=== PATIENT | male | born 1945 | race Caucasian/White ===

== ENCOUNTER 2019-10-25 18:18 | Inpatient (IN) | payer MEDICARE, OTHER, SELFPAY ==
[2019-10-25] VITALS (7 sets, daily range): BP systolic 90–123; BP diastolic 50–57; PULSE 74–87; RESP 16–21; TEMP 36.1–36.3; O2SAT 89–100; BMI 25.2
--- NOTE | ~2019-10-25 | XR_ITS ---
EXAMINATION: XR chest 1V portable DATE: 10/25/2019 19:02 INDICATION: Cough and shortness of breath. TECHNIQUE: frontal view of the chest was obtained. COMPARISON: None FINDINGS: Opacities at the bilateral lung bases with blunting at the costophrenic and cardiophrenic angles cons istent with small bilateral pleural effusions and associated basilar atelectasis versus less likely p neumonia. No pulmonary edema or pneumothorax. The cardiomediastinal silhouette is within normal limit s for AP technique. There are bridging osteophytes at multiple levels in the spine, consistent with d iffuse idiopathic skeletal hyperostosis (DISH). IMPRESSION: 1. Small bilateral pleural effusions with bibasilar atelectasis and/or pneumonia. Reviewed, dictated and finalized at location A. DER MACHINE SETTER IMPRESSION: 1. Small bilateral pleural effusions with bibasilar atelectasis and/or pneumoni a.
--- NOTE | ~2019-10-25 | NM_ITS ---
EXAMINATION: NM renal flow and function DATE: 10/28/2019 09:53 INDICATION: Acute kidney injury. TECHNIQUE: 7.6 mCi Tc-99m MAG3 was administered IV. The patient was scanned in the supine position. A posterior abdominal radionuclide angiogram was obtained. A subsequent time course of static images of the kidneys, ureters, and bladder was obtained. COMPARISON: CT abdomen and pelvis 10/25/2019 FINDINGS: The posterior abdominal radionuclide angiogram and sequential static images show mild atrop hy of the left kidney. Peak renal parenchymal uptake was 29 min in right kidney and 28 min in left ki dney (normal peak 3-5 minutes). The relative early renal uptake was 70% on the right and 30% on the left (<40% is abnormal). No abnormalities of the ureters or bladder are seen. T1/2 for clearance of activity from the kidneys and proximal collecting systems could not be measured . IMPRESSION: 1. Mild atrophy of left kidney with 30% of total renal function. 2. Delayed bilateral renal uptake and clearance of activity, consistent with nonspecific nephropathy . Reviewed, dictated and finalized at location A. RAM CLERK IMPRESSION: 1. Mild atrophy of left kidney with 30% of total renal function. 2. Delayed bilateral renal uptake and clearance of activity, consistent with n onspecific nephropathy.
--- NOTE | ~2019-10-25 | CT_ITS ---
EXAMINATION: CT abdomen pelvis wo con DATE: 10/25/2019 20:57 INDICATION: Shortness of breath and generalized abdominal pain. TECHNIQUE: Computed tomography (CT) of the abdomen and pelvis was performed without intravenous contr ast. Automated exposure control and iterative reconstruction technique were employed. The dose-length product was 416.32 mGy-cm. COMPARISON: Lumbar spine CT dated 09/18/2017 FINDINGS: Small to moderate sized bilateral posteriorly layering pleural effusions with compressive atelectasis in the bilateral lower lobes, right middle lobe and lingula. Heart size is normal. Atherosclerotic c oronary artery calcification. Mitral annulus calcification. Small pericardial effusion. Fine liver surface nodularity suggested consistent with cirrhosis. Cholecystectomy clips the gallblad daja fossa. Calcified periportal lymph nodes consistent with old granulomatous disease. Pancreas, smal l spleen, bilateral adrenal glands are normal. Ro catheter in the bladder which demonstrates prominent diffuse smooth wall thickening. There is m ild trabeculation of the bladder wall with suggestion of developing bladder wall diverticula which ca n be seen in the setting of chronic outlet obstruction. There is however urothelial thickening along the bilateral ureters extending to the renal pelvises sees which also suggests the possibility of cys titis with ascending urinary tract infections. Mild hydronephrosis at the right kidney. Mild left cameron al atrophy. No bowel obstruction. Normal appendix. No free intraperitoneal gas or fluid. No pathologically enlarg ed abdominal or pelvic lymphadenopathy. There is fusion across the L4-L5 disc space and narrowing of the L3-L4 disc space with irregular endplate erosions consistent with sequela of prior discitis and o steomyelitis which was noted on the prior lumbar spine CT. 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 Otherwise mild scattered degenerative skeletal changes IMPRESSION: 1. Diffuse wall thickening in the bladder with trabeculation suggesting this is due at least in part to chronic outlet obstruction however there is also urothelial thickening along the bilateral ureters and could not exclude cystitis with associated ascending urinary tract infection. Correlate with uri nalysis. 2. Mild right right hydroureteronephrosis without evident obstructing urolithiasis which could be rel ated to either reflux, obstruction at the level of the ureterovesicular junction or patulous collecti ng system related to chronic obstruction. 3. Small to moderate-sized bilateral pleural effusions. 4. Small pericardial effusion. 5. Suggestion of cirrhosis with subtle liver surface nodularity. Reviewed, dictated and finalized at location A. FABRICATING MACHINE TENDER IMPRESSION: 1. Diffuse wall thickening in the bladder with trabeculation suggesting this is due at least in part to chronic outlet obstruction however there is also uroth elial thickening along the bilateral ureters and could not exclude cystitis wit h associated ascending urinary tract infection. Correlate with urinalysis. 2. Mild right right hydroureteronephrosis without evident obstructing urolithia sis which could be related to either reflux, obstruction at the level of the ur eterovesicular junction or patulous collecting system related to chronic obstru ction. 3. Small to moderate-sized bilateral pleural effusions. 4. Small pericardial effusion. 5. Suggestion of cirrhosis with subtle liver surface nodularity.
--- NOTE | ~2019-10-25 | US_ITS ---
EXAMINATION: US renal BI EXAM DATE: 10/26/2019 16:40 INDICATION: Thickened bladder wall, trabeculation, mild right hydroureteronephrosis on CT. TECHNIQUE: Multiple grayscale and Doppler images of the kidneys were obtained (by a technologist who performed the scan) and subsequently reviewed. Correlation is made to CT abdomen and pelvis from 2019. FINDINGS: Right kidney: There is normal contour and echogenicity. It measures 10.3 x 5.2 x 6.2 centimeters. T here are no focal renal lesions identified. There is mild right-sided hydronephrosis. No obstructing stone was present on yesterday's CT. Left kidney: There is normal contour and echogenicity. It measures 9.0 x 5.2 x 5.0 centimeters. The re are no focal renal lesions identified. There is no hydronephrosis. Ro catheter within collapsed bladder. There is evidence of significant diffuse bladder wall thicke alejandro. IMPRESSION: 1. Severe diffuse bladder wall thickening consistent with cystitis. 2. Mild right hydronephrosis. Reviewed, dictated and finalized at location A. H SHRINKING SUPERVISOR
--- NOTE | 2019-10-25 18:20 | ECG_ITS ---
Measurements Intervals [place] Rate: 78 P: 28 TX: 173 QRS: 10 QRSD: 101 T: 29 QT: 348 QTc: 397 Interpretive Statements SINUS RHYTHM NORMAL ECG Electronically Signed On 10-26-2019 10:01:41 PATIENT REGISTRATION REPRESENTATIVE by Julian Olsen D.O.
--- NOTE | 2019-10-25 18:20 | ED.SOB ---
HPI - SOB/Dyspnea General Chief Complaint: Shortness of Breath/Dyspnea Stated Complaint: SOB Time Seen by Provider: 10/25/19 18:21 Source: patient Mode of arrival: ambulatory Limitations: other (poor historian) History of Present Illness HPI Narrative: A 74 y/o male pt presents to the ED, with c/o chronic SOB that is worse today. Pt denies cough, fever, or CP. Pt states he has a Hx of smoking but quit 16 years ago. A complete HPI is limited d/t pt being a poor historian. MD elicited complaint: shortness of breath Onset (ago): day(s) (1) Related Data Home Medications Medication Instructions Recorded Confirmed amlodipine 5 mg PO DAILY 10/25/19 furosemide 40 mg PO DAILY 10/25/19 indomethacin 50 mg PO BID PRN 10/25/19 meloxicam 15 mg PO DAILY 10/25/19 methocarbamol 500 mg PO QID PRN 10/25/19 prednisone 10 mg PO BID 10/25/19 Allergies Allergy/AdvReac Type Severity Reaction Status Date / Time Penicillins Allergy Unknown Nervousness Verified 10/25/19 19:15 pcn Allergy Mild Nervousness Uncoded 10/25/19 18:44 Review of Systems Review of Systems: Narrative: A complete ROS is limited d/t pt being a poor historian Constitutional: Constitutional: Denies fever(s) Cardiovascular: Cardiovascular: Denies chest pain Respiratory: Respiratory: Denies cough and Reports dyspnea PMFSH Past Medical History Medical History (Updated 10/25/19 @ 21:38 by Diego Garcia DO) Back pain Medical history unknown Surgical History Surgical History (Updated 10/25/19 @ 19:15 by [employer]) Surgical history unknown Social History Social History (Updated 10/25/19 @ 19:16 by [employer]) Smoking status: Former smoker Additional smoking assessment comments: quit about 16 years ago. Exam Narrative: Exam Narrative: APPEARANCE: Pale in appearance, no acute distress, nontoxic no acute distress, nontoxic, resting in bed EYES: PERRL HEENT: Normocephalic, atraumatic, OMM RESPIRATORY: No respiratory distress Clear to auscultation bilaterally with no rhonchi wheezing or rales. CARDIOVASCULAR: Regular rate and rhythm without murmurs rubs or gallops. ABDOMINAL: Soft, nontender, nondistended, no rebound or guarding MUSCULOSKELETAl: Moves all extremities. No clubbing, cyanosis or edema. NEURO: Awake and alert. Following commands, speech normal, no focal deficits SKIN:: Warm, dry. No rashes lesions or abrasions PSYCHIATRIC: Normal affect/mood, Course Consultations Consultation #1: Discussed case with Dr. Arroyo, the pesticide applicator. Recommends administering D5W with 150 mEq sodium bicarbonate at 50 mL an hour. Recommends treatment for hyperkalemia with insulin and dextrose, calcium, push sodium bicarb and Kayexalate.. Request the patient received Lasix 20 mg IV push after first unit of blood transfused and then additional 20 mg IV push after the second unit infused Date: 10/25/19 Time: 20:44 Consultation #2: Discussed case with Dr. Lorenz, the Hospitalist. Accepts admission. Date: 10/25/19 Time: 20:52 Consultation #3: Discussed case with Dr. Kim, the bad work gatherer. Agrees to consult. Date: 10/25/19 Time: 21:30 Vital Signs Vital signs: Vital Signs Pulse Rate 83 10/25/19 18:39 Respiratory Rate 20 10/25/19 18:39 Temperature 97.0 F L 10/25/19 18:42 Pulse Rate 87 10/25/19 18:47 Respiratory Rate 20 10/25/19 18:47 Blood Pressure 121/57 L 10/25/19 18:42 Pulse Oximetry 89 L 10/25/19 18:42 Procedures Catheter Insertion (Urinary) Urinary Catheter 1: Reason for placing: Yes Reason for placing indwelling catheter: Acute urinary retention Bladder scan/ultrasound used before catheterization: Yes Estimated amount of urine (mLs): 900 Catheter type/location: Coude Size (Italian): 16 Results: successfully catheterized-immediate flow Procedure performed: without complications MDM - SOB/Dyspnea Lab Data Result diagrams
[2019-10-25] MEDS: ALBUTEROL SULFATE NEB 2.5 MG/0.5 ML INH 5 MG INHALATION (18:36)
[2019-10-25] MEDS: IPRATROPIUM BR 0.02% INH SOLN 0.5 MG/2.5 ML VIAL INHALATION (18:36)
[2019-10-25 18:45] LABS: Alveolar/Arterial O2 Gradient 48.7 mmHg; Base Excess ABG -10.2 mEq/l (+/-2.0); Fractional Inspired Oxygen 28 %; Oxygen Content ABG 7.5 %vol (16.0-22.0); Oxyhemoglobin 95.3 % THb (90.0-100.0); PO2 ABG 115.5 mmHg (80.0-100.0); PO2 FiO2 Ratio Arterial Blood 4.13 %; pH ABG 7.317 (7.350-7.450)
[2019-10-25 18:53] LABS: Basophils Percent Auto 0.1 % (0.2-1.2); Eosinophils Percent Auto 0.1 % (0-4.4); Immature Granulocyte Absolute 0.11 K/mm3 (0.00-0.031); Immature Granulocyte Percent A 1.2 % (0-0.5); Lymphocytes Absolute Auto 0.42 K/mm3 (0.9-3.2); Lymphocytes Percent Auto 4.5 % (18.3-44.2); Mean Corpuscular HGB Conc 33.3 g/dl (32-36); Mean Corpuscular Hemoglobin 31.8 pg (26-34); Mean Corpuscular Volume 95.3 fl (80-100); Mean Platelet Volume 9.8 fl (7.4-10.4); Monocytes Absolute Auto 0.8 K/mm3 (0.1-0.6); Monocytes Percent Auto 8.6 % (2.6-8.5); Neutrophils Percent Auto 85.5 % (45.5-73.1); Platelet Count Result 313 k/mm3 (150-375); Red Blood Count 1.48 M/mm3 (4.6-6.20); Red Cell Distribution Width 13.6 % (11.5-14.5); White Blood Count 9.3 K/mm3 (4.5-10.0)
[2019-10-25 18:55] LABS: Device NASAL CANNULA; Modified Allen's Test Pass; Site Drawn RIGHT RADIAL; Total Hemoglobin 5.4 g/dL (12.0-18.0)
[2019-10-25 19:02] LABS: Hemoglobin 4.7 g/dL (14.0-18.0)
[2019-10-25 19:03] LABS: Hematocrit 14.1 % (42.0-52.0)
[2019-10-25 19:05] LABS: Platelet Estimate Adequate (Adequate)
[2019-10-25 19:06] LABS: INR 1.3; Prothrombin Time 15.4 Seconds (11.1-14.7)
[2019-10-25 19:07] LABS: Partial Thromboplastin Time 27.3 SECONDS (22.3-36.8)
[2019-10-25 19:10] LABS: Alanine Aminotransferase 30 U/L (4-50); Albumin Level 2.9 g/dL (3.5-5.1); Alkaline Phosphatase 56 U/L (38-126); Aspartate Amino Transferase 56 U/L (17-59); Bilirubin,Total 0.4 mg/dL (0.2-1.3); Blood Urea Nitrogen 90 mg/dL (9-20); Calcium 7.8 mg/dL (8.4-10.2); Carbon Dioxide 14 mmol/L (22-30); Chloride 97 mmol/L (98-107); Estimated CRCL calculation 10 ml/min; Estimated Glomerular Filt Rate 10; Glucose 107 mg/dL (75-110); Potassium 6.4 mmol/L (3.4-5.0); Sodium 125 mmol/L (137-145)
[2019-10-25 19:17] LABS: NT Pro B Type Natriuretic Pept 20200 PG/ML (5-100); Troponin I 0.024 ng/mL (0.000-0.034)
[2019-10-25 20:20] LABS: Blood Urea Nitrogen 87 mg/dL (9-20); Calcium 7.7 mg/dL (8.4-10.2); Carbon Dioxide 13 mmol/L (22-30); Chloride 97 mmol/L (98-107); Estimated CRCL calculation 10 ml/min; Estimated Glomerular Filt Rate 10; Glucose 103 mg/dL (75-110); Potassium 6.4 mmol/L (3.4-5.0); Sodium 124 mmol/L (137-145)
--- NOTE | 2019-10-25 20:27 | PC.NURSE ---
Attempted to straight cath x2 unsuccessfully
[2019-10-25] MEDS: SODIUM POLYSTYRENE SULFONONATE 15 GM/60 ML BTL 30 GM PO (21:22)
[2019-10-25 21:23] LABS: Add Urine Microscopic? YES; Appearance Urine Cloudy (Clear); Bacteria Urine 3+ /hpf; Bilirubin Urine Negative (Negative); Blood Urine 2+ (Negative); Color Urine Yellow (Yellow); Glucose Urine UA Negative (Negative); Ketones Urine Negative (Negative); Leukocyte Esterase Ur 3+ LEU/UL (Negative); Nitrate Urine Negative (Negative); Protein Urine 1+ mg/dL (Negative); Specific Grav Ur 1.011 (1.001-1.035); Urobilinogen Urine Negative mg/dL (<2.0); WBC Urine >75 /hpf
[2019-10-25] MEDS: SODIUM BICARBONATE 8.4% 50 MEQ/50 ML VIAL IV PUSH (21:23)
[2019-10-25] MEDS: DEXTROSE 50% 25 GM/50 ML SYRINGE IV PUSH (21:23)
[2019-10-25] MEDS: CALCIUM GLUCONATE 1,000 MG/10 ML VIAL 1000 MG IV PUSH (21:23)
[2019-10-25] MEDS: INSULIN HUMAN REGULAR (*BKC) 100 UNITS/ML 10 UNITS IV PUSH (21:23)
[2019-10-25 21:25] LABS: Lactic Acid Reflex 3.7 mmol/L (0.7-2.1)
[2019-10-25] MEDS: SODIUM BICARBONATE 8.4% 150 MEQ in DEXTROSE 5% 1,000 ML 950 ML 50 ML IV CONT (22:28)
[2019-10-25] MEDS: SODIUM CHLORIDE 0.9% IV 250 ML 25 ML (22:41)
--- NOTE | 2019-10-25 22:54 | PM.IMHP ---
H&P: HPI History of Present Illness Chief complaint: SYMPTMATIC ANEMUA,ACUTE RENAL FAILURE,HYPERKALEMIA Narrative: This is an unfortunate 74-year-old male with known history of chronic hypertension who presented to the hospital with worsening shortness of breath over the past 4 days. The patient does report having dark stools and has been lightheaded. He also tells me that he has had increased generalized weakness and been feeling very tired. Patient is known to live with his and he does admit to chronic alcoholism. When I asked him how much alcohol he drinks every day he tells me he drinks as much as he can. The patient is a former smoker although he has not smoked for the past 15 years. He denies any anticoagulant use and also denies any aspirin use. He tells me that he has had a previous GI bleed in the past but he does not know the reason why. Overall the patient is a very poor historian and on many of my questions his answer is simply, I do not know. The patient tonight denies any fever or chills, chest pain, nausea, vomiting, abdominal pain, diarrhea, dysuria, hematuria, or dark emesis. The patient was evaluated emergency room and found to have a severe anemia with a hemoglobin of 4.7 and hematocrit of 14.1. To have complicated UTI with acute renal failure and hyperkalemia with a potassium of 6.4. CT abdomen pelvis demonstrated diffuse wall thickening in the bladder with trabeculation suggesting this is due at least in part to chronic outlet obstruction however there is also urothelial thickening along the bilateral ureters and could not exclude cystitis with associated ascending urinary tract infection. Nephrology has been consulted and the patient has been started on a sodium bicarbonate IV drip. Blood transfusions have been ordered as well. Beading Sawyer, Dr. Parks has been consulted. He has no other significant complaints at this time. Review of Systems Review of Systems: All systems reviewed & are unremarkable except as noted in HPI and below PMFSH Past Medical History Medical History Back pain Chronic hypertension Medical history unknown Surgical History Surgical History Surgical history unknown Social History Social History Smoking status: Former smoker Tobacco type: cigarettes Second hand tobacco smoke exposure: No Additional smoking assessment comments: quit about 16 years ago. Alcohol intake: current Drinks per week: 24 Substance use: never Substance use type: does not use Gender identity (if verbalized by the patient): Male Spiritual care concerns: No Agree to blood products: Yes Comments Patient does not know his family history. Meds Home Medications and Allergies Home Medications Medication Instructions Recorded Confirmed Type amlodipine 5 mg PO DAILY 10/25/19 10/26/19 History furosemide 40 mg PO DAILY 10/25/19 10/26/19 History indomethacin 50 mg PO BID PRN 10/25/19 10/26/19 History meloxicam 15 mg PO DAILY 10/25/19 10/26/19 History methocarbamol 500 mg PO QID PRN 10/25/19 10/26/19 History prednisone 10 mg PO BID 10/25/19 10/26/19 History Allergies Allergy/AdvReac Type Severity Reaction Status Date / Time Penicillins Allergy Unknown Nervousness Verified 10/25/19 19:15 pcn Allergy Mild Nervousness Uncoded 10/25/19 18:44 Vital Signs Vital Signs - 24 hr 10/25/19 18:39 10/25/19 18:42 10/25/19 18:47 Temperature 36.1 C L Pulse Rate 83 81 87 Respiratory Rate 20 16 20 Blood Pressure 121/57 L Pulse Oximetry 89 L 10/25/19 20:01 10/25/19 20:46 10/25/19 21:31 Temperature Pulse Rate 74 81 Respiratory Rate 17 21 H Blood Pressure 90/53 L 105/50 L 123/51 L Pulse Oximetry 100 98 Exam Const: General: alert, awake, anxious, ill appearing and other (Pale appearing) Nutrit
[2019-10-26] VITALS (32 sets, daily range): BP systolic 102–149; BP diastolic 50–70; PULSE 80–99; RESP 14–26; TEMP 36–37; O2SAT 92–100
[2019-10-26 00:09] LABS: Reflex Lactic Acid Yes or No Add Lactic
[2019-10-26] MEDS: SODIUM CHLORIDE 0.9% IV 250 ML 30 ML IV CONT ×2 (00:10→14:45)
[2019-10-26] MEDS: TUBING, BLOOD PLUM PUMP TUBING 1 EACH XX (00:10)
[2019-10-26 01:14] LABS: Troponin I 0.025 ng/mL (0.000-0.034)
--- NOTE | 2019-10-26 01:27 | ADMGEN ---
This patient, Diego Guzman, was admitted to IMU Room 213-01. Patient/family oriented to hospital policies and general routines including ID bracelet, bed and alarms, visiting hours, pain management, procedures, bathroom and other care routines, personal items, smoking policy, room service/diet, and visiting hours. Valuables list has been completed. Information on how to activate the Rapid Response Team has been discussed. Patient/Family are encouraged to report perceived risks to care and to ask questions if they do not understand what they are told or what they should do.
[2019-10-26] MEDS: FUROSEMIDE INJ 40 MG/4 ML VIAL 20 MG IV PUSH ×2 (02:30→04:37)
[2019-10-26 02:33] LABS: Blood Urea Nitrogen 94 mg/dL (9-20); Calcium 7.9 mg/dL (8.4-10.2); Carbon Dioxide 14 mmol/L (22-30); Chloride 99 mmol/L (98-107); Estimated CRCL calculation 10 ml/min; Estimated Glomerular Filt Rate 10; Glucose 53 mg/dL (75-110); Potassium 5.7 mmol/L (3.4-5.0); Sodium 127 mmol/L (137-145)
[2019-10-26 03:22] LABS: Glucose Point of Care 118 (65-105)
[2019-10-26 06:48] LABS: Basophils Percent Auto 0.1 % (0.2-1.2); Eosinophils Percent Auto 0.1 % (0-4.4); Hematocrit 22.5 % (42.0-52.0); Hemoglobin 7.1 g/dL (14.0-18.0); Immature Granulocyte Absolute 0.12 K/mm3 (0.00-0.031); Immature Granulocyte Percent A 0.7 % (0-0.5); Lymphocytes Absolute Auto 0.71 K/mm3 (0.9-3.2); Lymphocytes Percent Auto 4.3 % (18.3-44.2); Mean Corpuscular HGB Conc 31.6 g/dl (32-36); Mean Corpuscular Hemoglobin 30.6 pg (26-34); Mean Platelet Volume 9.9 fl (7.4-10.4); Monocytes Absolute Auto 1.4 K/mm3 (0.1-0.6); Monocytes Percent Auto 8.3 % (2.6-8.5); Neutrophils Absolute Auto 14.3 K/mm3 (1.3-6.7); Neutrophils Percent Auto 86.5 % (45.5-73.1); Platelet Count Result 186 k/mm3 (150-375); Red Blood Count 2.32 M/mm3 (4.6-6.20); Red Cell Distribution Width 14.1 % (11.5-14.5); White Blood Count 16.5 K/mm3 (4.5-10.0)
[2019-10-26 06:56] LABS: Lactic Acid 1.5 mmol/L (0.7-2.1)
[2019-10-26 07:02] LABS: Blood Urea Nitrogen 96 mg/dL (9-20); Calcium 7.9 mg/dL (8.4-10.2); Carbon Dioxide 14 mmol/L (22-30); Chloride 95 mmol/L (98-107); Estimated CRCL calculation 11 ml/min; Estimated Glomerular Filt Rate 10; Glucose 99 mg/dL (75-110); Potassium 4.9 mmol/L (3.4-5.0); Sodium 125 mmol/L (137-145)
[2019-10-26] MEDS: THIAMINE HCL 200 MG/2 ML VIAL 100 MG IV PUSH (09:49)
--- NOTE | 2019-10-26 10:54 | WPDANESEPPF ---
Anes - Initial Pre Proc Eval Procedure: Operation Date: 10/26/19 12:30 Proposed Procedures p Esophagogastroduodenoscopy - Laith Kim MD Date/Time: 10/26/19 10:54 Pre Op Diagnosis: SYMPTMATIC ANEMUA,ACUTE RENAL FAILURE,HYPERKALEMIA Patient Data Age: 74 Gender: M Height: 1.7 m Weight: 74 kg Last Vital Signs Temp 36.7 C 10/26/19 07:12 Pulse 97 10/26/19 07:12 Resp 18 10/26/19 07:12 BP 145/65 H 10/26/19 07:12 Pulse Ox 97 10/26/19 07:12 Allergies Allergy/AdvReac Type Severity Reaction Status Date / Time Penicillins Allergy Unknown Nervousness Verified 10/25/19 19:15 pcn Allergy Mild Nervousness Uncoded 10/25/19 18:44 Home Medications Medication Instructions Recorded Confirmed Type amlodipine 5 mg PO DAILY 10/25/19 10/26/19 History furosemide 40 mg PO DAILY 10/25/19 10/26/19 History indomethacin 50 mg PO BID PRN 10/25/19 10/26/19 History meloxicam 15 mg PO DAILY 10/25/19 10/26/19 History methocarbamol 500 mg PO QID PRN 10/25/19 10/26/19 History prednisone 10 mg PO BID 10/25/19 10/26/19 History Laboratory Tests 10/25/19 10/25/19 10/25/19 18:34 18:45 18:45 WBC 9.3 K/mm3 K/mm3 (4.5-10.0) RBC 1.48 M/mm3 L M/mm3 (4.6-6.20) Hgb 4.7 g/dL L* g/dL (14.0-18.0) Hct 14.1 % L* % (42.0-52.0) MCV 95.3 fl fl (80-100) MCH 31.8 pg pg (26-34) MCHC 33.3 g/dl g/dl (32-36) RDW 13.6 % % (11.5-14.5) Plt Count 313 k/mm3 k/mm3 (150-375) MPV 9.8 fl fl (7.4-10.4) Immature Gran % (Auto) 1.2 % H % (0-0.5) Neut % (Auto) 85.5 % H % (45.5-73.1) Lymph % (Auto) 4.5 % L % (18.3-44.2) Foard % (Auto) 8.6 % H % (2.6-8.5) Eos % (Auto) 0.1 % % (0-4.4) Baso % (Auto) 0.1 % L % (0.2-1.2) Lymph # (Auto) 0.42 K/mm3 L K/mm3 (0.9-3.2) Foard # (Auto) 0.8 K/mm3 H K/mm3 (0.1-0.6) Eos # (Auto) 0.0 K/mm3 K/mm3 (0-0.3) Baso # (Auto) 0.0 K/mm3 K/mm3 (0.0-0.1) Abs Immat Gran (auto) 0.11 K/mm3 H K/mm3 (0.00-0.031) Absolute Neuts (auto) 8.0 K/mm3 H K/mm3 (1.3-6.7) Absolute Nucleated RBC 0.0 K/mm3 K/mm3 (0.0-0.012) Nucleated RBC % 0.0 % % (0.0-0.2) Platelet Estimate Adequate (Adequate) PT 15.4 Seconds H Seconds (11.1-14.7) INR 1.3 APTT 27.3 SECONDS SECONDS (22.3-36.8) Puncture Site Right radial ABG pH 7.317 L (7.350-7.450) ABG pCO2 30.0 mmHg L mmHg (35.0-45.0) ABG pO2 115.5 mmHg H mmHg (80.0-100.0) ABG PO2/FiO2 Ratio 4.13 % % ABG HCO3 15.0 mEq/l L mEq/l (22.0-26.0) ABG O2 Saturation 98.0 % % (95.0-100.0) ABG O2 Content 7.5 %vol L %vol (16.0-22.0) ABG Base Excess -10.2 mEq/l mEq/l (+/-2.0) A-a Gradient 48.7 mmHg mmHg Oxyhemoglobin 95.3 % THb % THb (90.0-100.0) Total Hemoglobin 5.4 g/dL L* g/dL (12.0-18.0) O2 Delivery Device Nasal cannula O2 Liters/Min 2.0 LPM LPM FiO2 28 % % Sodium Potassium Chloride Carbon Dioxide BUN Creatinine Estim Creat Clear Calc Estimated GFR Glucose POC Capillary Glucose Lactic Acid Calcium Total Bilirubin AST ALT Alkaline Phosphatase Troponin I NT-Pro-B Natriuret Pep Total Protein Albumin Urine Color Urine Appearance Urine pH Ur Specific [place] Urine Protein Urine Glucose (UA) Urine Ketones Ur Blood (Man) Urine Nitrate Urine Bilirubin
[2019-10-26 11:46] LABS: Hematocrit 18.8 % (42.0-52.0); Hemoglobin 6.5 g/dL (14.0-18.0)
[2019-10-26 11:52] LABS: Glucose Point of Care 99 (65-105)
[2019-10-26] MEDS: LACTATED RINGERS 1,000 ML 150 ML IV CONT (12:02)
[2019-10-26] MEDS: EPINEPHrine INJ 1 MG/10 ML SYRINGE XX (12:56)
--- NOTE | 2019-10-26 13:23 | WPDGICN ---
Assessment and Plan Assessment and plan (1) Melena: Code(s): K92.1 - Melena Status: Acute Assessment and Plan: he is npo, started on iv protonix drip. Will proceed with urgent EGD, differential include variceal bleeding, ulcers, esophagitis, etc. (2) Alcoholic liver disease: Code(s): K70.9 - Alcoholic liver disease, unspecified Status: Acute Assessment and Plan: supportive care, no ascites. On CIWA protocol, thiamine and mvi. (3) Lactic acidosis: Code(s): E87.2 - Acidosis Status: Acute Assessment and Plan: dehydration, bleeding, renal failure. Supportive care (4) Acute urinary retention: Code(s): R33.8 - Other retention of urine Status: Acute (5) Acute hyponatremia: Code(s): E87.1 - Hypo-osmolality and hyponatremia Status: Acute (6) Acute renal failure: Qualifiers: Acute renal failure type: unspecified Qualified Code(s): N17.9 - Acute kidney failure, unspecified Code(s): N17.9 - Acute kidney failure, unspecified Status: Acute Assessment and Plan: multifactorial, nephrology on board (7) Symptomatic anemia: Code(s): D64.9 - Anemia, unspecified Status: Acute Assessment and Plan: he already received blood transfusion, monitor with serial h/h (8) Acute hyperkalemia: Code(s): E87.5 - Hyperkalemia Status: Acute (9) UTI (urinary tract infection): Qualifiers: Urinary tract infection type: site unspecified Hematuria presence: without hematuria Qualified Code(s): N39.0 - Urinary tract infection, site not specified Code(s): N39.0 - Urinary tract infection, site not specified Status: Acute Assessment and Plan: on iv antibiotic GI Consult Note Consult date/time: 10/26/19 13:23 reason for consult: GIB HPI: Diego Guzman is a 74 year old male here with symptomatic anemia, he is a poor historian and is confused. History is obtained from records and also from that is at bedside. She says that he is an alcoholic, he will drink up to 20 beers daily for years. Here with progressive shortness of breath, fatigue and also dark tarry stools with blood. No report of recent endoscopic evaluation, also use of nsaid's. ER work up showed hb 4.7 (received 2 units of prbc), also LITZY with creatinine 5.7, inr 1.3, elevated lactic acid and hyperkalemia, had CT abdomen pelvis demonstrated diffuse wall thickening in the bladder with trabeculation suggesting this is due at least in part to chronic outlet obstruction, possible liver cirrhosis. Normal liver enzymes and platelets, albumin 2.9. He is NPO, started on iv abx, also iv protonix drip. Review of Systems Constitutional: Constitutional: Reports fatigue, Reports lethargy and Reports poor appetite Eyes: Eyes: Denies blurry vision ENT: Reports Normal hearing present, Denies headache(s) and Denies neck pain Cardiovascular: Cardiovascular: Denies chest pain and Denies dyspnea Respiratory: Respiratory: Reports dyspnea on exertion Gastrointestinal: Gastrointestinal: Reports melena and Reports nausea Genitourinary: Genitourinary: Reports oliguria Musculoskeletal: Musculoskeletal: Denies neck pain Integumentary/Breasts: Skin/Breast: Denies dry skin Neurologic: Reports confusion Psychiatric: Psychiatric: Reports confusion Endocrine: Endocrine: Denies change in body appearance Hematologic/Lymphatic: Hematologic/Lymphatic: Denies lymphadenopathy Allergic/Immunologic: Allergic/Immunologic: Denies urticaria PMFSH Social History Social History Smoking status: Former smoker Tobacco type: cigarettes Second hand tobacco smoke exposure: No Additional smoking assessment comments: quit about 16 years ago. Alcohol intake: current Drinks per week: 24 Substance use: never Substance use type: does not use Gender identity (if verbalized by the hrial
[2019-10-26 13:49] LABS: Glucose Point of Care 114 (65-105)
--- NOTE | 2019-10-26 14:02 | P.PNIM_ITS ---
Progress Note: A&P Assessment and Plan (1) Duodenal ulcer: Code(s): K26.9 - Duodenal ulcer, unspecified as acute or chronic, without hemorrhage or perforation Status: Acute Assessment and Plan: * EGD 10/26 with DU that was cauterized, gastritis, duodenitis * continue ppi * advance diet * f/u h/h (2) Anemia due to acute blood loss: Code(s): D62 - Acute posthemorrhagic anemia Status: Acute Assessment and Plan: * 10/26 hgb 6.5, 1 U PRBC ordered * f/u h/h (3) UTI (urinary tract infection): Qualifiers: Hematuria presence: without hematuria Urinary tract infection type: site unspecified Qualified Code(s): N39.0 - Urinary tract infection, site not specified Code(s): N39.0 - Urinary tract infection, site not specified Status: Acute Assessment and Plan: * continue ceftriaxone day 2, pending c/s (4) Acute renal failure: Qualifiers: Acute renal failure type: unspecified Qualified Code(s): N17.9 - Acute kidney failure, unspecified Code(s): N17.9 - Acute kidney failure, unspecified Status: Acute Assessment and Plan: * anemia and chronic NSAID therapy (with two drugs) might be playing a role * intravascular volume depletion may be playing a role * given CT findings, outflow obstruction may be playing a role * glomerular and interstitial nephropathies seem less likely * hepatorenal syndrome seems less likely * 09/18/2017 creatinine was 0.5 * creatinine 10/25 5.7 * 10/26 5.4 * continue iv hydration, avoid nephrotoxic drugs, f/u lab (5) CHF (congestive heart failure): Qualifiers: Heart failure chronicity: chronic Heart failure type: unspecified Qualified Code(s): I50.9 - Heart failure, unspecified Code(s): I50.9 - Heart failure, unspecified Status: Acute Assessment and Plan: * monitor volume status (6) Acute hyperkalemia: Code(s): E87.5 - Hyperkalemia Status: Acute Assessment and Plan: * resolved, 10/26 4.9 (7) Acute hyponatremia: Code(s): E87.1 - Hypo-osmolality and hyponatremia Status: Acute Assessment and Plan: * 2/5 125, continue ivf * Check FENA, FEU * f/u lab (8) Alcohol abuse: Code(s): F10.10 - Alcohol abuse, uncomplicated Status: Acute Assessment and Plan: * prn lorazepam per [facility] protocol (9) Cirrhosis of liver: Qualifiers: Hepatic cirrhosis type: alcoholic cirrhosis Ascites presence: without ascites Qualified Code(s): K70.30 - Alcoholic cirrhosis of liver without ascites Code(s): K74.60 - Unspecified cirrhosis of liver Status: Acute Assessment and Plan: * CT c/w cirrhosis * Likely due to alcohol * Check HBV, HCV, HAV * If negative titers, should get immunized Subjective Date/time seen: 10/26/19 14:02 Interval history: Still sob with minimal exertion. Denied pain. Denied n/v. Denied overt bleeding. Review of Systems Review of Systems: All systems reviewed & are unremarkable except as noted in HPI and below Exam Narrative: Exam Narrative: HEENT: EOMI, PERRL, pharyngeal mucosa pink and intact NECK: No JVD CHEST: Clear to auscultation. Normal effort. HEART: NL S1/S2, regular, no murmur ABDOMEN: BS+, soft, nontender, no mass, no bruits EXTREMITIES: No cyanosis, edema, or clubbing NEUROLOGIC: CN intact and symmetric to inspection. MUSCULOSKELETAL: Tone and strength symmetric. PSYCH: Alert. Oriented to person, place, and time.
--- NOTE | 2019-10-26 14:02 | PM.IMPN ---
Progress Note: A&P Assessment and Plan (1) Duodenal ulcer: Code(s): K26.9 - Duodenal ulcer, unspecified as acute or chronic, without hemorrhage or perforation Status: Acute Assessment and Plan: EGD 10/26 with DU that was cauterized, gastritis, duodenitis continue ppi advance diet f/u h/h (2) Anemia due to acute blood loss: Code(s): D62 - Acute posthemorrhagic anemia Status: Acute Assessment and Plan: 10/26 hgb 6.5, 1 U PRBC ordered f/u h/h (3) UTI (urinary tract infection): Qualifiers: Hematuria presence: without hematuria Urinary tract infection type: site unspecified Qualified Code(s): N39.0 - Urinary tract infection, site not specified Code(s): N39.0 - Urinary tract infection, site not specified Status: Acute Assessment and Plan: continue ceftriaxone day 2, pending c/s (4) Acute renal failure: Qualifiers: Acute renal failure type: unspecified Qualified Code(s): N17.9 - Acute kidney failure, unspecified Code(s): N17.9 - Acute kidney failure, unspecified Status: Acute Assessment and Plan: anemia and chronic NSAID therapy (with two drugs) might be playing a role intravascular volume depletion may be playing a role given CT findings, outflow obstruction may be playing a role glomerular and interstitial nephropathies seem less likely hepatorenal syndrome seems less likely 09/18/2017 creatinine was 0.5 creatinine 10/25 5.7 10/26 5.4 continue iv hydration, avoid nephrotoxic drugs, f/u lab (5) CHF (congestive heart failure): Qualifiers: Heart failure chronicity: chronic Heart failure type: unspecified Qualified Code(s): I50.9 - Heart failure, unspecified Code(s): I50.9 - Heart failure, unspecified Status: Acute Assessment and Plan: monitor volume status (6) Acute hyperkalemia: Code(s): E87.5 - Hyperkalemia Status: Acute Assessment and Plan: resolved, 10/26 4.9 (7) Acute hyponatremia: Code(s): E87.1 - Hypo-osmolality and hyponatremia Status: Acute Assessment and Plan: 10/26 125, continue ivf Check FENA, FEU f/u lab (8) Alcohol abuse: Code(s): F10.10 - Alcohol abuse, uncomplicated Status: Acute Assessment and Plan: prn lorazepam per [facility] protocol (9) Cirrhosis of liver: Qualifiers: Hepatic cirrhosis type: alcoholic cirrhosis Ascites presence: without ascites Qualified Code(s): K70.30 - Alcoholic cirrhosis of liver without ascites Code(s): K74.60 - Unspecified cirrhosis of liver Status: Acute Assessment and Plan: CT c/w cirrhosis Likely due to alcohol Check HBV, HCV, HAV If negative titers, should get immunized Subjective Date/time seen: 10/26/19 14:02 Interval history: Still sob with minimal exertion. Denied pain. Denied n/v. Denied overt bleeding. Review of Systems Review of Systems: All systems reviewed & are unremarkable except as noted in HPI and below Exam Narrative: Exam Narrative: HEENT: EOMI, PERRL, pharyngeal mucosa pink and intact NECK: No JVD CHEST: Clear to auscultation. Normal effort. HEART: NL S1/S2, regular, no murmur ABDOMEN: BS+, soft, nontender, no mass, no bruits EXTREMITIES: No cyanosis, edema, or clubbing NEUROLOGIC: CN intact and symmetric to inspection. MUSCULOSKELETAL: Tone and strength symmetric. PSYCH: Alert. Oriented to person, place, and time. Objective Data Vital Signs Vital Signs: Vital Signs - 24 hr 10/25/19 18:39 10/25/19 18:42 10/25/19 18:47 Temperature 97.0 F L Pulse Rate 83 81 87 Respiratory Rate 20 16 20 Blood Pressure 121/57 L Pulse Oximetry 89 L 10/25/19 20:01 10/25/19 20:46 10/25/19 21:31 Temperature Pulse Rate 74 81 Respiratory Rate 17 21 H Blood Pressure 90/53 L 105/50 L 123/51 L Pulse Oximetry 100 98 10/25/19 23:40 10/26/19 00:00 10/26/19 00:10 Temperature 97.3 F L 97.3 F L Pul
[2019-10-26 15:49] LABS: Creatinine Urine 35.6 mg/dL
[2019-10-26 15:50] LABS: Urea Random Urine 329 MG/DL
[2019-10-26 15:52] LABS: Sodium Urine Random 60 meq/L
--- NOTE | 2019-10-26 18:36 | PM.CNNEP ---
Assessment and Plan Assessment and plan (1) Acute renal failure: Qualifiers: Acute renal failure type: unspecified Qualified Code(s): N17.9 - Acute kidney failure, unspecified Code(s): N17.9 - Acute kidney failure, unspecified Status: Acute Assessment and Plan: Patient has acute kidney injury. His creatinine is quite high. His baseline creatinine seems pretty good. There are several possibilities as to the cause of the LITZY. He is probably dehydrated with his bleeding. He was taking meloxicam routinely and p.r.n. indomethacin which would probably contribute as well. He was anemic which could contribute to the pre renal picture. Obstruction is always a possibility as well based on the CT findings. At this point will get urine electrolytes, eosinophils, and a renal ultrasound. We can check a postvoid residual. (2) Symptomatic anemia: Code(s): D64.9 - Anemia, unspecified Status: Acute Assessment and Plan: He received transfusions. (3) Acute hyponatremia: Code(s): E87.1 - Hypo-osmolality and hyponatremia Status: Acute Assessment and Plan: Sodium level is low. Most likely due to dehydration. Will check thyroid and cortisol for now and continue IV fluids. (4) Acute hyperkalemia: Code(s): E87.5 - Hyperkalemia Status: Acute Assessment and Plan: Potassium was high on admission, possibly due to blood in the gut and resorption of the potassium from blood. This is better now. (5) CHF (congestive heart failure): Qualifiers: Heart failure chronicity: chronic Heart failure type: unspecified Qualified Code(s): I50.9 - Heart failure, unspecified Code(s): I50.9 - Heart failure, unspecified Status: Acute Assessment and Plan: He has a history of congestive heart failure. (6) Alcoholic liver disease: Code(s): K70.9 - Alcoholic liver disease, unspecified Status: Acute Assessment and Plan: He continues to drink. (7) Duodenal ulcer: Code(s): K26.9 - Duodenal ulcer, unspecified as acute or chronic, without hemorrhage or perforation Status: Acute Assessment and Plan: He is on medication for this. (8) Lactic acidosis: Code(s): E87.2 - Acidosis Status: Acute Assessment and Plan: He had a high lactate when he was admitted. This is better now. (9) Acute urinary retention: Code(s): R33.8 - Other retention of urine Status: Acute Assessment and Plan: Will check a postvoid residual. Will add tamsulosin. History of Present Illness Reason for Consult Consult date: 10/26/19 Chief Complaint Chief complaint: SYMPTMATIC ANEMUA,ACUTE RENAL FAILURE,HYPERKALEMIA History of Present Illness Narrative: Diego is a very pleasant 74-year-old gentleman who has multiple medical problems including hypertension, congestive heart failure, arthritis, duodenal ulcer disease, cirrhosis of the liver, history of UTI, history of GI bleeding, history of anemia. The patient came in for shortness of breath and weakness. He got to the emergency room and was found to be very anemic. He was admitted given IV fluids and transfused. The patient's creatinine was also very high. In 2017 it was normal. He does not think he has had any kidney disease in the past. He denies any bloody urine, foamy urine, kidney stones, or bladder infections. He does have occasional swelling. He had a CT scan which showed an enlarged trabeculated bladder. He does take meloxicam routinely and takes indomethacin as needed. He had a straight cath for urine testing. He drinks heavily. He does not smoke. He has no family history of kidney disease Review of Systems Constitutional: Constitutional: Reports no additional constitutional complaints Eyes: Eyes: Reports no additional eye complaints ENT: Reports system reviewed and no additional complaints, except as documented C
[2019-10-26 19:45] LABS: Hematocrit 21.7 % (42.0-52.0); Hemoglobin 7.6 g/dL (14.0-18.0)
[2019-10-26 20:28] LABS: Hepatitis B Surface Antigen Negative (Negative)
[2019-10-26 20:34] LABS: HAV RESULT Negative (Negative)
[2019-10-26] MEDS: TAMSULOSIN HCL 0.4 MG CAPSULE PO (20:40)
[2019-10-26 20:41] LABS: Glucose Point of Care 149 (65-105)
[2019-10-26 20:46] LABS: Hepatitis C Virus Antibody Negative (Negative)
[2019-10-26] MEDS: PANTOPRAZOLE SODIUM IV 40 MG VIAL IV PUSH (21:19)
[2019-10-26 23:39] LABS: Glucose Point of Care 103 (65-105)
[2019-10-26 23:45] LABS: Creatinine Urine 48.7 mg/dL; Total Protein Urine Random 63 mg/dL
[2019-10-27] VITALS (33 sets, daily range): BP systolic 88–166; BP diastolic 52–82; PULSE 81–95; RESP 16–24; TEMP 36.1–36.8; O2SAT 96–100
[2019-10-27 00:09] LABS: Sodium Urine Random 43 meq/L
[2019-10-27 05:25] LABS: Mean Corpuscular HGB Conc 34.7 g/dl (32-36); Mean Corpuscular Hemoglobin 29.9 pg (26-34); Mean Corpuscular Volume 86.3 fl (80-100); Mean Platelet Volume 8.9 fl (7.4-10.4); Platelet Count Result 149 k/mm3 (150-375); Red Blood Count 2.34 M/mm3 (4.6-6.20); Red Cell Distribution Width 14.9 % (11.5-14.5); White Blood Count 6.7 K/mm3 (4.5-10.0)
[2019-10-27 05:28] LABS: Hematocrit 20.2 % (42.0-52.0)
[2019-10-27 05:31] LABS: Blood Urea Nitrogen 87 mg/dL (9-20); Calcium 7.5 mg/dL (8.4-10.2); Carbon Dioxide 21 mmol/L (22-30); Chloride 91 mmol/L (98-107); Estimated CRCL calculation 11 ml/min; Estimated Glomerular Filt Rate 11; Glucose 99 mg/dL (75-110); Sodium 124 mmol/L (137-145)
[2019-10-27] MEDS: SODIUM BICARBONATE 8.4% 150 MEQ in DEXTROSE 5% 1,000 ML 950 ML 50 ML IV CONT (05:35)
[2019-10-27 06:06] LABS: Glucose Point of Care 109 (65-105)
[2019-10-27 06:24] LABS: Free T4 Free Thyroxine Reflex 1.27 ng/dL (0.78-2.19)
[2019-10-27] MEDS: PANTOPRAZOLE SODIUM IV 40 MG VIAL IV PUSH ×2 (08:48→20:51)
[2019-10-27] MEDS: THIAMINE HCL 50 MG TABLET PO (08:49)
--- NOTE | 2019-10-27 13:13 | WPDANESPN ---
Anes - Prog Note Post-Op Date/Time: 10/27/19 13:13 Cardiovascular status: normal Respiratory status: normal Airway patency: baseline Mental status: baseline Post-Op hydration status: normal Vital Signs: Last Vital Signs Temp 36.6 C 10/27/19 12:15 Pulse 87 10/27/19 12:15 Resp 20 10/27/19 12:15 BP 152/71 H 10/27/19 12:15 Pulse Ox 100 10/27/19 12:15 I/O: Intake & Output 10/26/19 10/27/19 10/27/19 23:59 07:59 15:59 Intake Total 1234 533 360 Output Total 450 525 Balance 784 8 360 Laboratory Tests 10/27/19 05:03 10/27/19 05:03 10/25/19 10/26/19 10/26/19 19:57 13:45 15:05 WBC RBC Hgb Hct MCV MCH MCHC RDW Plt Count MPV Sodium Potassium Chloride Carbon Dioxide BUN Creatinine Estim Creat Clear Calc Estimated GFR Glucose POC Capillary Glucose 114 H Calcium TSH (Reflex) Free T4 Total T3 Random Cortisol U Random Total Protein Ur Random Sodium 60 Ur Random Urea Urine Creatinine 35.6 Hepatitis A IgM Ab Hep Bs Antigen Hepatitis C Ab Screen Blood Type A Negative Antibody Screen Negative Crossmatch See Detail 10/26/19 10/26/19 10/26/19 15:05 19:38 19:38 WBC RBC Hgb 7.6 L Hct 21.7 L MCV MCH MCHC RDW Plt Count MPV Sodium Potassium Chloride Carbon Dioxide BUN Creatinine Estim Creat Clear Calc Estimated GFR Glucose POC Capillary Glucose Calcium TSH (Reflex) Free T4 Total T3 Random Cortisol U Random Total Protein Ur Random Sodium Ur Random Urea 329 Urine Creatinine Hepatitis A IgM Ab Negative Hep Bs Antigen Negative Hepatitis C Ab Screen Negative Blood Type Antibody Screen Crossmatch 10/26/19 10/26/19 10/26/19 19:38 19:38 19:38 WBC RBC Hgb Hct MCV MCH MCHC RDW Plt Count MPV Sodium Potassium Chloride Carbon Dioxide BUN Creatinine Estim Creat Clear Calc Estimated GFR Glucose POC Capillary Glucose Calcium TSH (Reflex) 4.160 Free T4 1.27 Total T3 Random Cortisol 17.00 U Random Total Protein Ur Random Sodium Ur Random Urea Urine Creatinine Hepatitis A IgM Ab Hep Bs Antigen Hepatitis C Ab Screen Blood Type Antibody Screen Crossmatch 0210/26/19 10/26/19 19:38 19:42 22:53 WBC RBC Hgb Hct MCV MCH MCHC RDW Plt Count MPV Sodium Potassium Chloride Carbon Dioxide BUN Creatinine Estim Creat Clear Calc Estimated GFR Glucose POC Capillary Glucose 149 H Calcium TSH (Reflex) Free T4 Total T3 0.50 L Random Cortisol U Random Total Protein 63 Ur Random Sodium 43 Ur Random Urea Urine Creatinine 48.7 Hepatitis A IgM Ab Hep Bs Antigen Hepatitis C Ab Screen Blood Type Antibody Screen Crossmatch 10/26/19 10/27/19 10/27/19 23:24 05:03 05:03 WBC 6.7 RBC 2.34 L Hgb 7.0 L Hct 20.2 L* MCV 86.3 D MCH 29.9 MCHC 34.7 RDW 14.9 H Plt Count 149 L MPV 8.9 Sodium 124 L Potassium 4.0 Chloride 91 L Carbon Dioxide 21 L BUN 87 H Creatinine 5.20 H Estim Creat Clear Calc 11 Estimated GFR 11 L Glucose 99 POC Capillary Glucose 103 Calcium 7.5 L TSH (Reflex) Free T4 Total T3 Random Cortisol U Random Total Protein Ur Random Sodium Ur Random Urea Urine Creatinine Hepatitis A IgM Ab Hep Bs Antigen Hepatitis C Ab Screen Blood Type Antibody Screen Crossmatch 10/27/19 05:58 WBC RBC Hgb Hct MCV MCH MCHC RDW Plt Count MPV Sodium Potassium Chloride Carbon Dioxide BUN Creatinine Estim Creat Clear Calc Estimated GFR Glucose POC Capillary Glucose 109 Calcium T
--- NOTE | 2019-10-27 13:37 | P.PNIM_ITS ---
Progress Note: A&P Assessment and Plan (1) Duodenal ulcer: Code(s): K26.9 - Duodenal ulcer, unspecified as acute or chronic, without hemorrhage or perforation Status: Acute Assessment and Plan: * EGD 10/26 with DU that was cauterized, gastritis, duodenitis * continue ppi * advance diet * f/u h/h (2) Anemia due to acute blood loss: Code(s): D62 - Acute posthemorrhagic anemia Status: Acute Assessment and Plan: * / hgb 6.5, 1 U PRBC ordered * 10/27 hgb 7.0, 1 U PRBC * f/u h/h (3) UTI (urinary tract infection): Qualifiers: Hematuria presence: without hematuria Urinary tract infection type: site unspecified Qualified Code(s): N39.0 - Urinary tract infection, site not specified Code(s): N39.0 - Urinary tract infection, site not specified Status: Acute Assessment and Plan: * continue ceftriaxone day 3, pending c/s (4) Acute renal failure: Qualifiers: Acute renal failure type: unspecified Qualified Code(s): N17.9 - Acute kidney failure, unspecified Code(s): N17.9 - Acute kidney failure, unspecified Status: Acute Assessment and Plan: * anemia and chronic NSAID therapy (with two drugs) might be playing a role * intravascular volume depletion may be playing a role * given CT findings, outflow obstruction may be playing a role * glomerular and interstitial nephropathies seem less likely * hepatorenal syndrome seems less likely * 09/18/2017 creatinine was 0.5 * creatinine 10/25 5.7 * 10/26 5.4 * 10/27 5.2 * continue iv hydration, avoid nephrotoxic drugs, f/u lab (5) CHF (congestive heart failure): Qualifiers: Heart failure chronicity: chronic Heart failure type: unspecified Qualified Code(s): I50.9 - Heart failure, unspecified Code(s): I50.9 - Heart failure, unspecified Status: Acute Assessment and Plan: * monitor volume status * restrict fluids (6) Acute hyperkalemia: Code(s): E87.5 - Hyperkalemia Status: Acute Assessment and Plan: * resolved, 10/26 4.9 (7) Acute hyponatremia: Code(s): E87.1 - Hypo-osmolality and hyponatremia Status: Acute Assessment and Plan: * 2/ 125 * Check FENA, FEU -> both c/w postrenal cause * 2/6 restrict fluids to 1000 ml/day * f/u lab (8) Alcohol abuse: Code(s): F10.10 - Alcohol abuse, uncomplicated Status: Acute Assessment and Plan: * prn lorazepam per [facility] protocol (9) Cirrhosis of liver: Qualifiers: Hepatic cirrhosis type: alcoholic cirrhosis Ascites presence: without ascites Qualified Code(s): K70.30 - Alcoholic cirrhosis of liver without ascites Code(s): K74.60 - Unspecified cirrhosis of liver Status: Acute Assessment and Plan: * CT c/w cirrhosis * Likely due to alcohol * HBV, HCV, HAV negative * He should get immunized Subjective Date/time seen: 10/27/19 13:37 Interval history: Still sob with minimal exertion. Denied pain. Mild generalized pruritus. Denied n/v. Denied overt bleeding. Review of Systems Review of Systems: All systems reviewed & are unremarkable except as noted in HPI and below Exam Narrative: Exam Narrative: HEENT: EOMI, PERRL, pharyngeal mucosa pink and intact NECK: No JVD CHEST: Coarse rhonchi HEART: NL S1/S2, regular, no murmur ABDOMEN: BS+, soft, nontender, no mass, no bruits EXTREMITIES: No cyanosis, 1+ pretibial edema NEUROLOGIC: CN intact and symmetric to inspection. MUS
--- NOTE | 2019-10-27 13:37 | PM.IMPN ---
Progress Note: A&P Assessment and Plan (1) Duodenal ulcer: Code(s): K26.9 - Duodenal ulcer, unspecified as acute or chronic, without hemorrhage or perforation Status: Acute Assessment and Plan: EGD 10/26 with DU that was cauterized, gastritis, duodenitis continue ppi advance diet f/u h/h (2) Anemia due to acute blood loss: Code(s): D62 - Acute posthemorrhagic anemia Status: Acute Assessment and Plan: 10/26 hgb 6.5, 1 U PRBC ordered 10/27 hgb 7.0, 1 U PRBC f/u h/h (3) UTI (urinary tract infection): Qualifiers: Hematuria presence: without hematuria Urinary tract infection type: site unspecified Qualified Code(s): N39.0 - Urinary tract infection, site not specified Code(s): N39.0 - Urinary tract infection, site not specified Status: Acute Assessment and Plan: continue ceftriaxone day 3, pending c/s (4) Acute renal failure: Qualifiers: Acute renal failure type: unspecified Qualified Code(s): N17.9 - Acute kidney failure, unspecified Code(s): N17.9 - Acute kidney failure, unspecified Status: Acute Assessment and Plan: anemia and chronic NSAID therapy (with two drugs) might be playing a role intravascular volume depletion may be playing a role given CT findings, outflow obstruction may be playing a role glomerular and interstitial nephropathies seem less likely hepatorenal syndrome seems less likely 09/18/2017 creatinine was 0.5 creatinine 10/25 5.7 10/26 5.4 10/27 5.2 continue iv hydration, avoid nephrotoxic drugs, f/u lab (5) CHF (congestive heart failure): Qualifiers: Heart failure chronicity: chronic Heart failure type: unspecified Qualified Code(s): I50.9 - Heart failure, unspecified Code(s): I50.9 - Heart failure, unspecified Status: Acute Assessment and Plan: monitor volume status restrict fluids (6) Acute hyperkalemia: Code(s): E87.5 - Hyperkalemia Status: Acute Assessment and Plan: resolved, 10/26 4.9 (7) Acute hyponatremia: Code(s): E87.1 - Hypo-osmolality and hyponatremia Status: Acute Assessment and Plan: 2/5 125 Check FENA, FEU -> both c/w postrenal cause 2/6 restrict fluids to 1000 ml/day f/u lab (8) Alcohol abuse: Code(s): F10.10 - Alcohol abuse, uncomplicated Status: Acute Assessment and Plan: prn lorazepam per [facility] protocol (9) Cirrhosis of liver: Qualifiers: Hepatic cirrhosis type: alcoholic cirrhosis Ascites presence: without ascites Qualified Code(s): K70.30 - Alcoholic cirrhosis of liver without ascites Code(s): K74.60 - Unspecified cirrhosis of liver Status: Acute Assessment and Plan: CT c/w cirrhosis Likely due to alcohol HBV, HCV, HAV negative He should get immunized Subjective Date/time seen: 10/27/19 13:37 Interval history: Still sob with minimal exertion. Denied pain. Mild generalized pruritus. Denied n/v. Denied overt bleeding. Review of Systems Review of Systems: All systems reviewed & are unremarkable except as noted in HPI and below Exam Narrative: Exam Narrative: HEENT: EOMI, PERRL, pharyngeal mucosa pink and intact NECK: No JVD CHEST: Coarse rhonchi HEART: NL S1/S2, regular, no murmur ABDOMEN: BS+, soft, nontender, no mass, no bruits EXTREMITIES: No cyanosis, 1+ pretibial edema NEUROLOGIC: CN intact and symmetric to inspection. MUSCULOSKELETAL: Tone and strength symmetric. PSYCH: Alert. Oriented to person, place, and time. Objective Data Vital Signs Vital Signs: Vital Signs - 24 hr 10/26/19 14:00 10/26/19 14:47 10/26/19 14:59 Temperature 97.2 F L 97.3 F L Pulse Rate 90 86 87 Respiratory Rate 16 16 Blood Pressure 141/63 H 127/63 Pulse Oximetry 96 95 10/26/19 15:04 10/26/19 15:08 10/26/19 15:12 Temperature 97.1 F L 97.1 F L 96.8 F L Pulse Rate 87 84 86 Respiratory Rate 18 14 16 Blood Pressure 139/59
[2019-10-27 14:27] LABS: Glucose Point of Care 120 (65-105)
--- NOTE | 2019-10-27 14:39 | WPDGIPROGNO ---
Progress Note: A&P Assessment and Plan (1) Duodenal ulcer: Code(s): K26.9 - Duodenal ulcer, unspecified as acute or chronic, without hemorrhage or perforation Status: Acute Assessment and Plan: treated yesterday endoscopically with gold probe and epi, high risk- stigmata of bleeding. Continue high dose PPI bid, monitor hb avoid using nsaid's advance diet as tolerated (2) Cirrhosis of liver: Qualifiers: Hepatic cirrhosis type: alcoholic cirrhosis Ascites presence: without ascites Qualified Code(s): K70.30 - Alcoholic cirrhosis of liver without ascites Code(s): K74.60 - Unspecified cirrhosis of liver Status: Acute Assessment and Plan: hepatitis panel negative, he is alcoholic (3) Anemia due to acute blood loss: Code(s): D62 - Acute posthemorrhagic anemia Status: Acute Assessment and Plan: monitor hb (4) Melena: Code(s): K92.1 - Melena Status: Acute (5) Acute renal failure: Qualifiers: Acute renal failure type: unspecified Qualified Code(s): N17.9 - Acute kidney failure, unspecified Code(s): N17.9 - Acute kidney failure, unspecified Status: Acute Assessment and Plan: medical management, nephrology on board (6) Alcohol abuse: Code(s): F10.10 - Alcohol abuse, uncomplicated Status: Acute Assessment and Plan: [facility] nutritional support thiamine, mvi, etc (7) Complicated UTI (urinary tract infection): Code(s): N39.0 - Urinary tract infection, site not specified Status: Acute Assessment and Plan: on iv abx Subjective Date/time seen: 10/27/19 14:39 Interval history: no more bleeding, tolerating diet. Patient denies abdominal pain. Received one more unit of PRBC Review of Systems Constitutional: Constitutional: Denies headache(s) Eyes: Eyes: Denies blurry vision ENT: Reports Normal hearing present, Denies headache(s) and Denies neck pain Cardiovascular: Cardiovascular: Denies chest pain Respiratory: Respiratory: Reports dyspnea on exertion Gastrointestinal: Gastrointestinal: Reports no additional gastrointestinal complaints Genitourinary: Genitourinary: Reports urinary frequency Musculoskeletal: Musculoskeletal: Denies neck pain Integumentary/Breasts: Skin/Breast: Denies dry skin Neurologic: Reports Normal hearing present and Denies headache(s) Psychiatric: Psychiatric: Denies anxiety Endocrine: Endocrine: Denies change in body appearance Hematologic/Lymphatic: Hematologic/Lymphatic: Denies easy bleeding Allergic/Immunologic: Allergic/Immunologic: Denies urticaria Exam Const: General: alert, awake, anxious and ill appearing Nutritional Appearance: obese Orientation/consciousness: oriented to person and oriented to place HENMT: Head: normal to inspection General nose exam: Normal external nose present Face and sinus: normal facial exam Mouth: Yes Normal oral and palatal mucosa present and Yes oropharynx normal Eyes: Pupils: Equal, round and reactive pupils present EOM: EOMs intact bilaterally Neck: Neck: supple and no JVD Lymphatic: lymphadenopathy not noted Resp: Effort & Inspection: normal respiratory effort Auscultation: clear to auscultation bilaterally Cardio: Rate: tachycardic Rhythm: regular rhythm Heart sounds: no murmurs GI: Inspection: normal to inspection GI Palp: Yes Soft to palpation and No Tenderness to palpation present (GI) Auscultation: normal bowel sounds Urinary Catheter: Urinary Catheter: patent and draining Skin: General skin exam: pallor Other: pale Neuro: General: patient oriented x3 Cranial nerves: Yes CN's II-XII intact bilaterally and Yes Equal, round and reactive pupils present Speech: normal speech Motor exam (neuro): 5/5 motor strength present throughout Extrem: General: normal to inspection and no edema Objective Data Vital Signs Vital Signs: Vital Signs - 24 hr 10/26/19 14:47
--- NOTE | 2019-10-27 14:48 | P.PNNP_ITS ---
Progress Note: A&P Assessment and Plan (1) Acute renal failure: Qualifiers: Acute renal failure type: unspecified Qualified Code(s): N17.9 - Acute kidney failure, unspecified Code(s): N17.9 - Acute kidney failure, unspecified Status: Acute Assessment and Plan: Patient has acute kidney injury. His creatinine is quite high. His baseline creatinine was okay a few years ago. However he has not been in hospital or had labs done in a few years he says. He denies hypertension but interestingly he is on medication at home for this. So it is unclear if this is acute or acute on chronic or just chronic kidney disease. Ultrasound shows a small left kidney and normal right kidney. There is mild hydronephrosis on the right. It also shows severe bladder trabeculation. He does have a Ro catheter and so bladder outlet obstruction is treated if that is an issue. Urine electrolytes are non pre renal. He was on Lasix at the time so this does not necessarily rule out pre renal azotemia. However this does rule out hepatorenal syndrome as diuretics would not increase the urine sodium in this case. He could have ATN because of his severely low hemoglobin, use of meloxicam in that setting, and dehydration on admission. He has hydronephrosis which is only mild on the right but for the creatinine to be this high he would have to have significant bilateral hydro. At this point will continueIV fluids and watch his creatinine. (2) Symptomatic anemia: Code(s): D64.9 - Anemia, unspecified Status: Acute Assessment and Plan: He received transfusions. (3) Acute hyponatremia: Code(s): E87.1 - Hypo-osmolality and hyponatremia Status: Acute Assessment and Plan: Sodium level is low. Most likely due to dehydration. TSH and cortisol are okay. Will keep an eye on this. (4) Acute hyperkalemia: Code(s): E87.5 - Hyperkalemia Status: Acute Assessment and Plan: Resolved (5) CHF (congestive heart failure): Qualifiers: Heart failure chronicity: chronic Heart failure type: unspecified Qualified Code(s): I50.9 - Heart failure, unspecified Code(s): I50.9 - Heart failure, unspecified Status: Acute Assessment and Plan: He has a history of congestive heart failure. Will order an echocardiogram. (6) Alcoholic liver disease: Code(s): K70.9 - Alcoholic liver disease, unspecified Status: Acute Assessment and Plan: He continues to drink. He has no interest in alcoholics anonymous. (7) Duodenal ulcer: Code(s): K26.9 - Duodenal ulcer, unspecified as acute or chronic, without hemorrhage or perforation Status: Acute Assessment and Plan: He is on medication for this. (8) Lactic acidosis: Code(s): E87.2 - Acidosis Status: Acute Assessment and Plan: Resolved CO2 is still not normal yet. (9) Acute urinary retention: Code(s): R33.8 - Other retention of urine Status: Acute Assessment and Plan: He has a catheter in. Tamsulosin is on board for when ever the catheter comes out. Subjective Date/time seen: 10/27/19 14:48 Interval history: Patient is awake and in good spirits. He has no chest pain or shortness of breath. Review of Systems Cardiovascular: Cardiovascular: Reports no additional cardiovascular complaints Respiratory: Respiratory: Reports no additional respiratory complain
--- NOTE | 2019-10-27 15:24 | PM.PNNEP ---
Progress Note: A&P Assessment and Plan (1) Acute renal failure: Qualifiers: Acute renal failure type: unspecified Qualified Code(s): N17.9 - Acute kidney failure, unspecified Code(s): N17.9 - Acute kidney failure, unspecified Status: Acute Assessment and Plan: Patient has acute kidney injury. His creatinine is quite high. His baseline creatinine was okay a few years ago. However he has not been in hospital or had labs done in a few years he says. He denies hypertension but interestingly he is on medication at home for this. So it is unclear if this is acute or acute on chronic or just chronic kidney disease. Ultrasound shows a small left kidney and normal right kidney. There is mild hydronephrosis on the right. It also shows severe bladder trabeculation. He does have a Ro catheter and so bladder outlet obstruction is treated if that is an issue. Urine electrolytes are non pre renal. He was on Lasix at the time so this does not necessarily rule out pre renal azotemia. However this does rule out hepatorenal syndrome as diuretics would not increase the urine sodium in this case. He could have ATN because of his severely low hemoglobin, use of meloxicam in that setting, and dehydration on admission. He has hydronephrosis which is only mild on the right but for the creatinine to be this high he would have to have significant bilateral hydro. At this point will continueIV fluids and watch his creatinine. (2) Symptomatic anemia: Code(s): D64.9 - Anemia, unspecified Status: Acute Assessment and Plan: He received transfusions. (3) Acute hyponatremia: Code(s): E87.1 - Hypo-osmolality and hyponatremia Status: Acute Assessment and Plan: Sodium level is low. Most likely due to dehydration. TSH and cortisol are okay. Will keep an eye on this. (4) Acute hyperkalemia: Code(s): E87.5 - Hyperkalemia Status: Acute Assessment and Plan: Resolved (5) CHF (congestive heart failure): Qualifiers: Heart failure chronicity: chronic Heart failure type: unspecified Qualified Code(s): I50.9 - Heart failure, unspecified Code(s): I50.9 - Heart failure, unspecified Status: Acute Assessment and Plan: He has a history of congestive heart failure. Will order an echocardiogram. (6) Alcoholic liver disease: Code(s): K70.9 - Alcoholic liver disease, unspecified Status: Acute Assessment and Plan: He continues to drink. He has no interest in alcoholics anonymous. (7) Duodenal ulcer: Code(s): K26.9 - Duodenal ulcer, unspecified as acute or chronic, without hemorrhage or perforation Status: Acute Assessment and Plan: He is on medication for this. (8) Lactic acidosis: Code(s): E87.2 - Acidosis Status: Acute Assessment and Plan: Resolved CO2 is still not normal yet. (9) Acute urinary retention: Code(s): R33.8 - Other retention of urine Status: Acute Assessment and Plan: He has a catheter in. Tamsulosin is on board for when ever the catheter comes out. Subjective Date/time seen: 10/27/19 15:24 Interval history: The note I wrote some how disappeared. This is a re-dictation. patient is awake and in good spirits. He has no chest pain or shortness of breath. Review of Systems Cardiovascular: Cardiovascular: Reports no additional cardiovascular complaints Respiratory: Respiratory: Reports no additional respiratory complaints Gastrointestinal: Gastrointestinal: Reports no additional gastrointestinal complaints Genitourinary: Genitourinary: Reports no additional male genitourinary complaints Exam Narrative: Exam Narrative: Well developed well-nourished in no acute distress Lungs clear Heart regular without rub Abdomen bowel sounds positive soft nontender Extremities no edema Skin no rash Objective Data Marie
[2019-10-27] MEDS: FUROSEMIDE INJ 40 MG/4 ML VIAL IV PUSH (16:51)
[2019-10-27 17:49] LABS: Glucose Point of Care 100 (65-105)
[2019-10-27 18:03] LABS: Glucose Point of Care 134 (65-105)
[2019-10-27] MEDS: TAMSULOSIN HCL 0.4 MG CAPSULE PO (20:49)
[2019-10-27 21:36] LABS: Hematocrit 16.7 % (42.0-52.0); Hemoglobin 5.8 g/dL (14.0-18.0)
--- NOTE | 2019-10-27 21:48 | PM.EVENT ---
Event Note Event Note Event Note: Nursing staff notified me that the patient has had a large bowel movement with maroon-colored stool. This morning the patient's hemoglobin was 7.0 in he received 1 unit of packed red blood cells. Despite this transfusion the patient's hemoglobin is down to 5.8 and hematocrit is 16.7. Given the patient as evidence of blood in his stool and is significant drop in hemoglobin 2 units of packed red blood cells have been ordered. I have asked the nursing staff to update the outside installation machinist that the patient may be having recurrent bleeding with patient having had EGD with duodenal ulcer 10/26/2019. I have changed the patient's diet back to NPO except for meds with sips until the patient's hemoglobin has stabilized in no further evidence of bleeding. Patient reportedly has a history of CHF but is currently being treated for dehydration with a creatinine of 5.2. Nursing reports that the patient is wheezing a little bit. We may need to give the patient Lasix if shortness of breath worsens during blood transfusions. Patient has a CBC ordered for a.m. which will likely be near the time the patient's blood transfusion is complete.
[2019-10-28] VITALS (25 sets, daily range): BP systolic 79–144; BP diastolic 38–108; PULSE 78–93; RESP 16–22; TEMP 36–36.9; O2SAT 92–100
[2019-10-28 00:22] LABS: Glucose Point of Care 122 (65-105)
[2019-10-28 05:55] LABS: Glucose Point of Care 132 (65-105)
[2019-10-28 06:53] LABS: Hemoglobin 7.7 g/dL (14.0-18.0); Mean Corpuscular Hemoglobin 32.4 pg (26-34); Mean Corpuscular Volume 92.4 fl (80-100); Mean Platelet Volume 9.6 fl (7.4-10.4); Platelet Count Result 130 k/mm3 (150-375); Red Blood Count 2.38 M/mm3 (4.6-6.20); Red Cell Distribution Width 14.6 % (11.5-14.5); White Blood Count 9.4 K/mm3 (4.5-10.0)
[2019-10-28 07:03] LABS: Blood Urea Nitrogen 90 mg/dL (9-20); Calcium 6.6 mg/dL (8.4-10.2); Carbon Dioxide 25 mmol/L (22-30); Chloride 94 mmol/L (98-107); Estimated CRCL calculation 13 ml/min; Estimated Glomerular Filt Rate 13; Glucose 117 mg/dL (75-110); Phosphorus 4.3 mg/dL (2.5-4.5); Potassium 3.9 mmol/L (3.4-5.0); Sodium 127 mmol/L (137-145)
--- NOTE | 2019-10-28 09:14 | PCPTNOTE ---
Attempted PT eval. Pt off floor for test. Will try again later today.
[2019-10-28] MEDS: SODIUM BICARBONATE 8.4% 150 MEQ in DEXTROSE 5% 1,000 ML 950 ML 50 ML IV CONT (09:37)
[2019-10-28] MEDS: THIAMINE HCL 50 MG TABLET PO (09:38)
[2019-10-28] MEDS: FUROSEMIDE INJ 40 MG/4 ML VIAL IV PUSH (09:46)
--- NOTE | 2019-10-28 09:58 | P.PNIM_ITS ---
Progress Note: A&P Assessment and Plan (1) Duodenal ulcer: Code(s): K26.9 - Duodenal ulcer, unspecified as acute or chronic, without hemorrhage or perforation Status: Acute Assessment and Plan: * EGD 10/26 with DU that was cauterized, gastritis, duodenitis * continue ppi * 10/28 NPO for repeat EGD * f/u h/h (2) Anemia due to acute blood loss: Code(s): D62 - Acute posthemorrhagic anemia Status: Acute Assessment and Plan: * 10/26 hgb 6.5, 1 U PRBC ordered * 10/27 hgb 7.0, 1 U PRBC * 10/27 PM hgb 5.8, 2 U PRBC * 10/28 hgb 7.7, repeat EGD * f/u h/h (3) UTI (urinary tract infection): Qualifiers: Hematuria presence: without hematuria Urinary tract infection type: site unspecified Qualified Code(s): N39.0 - Urinary tract infection, site not specified Code(s): N39.0 - Urinary tract infection, site not specified Status: Acute Assessment and Plan: * 10/28 Enteroccous in urine, vancomycin day 1 (4) Acute renal failure: Qualifiers: Acute renal failure type: unspecified Qualified Code(s): N17.9 - Acute kidney failure, unspecified Code(s): N17.9 - Acute kidney failure, unspecified Status: Acute Assessment and Plan: * anemia and chronic NSAID therapy (with two drugs) might be playing a role * intravascular volume depletion may be playing a role * given CT findings, outflow obstruction may be playing a role * glomerular and interstitial nephropathies seem less likely * hepatorenal syndrome seems less likely * 09/18/2017 creatinine was 0.5 * creatinine 10/25 5.7 * 10/26 5.4 * 10/27 5.2 * continue iv hydration, avoid nephrotoxic drugs, f/u lab (5) CHF (congestive heart failure): Qualifiers: Heart failure chronicity: chronic Heart failure type: unspecified Qualified Code(s): I50.9 - Heart failure, unspecified Code(s): I50.9 - Heart failure, unspecified Status: Acute Assessment and Plan: * monitor volume status * restrict fluids (6) Acute hyperkalemia: Code(s): E87.5 - Hyperkalemia Status: Acute Assessment and Plan: * resolved, 10/26 4.9 (7) Acute hyponatremia: Code(s): E87.1 - Hypo-osmolality and hyponatremia Status: Acute Assessment and Plan: * 10/26 125 * Check FENA, FEU -> both c/w postrenal cause * / restrict fluids to 1000 ml/day * f/u lab (8) Alcohol abuse: Code(s): F10.10 - Alcohol abuse, uncomplicated Status: Acute Assessment and Plan: * prn lorazepam per [facility] protocol (9) Cirrhosis of liver: Qualifiers: Ascites presence: without ascites Hepatic cirrhosis type: alcoholic cirrhosis Qualified Code(s): K70.30 - Alcoholic cirrhosis of liver without ascites Code(s): K74.60 - Unspecified cirrhosis of liver Status: Acute Assessment and Plan: * CT c/w cirrhosis * Likely due to alcohol * HBV, HCV, HAV negative * He should get immunized Subjective Date/time seen: 10/28/19 09:58 Interval history: Maroon stool last PM with drop in h/h. Received 2 U PRBC. Denied cp. No sob at rest. Swelling w/o change. No abd pain. Review of Systems Review of Systems: All systems reviewed & are unremarkable except as noted in HPI and below Exam Narrative: Exam Narrative: HEENT: EOMI, PERRL, pharyngeal mucosa pink and intact NECK: No JVD CHEST: Clear anteriorly, decreased at bases HEART: NL S1/S2, regular, no murmur ABDOMEN: BS+, soft, nontender, no mass, no bruits
--- NOTE | 2019-10-28 09:58 | PM.IMPN ---
Progress Note: A&P Assessment and Plan (1) Duodenal ulcer: Code(s): K26.9 - Duodenal ulcer, unspecified as acute or chronic, without hemorrhage or perforation Status: Acute Assessment and Plan: EGD 10/26 with DU that was cauterized, gastritis, duodenitis continue ppi 10/28 NPO for repeat EGD f/u h/h (2) Anemia due to acute blood loss: Code(s): D62 - Acute posthemorrhagic anemia Status: Acute Assessment and Plan: 10/26 hgb 6.5, 1 U PRBC ordered 10/27 hgb 7.0, 1 U PRBC / PM hgb 5.8, 2 U PRBC 10/28 hgb 7.7, repeat EGD f/u h/h (3) UTI (urinary tract infection): Qualifiers: Hematuria presence: without hematuria Urinary tract infection type: site unspecified Qualified Code(s): N39.0 - Urinary tract infection, site not specified Code(s): N39.0 - Urinary tract infection, site not specified Status: Acute Assessment and Plan: 10/28 Enteroccous in urine, vancomycin day 1 (4) Acute renal failure: Qualifiers: Acute renal failure type: unspecified Qualified Code(s): N17.9 - Acute kidney failure, unspecified Code(s): N17.9 - Acute kidney failure, unspecified Status: Acute Assessment and Plan: anemia and chronic NSAID therapy (with two drugs) might be playing a role intravascular volume depletion may be playing a role given CT findings, outflow obstruction may be playing a role glomerular and interstitial nephropathies seem less likely hepatorenal syndrome seems less likely 09/18/2017 creatinine was 0.5 creatinine 10/25 5.7 10/26 5.4 10/27 5.2 continue iv hydration, avoid nephrotoxic drugs, f/u lab (5) CHF (congestive heart failure): Qualifiers: Heart failure chronicity: chronic Heart failure type: unspecified Qualified Code(s): I50.9 - Heart failure, unspecified Code(s): I50.9 - Heart failure, unspecified Status: Acute Assessment and Plan: monitor volume status restrict fluids (6) Acute hyperkalemia: Code(s): E87.5 - Hyperkalemia Status: Acute Assessment and Plan: resolved, 10/26 4.9 (7) Acute hyponatremia: Code(s): E87.1 - Hypo-osmolality and hyponatremia Status: Acute Assessment and Plan: 10/26 125 Check FENA, FEU -> both c/w postrenal cause 10/27 restrict fluids to 1000 ml/day f/u lab (8) Alcohol abuse: Code(s): F10.10 - Alcohol abuse, uncomplicated Status: Acute Assessment and Plan: prn lorazepam per [facility] protocol (9) Cirrhosis of liver: Qualifiers: Ascites presence: without ascites Hepatic cirrhosis type: alcoholic cirrhosis Qualified Code(s): K70.30 - Alcoholic cirrhosis of liver without ascites Code(s): K74.60 - Unspecified cirrhosis of liver Status: Acute Assessment and Plan: CT c/w cirrhosis Likely due to alcohol HBV, HCV, HAV negative He should get immunized Subjective Date/time seen: 10/28/19 09:58 Interval history: Maroon stool last PM with drop in h/h. Received 2 U PRBC. Denied cp. No sob at rest. Swelling w/o change. No abd pain. Review of Systems Review of Systems: All systems reviewed & are unremarkable except as noted in HPI and below Exam Narrative: Exam Narrative: HEENT: EOMI, PERRL, pharyngeal mucosa pink and intact NECK: No JVD CHEST: Clear anteriorly, decreased at bases HEART: NL S1/S2, regular, no murmur ABDOMEN: BS+, soft, nontender, no mass, no bruits EXTREMITIES: No cyanosis, 1+ pretibial edema NEUROLOGIC: CN intact and symmetric to inspection. MUSCULOSKELETAL: Tone and strength symmetric. PSYCH: Alert. Oriented to person, place, and time. Objective Data Vital Signs Vital Signs: Vital Signs - 24 hr 10/27/19 10:00 10/27/19 10:07 10/27/19 10:14 Temperature 98.3 F 98.3 F Pulse Rate 88 89 89 Respiratory Rate 20 20 Blood Pressure 166/72 H 166/72 H Pulse Oximetry 100 100 10/27/19 11:07 10/27/19 11:21 10/27/19 12:00 Temperatu
--- NOTE | 2019-10-28 10:36 | PCOTNOTE ---
Attempted OT eval this AM. Pt off floor for testing. Will attempt OT evaluation at later time.
--- NOTE | 2019-10-28 10:50 | WPDANESEPPF ---
Anes - Initial Pre Proc Eval Procedure: Operation Date: 10/26/19 12:30 Proposed Procedures p Esophagogastroduodenoscopy - Laith Kim MD Operation Date: 10/28/19 13:00 Proposed Procedures p Esophagogastroduodenoscopy - Rolan Pulido MD Date/Time: 10/28/19 10:50 Surgeon: Amilcar Lorenz MD Pre Op Diagnosis: SYMPTMATIC ANEMUA,ACUTE RENAL FAILURE,HYPERKALEMIA Patient Data Age: 74 Gender: M Height: 1.7 m Weight: 76.6 kg Last Vital Signs Temp 36.6 C 10/28/19 08:11 Pulse 86 10/28/19 10:00 Resp 22 H 10/28/19 08:11 BP 114/77 10/28/19 08:11 Pulse Ox 92 10/28/19 08:11 Allergies Allergy/AdvReac Type Severity Reaction Status Date / Time Penicillins AdvReac Unknown Nervousness Verified 10/26/19 13:50 Home Medications Medication Instructions Recorded Confirmed Type amlodipine 5 mg PO DAILY 10/25/19 10/26/19 History furosemide 40 mg PO DAILY 10/25/19 10/26/19 History indomethacin 50 mg PO BID PRN 10/25/19 10/26/19 History meloxicam 15 mg PO DAILY 10/25/19 10/26/19 History methocarbamol 500 mg PO QID PRN 10/25/19 10/26/19 History prednisone 10 mg PO BID 10/25/19 10/26/19 History Laboratory Tests 10/25/19 10/27/19 10/27/19 19:57 11:41 14:23 WBC RBC Hgb Hct MCV MCH MCHC RDW Plt Count MPV Sodium Potassium Chloride Carbon Dioxide BUN Creatinine Estim Creat Clear Calc Estimated GFR Glucose POC Capillary Glucose 134 mg/dl H mg/dl 120 mg/dl H mg/dl (65-105) (65-105) Calcium Phosphorus Albumin Blood Type A Negative Antibody Screen Negative Crossmatch See Detail 10/27/19 10/27/19 10/28/19 16:59 21:27 00:21 WBC RBC Hgb 5.8 g/dL L* g/dL (14.0-18.0) Hct 16.7 % L* % (42.0-52.0) MCV MCH MCHC RDW Plt Count MPV Sodium Potassium Chloride Carbon Dioxide BUN Creatinine Estim Creat Clear Calc Estimated GFR Glucose POC Capillary Glucose 100 mg/dl mg/dl 122 mg/dl H mg/dl (65-105) (65-105) Calcium Phosphorus Albumin Blood Type Antibody Screen Crossmatch 10/28/19 10/28/19 10/28/19 05:48 06:32 06:33 WBC 9.4 K/mm3 K/mm3 (4.5-10.0) RBC 2.38 M/mm3 L M/mm3 (4.6-6.20) Hgb 7.7 g/dL L g/dL (14.0-18.0) Hct 22.0 % L % (42.0-52.0) MCV 92.4 fl D fl (80-100) MCH 32.4 pg D pg (26-34) MCHC 35.0 g/dl g/dl (32-36) RDW 14.6 % H % (11.5-14.5) Plt Count 130 k/mm3 L k/mm3 (150-375) MPV 9.6 fl fl (7.4-10.4) Sodium 127 mmol/L L mmol/L (137-145) Potassium 3.9 mmol/L mmol/L (3.4-5.0) Chloride 94 mmol/L L mmol/L (98-107) Carbon Dioxide 25 mmol/L mmol/L (22-30) BUN 90 mg/dL H mg/dL (9-20) Creatinine 4.40 mg/dL H mg/dL (0.7-1.3) Estim Creat Clear Calc 13 ml/min ml/min Estimated GFR 13 L (59 - ) Glucose 117 mg/dL H mg/dL (75-110) POC Capillary Glucose 132 mg/dl H mg/dl (65-105) Calcium 6.6 mg/dL L mg/dL (8.4-10.2) Phosphorus 4.3 mg/dL mg/dL (2.5-4.5) Albumin 2.0 g/dL L g/dL (3.5-5.1) Blood Type Antibody Screen Crossmatch Patient hx anesthesia problems: none Family hx anesthesia problems: none PMFSH Past Medical History Medical History (Reviewed 10/26/19 @ 18:42
[2019-10-28] MEDS: LACTATED RINGERS 1,000 ML 150 ML IV CONT (11:51)
--- NOTE | 2019-10-28 12:13 | PM.PNNEP ---
Progress Note: A&P Assessment and Plan (1) Acute renal failure: Qualifiers: Acute renal failure type: unspecified Qualified Code(s): N17.9 - Acute kidney failure, unspecified Code(s): N17.9 - Acute kidney failure, unspecified Status: Acute Assessment and Plan: Patient has acute kidney injury and it is unknown whether he has CKD.. His creatinine is quite high. Ultrasound shows a small left kidney and normal right kidney. There is mild hydronephrosis on the right. It also shows severe bladder trabeculation. He does have a Ro catheter and so bladder outlet obstruction is treated if that is an issue. He is on tamsulosin. He could have ATN because of his severely low hemoglobin, use of meloxicam in that setting, and dehydration on admission. He has hydronephrosis which is only mild on the right but for the creatinine to be this high he would have to have significant bilateral hydro. At this point will continueIV fluids and watch his creatinine. His creatinine has improved. (2) Symptomatic anemia: Code(s): D64.9 - Anemia, unspecified Status: Acute Assessment and Plan: He received transfusions. (3) Acute hyponatremia: Code(s): E87.1 - Hypo-osmolality and hyponatremia Status: Acute Assessment and Plan: Sodium level is low. Most likely due to dehydration. Sodium level is improved to 127. TSH and cortisol are okay. Will keep an eye on this. (4) Acute hyperkalemia: Code(s): E87.5 - Hyperkalemia Status: Acute Assessment and Plan: Resolved (5) CHF (congestive heart failure): Qualifiers: Heart failure chronicity: chronic Heart failure type: unspecified Qualified Code(s): I50.9 - Heart failure, unspecified Code(s): I50.9 - Heart failure, unspecified Status: Acute Assessment and Plan: He has a history of congestive heart failure. Will order an echocardiogram. (6) Alcoholic liver disease: Code(s): K70.9 - Alcoholic liver disease, unspecified Status: Acute Assessment and Plan: He continues to drink. He has no interest in alcoholics anonymous. (7) Duodenal ulcer: Code(s): K26.9 - Duodenal ulcer, unspecified as acute or chronic, without hemorrhage or perforation Status: Acute Assessment and Plan: He is on medication for this. (8) Lactic acidosis: Code(s): E87.2 - Acidosis Status: Acute Assessment and Plan: Resolved CO2 is still not normal yet. (9) Acute urinary retention: Code(s): R33.8 - Other retention of urine Status: Acute Assessment and Plan: He has a catheter in. Tamsulosin is on board for when ever the catheter comes out. Subjective Date/time seen: 10/28/19 12:13 Interval history: is in the room patient is awake and in good spirits. Breathing comfortably lying flat in bed. Review of Systems Cardiovascular: Cardiovascular: Reports no additional cardiovascular complaints Respiratory: Respiratory: Reports no additional respiratory complaints Gastrointestinal: Gastrointestinal: Reports no additional gastrointestinal complaints Genitourinary: Genitourinary: Reports no additional male genitourinary complaints Exam Narrative: Exam Narrative: Well developed well-nourished in no acute distress Lungs clear bilaterally Heart regular without rub Abdomen bowel sounds positive soft nontender Extremities no edema Skin no rash or subcu nodules. Objective Data Vital Signs Vital Signs: Vital Signs - 24 hr 10/27/19 12:15 10/27/19 14:00 10/27/19 14:02 Temperature 36.6 C 36.8 C Pulse Rate 87 84 84 Respiratory Rate 20 20 Blood Pressure 152/71 H 158/68 H Pulse Oximetry 100 100 10/27/19 16:00 10/27/19 17:00 10/27/19 18:00 Temperature 36.8 C Pulse Rate 88 88 95 Respiratory Rate 24 H 24 H Blood Pressure 164/82 H 164/82 H Pulse Oximetry 98 98 10/27/19 20:00
--- NOTE | 2019-10-28 12:22 | WPDGIPROGNO ---
Progress Note: A&P Additional Plan Called by Dr. Kim requesting that I do a follow-up EGD on this patient this morning. Patient states that he feels comfortable. Nursing staff reports vital signs stable. Lungs are clear. Heart is without murmur abdominal exam is soft and nontender. Patient past melenic stools again this morning. Hemoglobin 7.7, hematocrit 22, MCV 94. After transfusion last evening. Endoscopy 2 days ago revealed bleeding duodenal ulcer requiring therapeutic maneuvers to stop bleeding. Impression 1. Peptic ulcer disease. Duodenal ulcer with recent active bleeding. It appears he may have had some additional bleeding after cautery 2 days ago. 2. Renal insufficiency. Etiology uncertain. Followed by primary care in Nephrology. 3. Alcohol abuse. This is likely etiology for his peptic ulcer. Plan to proceed with follow-up EGD today to assess duodenal ulcer. Additional cautery if necessary. Continue to monitor hemoglobin closely. Transfuse as needed. Alcohol avoidance is strongly encouraged. Subjective Date/time seen: 10/28/19 12:22 Objective Data Vital Signs Vital Signs: Vital Signs - 24 hr 10/27/19 14:00 10/27/19 14:02 10/27/19 16:00 Temperature 36.8 C Pulse Rate 84 84 88 Respiratory Rate 20 24 H Blood Pressure 158/68 H 164/82 H Pulse Oximetry 100 98 10/27/19 17:00 10/27/19 18:00 10/27/19 20:00 Temperature 36.8 C Pulse Rate 88 95 93 Respiratory Rate 24 H Blood Pressure 164/82 H Pulse Oximetry 98 10/27/19 20:23 10/27/19 22:00 10/27/19 22:39 Temperature 36.5 C 36.4 C Pulse Rate 93 90 88 Respiratory Rate 22 H 20 Blood Pressure 131/60 118/53 L Pulse Oximetry 97 98 10/27/19 22:42 10/27/19 22:56 10/27/19 23:02 Temperature 36.4 C L 36.3 C L 36.4 C Pulse Rate 88 90 87 Respiratory Rate 18 20 18 Blood Pressure 110/52 L 88/55 L 113/53 L Pulse Oximetry 100 98 98 10/27/19 23:56 10/28/19 00:00 10/28/19 00:56 Temperature 36.4 C 36.7 C Pulse Rate 86 87 88 Respiratory Rate 20 18 Blood Pressure 113/56 L 120/60 Pulse Oximetry 97 98 10/28/19 01:36 10/28/19 02:00 10/28/19 02:09 Temperature 36.6 C 36.4 C 36.4 C L Pulse Rate 90 92 93 Respiratory Rate 20 20 18 Blood Pressure 116/61 118/75 121/54 L Pulse Oximetry 97 97 100 10/28/19 02:23 10/28/19 03:23 10/28/19 04:00 Temperature 36.4 C L 36.3 C L 36.2 C L Pulse Rate 89 84 86 Respiratory Rate 22 H 18 18 Blood Pressure 116/53 L 127/59 L 124/85 Pulse Oximetry 100 97 98 10/28/19 04:23 10/28/19 05:10 10/28/19 06:00 Temperature 36.2 C L 36.4 C L Pulse Rate 82 82 90 Respiratory Rate 20 16 Blood Pressure 144/71 H 124/85 Pulse Oximetry 100 100 10/28/19 08:00 10/28/19 08:11 10/28/19 10:00 Temperature 36.6 C Pulse Rate 90 87 86 Respiratory Rate 22 H Blood Pressure 114/77 Pulse Oximetry 92 10/28/19 11:47 Temperature 36.9 C Pulse Rate 87 Respiratory Rate 16 Blood Pressure 132/72 Pulse Oximetry 93 Intake/Output Intake/Output: Intake & Output 10/25/19 10/26/19 10/27/19 10/28/19 23:59 23:59 23:59 23:59 Intake Total 2401 1917 2089 Output Total 600 1800 1875 1225 Balance -600 601 42 864 Meds/Results Medications: Active Medications Generic Name Dose Route Start Last Admin Trade Name Freq PRN Reason Stop Dose Admin Diphenhydramine HCl 25 mg 10/26/19 16:43 10/28/19 02:15 Benadryl Cap PO 25 mg Q6H PRN Administration Itching Furosemide 40 mg 10/28/19 09:00 10/28/19 09:46 Lasix Inj IV PUSH 40 mg QAM SAM Administration Sodium Bicarbonate 150 meq/ 1,100 mls @ 50 mls/hr 10/25/19 21:15 10/28/19 09:37 Dextrose IV CONT 50 mls/hr .Q22H SAM Administration Pantoprazole Sodium 80 mg/ 500 mls @ 50 mls/hr 10/27/19 22:00 10/28/19 06:37 Dextrose IV CONT 50 mls/hr .Q10H SAM Infusion Lactated Ringer's 1,000 mls @ 150 mls/hr 10/28/19 08:10 10/28/19 11:51 Lr - Lactated Ringers Iv IV CONT 150 mls/hr .Q6H40M SAM Adminis
[2019-10-28 14:08] LABS: Glucose Point of Care 107 (65-105)
[2019-10-28 15:41] LABS: Hematocrit 24.5 % (42.0-52.0); Hemoglobin 8.2 g/dL (14.0-18.0)
--- NOTE | 2019-10-28 16:28 | PCPTNOTE ---
Attempted PT eval at 1310. Pt off floor for EGD. Will try again tomorrow.
[2019-10-28] MEDS: SUCRALFATE 1 GM TABLET PO ×2 (17:36→20:19)
--- NOTE | 2019-10-28 17:48 | PC.NURSE ---
This patient, Diego Guzman, was transferred to [facility] on 10/28/19 at 1748. Personal belongings sent with patient. Belongings list checked and signed with receiving RN. Report given to BRANDON Powers. Appropriate documentation sent with patient.
--- NOTE | 2019-10-28 18:02 | PC.NURSE ---
Received patient from IMU via bed with IMU staff. Patient settled in room. Denies pain. No distress noted. Renal diet explained to patient and assisted him with ordering a tray. IVFs infusing without difficulty. Patient's called per patient request - to notify her of new room number.
[2019-10-28 18:22] LABS: Hematocrit 22.1 % (42.0-52.0); Hemoglobin 7.6 g/dL (14.0-18.0)
--- NOTE | 2019-10-28 19:40 | PC.NURSE ---
Large BMs x 2 since patient transferred from IMU - stools are bright red in color and very tarry. Patient ambulated to bathroom and c/o weakness when using toilet. Call placed to Dr. Pulido's exchange and message left regarding bleeding.
[2019-10-28 19:47] LABS: Glucose Point of Care 99 (65-105)
[2019-10-28] MEDS: TAMSULOSIN HCL 0.4 MG CAPSULE PO (20:19)
[2019-10-28] MEDS: PANTOPRAZOLE SODIUM IV 40 MG VIAL IV PUSH (20:20)
[2019-10-28] MEDS: SODIUM CHLORIDE 0.9% IV 250 ML 30 ML IV CONT (22:00)
[2019-10-28 22:22] LABS: Glucose Point of Care 99 (65-105)
[2019-10-29] VITALS (13 sets, daily range): BP systolic 122–155; BP diastolic 52–72; PULSE 78–96; RESP 16–20; TEMP 36.2–37; O2SAT 94–100
[2019-10-29 02:03] LABS: Hematocrit 22.4 % (42.0-52.0); Hemoglobin 7.6 g/dL (14.0-18.0); Mean Corpuscular HGB Conc 33.9 g/dl (32-36); Mean Corpuscular Hemoglobin 31.3 pg (26-34); Mean Corpuscular Volume 92.2 fl (80-100); Mean Platelet Volume 9.9 fl (7.4-10.4); Platelet Count Result 101 k/mm3 (150-375); Red Blood Count 2.43 M/mm3 (4.6-6.20); Red Cell Distribution Width 14.1 % (11.5-14.5)
[2019-10-29 02:15] LABS: Blood Urea Nitrogen 82 mg/dL (9-20); Calcium 6.7 mg/dL (8.4-10.2); Carbon Dioxide 25 mmol/L (22-30); Chloride 91 mmol/L (98-107); Estimated CRCL calculation 13 ml/min; Estimated Glomerular Filt Rate 13; Glucose 97 mg/dL (75-110); Potassium 3.7 mmol/L (3.4-5.0); Sodium 127 mmol/L (137-145)
[2019-10-29] MEDS: SODIUM CHLORIDE 0.9% IV 250 ML 30 ML IV CONT (05:50)
[2019-10-29] MEDS: SUCRALFATE 1 GM TABLET PO ×4 (05:56→20:41)
[2019-10-29] MEDS: PANTOPRAZOLE SODIUM IV 40 MG VIAL IV PUSH ×2 (08:24→20:42)
[2019-10-29] MEDS: FUROSEMIDE INJ 40 MG/4 ML VIAL IV PUSH (08:24)
[2019-10-29] MEDS: THIAMINE HCL 50 MG TABLET PO (08:25)
--- NOTE | 2019-10-29 08:44 | WPDGIPROGNO ---
Progress Note: A&P Additional Plan Patient feeling much better this morning. Tolerating regular diet. He has passed 1 stool with old blackish blood throughout the night. Hemoglobin 7.6 last evening requiring additional blood transfusion. Patient denies abdominal pain tolerating diet without difficulty denies any dizziness wishes to get out of bed. Physical exam patient is alert. Comfortable at rest. HEENT exam unremarkable. Lungs are clear. Abdomen is soft and nontender. Hemoglobin 7.6, hematocrit 22.4, MCV 92. Impression 1. Duodenal ulcer. Patient has had significant bleeding from this ulcer. Current we appears to be improving. Doubt additional bleeding overnight. But he is had some over the last 2 days. 2. Renal failure. Three. Alcoholism. Plan is to continue to monitor hemoglobin. At allow diet and increase activity. We should continue to observe the patient in the hospital until we are certain his hemoglobin has remained stable. PPI will continue intravenously until is hemoglobin is felt to be stable in should be continued for some time subsequently. He should continue to avoid nonsteroidal anti-inflammatory agents. ETOH peers to be major etiology for his peptic ulcer disease in rehab is strongly encouraged. Subjective Date/time seen: 10/29/19 08:44 Objective Data Vital Signs Vital Signs: Vital Signs - 24 hr 10/28/19 10:00 10/28/19 11:47 10/28/19 12:46 Temperature 36.9 C Pulse Rate 86 87 87 Respiratory Rate 16 16 Blood Pressure 132/72 79/38 L Pulse Oximetry 93 100 10/28/19 12:56 10/28/19 13:06 10/28/19 13:16 Temperature Pulse Rate 85 83 83 Respiratory Rate 16 16 16 Blood Pressure 105/45 L 110/45 L 111/46 L Pulse Oximetry 100 97 97 10/28/19 13:26 10/28/19 13:36 10/28/19 16:00 Temperature 36.6 C Pulse Rate 78 79 88 Respiratory Rate 16 16 20 Blood Pressure 128/47 L 130/45 L 125/108 H Pulse Oximetry 97 97 98 10/28/19 22:00 10/28/19 22:15 10/28/19 23:15 Temperature 36.0 C L 36.2 C L 36.3 C L Pulse Rate 87 81 82 Respiratory Rate 16 16 16 Blood Pressure 139/60 132/64 134/67 Pulse Oximetry 96 95 97 10/29/19 00:15 10/29/19 00:30 10/29/19 00:45 Temperature 36.3 C L 36.2 C L 36.2 C L Pulse Rate 96 85 85 Respiratory Rate 16 16 16 Blood Pressure 137/65 134/61 134/61 Pulse Oximetry 100 97 97 10/29/19 05:50 10/29/19 06:00 10/29/19 06:05 Temperature 36.2 C L 36.2 C L 36.2 C L Pulse Rate 81 78 78 Respiratory Rate 20 16 18 Blood Pressure 141/62 H 132/64 139/65 Pulse Oximetry 94 96 95 10/29/19 07:05 10/29/19 08:05 Temperature 36.3 C L 36.7 C Pulse Rate 86 82 Respiratory Rate 18 18 Blood Pressure 155/68 H 130/57 L Pulse Oximetry 98 94 Intake/Output Intake/Output: Intake & Output 10/26/19 10/27/19 10/28/19 10/29/19 23:59 23:59 23:59 23:59 Intake Total 2401 1917 2564 1609 Output Total 1800 1875 2825 700 Balance 601 42 -261 909 Meds/Results Medications: Active Medications Generic Name Dose Route Start Last Admin Trade Name Freq PRN Reason Stop Dose Admin Diphenhydramine HCl 25 mg 10/26/19 16:43 10/29/19 08:25 Benadryl Cap PO 25 mg Q6H PRN Administration Itching Furosemide 40 mg 10/28/19 09:00 10/29/19 08:24 Lasix Inj IV PUSH 40 mg QAM SAM Administration Sodium Bicarbonate 150 meq/ 1,100 mls @ 50 mls/hr 10/25/19 21:15 10/29/19 05:56 Dextrose IV CONT 50 mls/hr .Q22H SAM Infusion Vancomycin HCl 1,250 mg in 250 mls @ 200 mls/hr 10/28/19 11:00 10/28/19 16:17 Vancomycin 1,250 Mg/D5w 250 Ml IVPB Infused Q48H SAM Infusion Sodium Chloride 250 mls @ 30 mls/hr 10/29/19 02:33 10/29/19 05:50 Normal Saline Iv IV CONT 10/29/19 10:52 30 mls/hr .Q8H20M STA Administration Lidocaine HCl 0.3 ml 10/28/19 08:10 Xylocaine 2% Local Inj INTRADERM ONCE PRN to numb area Lorazepam 1 mg 10/26/19 13:47 Ativan Inj IV PUSH Q4H PRN CIWA score 8 or above Pantoprazole Sodium 40 mg
[2019-10-29 09:38] LABS: Hematocrit 28.3 % (42.0-52.0); Hemoglobin 9.8 g/dL (14.0-18.0)
--- NOTE | 2019-10-29 10:47 | PM.PNNEP ---
Progress Note: A&P Assessment and Plan (1) Acute renal failure: Qualifiers: Acute renal failure type: unspecified Qualified Code(s): N17.9 - Acute kidney failure, unspecified Code(s): N17.9 - Acute kidney failure, unspecified Status: Acute Assessment and Plan: normal creatinine ~ 3 years ago unclear if he has a component of CKD that developed in the interving years creatinine improving albeit slowly with current interventions u/s with a small left kidney and normal right kidney; mild hydronephrosis on the right and severe bladder trabeculation - possible component of chronic outlet obstruction(?) - on tamsulosin could just have ATN because of his severely low hemoglobin + use of meloxicam in that setting along dehydration on admission continue supportive therapy (2) Symptomatic anemia: Code(s): D64.9 - Anemia, unspecified Status: Acute Assessment and Plan: due to duodenal ulcer found on EGD Gastroenterology following PRBC transfusion per protocol (3) Duodenal ulcer: Code(s): K26.9 - Duodenal ulcer, unspecified as acute or chronic, without hemorrhage or perforation Status: Acute Assessment and Plan: etiology of #2 on PPI GI following (4) Acute hyponatremia: Code(s): E87.1 - Hypo-osmolality and hyponatremia Status: Acute Assessment and Plan: due to a combination of LITZY, volume depletion, and possible liver disease relatively stable at this time follow trend (5) Acute hyperkalemia: Code(s): E87.5 - Hyperkalemia Status: Acute Assessment and Plan: resolved (6) Alcoholic liver disease: Code(s): K70.9 - Alcoholic liver disease, unspecified Status: Acute Assessment and Plan: secondary to EtoH use/abuse supportive therapy (7) Acute urinary retention: Code(s): R33.8 - Other retention of urine Status: Acute Assessment and Plan: villarreal catheter in place on tamulosin voiding trial? Subjective Date/time seen: 10/29/19 10:47 Appears to be doing reasonably well at the time of my visit; tolerating diet; some maroon colored stools overnight and received PRBC transfusion; no apparent distress currently. Exam Narrative: Exam Narrative: General: WD/WN male in NAD Heart: normal S1 and S2; no rub Lungs: clear to auscultation Abdomen: soft, nontender, nondistended, positive bowel sounds Extremities: no cyanosis or clubbing; trace - 1+ edema Skin: warm and dry Objective Data Vital Signs Vital Signs: Vital Signs Temp Pulse Resp BP Pulse Ox 10/29/19 08:05 36.7 C 82 18 130/57 L 94 10/29/19 07:05 36.3 C L 86 18 155/68 H 98 10/29/19 06:05 36.2 C L 78 18 139/65 95 10/29/19 06:00 36.2 C L 78 16 132/64 96 10/29/19 05:50 36.2 C L 81 20 141/62 H 94 10/29/19 00:45 36.2 C L 85 16 134/61 97 10/29/19 00:30 36.2 C L 85 16 134/61 97 10/29/19 00:15 36.3 C L 96 16 137/65 100 10/28/19 23:15 36.3 C L 82 16 134/67 97 10/28/19 22:15 36.2 C L 81 16 132/64 95 10/28/19 22:00 36.0 C L 87 16 139/60 96 10/28/19 16:00 36.6 C 88 20 125/108 H 98 10/28/19 13:36 79 16 130/45 L 97 10/28/19 13:26 78 16 128/47 L 97 10/28/19 13:16 83 16 111/46 L 97 10/28/19 13:06 83 16 110/45 L 97 10/28/19 12:56 85 16 105/45 L 100 10/28/19 12:46 87 16 79/38 L 100 10/28/19 11:47 36.9 C 87 16 132/72 93 Intake/Output Intake/Output: Intake & Output 10/26/19 10/27/19 10/28/19 10/29/19 23:59 23:59 23:59 23:59 Intake Total 2401 1917 2564 1609 Output Total 1800 1875 2825 700 Balance 601 42 -670 909 Meds/Results Medications: Active Medications Generic Name Dose Route Start Last Admin Trade Name Freq PRN Reason Stop Dose Admin Diphenhydramine HCl 25 mg 10/26/19 16:43 10/29/19 08:25 Benadryl Cap PO 25 mg Q6H PRN Administration Itching Furose
[2019-10-29] MEDS: SODIUM BICARBONATE 8.4% 150 MEQ in DEXTROSE 5% 1,000 ML 950 ML 50 ML IV CONT (12:16)
--- NOTE | 2019-10-29 12:44 | WPDANESPN ---
Anes - Prog Note Post-Op Date/Time: 10/29/19 12:44 Vital Signs: Last Vital Signs Temp 97.2 F L 10/29/19 10:00 Pulse 87 10/29/19 10:00 Resp 16 10/29/19 10:00 BP 134/72 10/29/19 10:00 Pulse Ox 98 10/29/19 10:00 I/O: Intake & Output 10/28/19 10/29/19 10/29/19 23:59 07:59 15:59 Intake Total 325 1344 871 Output Total 1000 700 Balance -675 644 871 Laboratory Tests 10/29/19 01:56 10/25/19 10/28/19 10/28/19 19:57 14:06 15:01 WBC RBC Hgb 8.2 L Hct 24.5 L MCV MCH MCHC RDW Plt Count MPV Sodium Potassium Chloride Carbon Dioxide BUN Creatinine Estim Creat Clear Calc Estimated GFR Glucose POC Capillary Glucose 107 Calcium Blood Type A Negative Antibody Screen Negative Crossmatch See Detail 10/28/19 10/28/19 10/28/19 18:16 18:17 22:07 WBC RBC Hgb 7.6 L Hct 22.1 L MCV MCH MCHC RDW Plt Count MPV Sodium Potassium Chloride Carbon Dioxide BUN Creatinine Estim Creat Clear Calc Estimated GFR Glucose POC Capillary Glucose 99 99 Calcium Blood Type Antibody Screen Crossmatch 10/29/19 10/29/19 10/29/19 01:56 01:56 03:12 WBC 10.0 RBC 2.43 L Hgb 7.6 L Hct 22.4 L MCV 92.2 MCH 31.3 MCHC 33.9 RDW 14.1 Plt Count 101 L MPV 9.9 Sodium 127 L Potassium 3.7 Chloride 91 L Carbon Dioxide 25 BUN 82 H Creatinine 4.40 H Estim Creat Clear Calc 13 Estimated GFR 13 L Glucose 97 POC Capillary Glucose Calcium 6.7 L Blood Type A Negative Antibody Screen Negative Crossmatch See Detail 10/29/19 10/29/19 09:27 12:13 WBC RBC Hgb 9.8 L Pending Hct 28.3 L Pending MCV MCH MCHC RDW Plt Count MPV Sodium Potassium Chloride Carbon Dioxide BUN Creatinine Estim Creat Clear Calc Estimated GFR Glucose POC Capillary Glucose Calcium Blood Type Antibody Screen Crossmatch Microbiology 10/25/19 21:02 Urine Clean Catch Urine Culture - Final Enterococcus species Patient Feedback: Patient satisfied with anesthetic care.
[2019-10-29 12:47] LABS: Hematocrit 28.1 % (42.0-52.0); Hemoglobin 9.8 g/dL (14.0-18.0)
--- NOTE | 2019-10-29 14:39 | P.PNIM_ITS ---
Progress Note: A&P Assessment and Plan (1) Duodenal ulcer: Code(s): K26.9 - Duodenal ulcer, unspecified as acute or chronic, without hemorrhage or perforation Status: Acute Assessment and Plan: * EGD 10/26 with DU that was cauterized, gastritis, duodenitis * continue ppi * f/u h/h (2) Anemia due to acute blood loss: Code(s): D62 - Acute posthemorrhagic anemia Status: Acute Assessment and Plan: * / hgb 6.5, 1 U PRBC ordered * 10/27 hgb 7.0, 1 U PRBC * / PM hgb 5.8, 2 U PRBC * 10/28 hgb 7.7, repeat EGD * 10/29 hgb 9.8 * f/u h/h (3) UTI (urinary tract infection): Qualifiers: Hematuria presence: without hematuria Urinary tract infection type: site unspecified Qualified Code(s): N39.0 - Urinary tract infection, site not specified Code(s): N39.0 - Urinary tract infection, site not specified Status: Acute Assessment and Plan: * 10/28 Enteroccous in urine, vancomycin day 2 * No susceptibilities available for testing (4) Acute renal failure: Qualifiers: Acute renal failure type: unspecified Qualified Code(s): N17.9 - Acute kidney failure, unspecified Code(s): N17.9 - Acute kidney failure, unspecified Status: Acute Assessment and Plan: * anemia and chronic NSAID therapy (with two drugs) might be playing a role * intravascular volume depletion may be playing a role * given CT findings, outflow obstruction may be playing a role * glomerular and interstitial nephropathies seem less likely * hepatorenal syndrome seems less likely * 09/18/2017 creatinine was 0.5 * creatinine 10/25 5.7 * 2 5.4 * 10/27 5.2 * 10/29 4.4, voiding trial (5) CHF (congestive heart failure): Qualifiers: Heart failure chronicity: chronic Heart failure type: unspecified Qualified Code(s): I50.9 - Heart failure, unspecified Code(s): I50.9 - Heart failure, unspecified Status: Acute Assessment and Plan: * monitor volume status * restrict fluids (6) Acute hyperkalemia: Code(s): E87.5 - Hyperkalemia Status: Acute Assessment and Plan: * resolved, 10/26 4.9 (7) Acute hyponatremia: Code(s): E87.1 - Hypo-osmolality and hyponatremia Status: Acute Assessment and Plan: * 10/26 125 * Check FENA, FEU -> both c/w postrenal cause * 2/ restrict fluids to 1000 ml/day * f/u lab (8) Alcohol abuse: Code(s): F10.10 - Alcohol abuse, uncomplicated Status: Acute Assessment and Plan: * prn lorazepam per [facility] protocol (9) Cirrhosis of liver: Qualifiers: Hepatic cirrhosis type: alcoholic cirrhosis Ascites presence: without ascites Qualified Code(s): K70.30 - Alcoholic cirrhosis of liver without ascites Code(s): K74.60 - Unspecified cirrhosis of liver Status: Acute Assessment and Plan: * CT c/w cirrhosis * Likely due to alcohol * HBV, HCV, HAV negative * He should get immunized Subjective Date/time seen: 10/29/19 14:40 Interval history: Maroon stool overnight. Received 1 U PRBC. Denied cp. No sob at rest. Swelling w/o change. No abd pain. Asking about going home. Review of Systems Review of Systems: All systems reviewed & are unremarkable except as noted in HPI and below Exam Narrative: Exam Narrative: HEENT: EOMI, PERRL, pharyngeal mucosa pink and intact NECK: No JVD CHEST: Clear anteriorly, decreased at bases HEART: NL S1/S2, regular, no murmur ABDOMEN: BS+, soft, nontender
--- NOTE | 2019-10-29 14:39 | PM.IMPN ---
Progress Note: A&P Assessment and Plan (1) Duodenal ulcer: Code(s): K26.9 - Duodenal ulcer, unspecified as acute or chronic, without hemorrhage or perforation Status: Acute Assessment and Plan: EGD 10/26 with DU that was cauterized, gastritis, duodenitis continue ppi f/u h/h (2) Anemia due to acute blood loss: Code(s): D62 - Acute posthemorrhagic anemia Status: Acute Assessment and Plan: 10/26 hgb 6.5, 1 U PRBC ordered 10/27 hgb 7.0, 1 U PRBC 10/27 PM hgb 5.8, 2 U PRBC 10/28 hgb 7.7, repeat EGD 10/29 hgb 9.8 f/u h/h (3) UTI (urinary tract infection): Qualifiers: Hematuria presence: without hematuria Urinary tract infection type: site unspecified Qualified Code(s): N39.0 - Urinary tract infection, site not specified Code(s): N39.0 - Urinary tract infection, site not specified Status: Acute Assessment and Plan: 10/28 Enteroccous in urine, vancomycin day 2 No susceptibilities available for testing (4) Acute renal failure: Qualifiers: Acute renal failure type: unspecified Qualified Code(s): N17.9 - Acute kidney failure, unspecified Code(s): N17.9 - Acute kidney failure, unspecified Status: Acute Assessment and Plan: anemia and chronic NSAID therapy (with two drugs) might be playing a role intravascular volume depletion may be playing a role given CT findings, outflow obstruction may be playing a role glomerular and interstitial nephropathies seem less likely hepatorenal syndrome seems less likely 09/18/2017 creatinine was 0.5 creatinine 10/25 5.7 10/26 5.4 10/27 5.2 10/29 4.4, voiding trial (5) CHF (congestive heart failure): Qualifiers: Heart failure chronicity: chronic Heart failure type: unspecified Qualified Code(s): I50.9 - Heart failure, unspecified Code(s): I50.9 - Heart failure, unspecified Status: Acute Assessment and Plan: monitor volume status restrict fluids (6) Acute hyperkalemia: Code(s): E87.5 - Hyperkalemia Status: Acute Assessment and Plan: resolved, 10/26 4.9 (7) Acute hyponatremia: Code(s): E87.1 - Hypo-osmolality and hyponatremia Status: Acute Assessment and Plan: 10/26 125 Check FENA, FEU -> both c/w postrenal cause / restrict fluids to 1000 ml/day f/u lab (8) Alcohol abuse: Code(s): F10.10 - Alcohol abuse, uncomplicated Status: Acute Assessment and Plan: prn lorazepam per [facility] protocol (9) Cirrhosis of liver: Qualifiers: Hepatic cirrhosis type: alcoholic cirrhosis Ascites presence: without ascites Qualified Code(s): K70.30 - Alcoholic cirrhosis of liver without ascites Code(s): K74.60 - Unspecified cirrhosis of liver Status: Acute Assessment and Plan: CT c/w cirrhosis Likely due to alcohol HBV, HCV, HAV negative He should get immunized Subjective Date/time seen: 10/29/19 14:40 Interval history: Maroon stool overnight. Received 1 U PRBC. Denied cp. No sob at rest. Swelling w/o change. No abd pain. Asking about going home. Review of Systems Review of Systems: All systems reviewed & are unremarkable except as noted in HPI and below Exam Narrative: Exam Narrative: HEENT: EOMI, PERRL, pharyngeal mucosa pink and intact NECK: No JVD CHEST: Clear anteriorly, decreased at bases HEART: NL S1/S2, regular, no murmur ABDOMEN: BS+, soft, nontender, no mass, no bruits EXTREMITIES: No cyanosis, 1+ pretibial edema NEUROLOGIC: CN intact and symmetric to inspection. MUSCULOSKELETAL: Tone and strength symmetric. PSYCH: Alert. Oriented to person, place, and time. Objective Data Vital Signs Vital Signs: Vital Signs - 24 hr 10/28/19 16:00 10/28/19 22:00 10/28/19 22:15 Temperature 97.9 F 96.8 F L 97.2 F L Pulse Rate 88 87 81 Respiratory Rate 20 16 16 Blood Pressure 125/108 H 139/60 132/64 Pulse Oximetry 98 96 95 10/28/19 23:15 10/29/19 00
--- NOTE | 2019-10-29 15:14 | PC.NURSE ---
Order to d/c villarreal catheter. Patient requests he be allowed to nap and have the villarreal removed closer to dinnertime.
[2019-10-29 19:35] LABS: Hematocrit 26.3 % (42.0-52.0); Hemoglobin 9.4 g/dL (14.0-18.0)
[2019-10-29] MEDS: TAMSULOSIN HCL 0.4 MG CAPSULE PO (20:41)
[2019-10-30] VITALS: BP 130/50; PULSE 85; RESP 18; TEMP 36.7; O2SAT 100
[2019-10-30 00:34] LABS: Hematocrit 25.5 % (42.0-52.0)
[2019-10-30 05:36] LABS: Hematocrit 24.9 % (42.0-52.0); Hemoglobin 8.4 g/dL (14.0-18.0); Mean Corpuscular HGB Conc 33.7 g/dl (32-36); Mean Corpuscular Hemoglobin 30.7 pg (26-34); Mean Corpuscular Volume 90.9 fl (80-100); Mean Platelet Volume 9.5 fl (7.4-10.4); Platelet Count Result 145 k/mm3 (150-375); Red Blood Count 2.74 M/mm3 (4.6-6.20); Red Cell Distribution Width 14.8 % (11.5-14.5); White Blood Count 8.1 K/mm3 (4.5-10.0)
[2019-10-30 05:45] VITALS: BP 111/44; PULSE 79; RESP 16; TEMP 37.2; O2SAT 98
[2019-10-30 05:55] LABS: Blood Urea Nitrogen 77 mg/dL (9-20); Calcium 6.6 mg/dL (8.4-10.2); Carbon Dioxide 30 mmol/L (22-30); Chloride 91 mmol/L (98-107); Estimated CRCL calculation 13 ml/min; Estimated Glomerular Filt Rate 13; Glucose 91 mg/dL (75-110); Potassium 3.1 mmol/L (3.4-5.0); Sodium 130 mmol/L (137-145)
[2019-10-30] MEDS: SUCRALFATE 1 GM TABLET PO ×4 (07:07→20:24)
[2019-10-30] MEDS: PANTOPRAZOLE SODIUM IV 40 MG VIAL IV PUSH ×2 (08:03→20:24)
[2019-10-30] MEDS: FUROSEMIDE INJ 40 MG/4 ML VIAL IV PUSH (08:03)
[2019-10-30] MEDS: THIAMINE HCL 50 MG TABLET PO (08:03)
--- NOTE | 2019-10-30 08:06 | WPDGIPROGNO ---
Progress Note: A&P Additional Plan Patient states he is comfortable this morning. He denies abdominal pain. Denies any recent bowel movement. Last bowel movement was darkish still. Physical exam reveals patient to be alert. Comfortable at rest. Lungs are clear. Abdomen bowel sounds are present soft and nontender. Laboratory with WBC 8.1, hemoglobin 8.4, hematocrit 24.9. This is stable. BUN 77, creatinine 4.6. LFTs are normal. Impression 1. Duodenal ulcer. It appears the bleeding has stopped. Ulcers felt to be on the basis of alcohol abuse. Plan to allow diet as tolerated. Continue proton pump inhibitor for at least several months. Avoid nonsteroidal anti-inflammatory agents. Avoid alcohol. 2. Alcohol abuse. 3. Renal insufficiency. A paddle renal syndrome felt unlikely. Plan to continue to monitor renal function. Subjective Date/time seen: 10/30/19 08:06 Objective Data Vital Signs Vital Signs: Vital Signs - 24 hr 10/29/19 10:00 10/29/19 12:00 10/29/19 14:00 Temperature 36.2 C L 36.7 C 36.7 C Pulse Rate 87 85 85 Respiratory Rate 16 18 18 Blood Pressure 134/72 147/64 H 147/64 H Pulse Oximetry 98 99 99 10/29/19 18:00 10/29/19 22:59 10/30/19 00:00 Temperature 37.0 C 36.8 C 36.7 C Pulse Rate 87 88 85 Respiratory Rate 16 18 18 Blood Pressure 141/60 H 122/52 L 130/50 L Pulse Oximetry 96 97 100 10/30/19 05:45 Temperature 37.2 C Pulse Rate 79 Respiratory Rate 16 Blood Pressure 111/44 L Pulse Oximetry 98 Intake/Output Intake/Output: Intake & Output 10/27/19 10/28/19 10/29/19 10/30/19 23:59 23:59 23:59 23:59 Intake Total 6451 6034 2765 150 Output Total 9305 2935 2050 300 Balance 42 -261 715 -150 Meds/Results Medications: Active Medications Generic Name Dose Route Start Last Admin Trade Name Freq PRN Reason Stop Dose Admin Diphenhydramine HCl 25 mg 10/26/19 16:43 10/30/19 07:28 Benadryl Cap PO 25 mg Q6H PRN Administration Itching Furosemide 40 mg 10/28/19 09:00 10/30/19 08:03 Lasix Inj IV PUSH 40 mg QAM SAM Administration Vancomycin HCl 1,250 mg in 250 mls @ 200 mls/hr 10/28/19 11:00 10/28/19 16:17 Vancomycin 1,250 Mg/D5w 250 Ml IVPB Infused Q48H SAM Infusion Lidocaine HCl 0.3 ml 10/28/19 08:10 Xylocaine 2% Local Inj INTRADERM ONCE PRN to numb area Lorazepam 1 mg 10/26/19 13:47 Ativan Inj IV PUSH Q4H PRN CIWA score 8 or above Pantoprazole Sodium 40 mg 10/28/19 21:00 10/30/19 08:03 Protonix Iv IV PUSH 40 mg Q12HR SAM Administration Sucralfate 1 gm 10/28/19 16:30 10/30/19 07:07 Carafate PO 1 gm ACHS SAM Administration Tamsulosin HCl 0.4 mg 10/26/19 21:00 10/29/19 20:41 Flomax PO 0.4 mg HS SAM Administration Thiamine HCl 50 mg 10/27/19 09:00 10/30/19 08:03 Vitamin B-1 PO 50 mg QAM SAM Administration Radiology Results: ITS Impressions Chest X-Ray 10/25/19 19:02 IMPRESSION: 1. Small bilateral pleural effusions with bibasilar atelectasis and/or pneumonia. Abdomen/Pelvis CT 10/25/19 21:14 IMPRESSION: 1. Diffuse wall thickening in the bladder with trabeculation suggesting this is due at least in part to chronic outlet obstruction however there is also urothelial thickening along the bilateral ureters and could not exclude cystitis with associated ascending urinary tract infection. Correlate with urinalysis. 2. Mild right right hydroureteronephrosis without evident obstructing urolithiasis which could be related to either reflux, obstruction at the level of the ureterovesicular junction or patulous collecting system related to chronic obstruction. 3. Small to moderate-sized bilateral pleural effusions. 4. Small pericardial effusion. 5. Suggestion of cirrhosis with subtle liver surface nodularity. Renal Ultrasound 10/26/19 16:43 IMPRESSION: 1. Severe diffuse bladder wall thickening consistent with cystitis. 2. Mild right hydronephrosis.
--- NOTE | 2019-10-30 08:09 | WPDGIPROGNO ---
Progress Note: A&P Additional Plan Patient alert and comfortable this morning. Sleeping in a chair. She is now tolerating diet. Denies abdominal pain. No obvious active GI blood loss. Physical exam reveals her to be alert. Lungs with few rales. Heart without murmur. Abdomen is obese bowel sounds are present soft and nontender. Extremities with marked pedal edema. Impression 1. Ascending colon mass. Histology pending. Strongly suspect this is etiology for her iron deficiency anemia. If tumor is confirms surgical console and perhaps Oncology consult may be a consideration. 2. Iron deficiency anemia. Now on iron replacement. Continue to monitor hemoglobin. Low hemoglobin was likely contributed to congestive heart failure. 3. Congestive heart failure. Improving with slow diuresis. Also improved after transfusion and higher hematocrit. Subjective Date/time seen: 10/30/19 08:09 Objective Data Vital Signs Vital Signs: Vital Signs - 24 hr 10/29/19 10:00 10/29/19 12:00 10/29/19 14:00 Temperature 36.2 C L 36.7 C 36.7 C Pulse Rate 87 85 85 Respiratory Rate 16 18 18 Blood Pressure 134/72 147/64 H 147/64 H Pulse Oximetry 98 99 99 10/29/19 18:00 10/29/19 22:59 10/30/19 00:00 Temperature 37.0 C 36.8 C 36.7 C Pulse Rate 87 88 85 Respiratory Rate 16 18 18 Blood Pressure 141/60 H 122/52 L 130/50 L Pulse Oximetry 96 97 100 10/30/19 05:45 Temperature 37.2 C Pulse Rate 79 Respiratory Rate 16 Blood Pressure 111/44 L Pulse Oximetry 98 Intake/Output Intake/Output: Intake & Output 10/27/19 10/28/19 10/29/19 10/30/19 23:59 23:59 23:59 23:59 Intake Total 1574 4634 2765 150 Output Total 1875 2825 2050 300 Balance 42 -261 715 -150 Meds/Results Medications: Active Medications Generic Name Dose Route Start Last Admin Trade Name Freq PRN Reason Stop Dose Admin Diphenhydramine HCl 25 mg 10/26/19 16:43 10/30/19 07:28 Benadryl Cap PO 25 mg Q6H PRN Administration Itching Furosemide 40 mg 10/28/19 09:00 10/30/19 08:03 Lasix Inj IV PUSH 40 mg QAM SAM Administration Vancomycin HCl 1,250 mg in 250 mls @ 200 mls/hr 10/28/19 11:00 10/28/19 16:17 Vancomycin 1,250 Mg/D5w 250 Ml IVPB Infused Q48H SAM Infusion Lidocaine HCl 0.3 ml 10/28/19 08:10 Xylocaine 2% Local Inj INTRADERM ONCE PRN to numb area Lorazepam 1 mg 10/26/19 13:47 Ativan Inj IV PUSH Q4H PRN CIWA score 8 or above Pantoprazole Sodium 40 mg 10/28/19 21:00 10/30/19 08:03 Protonix Iv IV PUSH 40 mg Q12HR SAM Administration Sucralfate 1 gm 10/28/19 16:30 10/30/19 07:07 Carafate PO 1 gm ACHS SAM Administration Tamsulosin HCl 0.4 mg 10/26/19 21:00 10/29/19 20:41 Flomax PO 0.4 mg HS SAM Administration Thiamine HCl 50 mg 10/27/19 09:00 10/30/19 08:03 Vitamin B-1 PO 50 mg QAM SAM Administration Radiology Results: ITS Impressions Chest X-Ray 10/25/19 19:02 IMPRESSION: 1. Small bilateral pleural effusions with bibasilar atelectasis and/or pneumonia. Abdomen/Pelvis CT 10/25/19 21:14 IMPRESSION: 1. Diffuse wall thickening in the bladder with trabeculation suggesting this is due at least in part to chronic outlet obstruction however there is also urothelial thickening along the bilateral ureters and could not exclude cystitis with associated ascending urinary tract infection. Correlate with urinalysis. 2. Mild right right hydroureteronephrosis without evident obstructing urolithiasis which could be related to either reflux, obstruction at the level of the ureterovesicular junction or patulous collecting system related to chronic obstruction. 3. Small to moderate-sized bilateral pleural effusions. 4. Small pericardial effusion. 5. Suggestion of cirrhosis with subtle liver surface nodularity. Renal Ultrasound 10/26/19 16:43 IMPRESSION: 1. Severe diffuse bladder wall thickening consistent with cystitis. 2. Mild right hydronephrosis.
[2019-10-30 10:00] VITALS: BP 132/66; PULSE 78; RESP 16; TEMP 36; O2SAT 100
[2019-10-30 12:08] LABS: Hematocrit 28.2 % (42.0-52.0); Hemoglobin 9.4 g/dL (14.0-18.0)
[2019-10-30 14:00] VITALS: BP 117/64; PULSE 89; RESP 16; TEMP 36.3; O2SAT 99
--- NOTE | 2019-10-30 15:15 | P.PNNP_ITS ---
Progress Note: A&P Assessment and Plan (1) Acute renal failure: Qualifiers: Acute renal failure type: unspecified Qualified Code(s): N17.9 - Acute kidney failure, unspecified Code(s): N17.9 - Acute kidney failure, unspecified Status: Acute Assessment and Plan: * normal creatinine ~ 3 years ago * unclear if he has a component of CKD that developed in the intervening years * creatinine improving albeit slowly with current interventions * u/s with a small left kidney and normal right kidney; mild hydronephrosis on the right and severe bladder trabeculation - possible component of chronic outlet obstruction(?) - on tamsulosin * could just have ATN because of his severely low hemoglobin + use of meloxicam in that setting along dehydration on admission * continue supportive therapy (2) Symptomatic anemia: Code(s): D64.9 - Anemia, unspecified Status: Acute Assessment and Plan: * due to duodenal ulcer found on EGD * Gastroenterology following * PRBC transfusion per protocol (3) Duodenal ulcer: Code(s): K26.9 - Duodenal ulcer, unspecified as acute or chronic, without hemorrhage or perforation Status: Acute Assessment and Plan: * etiology of #2 * on PPI * GI following (4) Acute hyponatremia: Code(s): E87.1 - Hypo-osmolality and hyponatremia Status: Acute Assessment and Plan: * due to a combination of LITZY, volume depletion, and possible liver disease * relatively stable at this time * follow trend (5) Acute hyperkalemia: Code(s): E87.5 - Hyperkalemia Status: Acute Assessment and Plan: * resolved (6) Alcoholic liver disease: Code(s): K70.9 - Alcoholic liver disease, unspecified Status: Acute Assessment and Plan: * secondary to EtoH use/abuse * supportive therapy (7) Acute urinary retention: Code(s): R33.8 - Other retention of urine Status: Acute Assessment and Plan: * villarreal catheter in place * on tamulosin * voiding trial? Will continue to follow. Subjective Date/time seen: 10/30/19 15:15 Appears to be doing well -- tolerating diet/oral intake without any issues or problems; H/H seems stable; no other acute issues or concerns voiced at this time. Exam Narrative: Exam Narrative: General: WD/WN male in NAD Heart: normal S1 and S2; no rub Lungs: clear to auscultation Abdomen: soft, nontender, nondistended, positive bowel sounds Extremities: no cyanosis or clubbing; trace - 1+ edema Skin: warm and intact Objective Data Vital Signs Vital Signs: Vital Signs Temp Pulse Resp BP Pulse Ox 10/30/19 14:00 36.3 C L 89 16 117/64 99 10/30/19 10:00 36.0 C L 78 16 132/66 100 10/30/19 05:45 37.2 C 79 16 111/44 L 98 10/30/19 00:00 36.7 C 85 18 130/50 L 100 10/29/19 22:59 36.8 C 88 18 122/52 L 97 10/29/19 18:00 37.0 C 87 16 141/60 H 96 Intake/Output Intake/Output: Intake & Output 10/27/19 10/28/19 10/29/19 10/30/19 23:59 23:59 23:59 23:59 Intake Total 1825 0945 7571 105 Output Total 6476 3470 2050 300 Balance 42 -261 715 320 Meds/Results Medications: Active Medications Generic Name Dose Route Start Last Admin Trade Name Freq PRN
--- NOTE | 2019-10-30 15:15 | PM.PNNEP ---
Progress Note: A&P Assessment and Plan (1) Acute renal failure: Qualifiers: Acute renal failure type: unspecified Qualified Code(s): N17.9 - Acute kidney failure, unspecified Code(s): N17.9 - Acute kidney failure, unspecified Status: Acute Assessment and Plan: normal creatinine ~ 3 years ago unclear if he has a component of CKD that developed in the intervening years creatinine improving albeit slowly with current interventions u/s with a small left kidney and normal right kidney; mild hydronephrosis on the right and severe bladder trabeculation - possible component of chronic outlet obstruction(?) - on tamsulosin could just have ATN because of his severely low hemoglobin + use of meloxicam in that setting along dehydration on admission continue supportive therapy (2) Symptomatic anemia: Code(s): D64.9 - Anemia, unspecified Status: Acute Assessment and Plan: due to duodenal ulcer found on EGD Gastroenterology following PRBC transfusion per protocol (3) Duodenal ulcer: Code(s): K26.9 - Duodenal ulcer, unspecified as acute or chronic, without hemorrhage or perforation Status: Acute Assessment and Plan: etiology of #2 on PPI GI following (4) Acute hyponatremia: Code(s): E87.1 - Hypo-osmolality and hyponatremia Status: Acute Assessment and Plan: due to a combination of LITZY, volume depletion, and possible liver disease relatively stable at this time follow trend (5) Acute hyperkalemia: Code(s): E87.5 - Hyperkalemia Status: Acute Assessment and Plan: resolved (6) Alcoholic liver disease: Code(s): K70.9 - Alcoholic liver disease, unspecified Status: Acute Assessment and Plan: secondary to EtoH use/abuse supportive therapy (7) Acute urinary retention: Code(s): R33.8 - Other retention of urine Status: Acute Assessment and Plan: villarreal catheter in place on tamulosin voiding trial? Will continue to follow. Subjective Date/time seen: 10/30/19 15:15 Appears to be doing well -- tolerating diet/oral intake without any issues or problems; H/H seems stable; no other acute issues or concerns voiced at this time. Exam Narrative: Exam Narrative: General: WD/WN male in NAD Heart: normal S1 and S2; no rub Lungs: clear to auscultation Abdomen: soft, nontender, nondistended, positive bowel sounds Extremities: no cyanosis or clubbing; trace - 1+ edema Skin: warm and intact Objective Data Vital Signs Vital Signs: Vital Signs Temp Pulse Resp BP Pulse Ox 10/30/19 14:00 36.3 C L 89 16 117/64 99 10/30/19 10:00 36.0 C L 78 16 132/66 100 10/30/19 05:45 37.2 C 79 16 111/44 L 98 10/30/19 00:00 36.7 C 85 18 130/50 L 100 10/29/19 22:59 36.8 C 88 18 122/52 L 97 10/29/19 18:00 37.0 C 87 16 141/60 H 96 Intake/Output Intake/Output: Intake & Output 10/27/19 10/28/19 10/29/19 10/30/19 23:59 23:59 23:59 23:59 Intake Total 1917 2564 2765 620 Output Total 1875 2825 2050 300 Balance 42 -261 715 320 Meds/Results Medications: Active Medications Generic Name Dose Route Start Last Admin Trade Name Freq PRN Reason Stop Dose Admin Diphenhydramine HCl 25 mg 10/26/19 16:43 10/30/19 07:28 Benadryl Cap PO 25 mg Q6H PRN Administration Itching Furosemide 40 mg 10/28/19 09:00 10/30/19 08:03 Lasix Inj IV PUSH 40 mg QAM SAM Administration Vancomycin HCl 1,250 mg in 250 mls @ 200 mls/hr 10/28/19 11:00 10/30/19 12:31 Vancomycin 1,250 Mg/D5w 250 Ml IVPB Infused Q48H SAM Infusion Lidocaine HCl 0.3 ml 10/28/19 08:10 Xylocaine 2% Local Inj INTRADERM ONCE PRN to numb area Lorazepam 1 mg 10/26/19 13:47 Ativan Inj IV PUSH Q4H PRN CIWA score 8 or above Pantoprazole Sodium 40 mg 10/28/19 21:00 10/30/19 08:03 Protonix Iv IV PUSH 40 mg
--- NOTE | 2019-10-30 17:51 | P.PNIM_ITS ---
Progress Note: A&P Assessment and Plan (1) Duodenal ulcer: Code(s): K26.9 - Duodenal ulcer, unspecified as acute or chronic, without hemorrhage or perforation Status: Acute Assessment and Plan: * EGD 10/26 with DU that was cauterized, gastritis, duodenitis * continue ppi * f/u h/h (2) Anemia due to acute blood loss: Code(s): D62 - Acute posthemorrhagic anemia Status: Acute Assessment and Plan: * 10/26 hgb 6.5, 1 U PRBC ordered * 10/27 hgb 7.0, 1 U PRBC * 10/27 PM hgb 5.8, 2 U PRBC * 10/28 hgb 7.7, repeat EGD * 10/29 hgb 9.8 * 10/30 hgb 9.4 * f/u h/h (3) UTI (urinary tract infection): Qualifiers: Hematuria presence: without hematuria Urinary tract infection type: site unspecified Qualified Code(s): N39.0 - Urinary tract infection, site not specified Code(s): N39.0 - Urinary tract infection, site not specified Status: Acute Assessment and Plan: * 10/28 Enteroccous in urine, vancomycin day 3 * No susceptibilities available for testing (4) Acute renal failure: Qualifiers: Acute renal failure type: unspecified Qualified Code(s): N17.9 - Acute kidney failure, unspecified Code(s): N17.9 - Acute kidney failure, unspecified Status: Acute Assessment and Plan: * anemia and chronic NSAID therapy (with two drugs) might be playing a role * intravascular volume depletion may be playing a role * given CT findings, outflow obstruction may be playing a role * glomerular and interstitial nephropathies seem less likely * hepatorenal syndrome seems less likely * 09/18/2017 creatinine was 0.5 * creatinine 10/25 5.7 * 10/26 5.4 * 10/27 5.2 * 10/29 4.4, voiding trial * 10/30 4.6, says PVR over 600 ml, Ro, increase tamsulosin to bid, urology consultation, likely home with leg bag (5) CHF (congestive heart failure): Qualifiers: Heart failure chronicity: chronic Heart failure type: unspecified Qualified Code(s): I50.9 - Heart failure, unspecified Code(s): I50.9 - Heart failure, unspecified Status: Acute Assessment and Plan: * monitor volume status * restrict fluids (6) Acute hyperkalemia: Code(s): E87.5 - Hyperkalemia Status: Acute Assessment and Plan: * resolved, 10/26 4.9 (7) Acute hyponatremia: Code(s): E87.1 - Hypo-osmolality and hyponatremia Status: Acute Assessment and Plan: * 10/26 125 * Check FENA, FEU -> both c/w postrenal cause * 10/27 restrict fluids to 1000 ml/day * f/u lab (8) Alcohol abuse: Code(s): F10.10 - Alcohol abuse, uncomplicated Status: Acute Assessment and Plan: * prn lorazepam per [facility] protocol (9) Cirrhosis of liver: Qualifiers: Hepatic cirrhosis type: alcoholic cirrhosis Ascites presence: without ascites Qualified Code(s): K70.30 - Alcoholic cirrhosis of liver without ascites Code(s): K74.60 - Unspecified cirrhosis of liver Status: Acute Assessment and Plan: * CT c/w cirrhosis * Likely due to alcohol * HBV, HCV, HAV negative * He should get immunized Subjective Date/time seen: 10/30/19 17:51 Interval history: Eating well. Denied pain. Wants to go home. Urinates. Denied abdominal discomfort. No dysuria. No urgency. No GI complaints. No chest pain. Denied shortness of breath. Denied abnormal bleeding Review of Systems Review of Systems: All systems reviewed & are unremarkable except as noted in HPI and below Exam Narrative
--- NOTE | 2019-10-30 17:51 | PM.IMPN ---
Progress Note: A&P Assessment and Plan (1) Duodenal ulcer: Code(s): K26.9 - Duodenal ulcer, unspecified as acute or chronic, without hemorrhage or perforation Status: Acute Assessment and Plan: EGD 10/26 with DU that was cauterized, gastritis, duodenitis continue ppi f/u h/h (2) Anemia due to acute blood loss: Code(s): D62 - Acute posthemorrhagic anemia Status: Acute Assessment and Plan: 10/26 hgb 6.5, 1 U PRBC ordered 10/27 hgb 7.0, 1 U PRBC 10/27 PM hgb 5.8, 2 U PRBC 10/28 hgb 7.7, repeat EGD 10/29 hgb 9.8 10/30 hgb 9.4 f/u h/h (3) UTI (urinary tract infection): Qualifiers: Hematuria presence: without hematuria Urinary tract infection type: site unspecified Qualified Code(s): N39.0 - Urinary tract infection, site not specified Code(s): N39.0 - Urinary tract infection, site not specified Status: Acute Assessment and Plan: 10/28 Enteroccous in urine, vancomycin day 3 No susceptibilities available for testing (4) Acute renal failure: Qualifiers: Acute renal failure type: unspecified Qualified Code(s): N17.9 - Acute kidney failure, unspecified Code(s): N17.9 - Acute kidney failure, unspecified Status: Acute Assessment and Plan: anemia and chronic NSAID therapy (with two drugs) might be playing a role intravascular volume depletion may be playing a role given CT findings, outflow obstruction may be playing a role glomerular and interstitial nephropathies seem less likely hepatorenal syndrome seems less likely 09/18/2017 creatinine was 0.5 creatinine 10/25 5.7 10/26 5.4 10/27 5.2 10/29 4.4, voiding trial 10/30 4.6, says PVR over 600 ml, Ro, increase tamsulosin to bid, urology consultation, likely home with leg bag (5) CHF (congestive heart failure): Qualifiers: Heart failure chronicity: chronic Heart failure type: unspecified Qualified Code(s): I50.9 - Heart failure, unspecified Code(s): I50.9 - Heart failure, unspecified Status: Acute Assessment and Plan: monitor volume status restrict fluids (6) Acute hyperkalemia: Code(s): E87.5 - Hyperkalemia Status: Acute Assessment and Plan: resolved, 10/26 4.9 (7) Acute hyponatremia: Code(s): E87.1 - Hypo-osmolality and hyponatremia Status: Acute Assessment and Plan: 10/26 125 Check FENA, FEU -> both c/w postrenal cause 10/27 restrict fluids to 1000 ml/day f/u lab (8) Alcohol abuse: Code(s): F10.10 - Alcohol abuse, uncomplicated Status: Acute Assessment and Plan: prn lorazepam per [facility] protocol (9) Cirrhosis of liver: Qualifiers: Hepatic cirrhosis type: alcoholic cirrhosis Ascites presence: without ascites Qualified Code(s): K70.30 - Alcoholic cirrhosis of liver without ascites Code(s): K74.60 - Unspecified cirrhosis of liver Status: Acute Assessment and Plan: CT c/w cirrhosis Likely due to alcohol HBV, HCV, HAV negative He should get immunized Subjective Date/time seen: 10/30/19 17:51 Interval history: Eating well. Denied pain. Wants to go home. Urinates. Denied abdominal discomfort. No dysuria. No urgency. No GI complaints. No chest pain. Denied shortness of breath. Denied abnormal bleeding Review of Systems Review of Systems: All systems reviewed & are unremarkable except as noted in HPI and below Exam Narrative: Exam Narrative: HEENT: EOMI, PERRL, pharyngeal mucosa pink and intact NECK: No JVD CHEST: Clear anteriorly, decreased at bases HEART: NL S1/S2, regular, no murmur ABDOMEN: BS+, soft, nontender, no mass, no bruits EXTREMITIES: No cyanosis, 1+ pretibial edema NEUROLOGIC: CN intact and symmetric to inspection. MUSCULOSKELETAL: Tone and strength symmetric. PSYCH: Alert. Oriented to person, place, and time. Objective Data Vital Signs Vital Signs: Vital Signs - 24 hr 10/29/19 18:00 10/29/19 22:59
[2019-10-30 18:00] VITALS: BP 128/67; PULSE 84; RESP 16; TEMP 36.1; O2SAT 98
[2019-10-30 18:55] LABS: Hematocrit 26.2 % (42.0-52.0); Hemoglobin 8.9 g/dL (14.0-18.0)
[2019-10-30 20:00] VITALS: BP 157/63; PULSE 78; RESP 16; TEMP 36.1; O2SAT 95
[2019-10-30] MEDS: TAMSULOSIN HCL 0.4 MG CAPSULE PO (20:24)
[2019-10-31 00:29] LABS: Hematocrit 24.7 % (42.0-52.0); Hemoglobin 8.3 g/dL (14.0-18.0)
[2019-10-31 02:00] VITALS: BP 161/58; PULSE 79; RESP 16; TEMP 36; O2SAT 99
--- NOTE | 2019-10-31 05:30 | PC.NURSE ---
Pt refused morning labs. multiple people went in and offered and he refused every time.
[2019-10-31] MEDS: SUCRALFATE 1 GM TABLET PO ×3 (05:51→18:39)
[2019-10-31 06:00] VITALS: BP 153/66; PULSE 79; RESP 16; TEMP 36.1; O2SAT 98
--- NOTE | 2019-10-31 07:42 | WPDURCON ---
Assessment and Plan Assessment and plan (1) Acute renal failure: Qualifiers: Acute renal failure type: unspecified Qualified Code(s): N17.9 - Acute kidney failure, unspecified Code(s): N17.9 - Acute kidney failure, unspecified Status: Acute Assessment and Plan: Multifactorial. Appears to be secondary to ATN due to volume depletion. In light of thickened bladder and elevated residual urine could also be due to chronic BPH. According to the chart he is going home with a Ro catheter. He should take Flomax b.i.d.. Should follow-up with urology and week to 10 days. [phone] (2) UTI (urinary tract infection): Qualifiers: Hematuria presence: without hematuria Urinary tract infection type: site unspecified Qualified Code(s): N39.0 - Urinary tract infection, site not specified Code(s): N39.0 - Urinary tract infection, site not specified Status: Acute Assessment and Plan: Enterococcus. Is on appropriate antibiotics (3) Acute urinary retention: Code(s): R33.8 - Other retention of urine Status: Acute Assessment and Plan: As above Urology Consult Note HPI Date Seen: 10/31/19 Requesting Physician: Amilcar Lorenz MD Primary Care Provider: Jean-Claude Linton, PA Consult Narrative Narrative: Diego Guzman is a 74 year old male with no significant prior urologic history. He presented to the hospital with a GI bleed. He was also found to be in acute renal failure with a creatinine of 5.7. His previously documented creatinine was 0.5. He underwent a CT scan which I reviewed myself. It is read as mild hydronephrosis on the right. My review shows only minimal prominence of the right collecting system as compared to left. A renal scan is consistent with medical renal disease. His creatinine has improved during this admission. He has been seen by Nephrology and it is felt this was likely ATN but obstructive uropathy could play a role as well as he has had incomplete bladder emptying and a thickened bladder wall consistent with chronic outflow obstruction. The patient is not a very good historian and is not very interested in giving me a history. He denies any previous voiding symptoms. He denies any slowing of the stream or blood in the urine. He denies any flank pain. He denies any family history of conditions. He denies any previous history of taking BPH medications. He has been started on Flomax here b.i.d.. He does have a Ro catheter in place with clear yellow urine. Review of Systems Review of Systems: All systems reviewed & are unremarkable except as noted in HPI and below Genitourinary: Genitourinary: Denies hematuria, Denies dysuria and Denies urinary hesitancy PMFSH Past Medical History Medical History Acute hyperkalemia Acute hyponatremia Acute renal failure Alcohol abuse Alcoholic liver disease Back pain CHF (congestive heart failure) Chronic hypertension Cirrhosis of liver Duodenal ulcer Lactic acidosis Medical history unknown Melena Symptomatic anemia Surgical History Surgical History Surgical history unknown Social History Social History Smoking status: Former smoker Tobacco type: cigarettes Second hand tobacco smoke exposure: No Additional smoking assessment comments: quit about 16 years ago. Alcohol intake: current Drinks per week: 24 Substance use: never Substance use type: does not use Gender identity (if verbalized by the patient): Male Spiritual care concerns: No Agree to blood products: Yes Meds Home Medications and Allergies Home Medications Medication Instructions Recorded Confirmed Type amlodipine 5 mg PO DAILY 10/25/19 10/26/19 History furosemide 40 mg PO DAILY 10/25/19 10/26/19 History indometha
[2019-10-31 08:41] LABS: Blood Urea Nitrogen 72 mg/dL (9-20); Calcium 6.7 mg/dL (8.4-10.2); Carbon Dioxide 29 mmol/L (22-30); Chloride 90 mmol/L (98-107); Estimated CRCL calculation 13 ml/min; Estimated Glomerular Filt Rate 13; Glucose 105 mg/dL (75-110); Hematocrit 26.3 % (42.0-52.0); Hemoglobin 8.8 g/dL (14.0-18.0); Mean Corpuscular HGB Conc 33.5 g/dl (32-36); Mean Corpuscular Volume 92.6 fl (80-100); Mean Platelet Volume 9.7 fl (7.4-10.4); Platelet Count Result 165 k/mm3 (150-375); Potassium 2.8 mmol/L (3.4-5.0); Red Blood Count 2.84 M/mm3 (4.6-6.20); Red Cell Distribution Width 14.9 % (11.5-14.5); Sodium 129 mmol/L (137-145)
[2019-10-31] MEDS: THIAMINE HCL 50 MG TABLET PO (09:05)
[2019-10-31] MEDS: TAMSULOSIN HCL 0.4 MG CAPSULE PO (09:05)
[2019-10-31] MEDS: PANTOPRAZOLE SODIUM IV 40 MG VIAL IV PUSH (09:05)
[2019-10-31 10:00] VITALS: BP 130/59; PULSE 80; RESP 12; TEMP 35.9; O2SAT 97
--- NOTE | 2019-10-31 10:00 | PC.NURSE ---
Patient is on a 1000 cc/day fluid restriction. brought in a large soda and a 32 oz cup of ice. Informed patient and his that he cannot have that much fluid and moved the soda and ice away from patient.
[2019-10-31] MEDS: POTASSIUM CHLORIDE 20 MEQ TABLET 40 MEQ PO ×2 (10:36→13:01)
[2019-10-31] MEDS: FUROSEMIDE INJ 40 MG/4 ML VIAL IV PUSH (10:37)
[2019-10-31 12:18] LABS: Hematocrit 28.7 % (42.0-52.0); Hemoglobin 9.4 g/dL (14.0-18.0)
--- NOTE | 2019-10-31 12:48 | WPDGIPROGNO ---
Progress Note: A&P Assessment and Plan (1) Duodenal ulcer: Code(s): K26.9 - Duodenal ulcer, unspecified as acute or chronic, without hemorrhage or perforation Status: Acute Assessment and Plan: EGD 2/5 DU treated endoscopically, 2/7 second look EGD without more bleeding. No more bleeding, continue with ppi bid and carafate avoid nsaid's stable hb last 48 hours and did not require more blood transfusion, tolerating diet (2) Anemia due to acute blood loss: Code(s): D62 - Acute posthemorrhagic anemia Status: Acute Assessment and Plan: stable hb (3) Cirrhosis of liver: Qualifiers: Ascites presence: without ascites Hepatic cirrhosis type: alcoholic cirrhosis Qualified Code(s): K70.30 - Alcoholic cirrhosis of liver without ascites Code(s): K74.60 - Unspecified cirrhosis of liver Status: Acute Assessment and Plan: h/o alcohol abuse. (4) Acute renal failure: Qualifiers: Acute renal failure type: unspecified Qualified Code(s): N17.9 - Acute kidney failure, unspecified Code(s): N17.9 - Acute kidney failure, unspecified Status: Acute (5) Alcohol abuse: Code(s): F10.10 - Alcohol abuse, uncomplicated Status: Acute (6) UTI (urinary tract infection): Qualifiers: Hematuria presence: without hematuria Urinary tract infection type: site unspecified Qualified Code(s): N39.0 - Urinary tract infection, site not specified Code(s): N39.0 - Urinary tract infection, site not specified Status: Acute Assessment and Plan: on iv vancomycin Subjective Date/time seen: 10/31/19 12:48 Interval history: no more bleeding, normal appetite now and feeling better. He is asking when he can go home. Review of Systems Review of Systems: All systems reviewed & are unremarkable except as noted in HPI and below Exam Const: General: comfortable and no acute distress HENMT: General nose exam: Normal nares present Eyes: General: appearance normal, both eyes and all related structures Neck: Neck: no JVD Resp: Auscultation: clear to auscultation bilaterally Cardio: Rate: regular rate Rhythm: regular rhythm GI: Inspection: non-distended GI Palp: Yes Soft to palpation Auscultation: normal bowel sounds Urinary Catheter: Urinary Catheter: patent and draining Skin: General skin exam: normal color Neuro: General: gait normal Speech: normal speech Extrem: General: normal to inspection Psych: Mental Status: mental status grossly normal Objective Data Vital Signs Vital Signs: Vital Signs - 24 hr 10/30/19 14:00 10/30/19 18:00 10/30/19 20:00 Temperature 97.4 F L 96.9 F L 97.0 F L Pulse Rate 89 84 78 Respiratory Rate 16 16 16 Blood Pressure 117/64 128/67 157/63 H Pulse Oximetry 99 98 95 10/31/19 02:00 10/31/19 06:00 10/31/19 10:00 Temperature 96.8 F L 97.0 F L 96.7 F L Pulse Rate 79 79 80 Respiratory Rate 16 16 12 Blood Pressure 161/58 H 153/66 H 130/59 L Pulse Oximetry 99 98 97 Intake/Output Intake/Output: Intake & Output 10/28/19 10/29/19 10/30/19 10/31/19 23:59 23:59 23:59 23:59 Intake Total 2564 2765 970 500 Output Total 2825 2050 1200 1000 Balance -261 715 -230 -500 Meds/Results Medications: Active Medications Generic Name Dose Route Start Last Admin Trade Name Freq PRN Reason Stop Dose Admin Diphenhydramine HCl 25 mg 10/26/19 16:43 10/31/19 12:24 Benadryl Cap PO 25 mg Q6H PRN Administration Itching Furosemide 40 mg 10/28/19 09:00 10/31/19 10:37 Lasix Inj IV PUSH 40 mg QAM SAM Administration Vancomycin HCl 1,250 mg in 250 mls @ 200 mls/hr 10/28/19 11:00 10/30/19 12:31 Vancomycin 1,250 Mg/D5w 250 Ml IVPB Infused Q48H SAM Infusion Lidocaine HCl 0.3 ml 10/28/19 08:10 Xylocaine 2% Local Inj INTRADERM ONCE PRN to numb area Lorazepam 1 mg 10/26/19 13:47 Ativan Inj IV PUSH Q4H PRN CIWA score 8 o
--- NOTE | 2019-10-31 13:31 | P.DS_ITS ---
DS: Diagnosis Admitting Diagnosis Admitting Diagnosis: Gastrointestinal hemorrhage, unspecified Discharge Diagnosis (1) Duodenal ulcer: Code(s): K26.9 - Duodenal ulcer, unspecified as acute or chronic, without hemorrhage or perforation Status: Acute Assessment and Plan: * EGD 10/26 with DU that was cauterized, gastritis, duodenitis * continue ppi * f/u h/h as outpatient (2) Anemia due to acute blood loss: Code(s): D62 - Acute posthemorrhagic anemia Status: Acute Assessment and Plan: * 10/26 hgb 6.5, 1 U PRBC ordered * 10/27 hgb 7.0, 1 U PRBC * 10/27 PM hgb 5.8, 2 U PRBC * 10/28 hgb 7.7, repeat EGD * 10/29 hgb 9.8 * 10/30 hgb 9.4 * f/u h/h as outpatient (3) UTI (urinary tract infection): Qualifiers: Hematuria presence: without hematuria Urinary tract infection type: site unspecified Qualified Code(s): N39.0 - Urinary tract infection, site not specified Code(s): N39.0 - Urinary tract infection, site not specified Status: Acute Assessment and Plan: * 10/28 Enteroccous in urine, vancomycin * No susceptibilities available for testing * Transition to oral amoxicillin upon discharge (4) Acute renal failure: Qualifiers: Acute renal failure type: unspecified Qualified Code(s): N17.9 - Acute kidney failure, unspecified Code(s): N17.9 - Acute kidney failure, unspecified Status: Acute Assessment and Plan: * anemia and chronic NSAID therapy (with two drugs) might be playing a role * intravascular volume depletion may be playing a role * given CT findings, outflow obstruction may be playing a role * glomerular and interstitial nephropathies seem less likely * hepatorenal syndrome seems less likely * 09/18/2017 creatinine was 0.5 * creatinine 10/25 5.7 * 10/26 5.4 * 10/27 5.2 * 10/29 4.4, voiding trial * 10/30 4.6, says PVR over 600 ml, Ro, increase tamsulosin to bid, urology consultation noted, home with leg bag (5) CHF (congestive heart failure): Qualifiers: Heart failure chronicity: chronic Heart failure type: unspecified Qualified Code(s): I50.9 - Heart failure, unspecified Code(s): I50.9 - Heart failure, unspecified Status: Acute Assessment and Plan: * monitor volume status * restrict fluids (6) Acute hyperkalemia: Code(s): E87.5 - Hyperkalemia Status: Acute Assessment and Plan: * resolved, 10/26 4.9 (7) Acute hyponatremia: Code(s): E87.1 - Hypo-osmolality and hyponatremia Status: Acute Assessment and Plan: * 10/26 125 * Check FENA, FEU -> both c/w postrenal cause * 10/27 restrict fluids to 1000 ml/day * f/u lab (8) Alcohol abuse: Code(s): F10.10 - Alcohol abuse, uncomplicated Status: Acute Assessment and Plan: * prn lorazepam per [facility] protocol (9) Cirrhosis of liver: Qualifiers: Hepatic cirrhosis type: alcoholic cirrhosis Ascites presence: without ascites Qualified Code(s): K70.30 - Alcoholic cirrhosis of liver without ascites Code(s): K74.60 - Unspecified cirrhosis of liver Status: Acute Assessment and Plan: * CT c/w cirrhosis * Likely due to alcohol * HBV, HCV, HAV negative * He should get immunized DS: Summary Hospital Course Reason for hospitalization: dyspnea and dark stools Hospital Course: Admitted with dyspnea and dark stools. Found to have hemoglobin 4.7. Transfused and given IVF. EGD with DU. Cauterized. PPI continued. H/h stabilzed. Tolerated diet and activity. Status at Disch
--- NOTE | 2019-10-31 13:31 | PM.DS ---
DS: Diagnosis Admitting Diagnosis Admitting Diagnosis: Gastrointestinal hemorrhage, unspecified Discharge Diagnosis (1) Duodenal ulcer: Code(s): K26.9 - Duodenal ulcer, unspecified as acute or chronic, without hemorrhage or perforation Status: Acute Assessment and Plan: EGD 10/26 with DU that was cauterized, gastritis, duodenitis continue ppi f/u h/h as outpatient (2) Anemia due to acute blood loss: Code(s): D62 - Acute posthemorrhagic anemia Status: Acute Assessment and Plan: 10/26 hgb 6.5, 1 U PRBC ordered 10/27 hgb 7.0, 1 U PRBC 10/27 PM hgb 5.8, 2 U PRBC 10/28 hgb 7.7, repeat EGD 10/29 hgb 9.8 10/30 hgb 9.4 f/u h/h as outpatient (3) UTI (urinary tract infection): Qualifiers: Hematuria presence: without hematuria Urinary tract infection type: site unspecified Qualified Code(s): N39.0 - Urinary tract infection, site not specified Code(s): N39.0 - Urinary tract infection, site not specified Status: Acute Assessment and Plan: 10/28 Enteroccous in urine, vancomycin No susceptibilities available for testing Transition to oral amoxicillin upon discharge (4) Acute renal failure: Qualifiers: Acute renal failure type: unspecified Qualified Code(s): N17.9 - Acute kidney failure, unspecified Code(s): N17.9 - Acute kidney failure, unspecified Status: Acute Assessment and Plan: anemia and chronic NSAID therapy (with two drugs) might be playing a role intravascular volume depletion may be playing a role given CT findings, outflow obstruction may be playing a role glomerular and interstitial nephropathies seem less likely hepatorenal syndrome seems less likely 09/18/2017 creatinine was 0.5 creatinine 10/25 5.7 10/26 5.4 10/27 5.2 10/29 4.4, voiding trial 10/30 4.6, says PVR over 600 ml, Ro, increase tamsulosin to bid, urology consultation noted, home with leg bag (5) CHF (congestive heart failure): Qualifiers: Heart failure chronicity: chronic Heart failure type: unspecified Qualified Code(s): I50.9 - Heart failure, unspecified Code(s): I50.9 - Heart failure, unspecified Status: Acute Assessment and Plan: monitor volume status restrict fluids (6) Acute hyperkalemia: Code(s): E87.5 - Hyperkalemia Status: Acute Assessment and Plan: resolved, 10/26 4.9 (7) Acute hyponatremia: Code(s): E87.1 - Hypo-osmolality and hyponatremia Status: Acute Assessment and Plan: 10/26 125 Check FENA, FEU -> both c/w postrenal cause 10/27 restrict fluids to 1000 ml/day f/u lab (8) Alcohol abuse: Code(s): F10.10 - Alcohol abuse, uncomplicated Status: Acute Assessment and Plan: prn lorazepam per [facility] protocol (9) Cirrhosis of liver: Qualifiers: Hepatic cirrhosis type: alcoholic cirrhosis Ascites presence: without ascites Qualified Code(s): K70.30 - Alcoholic cirrhosis of liver without ascites Code(s): K74.60 - Unspecified cirrhosis of liver Status: Acute Assessment and Plan: CT c/w cirrhosis Likely due to alcohol HBV, HCV, HAV negative He should get immunized DS: Summary Hospital Course Reason for hospitalization: dyspnea and dark stools Hospital Course: Admitted with dyspnea and dark stools. Found to have hemoglobin 4.7. Transfused and given IVF. EGD with DU. Cauterized. PPI continued. H/h stabilzed. Tolerated diet and activity. Status at Discharge Overall status at discharge: patient is progressing back to baseline Time Spent with Patient Time attestation: Total time spent providing and/or coordinating discharge services: Exam Narrative: Exam Narrative: HEENT: EOMI, PERRL, pharyngeal mucosa pink and intact NECK: No JVD CHEST: Clear anteriorly, decreased at bases HEART: NL S1/S2, regular, no murmur ABDOMEN: BS+, soft, nontender, no mass, no bruits EXTREMITIES: No cyanosis, 1+ pretibial edema ESME
[2019-10-31 14:00] VITALS: BP 142/55; PULSE 103; RESP 14; TEMP 36.1; O2SAT 100
[2019-10-31 18:00] VITALS: BP 140/69; PULSE 73; RESP 16; TEMP 36.2; O2SAT 98
[2019-10-31 19:21] LABS: Hematocrit 28.9 % (42.0-52.0); Hemoglobin 9.7 g/dL (14.0-18.0)
[2019-10-31 19:34] LABS: Blood Urea Nitrogen 72 mg/dL (9-20); Calcium 7.1 mg/dL (8.4-10.2); Carbon Dioxide 28 mmol/L (22-30); Chloride 89 mmol/L (98-107); Estimated CRCL calculation 12 ml/min; Estimated Glomerular Filt Rate 12; Glucose 106 mg/dL (75-110); Potassium 3.5 mmol/L (3.4-5.0); Sodium 131 mmol/L (137-145)
--- NOTE | 2019-10-31 20:56 | PC.NURSE ---
Repeat k given to Keyla FORTE and discharge orders received.
== END 2019-10-31 20:00 | disposition home health service (06) | DRG 378 ==
LOC: ANHED 21:38 → ANHIMU 10-26 10:46 → ANH2MED 10-28 19:41 → ANHIMU 11-03 13:24
PROVIDERS: Internal Medicine Gastroenterology; Internal Medicine Nephrology; Admitting Provider Family Medicine; Emergency Provider Emergency Medicine; PCP Physician Assistant; Visit Provider Internal Medicine
PROC: 0DJ08ZZ Inspection of Upper Intestinal Tract, Via Natural or Artificial Opening Endoscopic (ICD-10-PCS; CPT 43235; principal; 2019-10-26 12:30)
DX: K26.4 Chronic or unspecified duodenal ulcer with hemorrhage (principal); N17.9 Acute kidney failure, unspecified; N39.0 Urinary tract infection, site not specified; D62 Acute posthemorrhagic anemia; E87.1 Hypo-osmolality and hyponatremia; E87.2 Acidosis; N13.30 Unspecified hydronephrosis; K29.80 Duodenitis without bleeding; I11.0 Hypertensive heart disease with heart failure; I50.9 Heart failure, unspecified; K29.70 Gastritis, unspecified, without bleeding; K70.30 Alcoholic cirrhosis of liver without ascites; D64.9 Anemia, unspecified; E87.5 Hyperkalemia; Z87.891 Personal history of nicotine dependence; F10.20 Alcohol dependence, uncomplicated; E86.0 Dehydration; R33.8 Other retention of urine; R33.9 Retention of urine, unspecified; B95.2 Enterococcus as the cause of diseases classified elsewhere; T39.395A Adverse effect of other nonsteroidal anti-inflammatory drugs [NSAID], initial encounter
CPT/HCPCS: 36415; 36430; 36600; 51701; 71045; 74176; 76775; 78707; 80048; 80053; 80069; 81001; 82533; 82570; 82805; 83605; 83880; 84156; 84300; 84439; 84443; 84480; 84484; 84540; 85014; 85018; 85025; 85027; 85610; 85730; 86709; 86803; 86850; 86900; 86901; 86923; 87040; 87081; 87086; 87088; 87340; 87804; 88305; 88342; 93005; 94640; 96365; 96366; 96375; 96376; 97116; 97161; 97165; 97535; 99291; A9270; A9562; C9113; J0171; J0610; J0696; J1815; J1940; J2704; J3370; J3411; J7050; J7060; J7070; J7120; P9016

== ENCOUNTER 2019-11-02 02:04 | Emergency (ER) | payer MEDICARE, OTHER, SELFPAY ==
[2019-11-02 02:09] VITALS: BP 154/77; PULSE 89; RESP 18; TEMP 36.4; O2SAT 97
--- NOTE | 2019-11-02 02:44 | ED_ITS ---
I attest that this documentation has been prepared under the direction and in the presence of Leonora Echevarria MD. Magnolia Joshi Scribvarinder 11/02/19;02:44 HPI - Male Genitourinary General Chief complaint: Urogenital-Male Stated complaint: catheter leaking Time Seen by Provider: 11/02/19 02:41 Related Data Home Medications Medication Instructions Recorded Confirmed furosemide 40 mg PO DAILY 10/25/19 10/26/19 Allergies Allergy/AdvReac Type Severity Reaction Status Date / Time Penicillins AdvReac Unknown Nervousness Verified 10/28/19 11:43 [facility] Social History Social History Smoking status: Former smoker Tobacco type: cigarettes Second hand tobacco smoke exposure: No Additional smoking assessment comments: quit about 16 years ago. Alcohol intake: current Drinks per week: 24 Substance use: never Substance use type: does not use Gender identity (if verbalized by the patient): Male Spiritual care concerns: No Agree to blood products: Yes Course Vital Signs Vital signs: Vital Signs Temperature 36.4 C L 11/02/19 02:09 Pulse Rate 89 11/02/19 02:09 Respiratory Rate 18 11/02/19 02:09 Blood Pressure 154/77 H 11/02/19 02:09 Pulse Oximetry 97 11/02/19 02:09 Temperature 36.4 C L 11/02/19 02:09 Pulse Rate 89 11/02/19 02:09 Respiratory Rate 18 11/02/19 02:09 Blood Pressure 154/77 H 11/02/19 02:09 Pulse Oximetry 97 11/02/19 02:09 Discharge Plan Discharge Prescriptions: No Action furosemide 40 mg Tablet 40 mg PO DAILY RF: 0 sucralfate 1 gram Tablet 1 g PO ACHS Qty: 120 RF: 0 tamsulosin 0.4 mg Capsule 0.4 mg PO Q12HR Qty: 60 RF: 0 diphenhydramine HCl 25 mg Capsule 25 mg PO Q6H PRN (Reason: Itching) Qty: 0 RF: 0 ampicillin 250 mg capsule 250 mg PO BID Qty: 10 RF: 0 omeprazole 40 mg capsule,delayed release(DR/EC) 40 mg PO BID Qty: 60 RF: 0
--- NOTE | 2019-11-02 02:44 | ED.MALEGU ---
HPI - Male Genitourinary General Chief complaint: Urogenital-Male Stated complaint: catheter leaking Time Seen by Provider: 11/02/19 02:41 Source: patient and RN notes reviewed Mode of arrival: other Limitations: no limitations History of Present Illness HPI Narrative: Pt is a male who presents to the ED with c/o his Ro catheter leaking since Thursday (10/31/19) after leaving the ED. Pt states that his urine is not going into the bag and is leaking where the catheter attaches to the bag. He denies the urine traveling around his penis and his catheter. Pt also denies testicular pain, ABD pain, and a fever. Complaint: other (Ro Catheter leaking) Onset (ago): day(s) (2) Duration: constant Location: penis Context: indwelling catheter Associated symptoms: Reports denies other symptoms Related Data Home Medications Medication Instructions Recorded Confirmed furosemide 40 mg PO DAILY 10/25/19 10/26/19 Allergies Allergy/AdvReac Type Severity Reaction Status Date / Time Penicillins AdvReac Unknown Nervousness Verified 10/28/19 11:43 Review of Systems Review of Systems: All systems reviewed & are unremarkable except as noted in HPI and below Constitutional: Constitutional: Denies fever(s) Gastrointestinal: Gastrointestinal: Denies abdominal pain Genitourinary: Genitourinary: Denies testicular pain PMFSH Social History Social History Smoking status: Former smoker Tobacco type: cigarettes Second hand tobacco smoke exposure: No Additional smoking assessment comments: quit about 16 years ago. Alcohol intake: current Drinks per week: 24 Substance use: never Substance use type: does not use Gender identity (if verbalized by the patient): Male Spiritual care concerns: No Agree to blood products: Yes Exam Narrative: Exam Narrative: GENERAL: Well-appearing, well-nourished, and in no acute distress. HEAD: Normocephalic, atraumatic EYES: PERRLA and EOMI, conjunctiva clear without discharge THROAT:Mucous membranes moist, Oropharynx normal without erythema, exudate, peritonsillar swelling or fluctuance NECK: Supple, without lymphadenopathy or mass RESPIRATORY: No respiratory distress, Airway patent, Respirations non-labored, Clear to auscultation without rales, rhonchi or wheeze HEART: Regular rate and rhythm. No murmur heard. Normal peripheral pulses. ABDOMEN: Soft, nontender, nondistended, normal active bowel sounds. No masses. No rebound or guarding, No organomegaly. EXTREMITIES: No edema, normal strength with full range of motion. SKIN: erythematous rash to bilateral buttock NEURO: Alert and oriented x3. CN 2-12 grossly intact. No focal deficits. PSYCH: Normal mood and affect. Urinary Catheter: Urinary Catheter: patent and draining and urine clear Course Course Emergency Course: Patient present because he notice urine was leaking from catheter detachment on leg bag. On evaluation , his catheter was attached to wrong end of bag. This was corrected and he now has urine draining into bag, no leakage. PAtient also appears to be candidial rash to buttock Vital Signs Vital signs: Vital Signs Temperature 97.5 F L 11/02/19 02:09 Pulse Rate 89 11/02/19 02:09 Respiratory Rate 18 11/02/19 02:09 Blood Pressure 154/77 H 11/02/19 02:09 Pulse Oximetry 97 11/02/19 02:09 Temperature 97.5 F L 11/02/19 02:09 Pulse Rate 89 11/02/19 02:09 Respiratory Rate 18 11/02/19 02:09 Blood Pressure 154/77 H 11/02/19 02:09 Pulse Oximetry 97 11/02/19 02:09 Discharge Plan Discharge Clinical Impression: Candidiasis of skin Ro catheter problem Qualifiers: Encounter type: initial encounter Qualified Code(s): T83.9XXA - Unspecified complication of genitourinary prosthetic device, implant and graft, initial encounter Patient Disposition: Home, Self-Care Condition: Stable Instructions: Antibiotic Form
--- NOTE | 2019-11-02 03:16 | PC.NURSE ---
PT CAME IN WITH LEG BAG LEAKING. PT HAD LEG BAG UPSIDE DOWN. THIS RN FIXED THE LEG BAG AND EDUCATED THE PATIENT ON THE PROPER WAY TO USE A LEG BAG.
== END 2019-11-02 04:08 | disposition home or self-care (01) ==
PROVIDERS: Emergency Provider General Practice; PCP Physician Assistant
DX: B37.2 Candidiasis of skin and nail (principal); Z46.6 Encounter for fitting and adjustment of urinary device; Z87.891 Personal history of nicotine dependence
CPT/HCPCS: 99283; A9270

== ENCOUNTER 2021-08-17 10:59 | Inpatient (IN) | payer MEDICARE, OTHER, SELFPAY ==
[2021-08-17] VITALS (42 sets, daily range): BP systolic 89–116; BP diastolic 52–83; PULSE 71–100; RESP 9–39; TEMP 36.2–36.8; O2SAT 80–99
--- NOTE | ~2021-08-17 | XR_ITS ---
EXAMINATION: XR chest 1V portable DATE: 08/23/2021 06:15 INDICATION: Respiratory failure TECHNIQUE: frontal view of the chest was obtained. COMPARISON: Chest radiograph dated 08/22/2021 FINDINGS: Endotracheal tube tip 2.7 cm above the skyler. Nasogastric tube extends below the left hemidiaphragm with distal tip collimated off the study. Large-bore dual-lumen right internal jugular central venou s catheter with distal tip at the superior cavoatrial junction. Opacities in the bilateral mid and lo wer lung zones consistent with small bilateral pleural effusions, right greater than left and associa alexandra atelectasis and/or pneumonia. Persistent region of lucency at the lateral left lower lung zone po tentially residual small pneumothorax. Cardiomegaly. IMPRESSION: 1. No significant change in small bilateral pleural effusions with possible small loculated pneumotho rax component at the lateral left lower lung zones. 2. Unchanged opacities in the bilateral mid and lower lung zones consistent with associated atelectas is and/or pneumonia. Reviewed, dictated and finalized at location A. CTOR POST IMPRESSION: 1. No significant change in small bilateral pleural effusions with possible sma ll loculated pneumothorax component at the lateral left lower lung zones. 2. Unchanged opacities in the bilateral mid and lower lung zones consistent wit h associated atelectasis and/or pneumonia.
--- NOTE | ~2021-08-17 | XR_ITS ---
EXAMINATION: [id number] DATE: 09/02/2021 13:17 INDICATION: Right pleural effusion status post thoracentesis. TECHNIQUE: A single frontal view of the chest was obtained. COMPARISON: Chest single view 09/02/2021 FINDINGS: There is a small right pleural effusion. There is a small left hydropneumothorax. A left-si ded chest tube is noted. There are airspace opacities in right mid and lower lung zones and all left lung zones. Cardiomegaly is noted. A right internal jugular central venous catheter is seen with tip in the proximal right atrium. IMPRESSION: 1. Small right pleural effusion with improvement status post thoracentesis. 2. Stable small left hydropneumothorax with chest tube in expected position. 3. Airspace opacities in right mid and lower lung zones and all left lung zones with improvement on t he right, consistent with atelectasis versus pneumonia. 4. Cardiomegaly. Reviewed, dictated and finalized at location A. SERVICING SPECIALIST IMPRESSION: 1. Small right pleural effusion with improvement status post thoracentesis. 2. Stable small left hydropneumothorax with chest tube in expected position. 3. Airspace opacities in right mid and lower lung zones and all left lung zones with improvement on the right, consistent with atelectasis versus pneumonia. 4. Cardiomegaly.
--- NOTE | ~2021-08-17 | XR_ITS ---
EXAMINATION: XR chest 1V portable DATE: 09/03/2021 06:49 INDICATION: Opacification of the left hemithorax TECHNIQUE: frontal view of the chest was obtained. COMPARISON: Chest radiograph dated 09/02/21 FINDINGS: No significant change in a small right pleural effusion and small left hydropneumothorax. Left-sided chest tube remains in place. Airspace opacities throughout the left lung and in the right mid to lowe r lung zones. There is no abrupt cut off of the left mainstem bronchus suggesting mucous plugging. Ca rdiomegaly. Large bore right internal jugular central venous catheter with distal tip in the high rig ht atrium. Mitral annular calcification. IMPRESSION: 1. New likely mucous plugging in the left mainstem bronchus. 2. Unchanged small right pleural effusion and small left hydropneumothorax with left chest tube remai alejandro in position. 3. Stable appearance of opacities throughout the left lung and in the right mid to lower lung zone wh ich could represent atelectasis and/or pneumonia. 4. Cardiomegaly. Reviewed, dictated and finalized at location A. ER CRANE LADLE IMPRESSION: 1. New likely mucous plugging in the left mainstem bronchus. 2. Unchanged small right pleural effusion and small left hydropneumothorax with left chest tube remaining in position. 3. Stable appearance of opacities throughout the left lung and in the right mid to lower lung zone which could represent atelectasis and/or pneumonia. 4. Cardiomegaly.
--- NOTE | ~2021-08-17 | US_ITS ---
EXAMINATION: US thoracentesis DATE: 08/28/2021 15:49 INDICATION: pleural effusion TECHNIQUE: The procedure and its risks, benefits, and alternatives were discussed with Kavita Ravi . Potential risks discussed included bleeding, infection, and pneumothorax. She understood the risks and agreed to proceed. The skin was prepped and draped in sterile fashion. 1% lidocaine was used for local anesthesia. Under ultrasound guidance, a 5 Fr catheter with trochar was advanced into the right pleural effusion. Fluid was aspirated. The catheter was removed, and a dressing was applied. There w ere no immediate complications. FINDINGS: Ultrasound images demonstrate a right pleural effusion and the catheter within the fluid. IMPRESSION: 1. Successful ultrasound-guided thoracentesis yielding 700 mL of serosanguineous fluid. Reviewed, dictated and finalized at location A. MBLER MECHANICAL ORDNANCE IMPRESSION: 1. Successful ultrasound-guided thoracentesis yielding 700 mL of serosanguineo us fluid.
--- NOTE | ~2021-08-17 | XR_ITS ---
EXAMINATION: XR chest 1V portable DATE: 09/02/2021 06:35 INDICATION: Opacification of left hemithorax TECHNIQUE: frontal view of the chest was obtained. COMPARISON: Chest radiograph dated 09/01/2021 FINDINGS: Opacities throughout both lungs relatively sparing the right upper lung zone. This includes a small t o moderate right pleural effusion and a small left hydropneumothorax with unchanged loculated gas com ponent at the lateral left lung zone. No change in position of a left thoracotomy tube. No right-side d pneumothorax. Cardiomegaly. Large-bore right internal jugular central venous catheter with distal t ip at the superior cavoatrial junction. IMPRESSION: 1. Unchanged small to moderate right pleural effusion. 2. Unchanged small left hydropneumothorax with chest tube remaining in position and unchanged small l oculated gas component at the lateral left lower lung zone. 3. Opacities at the left lung in the right mid and lower lung zones which could represent associated atelectasis and/or pneumonia. Reviewed, dictated and finalized at location A. AL MEDIA COMMUNITY MANAGER IMPRESSION: 1. Unchanged small to moderate right pleural effusion. 2. Unchanged small left hydropneumothorax with chest tube remaining in position and unchanged small loculated gas component at the lateral left lower lung zon e. 3. Opacities at the left lung in the right mid and lower lung zones which could represent associated atelectasis and/or pneumonia.
--- NOTE | ~2021-08-17 | XR_ITS ---
EXAMINATION: XR chest 1V portable INDICATION: Respiratory failure TECHNIQUE: Portable AP chest at 0658 hours COMPARISON: 08/17/2021 FINDINGS: The endotracheal tube ends approximately 3.4 cm above the skyler. The nasogastric tube is f ollowed as far as the stomach. Its tip is beyond the inferior margin of the radiograph. A right inter nal jugular dialysis catheter ends with its tip in the right atrium. There is now complete opacificat ion of the left hemithorax. A small to moderate size right pleural effusion is present. There is no p neumothorax. The cardiac silhouette is obscured. IMPRESSION: 1. Endotracheal and nasogastric tubes in adequate position. 2. Complete opacification of the left hemithorax which could be combination of effusion and atelectas is possibly due to mucous plugging and pneumonia. 3. [id number]-eo-[id number] size right pleural effusion. Reviewed, dictated and finalized at location A. D ARTILLERY OFFICER IMPRESSION: 1. Endotracheal and nasogastric tubes in adequate position. 2. Complete opacification of the left hemithorax which could be combination of effusion and atelectasis possibly due to mucous plugging and pneumonia. 3. [id number] size right pleural effusion.
--- NOTE | ~2021-08-17 | CT_ITS ---
EXAMINATION:CT diagnostic chest wo con DATE: 08/26/2021 11:39 INDICATION: Respiratory failure. Pneumothorax. TECHNIQUE: Computed tomography (CT) of the chest was performed without intravenous contrast. Automate d exposure control and iterative reconstruction technique were employed. The dose-length product (DLP ) was 207.91 mGy-cm. COMPARISON: Chest CT 08/18/2021 FINDINGS: There is a moderate-sized right pleural effusion. There is a moderate-sized left hydropneum othorax. There are peripheral airspace opacities in right lower lobe with swirling of the lung parenc hyma, consistent with rounded atelectasis. There are patchy groundglass opacities in right lower lobe , right middle lobe, and right upper lobe. There are peripheral airspace opacities in lingula and lef t lower lobe. There is biatrial enlargement the heart. There are coronary artery calcifications. No p ericardial effusion. There is ectasia of ascending aorta measuring 4.2 cm. A right internal jugular c entral venous catheter is seen with tip in region. The nasogastric tube tip is in the stomach. The en dotracheal tube tip is in expected position above the skyler. There is mild chronic anterior wedging of multiple vertebral bodies. There is severe thoracic spondylosis. IMPRESSION: 1. Moderate-sized right pleural effusion. Moderate-sized left hydropneumothorax. 2. Patchy groundglass opacities in right lung, likely pneumonia. Peripheral rounded atelectasis in ri ght middle lobe and right lower lobe. 3. Peripheral airspace opacities in left lung, likely a combination of rounded atelectasis and pneumo ash. Reviewed, dictated and finalized at location A. T RECORDER IMPRESSION: 1. Moderate-sized right pleural effusion. Moderate-sized left hydropneumothorax . 2. Patchy groundglass opacities in right lung, likely pneumonia. Peripheral rou nded atelectasis in right middle lobe and right lower lobe. 3. Peripheral airspace opacities in left lung, likely a combination of rounded atelectasis and pneumonia.
--- NOTE | ~2021-08-17 | XR_ITS ---
EXAMINATION: XR chest 1V portable DATE: 08/28/2021 05:44 INDICATION: Acute respiratory failure. Pleural effusion. TECHNIQUE: A single frontal view of the chest was obtained. COMPARISON: Chest single view 08/27/2021 FINDINGS: There is a moderate-sized right pleural effusion. There is a small left hydropneumothorax. There are airspace opacities in the mid and lower lung zones. Cardiomegaly is noted. The endotracheal tube tip is 2.9 cm above the skyler. The nasogastric tube tip is beyond the inferior margin of the r adiograph, but at least to the stomach. A right internal jugular central venous catheter is seen with tip at the superior cavoatrial junction. There is a catheter tip in right axilla. There is a left-si ded chest tube in expected position. IMPRESSION: 1. Stable small left-sided hydropneumothorax with chest tube in expected position. 2. Stable moderate-sized right pleural effusion. 3. Airspace opacities in the mid and lower lung zones with interval improvement, consistent with atel ectasis versus pneumonia. 4. Cardiomegaly. Reviewed, dictated and finalized at location A. O COMPUTER DATA PROCESSOR IMPRESSION: 1. Stable small left-sided hydropneumothorax with chest tube in expected positi on. 2. Stable moderate-sized right pleural effusion. 3. Airspace opacities in the mid and lower lung zones with interval improvement , consistent with atelectasis versus pneumonia. 4. Cardiomegaly.
--- NOTE | ~2021-08-17 | XR_ITS ---
EXAMINATION: XR chest 1V portable DATE: 08/30/2021 06:11 INDICATION: Acute respiratory failure. Pleural effusion. TECHNIQUE: A single frontal view of the chest was obtained. COMPARISON: Chest single view 08/25/2021 FINDINGS: There is a small right pleural effusion. There is a small left hydropneumothorax. There are airspace opacities in the mid and lower lung zones. Cardiomegaly is noted. The endotracheal tube tip is 5.0 cm above the skyler. The nasogastric tube tip is in the stomach. A right internal jugular michele tral venous catheter is seen with tip at the superior cavoatrial junction. A left-sided chest tube is noted. IMPRESSION: 1. Stable small left hydropneumothorax with chest tube in expected position. 2. Slightly worsened small right pleural effusion. 3. Stable airspace opacities in the mid and lower lung zones, consistent with atelectasis versus pneu monia. 4. Cardiomegaly. Reviewed, dictated and finalized at location A. ICE CLINICAL MARKETER IMPRESSION: 1. Stable small left hydropneumothorax with chest tube in expected position. 2. Slightly worsened small right pleural effusion. 3. Stable airspace opacities in the mid and lower lung zones, consistent with a telectasis versus pneumonia. 4. Cardiomegaly.
--- NOTE | ~2021-08-17 | US_ITS ---
EXAMINATION: US thoracentesis DATE: 08/19/2021 15:32 INDICATION: Left pleural effusion TECHNIQUE: The procedure and its risks and benefits were discussed with the patient. Potential risks discussed included bleeding, infection, and pneumothorax. The patient understood the risks and agreed to proceed. The skin was prepped and draped in sterile fashion. 1% lidocaine was used for local anes thesia. Under ultrasound guidance, a 5 Fr catheter with trochar was advanced into the moderate-sized left pleural effusion. Fluid was aspirated. The catheter was removed, and a dressing was applied. The re appear to be some pleural gas aspirated at the conclusion of the procedure. Post procedure chest r adiograph demonstrated a region of lucency near the left costophrenic angle which could represent a s mall loculated pneumothorax. See separate chest radiograph report for further detail. FINDINGS: Ultrasound images demonstrate a moderate-sized left pleural effusion and the catheter within the flui d. IMPRESSION: 1. Successful ultrasound-guided thoracentesis yielding 500 mL of reddish-yellow fluid. 2. Gas aspirated from the pleural space at the conclusion of the procedure. This could represent the small pneumothorax component seen at the left apex on the CT from one day prior which is of indetermi arun etiology. There did however appear to be increased lucency in the region of the pneumothorax at the conclusion of the procedure. Differential would include pneumothorax ex vacuo due to poor reexpan elías of noncompliant lung or potentially the presence of a bronchopleural fistula. Reviewed, dictated and finalized at location A. UET LINE COOK IMPRESSION: 1. Successful ultrasound-guided thoracentesis yielding 500 mL of reddish-yello w fluid. 2. Gas aspirated from the pleural space at the conclusion of the procedure. Thi s could represent the small pneumothorax component seen at the left apex on the CT from one day prior which is of indeterminate etiology. There did however ap pear to be increased lucency in the region of the pneumothorax at the conclusio n of the procedure. Differential would include pneumothorax ex vacuo due to poo r reexpansion of noncompliant lung or potentially the presence of a bronchopleu ral fistula.
--- NOTE | ~2021-08-17 | CT_ITS ---
EXAMINATION: CT brain wo con DATE: 08/18/2021 15:54 INDICATION: Altered mental status TECHNIQUE: Computed tomography (CT) of the head was performed without intravenous contrast. The dose- length product was 681.00 mGy-cm. Automated exposure control and iterative reconstruction technique w ere employed. COMPARISON: None FINDINGS: Generalized atrophy. There are scattered mild periventricular and subcortical white matter changes, most likely related to small vessel ischemic disease (microangiopathy). No ventriculomegaly or midline shift. Basilar cisterns are patent. There is intracranial atherosclerosis. Paranasal sinus es and mastoids are pneumatized. No depressed skull fractures. IMPRESSION: 1. No acute intracranial abnormality. 2: Chronic age-related findings. Reviewed, dictated and finalized at location A. ENGER SERVICE AGENT
--- NOTE | ~2021-08-17 | US_ITS ---
US art doppler w press LE BI INDICATION: Decreased pulses TECHNIQUE: Segmental pressures and plethysmographic and Doppler waveforms of the brachial and lower e xtremity arteries were obtained. COMPARISON: No prior studies for comparison. . FINDINGS: Right and left brachial artery pressures of 109 mm Hg and 112 mm Hg, respectively, are concordant (no rmal difference <= 30 mmHg). No pressures couldn't be obtained in the posterior tibial or dorsalis pedis arteries. Right toe brach ial index is 0.13. Left toe brachial index is 0.13. There is biphasic and monophasic flow in the lowe r extremity arteries. IMPRESSION: 1. No detectable pressures in the posterior tibial and dorsalis pedis arteries for evaluation of ankl e-brachial indices. Toe brachial indices are severely decreased both measuring 0.13, compatible with severe peripheral arterial disease. Consider correlation with CTA of the lower extremity arteries as clinically indicated. Reviewed, dictated and finalized at location A. MOBILE IMPRESSION: 1. No detectable pressures in the posterior tibial and dorsalis pedis arteries for evaluation of ankle-brachial indices. Toe brachial indices are severely dec reased both measuring 0.13, compatible with severe peripheral arterial disease. Consider correlation with CTA of the lower extremity arteries as clinically in dicated.
--- NOTE | ~2021-08-17 | XR_ITS ---
EXAMINATION: XR chest 1V portable DATE: 08/25/2021 06:15 INDICATION: Respiratory failure. Mechanical ventilation. TECHNIQUE: frontal view of the chest was obtained. COMPARISON: Chest radiograph dated 08/24/2021 FINDINGS: Endotracheal tube tip 4.0 cm above the skyler. Nasogastric tube extends below the left hemidiaphragm with distal tip collimated off the study. Large bore right internal jugular central venous catheter with distal tip at the superior cavoatrial junction. Persistent small right pleural effusion. Also unchanged is a small left hydropneumothorax with locula alexandra gas component at the lateral left lower lung zone. Persistent airspace opacities in the bilateral mid and lower lung zones with some improvement in prior opacities at the left upper lung zone. Cardi omegaly. IMPRESSION: 1. Unchanged small right pleural effusion and small left hydropneumothorax with loculated gas compone nt at the lateral left lower lung zone. 2. Opacities in the bilateral mid and lower lung zones with improvement in prior opacities at the lef t upper lung zone bilateral airspace opacities with lower lung predominance and some improvement in t he left upper lung zone consistent with likely combination of atelectasis and pneumonia. Reviewed, dictated and finalized at location A. DEVELOPER IMPRESSION: 1. Unchanged small right pleural effusion and small left hydropneumothorax with loculated gas component at the lateral left lower lung zone. 2. Opacities in the bilateral mid and lower lung zones with improvement in prio r opacities at the left upper lung zone bilateral airspace opacities with lower lung predominance and some improvement in the left upper lung zone consistent with likely combination of atelectasis and pneumonia.
--- NOTE | ~2021-08-17 | XR_ITS ---
EXAMINATION: XR chest 1V portable INDICATION: Acute respiratory TECHNIQUE: Portable AP chest at 0458 hours COMPARISON: 08/31/2021 FINDINGS: The left-sided chest tube is unchanged in position. The left pleural effusion has decreased in size and now small. A small amount of loculated fluid is seen in the major fissure on the left. T here is a small persistent loculated left pneumothorax. There is a small right pleural effusion. Card ia megaly is noted. A large bore right internal jugular catheter ends with its tip in the proximal ri ght atrium. There are airspace opacities of the lung bases and left upper lung zone. IMPRESSION: 1. Significant improvement in the previously described left pleural effusion with a small persistent effusion and a small amount of fluid in the left major fissure. 2. Small right pleural effusion, stable. 3. Airspace opacities of the lung bases and left upper lung zone, consistent with atelectasis versus pneumonia. 4. Small persistent loculated left pneumothorax. Reviewed, dictated and finalized at location A. RAL PRODUCTION MANAGER IMPRESSION: 1. Significant improvement in the previously described left pleural effusion wi th a small persistent effusion and a small amount of fluid in the left major fi ssure. 2. Small right pleural effusion, stable. 3. Airspace opacities of the lung bases and left upper lung zone, consistent wi th atelectasis versus pneumonia. 4. Small persistent loculated left pneumothorax.
--- NOTE | ~2021-08-17 | XR_ITS ---
EXAMINATION: XR chest 1V portable DATE: 08/27/2021 06:02 INDICATION: Respiratory failure. TECHNIQUE: A single frontal view of the chest was obtained. COMPARISON: Chest single view 08/26/2021 FINDINGS: There is a moderate-sized right pleural effusion. There is a moderate-sized left hydropneum othorax. There are airspace opacities in the mid and lower lung zones. Cardiomegaly is noted. The end otracheal tube tip is 3.5 cm above the skyler. The nasogastric tube tip is in the stomach. A right in ternal jugular central venous catheter is seen with tip in the proximal right atrium. IMPRESSION: 1. Stable moderate-sized right pleural effusion. 2. Stable moderate-sized left hydropneumothorax. 3. Stable airspace opacities in the mid and lower lung zones, consistent with atelectasis and pneumon ia. 4. Cardiomegaly. Reviewed, dictated and finalized at location A. RNAL GRINDER TOOL IMPRESSION: 1. Stable moderate-sized right pleural effusion. 2. Stable moderate-sized left hydropneumothorax. 3. Stable airspace opacities in the mid and lower lung zones, consistent with a telectasis and pneumonia. 4. Cardiomegaly.
--- NOTE | ~2021-08-17 | XR_ITS ---
EXAMINATION: XR chest 1V portable DATE: 08/21/2021 06:21 INDICATION: Acute respiratory failure TECHNIQUE: frontal view of the chest was obtained. COMPARISON: Chest radiograph dated 08/20/2021 FINDINGS: Endotracheal tube tip 2.5 cm above the skyler. Nasogastric tube extends below the left hemidiaphragm with distal tip collimated off the study. Large-bore dual-lumen right internal jugular central venou s catheter with distal tip near the superior cavoatrial junction. No interval change in opacities throughout both lungs consistent with small bilateral pleural effusio ns and associated atelectasis and/or pneumonia. Small loculated pneumothorax at the lateral left lowe r lung zone. The cardiomediastinal silhouette is normal. IMPRESSION: 1. Unchanged small right pleural effusion and small loculated left hydropneumothorax. 2. Unchanged bilateral airspace opacities which could represent atelectasis and/or pneumonia. Reviewed, dictated and finalized at location A. CLOSER IMPRESSION: 1. Unchanged small right pleural effusion and small loculated left hydropneumot horax. 2. Unchanged bilateral airspace opacities which could represent atelectasis and /or pneumonia.
--- NOTE | ~2021-08-17 | XR_ITS ---
EXAMINATION: XR chest 1V portable DATE: 08/20/2021 05:37 INDICATION: Acute respiratory failure TECHNIQUE: frontal view of the chest was obtained. COMPARISON: Chest radiograph dated 08/19/2021 FINDINGS: Endotracheal tube tip 4.0 cm above the skyler. Nasogastric tube extends below the left hemidiaphragm with distal tip collimated off the study. Large-bore dual-lumen right internal jugular central venou s catheter with distal tip at the superior cavoatrial junction. Small bilateral pleural effusions, right greater than left. Patchy airspace opacities throughout the left lung and at the right lower lung zone. Region of increased lucency at the lateral left lower jae g zone, indeterminate whether this includes airspace markings which could represent either hyperexpan ded portion of the lung or a small loculated pneumothorax. The cardiomediastinal silhouette is within normal limits for AP technique. IMPRESSION: 1. Unchanged small bilateral pleural effusions, right greater than left. 2. Bilateral airspace opacities more extensive on the left which could represent atelectasis and/or p neumonia. 3. Region of increased lucency at the lateral left lower lung zone is equivocal for hyperexpanded jae gs versus small loculated pneumothorax. Reviewed, dictated and finalized at location A. HANDISING MANAGER IMPRESSION: 1. Unchanged small bilateral pleural effusions, right greater than left. 2. Bilateral airspace opacities more extensive on the left which could represen t atelectasis and/or pneumonia. 3. Region of increased lucency at the lateral left lower lung zone is equivocal for hyperexpanded lungs versus small loculated pneumothorax.
--- NOTE | ~2021-08-17 | XR_ITS ---
EXAMINATION: XR chest 1V portable DATE: 08/19/2021 05:43 INDICATION: Acute respiratory failure. TECHNIQUE: frontal view of the chest was obtained. COMPARISON: Chest radiograph and CT dated 08/18/2021 FINDINGS: Endotracheal tube tip 4.4 cm above the skyler. Nasogastric tube tip in proximal side port in the body of the stomach. Large-bore dual-lumen right internal jugular central venous catheter with distal tip at the superior cavoatrial junction. Opacities throughout the left lung and in the right mid to lower lung zones consistent with unchanged small right and decreased moderate-sized left pleural effusions with associated atelectasis on the r ight and atelectasis and pneumonia on the left as better appreciated on prior CT. Mild cardiomegaly. IMPRESSION: 1. Small right and decreasing moderate size left pleural effusions with associated atelectasis. 2. Patchy airspace opacities throughout the left lung with appearance on CT favoring pneumonia. 3. Mild cardiomegaly. Reviewed, dictated and finalized at location A. MIXER IMPRESSION: 1. Small right and decreasing moderate size left pleural effusions with associa alexandra atelectasis. 2. Patchy airspace opacities throughout the left lung with appearance on CT fav oring pneumonia. 3. Mild cardiomegaly.
--- NOTE | ~2021-08-17 | XR_ITS ---
EXAMINATION: XR chest 1V portable DATE: 08/22/2021 05:53 INDICATION: Acute respiratory failure TECHNIQUE: frontal view of the chest was obtained. COMPARISON: Chest radiograph dated 08/21/2021 FINDINGS: Endotracheal tube tip 1.8 cm above the skyler. Nasogastric tube extends below the left hemidiaphragm with distal tip collimated off the study. Large-bore dual-lumen right internal jugular central venou s catheter with distal tip at the superior cavoatrial junction. No significant change in small right pleural effusion. Small left hydropneumothorax with decrease in size of a loculated gas component at the lateral left lower lung zone. Additional patchy airspace opa cities in the right mid to lower lung zone and throughout the left lung which could represent atelect asis and/or pneumonia. The cardiomediastinal silhouette is normal. IMPRESSION: 1. Small bilateral pleural effusions. 2. Decrease in size of a loculated pneumothorax at the lateral left lower lung zone. 3. Unchanged bilateral airspace opacities which could represent atelectasis and/or pneumonia. Reviewed, dictated and finalized at location A. MAKER IMPRESSION: 1. Small bilateral pleural effusions. 2. Decrease in size of a loculated pneumothorax at the lateral left lower lung zone. 3. Unchanged bilateral airspace opacities which could represent atelectasis and /or pneumonia.
--- NOTE | ~2021-08-17 | XR_ITS ---
EXAMINATION: XR chest-chest tube insert/pos EXAM DATE: 08/27/2021 18:27 INDICATION: Left-sided pneumothorax. Chest tube insertion. TECHNIQUE: Portable AP frontal chest x-ray was obtained. Comparison is made to prior examination from earlier same date. FINDINGS: Interval insertion of a left-sided chest tube with improvement in size of pneumothorax. End otracheal tube tip is just above the skyler. There is a right IJ venous line. Feeding tube in positio n. Moderate right size pleural effusion. Cardiomegaly and pulmonary vascular congestion. Bilateral pneum onia and/or edema unchanged. IMPRESSION: 1. Improvement in size of small to moderate left pneumothorax size following chest tube insertion. 2. Endotracheal tube tip just above skyler, could be safely retracted 2 cm. 3. Airspace disease and right pleural effusion unchanged. Reviewed, dictated and finalized at location A. R COATING SUPERVISOR IMPRESSION: 1. Improvement in size of small to moderate left pneumothorax size following c hest tube insertion. 2. Endotracheal tube tip just above skyler, could be safely retracted 2 cm. 3. Airspace disease and right pleural effusion unchanged.
--- NOTE | ~2021-08-17 | XR_ITS ---
EXAMINATION: XR_[id number]_CR DATE: 08/19/2021 15:27 INDICATION: Large left pleural effusion postthoracentesis TECHNIQUE: frontal view of the chest was obtained. COMPARISON: Chest radiograph dated 08/19/2015 at 5:11 AM FINDINGS: Significant decrease in size of the prior moderate-sized left pleural effusion. A portion of the pleu ral space at the left lower lung zone which is been occupied by the effusion now appears more lucent than expected for the lung suspicious for development of a small loculated pneumothorax. Unchanged sm all right pleural effusion. Airspace opacities in the bilateral mid and lower lung zones which could represent atelectasis and/or pneumonia. Cardiomegaly. No evident midline shift. Endotracheal tube tip 3.5 cm above the skyler. Nasogastric tube tip in proximal side port in the body of the stomach. Large-bore dual-lumen right internal jugular central venous catheter with distal tip at the superior cavoatrial junction. IMPRESSION: 1. Near complete resolution of prior left pleural effusion but with new lucency in the lateral left l ower lung zone at the site of the effusion with appearance suspicious for small loculated pneumothora x. Of note a small pneumothorax of indeterminate etiology was evident at the left apex on CT dated . I discussed this with the Sejal yousif he the patient's nurse at 3:25 PM. 2. Unchanged small right pleural effusion. 3. Opacities in the bilateral mid and lower lung zones which represent atelectasis, pneumonia or comb ination thereof. Reviewed, dictated and finalized at location A. STRIAL MANAGEMENT TEACHER IMPRESSION: 1. Near complete resolution of prior left pleural effusion but with new lucency in the lateral left lower lung zone at the site of the effusion with appearanc e suspicious for small loculated pneumothorax. Of note a small pneumothorax of indeterminate etiology was evident at the left apex on CT dated 08/18/2021. I d iscussed this with the Sejal yousif he the patient's nurse at 3:25 PM. 2. Unchanged small right pleural effusion. 3. Opacities in the bilateral mid and lower lung zones which represent atelecta sis, pneumonia or combination thereof.
--- NOTE | ~2021-08-17 | XR_ITS ---
EXAMINATION: XR chest 1V portable DATE: 08/29/2021 06:02 INDICATION: Acute respiratory failure. TECHNIQUE: A single frontal view of the chest was obtained. COMPARISON: Chest single view 08/28/2021 FINDINGS: There is a small right pleural effusion. There is a small left hydropneumothorax. There are airspace opacities in the mid and lower lung zones. Cardiomegaly is noted. The endotracheal tube tip is 4.7 cm above the skyler. The nasogastric tube tip is in the stomach. A right internal jugular michele tral venous catheter is seen with tip at the superior cavoatrial junction. A left-sided chest tube is noted. IMPRESSION: 1. Stable small left hydropneumothorax with chest tube in expected position. 2. Stable small right pleural effusion. 3. Stable airspace opacities in the mid and lower lung zones, consistent with atelectasis versus pneu monia. 4. Cardiomegaly. Reviewed, dictated and finalized at location A. LIFT COMPRESSOR IMPRESSION: 1. Stable small left hydropneumothorax with chest tube in expected position. 2. Stable small right pleural effusion. 3. Stable airspace opacities in the mid and lower lung zones, consistent with a telectasis versus pneumonia. 4. Cardiomegaly.
--- NOTE | ~2021-08-17 | XR_ITS ---
EXAMINATION: [id number]_CR DATE: 08/28/2021 15:52 INDICATION: Right pleural effusion postthoracentesis TECHNIQUE: frontal view of the chest was obtained. COMPARISON: Chest radiograph dated 08/28/2021 at 5:03 AM FINDINGS: Endotracheal tube tip 3.3 cm above the skyler. Large-bore right internal jugular central venous andre ter with distal tip near the superior cavoatrial junction. Nasogastric tube with proximal side-port i n the stomach and distal tip collimated below the inferior margin of the [id number]. Left chest tu be extending from near the costophrenic angle to the medial left upper lung zone. Additional peripher ally inserted catheter tip in the region of the right axilla. No significant change in a small likely partially loculated left hydropneumothorax. Airspace opacity lateral left midlung zone with appearance on prior chest radiograph suggesting round atelectasis. Dec rease in size of a small right pleural effusion. Additional opacities at the lung bases which could r epresent associated atelectasis or pneumonia. No right-sided pneumothorax. Cardiomegaly. IMPRESSION: 1. Decreased now small right pleural effusion post thoracentesis with no right-sided pneumothorax. 2. Persistent small partially loculated left hydropneumothorax with unchanged chest tube remaining in place. 3. Opacities in the left mid and bilateral lower lung zones consistent with atelectasis and/or pneumo ash. 4. Cardiomegaly. Reviewed, dictated and finalized at location B. GER OF APPLICATION DEVELOPMENT IMPRESSION: 1. Decreased now small right pleural effusion post thoracentesis with no right- sided pneumothorax. 2. Persistent small partially loculated left hydropneumothorax with unchanged c hest tube remaining in place. 3. Opacities in the left mid and bilateral lower lung zones consistent with ate lectasis and/or pneumonia. 4. Cardiomegaly.
--- NOTE | ~2021-08-17 | XR_ITS ---
EXAMINATION: XR chest 1V portable DATE: 08/26/2021 05:32 INDICATION: Respiratory failure. TECHNIQUE: A single frontal view of the chest was obtained. COMPARISON: 08/18/2021, chest single view 08/24/2021 FINDINGS: There is a moderate-sized right pleural effusion. There is a small left hydropneumothorax. There are airspace opacities in the mid and lower lung zones. The heart size is normal. The endotrach eal tube tip is 4.5 cm above. The nasogastric tube tip is in the stomach. A right internal jugular ce ntral venous catheter is seen with tip at the superior cavoatrial junction. IMPRESSION: 1. Stable moderate-sized right pleural effusion. 2. Stable small left hydropneumothorax. 3. Stable airspace opacities in the mid and lower lung zones, consistent with atelectasis versus pneu monia. Reviewed, dictated and finalized at location A. RIOR DESIGNER IMPRESSION: 1. Stable moderate-sized right pleural effusion. 2. Stable small left hydropneumothorax. 3. Stable airspace opacities in the mid and lower lung zones, consistent with a telectasis versus pneumonia.
--- NOTE | ~2021-08-17 | CT_ITS ---
EXAMINATION: CT chest high resolution wo co DATE: 08/18/2021 15:54 INDICATION: Altered mental status. Left hemithorax opacified. TECHNIQUE: Computed tomography (CT) of the chest was performed without intravenous contrast. The dose -length product was 201.77 mGy-cm. Automated exposure control and iterative reconstruction technique were employed. COMPARISON: Chest x-ray dated 08/18/2021 FINDINGS: Moderate bilateral pleural effusions. There is airspace consolidation in the residual left lung, compatible with pneumonia. There is a small air-fluid level at the left apex, suspicious for sm all loculated left hydropneumothorax. There is right upper and lower lobe airspace consolidation whic h may represent atelectasis or pneumonia. Cardiomegaly. Small amount of gas is identified in the righ t upper anterior chest wall, likely from previous central line placement. There is an endotracheal tu be present. NG tube in the stomach. Large bore central venous catheter tip near the cavoatrial juncti on. No thoracic lymphadenopathy. Thoracic spondylosis with multiple mild wedge compression deformitie s of the midthoracic spine, likely chronic. IMPRESSION: 1. Moderate bilateral pleural effusions with probable small loculated left apical hydropneumothorax. 2: Bilateral airspace disease throughout the residual left lung and peripherally in the right upper and lower lobes which may represent a combination of pneumonia and/or atelectasis. 3: Cardiomegaly. Reviewed, dictated and finalized at location A. N RECEIVER IMPRESSION: 1. Moderate bilateral pleural effusions with probable small loculated left apic al hydropneumothorax. 2: Bilateral airspace disease throughout the residual left lung and peripheral ly in the right upper and lower lobes which may represent a combination of pneu monia and/or atelectasis. 3: Cardiomegaly.
--- NOTE | ~2021-08-17 | XR_ITS ---
EXAMINATION: XR chest 1V portable INDICATION: Shortness of breath TECHNIQUE: Portable AP chest at 1246 hours COMPARISON: 0456 hours FINDINGS: A left-sided chest drain is in expected position. There is unchanged near complete opacific ation of the left hemithorax. The left hydrothorax is unchanged. There is a dmtrq-za-[id number] size ri ght pleural effusion, stable. Cardiomegaly is noted. A large bore right internal jugular catheter end s with its tip in the distal superior vena cava. Interstitial and airspace opacities of the right jae g base are stable. IMPRESSION: 1. Overall no significant change since radiograph from earlier today. Reviewed, dictated and finalized at location A. R VEHICLE FIELD REPRESENTATIVE
--- NOTE | ~2021-08-17 | XR_ITS ---
EXAMINATION: XR chest 1V portable INDICATION: Acute respiratory failure, pleural effusion TECHNIQUE: Portable AP chest at 0456 hours COMPARISON: 08/30/2021 FINDINGS: The endotracheal and nasogastric tubes have been removed. A left-sided chest drain is uncha nged in position. There is a left hydropneumothorax with increase in the volume of pleural fluid. A s aruv-wr-otvhgttx size right pleural effusion is stable. There is near complete opacification of the l eft hemithorax. A large bore right internal jugular catheter ends with its tip in the proximal right atrium. Cardiomegaly is noted. There are increasing interstitial opacities of the right lung and airs pace opacities of the right mid and lower lung zones. IMPRESSION: 1. Left hydropneumothorax with increased pleural fluid and near complete opacification of the left he mithorax. 2. Small to moderate size right pleural effusion. 3. Increased interstitial opacities of the right lung, possibly pulmonary edema. 4. Increasing airspace opacities of the right mid and lower lung zones, consistent with atelectasis v ersus pneumonia. 5. Cardiomegaly. Reviewed, dictated and finalized at location A. FORCE STAFFING ADVISOR IMPRESSION: 1. Left hydropneumothorax with increased pleural fluid and near complete opacif ication of the left hemithorax. 2. Small to moderate size right pleural effusion. 3. Increased interstitial opacities of the right lung, possibly pulmonary edema . 4. Increasing airspace opacities of the right mid and lower lung zones, consist ent with atelectasis versus pneumonia. 5. Cardiomegaly.
--- NOTE | ~2021-08-17 | XR_ITS ---
EXAMINATION: XR chest 2V DATE: 08/17/2021 11:44 INDICATION: Shortness of breath TECHNIQUE: AP and lateral views of the chest are obtained. COMPARISON: 10/25/2019 FINDINGS: A right internal jugular dialysis catheter ends with its tip in the right atrium. There are small to moderate-sized pleural effusions. Airspace opacities are present in the mid and lower lung zones. There is no pneumothorax. Cardiomegaly is noted. There is moderate thoracic spondylosis. IMPRESSION: 1. Small to moderate-sized pleural effusions. 2. Airspace opacities of the mid and lower lung zones, consistent with atelectasis versus pneumonia. 3. Cardiomegaly. Reviewed, dictated and finalized at location A. OSITION MOLDER IMPRESSION: 1. Small to moderate-sized pleural effusions. 2. Airspace opacities of the mid and lower lung zones, consistent with atelecta sis versus pneumonia. 3. Cardiomegaly.
--- NOTE | ~2021-08-17 | XR_ITS ---
EXAMINATION: XR chest 1V portable DATE: 08/24/2021 07:28 INDICATION: Respiratory failure TECHNIQUE: frontal view of the chest was obtained. COMPARISON: Chest radiograph dated 08/23/2021 FINDINGS: Endotracheal tube tip 4.4 cm above the skyler. Nasogastric tube extends below the left hemidiaphragm with distal tip collimated off the study. Large-bore right internal jugular central venous catheter with distal tip near the superior cavoatrial junction. No significant change attending for differences in technique and airspace opacities scattered through out the left lung and in the right mid and lower lung zones which include small to moderate right and small left pleural effusions. No definitive pneumothorax. Cardiomegaly. IMPRESSION: 1. No significant interval change in small to moderate right and small left pleural effusions with as sociated atelectasis and/or pneumonia. Reviewed, dictated and finalized at location A. MOLD OPERATOR IMPRESSION: 1. No significant interval change in small to moderate right and small left ple ural effusions with associated atelectasis and/or pneumonia.
--- NOTE | ~2021-08-17 | US_ITS ---
EXAMINATION: US thoracentesis DATE: 09/02/2021 13:28 INDICATION: pleural effusion TECHNIQUE: The procedure and its risks, benefits, and alternatives were discussed with the patient's Kavita. Potential risks discussed included bleeding, infection, and pneumothorax. She understood the risks and agreed to proceed. The skin was prepped and draped in sterile fashion. 1% lidocaine was used for local anesthesia. Under ultrasound guidance, a 5 Fr catheter with trochar was advanced into the right pleural effusion. Fluid was aspirated. The catheter was removed, and a dressing was applie d. The patient experienced shortness of breath and oxygen desaturation during the procedure. FINDINGS: Ultrasound images demonstrate a right pleural effusion and the catheter within the fluid. IMPRESSION: 1. Successful ultrasound-guided thoracentesis yielding 650 mL of serosanguineous fluid. 2. The patient experienced shortness of breath and oxygen desaturation during the procedure, and the procedure was terminated. Dr. Phillips then assumed care. Reviewed, dictated and finalized at location A. OGRAPHIC PRINTING MACHINIST IMPRESSION: 1. Successful ultrasound-guided thoracentesis yielding 650 mL of serosanguineo us fluid. 2. The patient experienced shortness of breath and oxygen desaturation during t he procedure, and the procedure was terminated. Dr. Jacqueline goodwin assumed care.
--- NOTE | ~2021-08-17 | XR_ITS ---
EXAMINATION: XR abdomen NG/feed tube insert INDICATION: OG insertion TECHNIQUE: Portable AP KUB-NG at 0713 hours COMPARISON: None available FINDINGS: The OG tube is in the stomach. There is complete opacification of left hemithorax. A small to moderate size right pleural effusion is present. The bowel gas pattern is unremarkable. IMPRESSION: 1. OG tube in the stomach. Reviewed, dictated and finalized at location A. GIOUS ACTIVITIES DIRECTOR IMPRESSION: 1. OG tube in the stomach.
--- NOTE | ~2021-08-17 | XR_ITS ---
XR chest 1V portable 08/18/2021 11:33 Indication: Opacification of left hemithorax Procedure: AP portable chest Comparison: Comparison to multiple prior studies sequentially, with oldest reviewed study dated 12/2019. Findings: Persistent complete opacification of the left hemithorax with mediastinal shift to the left , consistent with volume loss. Endotracheal tube tip 4.2 cm above the skyler. NG tube in the stomach. There is diffuse interstitial and airspace disease of the right lung, most confluent in the lower lo be. Small right pleural effusion. Large bore central venous catheter tip near the cavoatrial junction . Impression: 1: Complete opacification of the left hemithorax is unchanged which likely represents a combination o f effusion and atelectasis. 2: Mild diffuse opacification of the right lung which may represent edema or pneumonia. 3: Small right pleural effusion. Reviewed, dictated and finalized at location A. Y GRINDER Impression: 1: Complete opacification of the left hemithorax is unchanged which likely repr esents a combination of effusion and atelectasis. 2: Mild diffuse opacification of the right lung which may represent edema or p neumonia. 3: Small right pleural effusion.
--- NOTE | ~2021-08-17 | US_ITS ---
EXAMINATION: US abdomen limited DATE: 08/18/2021 08:57 INDICATION: Elevated liver function tests TECHNIQUE: Multiple grayscale and Doppler ultrasound images of the abdomen were obtained. COMPARISON: 10/26/2019 FINDINGS: Bowel gas obscures visualization of the pancreas. The visualized portions of the pancreas a re unremarkable. The liver is normal with normal echogenicity and echotexture. There is subtle liver surface nodularity. Normal hepatopetal flow in the main portal vein. The gallbladder is normal with n o abnormal wall thickening, pericholecystic fluid or stones. The normal common bile duct measures 4 m m. A right pleural effusion is noted. IMPRESSION: 1. Nodularity of the liver surface, consistent with cirrhosis. Reviewed, dictated and finalized at location A. STUDY STATISTICIAN
--- NOTE | 2021-08-17 11:11 | ECG_ITS ---
Measurements Intervals [place] Rate: 89 P: CT: 0 QRS: -12 QRSD: 87 T: 62 QT: 327 QTc: 399 Interpretive Statements ATRIAL FIBRILLATION CANNOT RULE OUT SEPTAL INFARCT, AGE INDETERMINATE BORDERLINE ST-T WAVE ABNORMALITY- ANTEROLAT/HIGH LAT LEADS BASELINE ARTIFACT- II, III, AVR, AVL, AVF ABNORMAL ECG Electronically Signed On 08-17-2021 15:53:14 TALENT ANALYST by Julian Olsen D.O.
[2021-08-17 11:31] LABS: Basophils Percent Auto 0.2 % (0.2-1.2); Hematocrit 36.7 % (42.0-52.0); Hemoglobin 11.7 g/dL (14.0-18.0); Immature Granulocyte Absolute 0.04 K/mm3 (0.00-0.031); Immature Granulocyte Percent A 0.4 % (0-0.5); Lymphocytes Absolute Auto 0.32 K/mm3 (0.9-3.2); Lymphocytes Percent Auto 3.2 % (18.3-44.2); Mean Corpuscular HGB Conc 31.9 g/dl (32-36); Mean Corpuscular Volume 97.3 fl (80-100); Mean Platelet Volume 8.7 fl (7.4-10.4); Monocytes Absolute Auto 0.9 K/mm3 (0.1-0.6); Monocytes Percent Auto 8.9 % (2.6-8.5); Neutrophils Absolute Auto 8.8 K/mm3 (1.3-6.7); Neutrophils Percent Auto 87.3 % (45.5-73.1); Platelet Count Result 269 k/mm3 (150-375); Red Blood Count 3.77 M/mm3 (4.6-6.20); Red Cell Distribution Width 14.7 % (11.5-14.5); White Blood Count 10.1 K/mm3 (4.5-10.0)
[2021-08-17 11:41] LABS: Anion Gap 11 mmol/L (8-16); Blood Urea Nitrogen 42 mg/dL (9-20); Calcium 8.8 mg/dL (8.4-10.2); Carbon Dioxide 31 mmol/L (22-30); Chloride 87 mmol/L (98-107); Estimated CRCL calculation 8 ml/min; Estimated Glomerular Filt Rate 9; Glucose 105 mg/dL (65-110); Sodium 129 mmol/L (137-145)
[2021-08-17 11:42] LABS: Alveolar/Arterial O2 Gradient 44.3 mmHg; Base Excess ABG -1.3 mEq/l (+/-2.0); Carboxyhemoglobin 1.2 % THb (0-2.0); Fractional Inspired Oxygen 28 %; HCO3 ABG 27.9 mEq/l (22.0-26.0); Methemoglobin ABG 0.2 %THb (0-1.5); Oxygen Content ABG 15.7 %vol (16.0-22.0); Oxygen Saturation ABG 90.9 % (95.0-100.0); Oxyhemoglobin 88.9 % THb (90.0-100.0); PO2 ABG 72.6 mmHg (80.0-100.0); PO2 FiO2 Ratio Arterial Blood 2.59 %; Reduced Hemoglobin 9.7 %THb (0-5.0); Total Hemoglobin 12.5 g/dL (12.0-18.0)
[2021-08-17 11:44] LABS: pH ABG 7.218 (7.350-7.450)
[2021-08-17 11:45] LABS: Device NASAL CANNULA; PCO2 ABG 70.1 mmHg (35.0-45.0); Site Drawn RIGHT BRACHIAL
[2021-08-17 11:50] LABS: NT Pro B Type Natriuretic Pept > 35000 pg/mL (5-100)
--- NOTE | 2021-08-17 13:57 | ED.GENADULT ---
HPI - General Adult General Chief complaint: Nausea/Vomiting/Diarrhea Stated complaint: NAUSEA,LOW O2 SATS Time Seen by Provider: 08/17/21 11:11 History of Present Illness HPI narrative: Patient is a 76-year-old male who presents ER with altered mental status and low oxygen saturations. Patient went to [facility] dialysis today and his O2 sats were low. He was also found to be oriented x1. At baseline he is oriented x3. reports he has been altered for last 2 days but is refusing to go to the ER so she took him to dialysis where she knew they would send him here. He has not missed any dialysis appointments, today was scheduled for 1 day later than typical due to the holiday. She denies that he has been having any cough or cold symptoms. She denies any fevers. Related Data Home Medications Medication Instructions Recorded Confirmed furosemide 40 mg PO DAILY 10/25/19 10/26/19 Allergies Allergy/AdvReac Type Severity Reaction Status Date / Time Penicillins AdvReac Unknown Nervousness Verified 10/28/19 11:43 Review of Systems Review of Systems: ROS unobtainable: Yes unobtainable due to mental status [facility] Past Medical History Medical History (Updated 08/17/21 @ 18:06 by Robert Mark MD) Alcohol abuse Alcoholic liver disease Benign prostatic hyperplasia Chronic anemia Cirrhosis of liver Congestive heart failure Duodenal ulcer (10/2019) End-stage renal disease on hemodialysis Osteomyelitis of lumbar spine (~08/2017) Diskitis and osteomyelitis at L3-L4 and L4-L5. Surgical History Surgical History (Updated 08/17/21 @ 16:27 by Aleyda Quick PA-C) History of esophagogastroduodenoscopy (10/26/19) For evaluation of GI bleed, found to have gastritis, duodenitis, and duodenal ulcers. Surgical history unknown Social History Social History (Updated 08/17/21 @ 16:28 by Aleyda Quick PA-C) Social History: Surrogate decision maker: Code status: Smoking status: Former smoker Tobacco type: cigarettes Second hand tobacco smoke exposure: No Additional smoking assessment comments: Quit about 16 years ago. Alcohol intake: current Drinks per week: 24 Substance use: never Substance use type: does not use Additional living arrangements comments: Resides in [place] with his . Additional occupation/education comments: Retired. Exam Narrative: GENERAL: Chronically ill-appearing, well-nourished, and in no acute distress. HEAD: Normocephalic, atraumatic. EYES: PERRL and EOMI. CHEST: Clear to auscultation. No respiratory distress. HEART: Irregular regular rate and rhythm. Normal peripheral pulses. ABDOMEN: Soft, nontender, nondistended. EXTREMITIES: Normal range of motion. No edema. SKIN: Warm, dry, no rash. NEURO: Alert and oriented x1. PSYCH: Normal mood and affect. Course Course Emergency Course: Patient's family informed results/diagnosis/treatment plan. Admit to hospitalist service. Nephrology consulted. Recommends giving Kayexalate in addition to the Lasix already given. Patient tolerating BiPAP him waking up. Blood pressure improving. Vital Signs Vital signs: Vital Signs Temperature 97.2 F L 08/17/21 10:54 Pulse Rate 84 08/17/21 10:54 Respiratory Rate 19 08/17/21 10:54 Blood Pressure 91/64 L 08/17/21 10:54 Temperature 98.2 F 08/17/21 15:30 Pulse Rate 71 08/17/21 17:51 Respiratory Rate 27 H 08/17/21 17:51 Blood Pressure 113/83 08/17/21 16:31 Pulse Oximetry 94 08/17/21 17:51 Medical Decision Making Vital Signs Vital Signs: Vital Signs Temperature 97.2 F L 08/17/21 10:54 Pulse Rate 84 08/17/21 10:54 Respiratory Rate 19 08/17/21 10:54 Blood Pressure 91/64 L 08/17/21 10:54 Temperature 98.2 F 08/17/21 15:30 Pulse Rate 71 08/17/21 17:51 Respiratory Rate 27 H 08/17/21 17:51 Blood Pressure 113/83 08/17/21 16:31 Pulse Oximetry 94 08/17/21 17:51 Lab Data Result diagrams: 08/17
[2021-08-17] MEDS: FUROSEMIDE INJ 40 MG/4 ML VIAL IV PUSH (14:00)
--- NOTE | 2021-08-17 16:20 | PM.IMHP ---
H&P: HPI History of Present Illness Date/Time: 08/17/21 16:20 Chief Complaint: Low oxygen saturations and confusion. Narrative: This is a 76-year-old male with end-stage renal disease on hemodialysis, hypertension, chronic anemia, cirrhosis, GERD, and history of duodenal ulcers who presented to the emergency department earlier today via EMS from dialysis for evaluation of low oxygen saturations and confusion. While the patient is alert and oriented x3, he is not necessarily oriented to situation as he does not really remember why he was brought here today.. As such some of the following is obtained via a review of his electronic medical records as well as discussions with his daughter as if not yet been able to get a hold of his . Reportedly he has been having periods of confusion or delirium and his family members have been trying to get him to come to the hospital for evaluation though he declined. Today he presented for dialysis at which time he was noted to be confused with hypoxia and a glucose of 60. He was then directed to the emergency department where he was found to be hypoxic and hypercarbic for which he was started on BiPAP. At the time my evaluation he has just removed his BiPAP mask in order to cough up a large amount of thick, lightly yellow sputum which he reports as not necessarily being unusual for him although his sputum is typically clear. Chest x-ray today showed small to moderate size pleural effusions with airspace opacities of the mid and lower lung zones and she does report having history of pleural effusions requiring what sounds like chest tube insertions to drain them. He states compliance with dialysis however due to the holiday he is one day behind on his schedule. Aside from shortness of breath he has no significant complaints any specifically denies fever, chills, sweats, sinus congestion, rhinorrhea, otalgia, odynophagia, anosmia, dysgeusia, chest pain, pleuritic pain, orthopnea, and lower extremity edema. He had some nausea earlier today but he denies vomiting. No diarrhea. He does still urinate he denies dysuria as well. He has not had any recent falls or head trauma. No focal weakness, paresthesias, dysarthria, or dysphagia. No recent change in medications. He has a history of alcohol abuse but has not drank for over a year. Review of Systems Review of Systems: Twelve systems were reviewed and are negative except as documented in the HPI. [facility] Past Medical History Medical History (Updated 08/17/21 @ 23:39 by Aleyda Quick PA-C) Alcoholic liver disease Drank heavily in the past, sober since 2019. Benign prostatic hyperplasia Chronic anemia Chronic obstructive pulmonary disease Cirrhosis of liver Duodenal ulcer (10/2019) End-stage renal disease on hemodialysis Osteomyelitis of lumbar spine (~08/2017) Diskitis and osteomyelitis at L3-L4 and L4-L5. Surgical History Surgical History (Updated 08/17/21 @ 23:36 by Aleyda Quick PA-C) History of esophagogastroduodenoscopy (10/26/19) For evaluation of GI bleed, found to have gastritis, duodenitis, and duodenal ulcers. Status post creation of arteriovenous fistula Left upper extremity. Family History Family History (Updated 08/17/21 @ 23:11 by Aleyda Quick PA-C) Other Hypertension Social History Social History (Updated 08/17/21 @ 23:12 by Aleyda Quick PA-C) Social History: Surrogate decision maker: Kavita Ravi (spouse) and Erica Pettit (daughter). Code status: Full code. Smoking status: Former smoker Tobacco type: cigarettes Second hand tobacco smoke exposure: No Additional smoking assessment comments: Quit about 16 years ago. Alcohol intake: former Alcohol use details: Former heavy drinker. Quit in mid 2019. Substance use: never Substance use type: does not use Additional living arrangements comments: Resides in [place] with his . 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
--- NOTE | 2021-08-17 16:53 | PCRCNOTE ---
Window of time for administration has passed. See next scheduled administration.
[2021-08-17] MEDS: SODIUM POLYSTYRENE SULFONONATE 15 GM/60 ML BTL 30 GM PO (17:03)
[2021-08-17 18:09] LABS: Alveolar/Arterial O2 Gradient 79.1 mmHg; Base Excess ABG 1.8 mEq/l (+/-2.0); Carboxyhemoglobin 1.3 % THb (0-2.0); Fractional Inspired Oxygen 30 %; HCO3 ABG 29.2 mEq/l (22.0-26.0); Methemoglobin ABG 0.1 %THb (0-1.5); Oxygen Content ABG 14.8 %vol (16.0-22.0); Oxygen Saturation ABG 90.4 % (95.0-100.0); Oxyhemoglobin 88.3 % THb (90.0-100.0); PCO2 ABG 59.4 mmHg (35.0-45.0); PO2 FiO2 Ratio Arterial Blood 2.17 %; Reduced Hemoglobin 10.3 %THb (0-5.0); Total Hemoglobin 11.9 g/dL (12.0-18.0); pH ABG 7.309 (7.350-7.450)
[2021-08-17 18:10] LABS: Device NON-INVASIVE VENT; Site Drawn RIGHT BRACHIAL
[2021-08-17 18:11] LABS: Non-Invasive Expiratory Pressure 6 CMH2O; Non-Invasive Inspiratory Pressure 18 CMH2O; Non-Invasive Vent Rate 20 /MIN
[2021-08-17 23:08] LABS: Glucose Point of Care 78 mg/dl (65-105)
[2021-08-17] MEDS: methylPREDNISolone SOD SUCC 125 MG VIAL 80 MG IV PUSH (23:52)
[2021-08-18] VITALS (41 sets, daily range): BP systolic 78–142; BP diastolic 42–79; PULSE 68–93; RESP 19–30; TEMP 36.4–37; O2SAT 90–100; BMI 22.7
--- NOTE | 2021-08-18 00:13 | ADMIMU ---
This patient, Diego Guzman, was admitted to IMU status, and placed in IMU Room 203-01 at 2006 on 08/17/21. Patient/family oriented to hospital policies and general routines including ID bracelet, bed and alarms, visiting hours, pain management, procedures, bathroom and other care routines, personal items, smoking policy, room service/diet, and visiting hours. Information on how to activate the Rapid Response Team has been discussed. Patient/Family are encouraged to report perceived risks to care and to ask questions if they do not understand what they are told or what they should do.
[2021-08-18 00:21] LABS: INR 1.4; Prothrombin Time 16.6 Seconds (11.1-14.7)
[2021-08-18 00:22] LABS: Ammonia < 9 umol/L (9-30); Partial Thromboplastin Time 39.2 SECONDS (22.3-36.8)
[2021-08-18 00:33] LABS: Alanine Aminotransferase 498 U/L (4-50); Albumin Level 3.8 g/dL (3.5-5.1); Alkaline Phosphatase 136 U/L (38-126); Bilirubin,Total 0.9 mg/dL (0.2-1.3)
[2021-08-18 00:37] LABS: Aspartate Amino Transferase > 750 U/L (17-59)
[2021-08-18 00:40] LABS: Procalcitonin 1.8 ng/mL
[2021-08-18] MEDS: LORazepam INJ (*CRX) 2 MG/ML VIAL 1 MG IV PUSH (01:05)
[2021-08-18] MEDS: MORPHINE SULFATE (*CRX) 2 MG/ML INJ IV PUSH (01:05)
[2021-08-18 01:09] LABS: Glucose Point of Care 125 mg/dl (65-105)
[2021-08-18] MEDS: ALBUTEROL SULFATE NEB 2.5 MG/0.5 ML INH 5 MG INHALATION ×4 (01:27→22:00)
[2021-08-18] MEDS: IPRATROPIUM BR 0.02% INH SOLN 0.5 MG/2.5 ML VIAL INHALATION ×4 (01:27→22:00)
[2021-08-18 02:45] LABS: Vitamin B12 > 1000.0 pg/mL (239-931)
[2021-08-18] MEDS: NALOXONE HCL 0.4 MG/ML VIAL IV PUSH ×3 (03:52→05:31)
[2021-08-18] MEDS: flumazeniL 0.5 MG/5 ML VIAL 1 MG IV PUSH ×2 (03:56→06:01)
[2021-08-18] MEDS: NALOXONE HCL 0.4 MG/ML VIAL 0.8 MG IV PUSH ×2 (04:03→04:08)
[2021-08-18 04:45] LABS: Glucose Point of Care 134 mg/dl (65-105)
[2021-08-18 04:50] LABS: Hematocrit 36.1 % (42.0-52.0); Hemoglobin 11.5 g/dL (14.0-18.0); Mean Corpuscular HGB Conc 31.9 g/dl (32-36); Mean Corpuscular Hemoglobin 30.8 pg (26-34); Mean Corpuscular Volume 96.8 fl (80-100); Platelet Count Result 337 k/mm3 (150-375); Red Blood Count 3.73 M/mm3 (4.6-6.20); Red Cell Distribution Width 14.6 % (11.5-14.5); White Blood Count 15.1 K/mm3 (4.5-10.0)
[2021-08-18] MEDS: NALOXONE HCL INJ 2 MG/2 ML AMP 1 MG IV PUSH (05:43)
[2021-08-18 05:47] LABS: Alanine Aminotransferase 533 U/L (4-50); Albumin Level 3.9 g/dL (3.5-5.1); Alkaline Phosphatase 142 U/L (38-126); Anion Gap 10 mmol/L (8-16); Bilirubin,Total 0.9 mg/dL (0.2-1.3); Blood Urea Nitrogen 52 mg/dL (9-20); Calcium 8.1 mg/dL (8.4-10.2); Carbon Dioxide 33 mmol/L (22-30); Chloride 88 mmol/L (98-107); Estimated CRCL calculation 7 ml/min; Estimated Glomerular Filt Rate 7; Glucose 132 mg/dL (65-110); Magnesium 2.4 mg/dL (1.6-2.3); Potassium 4.7 mmol/L (3.4-5.0); Sodium 131 mmol/L (137-145)
[2021-08-18 05:53] LABS: Aspartate Amino Transferase 794 U/L (17-59)
[2021-08-18 06:22] LABS: Alveolar/Arterial O2 Gradient 144.9 mmHg; Base Excess ABG -3.1 mEq/l (+/-2.0); Fractional Inspired Oxygen 50 %; HCO3 ABG 29.7 mEq/l (22.0-26.0); Oxygen Content ABG 16.5 %vol (16.0-22.0); Oxygen Saturation ABG 92.6 % (95.0-100.0); Oxyhemoglobin 92.3 % THb (90.0-100.0); PO2 ABG 92.4 mmHg (80.0-100.0); PO2 FiO2 Ratio Arterial Blood 1.85 %; Total Hemoglobin 12.6 g/dL (12.0-18.0)
[2021-08-18 06:24] LABS: Device BIPAP; Site Drawn RIGHT RADIAL; pH ABG 7.065 (7.350-7.450)
[2021-08-18 06:25] LABS: Expiratory Pressure 6 cmH2O; Inspiratory Pressure 18 cmH2O
--- NOTE | 2021-08-18 06:32 | PC.NURSE ---
Called daughter, Erica to update her that pt will be intubated. I was unable to reach her mother last night. Pt's daughter asked if intubation was part of DNR. I let her know that he came in as a full code and she said to go ahead and do what is necessary.
--- NOTE | 2021-08-18 06:49 | PC.NURSE ---
This patient, Diego Guzman, was transferred to [ icu ] for respiratory distress requiring intubation on 08/18/21 at 0630. Personal belongings sent with patient. Report given to [ ]. Appropriate documentation sent with patient.
--- NOTE | 2021-08-18 07:05 | PC.NURSE ---
Asiya from dialysis called back, let her know about dialysis need first thing for icu-1. She said [facility] is on the way in .
--- NOTE | 2021-08-18 07:11 | WPDPROCEDUR ---
Procedures Intubation Intubation Date: 08/18/21 Intubation Time: 06:45 A pre-procedural Time-Out was completed immediately before starting the procedure and confirmed: Patient Identification, Site, Procedure, Patient Position and the Availability of Requisite Equipment: Yes Sedative: etomidate Mg given: 15 Paralytic: rocuronium Mg given: 80 Laryngoscope: fiber optic video scope Assist device used: fiber optic device ET tube size: cuffed Tube secured location: teeth Tube placement confirmation: visualized tube passing through cords, equal breath sounds bilaterally, no breath sounds over epigastrium and confirmation by capnometry Patient tolerated procedure: well and no complications
--- NOTE | 2021-08-18 07:14 | P.PNCROSS_ITS ---
Event Note Event Note Event Note: I was called to assess patient after he became unresponsive earlier on patient heart received 2 mg of morphine 1 mg of Ativan as he had a respiratory rate in the 30s and was on BiPAP an hour later patient was unresponsive receive a total of 2 mg of flumazenil and total of 3.8 mg of Narcan patient then became responsive was able to open his eyes to command and had a spontaneous movement of limbs. A repeat ABG at 5:00 a.m. was reading pH is 7.06 a pCO2 of 106 PO2 of 92 and this was while on BiPAP at that point decision was made to place the patient on ventilator. Patient was intubated and placed on ventilator. Dr. Walton combat control manager was called and given update. Vitals stable patient was saturating 96-99% chest x-ray showed ET tube at the right mainstem ETT was withdrawn 3 cm and a confirmation x-ray was taken showing ETT at 4 cm above the skyler, NG was in place. Overall critical care time was above 74 minutes
[2021-08-18] MEDS: MIDAZOLAM 100MG/NS 100ML(*CRX) 100 MG/100 ML BAG IV CONT (07:38)
[2021-08-18] MEDS: FENTANYL 2,500MCG/NS250ML(*CRX 2,500 MCG/250 ML BAG IV CONT (07:39)
--- NOTE | 2021-08-18 07:41 | PM.IMPN ---
Progress Note: A&P Assessment and Plan (1) Acute hypercapnic respiratory failure: Code(s): J96.02 - Acute respiratory failure with hypercapnia Status: Acute Assessment and Plan: Acute hypercapnic respiratory failure could be multi factorial, medications as patient received Ativan and morphine, bilateral peripheral effusion, pneumonia, will opacification of left hemithorax. Patient on FiO2 100% when examined this morning. -Management per ICU (2) Altered mental status: Qualifiers: Altered mental status type: unspecified Qualified Code(s): R41.82 - Altered mental status, unspecified Code(s): R41.82 - Altered mental status, unspecified Status: Acute Assessment and Plan: Altered mental status likely related to hypercarbia, infection but may have some confusion at baseline. (3) ESRD (end stage renal disease): Code(s): N18.6 - End stage renal disease Status: Acute Assessment and Plan: End-stage renal disease on dialysis (M,W,F) -nephrology following the patient -dialysis per Nephrology (4) Pneumonia: Qualifiers: Pneumonia type: due to unspecified organism Laterality: unspecified laterality Lung location: unspecified part of lung Qualified Code(s): J18.9 - Pneumonia, unspecified organism Code(s): J18.9 - Pneumonia, unspecified organism Status: Acute Assessment and Plan: Check x-ray x-ray with opacification of left hemithorax, combination of effusion, atelectasis, mucus plugging and pneumonia -patient has leukocytosis -start patient on vancomycin, ceftriaxone, azithromycin (initiated on 08/18) (5) Pleural effusion: Code(s): J90 - Pleural effusion, not elsewhere classified Status: Acute Assessment and Plan: Bilateral pleural effusions, patient getting dialyzed -will repeat chest x-ray evaluate for thoracentesis by Interventional Radiology (6) Cirrhosis of liver: Qualifiers: Hepatic cirrhosis type: alcoholic cirrhosis Ascites presence: without ascites Qualified Code(s): K70.30 - Alcoholic cirrhosis of liver without ascites Code(s): K74.60 - Unspecified cirrhosis of liver Status: Acute Assessment and Plan: Significantly elevated LFTs, could be related to underlying cirrhosis, possible shock liver due to hypoxia -hepatitis panel is negative -right upper quadrant ultrasound -nodularity of the liver surface, consistent with cirrhosis. Gallbladder is normal Subjective Date/time seen: Date of Service 08/18/21 07:41 Patient intubated and sedated Review of Systems Review of Systems: Patient intubated and sedated Exam Narrative: GENERAL: lying in bed intubated HEENT: Normocephalic, atraumatic, anicteric, ET tube in place NECK: Supple CV: Normal S1, S2, RRR, No MRG RESP: coarse breath sound Abdomen: Soft, non-tender, non-distended, +BS EXTREMITIES: Warm and well perfused, no clubbing, cyanosis, or edema. SKIN: warm, dry and intact. NEURO: intubated and sedated Objective Data Vital Signs Vital Signs: Vital Signs - 24 hr 08/17/21 10:54 08/17/21 11:24 08/17/21 13:00 Temperature 97.2 F L Pulse Rate 84 85 80 Respiratory Rate 19 23 H 23 H Blood Pressure 91/64 L 103/69 Pulse Oximetry 96 96 08/17/21 13:15 08/17/21 13:16 08/17/21 13:18 Temperature Pulse Rate 79 83 Respiratory Rate 14 21 H Blood Pressure 100/64 102/64 Pulse Oximetry 97 96 95 08/17/21 13:30 08/17/21 13:45 08/17/21 13:46 Temperature Pulse Rate 80 82 83 Respiratory Rate 20 Blood Pressure 90/62 L 89/59 L Pulse Oximetry 93 91 92 08/17/21 14:00 08/17/21 14:15 08/17/21 14:58 Temperature Pulse Rate 76 81 90 Respiratory Rate 23 H 9 L 17 Blood Pressure 99/63 L Pulse Oximetry 94 94 93 08/17/21 15:00 08/17/21 15:23 08/17/21 15:30 Temperature 98.2 F Pulse Rate 81 73 86 Respiratory Rate 29 H 31 H Blood Pressure 94/67 L 113/73 Pulse Oximetry 96 94 97 11
[2021-08-18] MEDS: DORNASE ALFA INH SOLN 1 MG/ML 2.5 ML AMP 2.5 MG INHALATION ×2 (08:03→22:00)
[2021-08-18 08:26] LABS: Alveolar/Arterial O2 Gradient 541.7 mmHg; Base Excess ABG 0.5 mEq/l (+/-2.0); Fractional Inspired Oxygen 100 %; HCO3 ABG 25.2 mEq/l (22.0-26.0); Oxygen Content ABG 16.9 %vol (16.0-22.0); Oxygen Saturation ABG 98.6 % (95.0-100.0); Oxyhemoglobin 97.8 % THb (90.0-100.0); PO2 ABG 130.3 mmHg (80.0-100.0); Total Hemoglobin 12.1 g/dL (12.0-18.0); pH ABG 7.407 (7.350-7.450)
[2021-08-18 08:27] LABS: Arterial Blood Gas PEEP 5 cmH2O; Arterial Blood Gas Vent Mode PRESSURE CONTROL; Arterial Blood Gas Ventilator rate 30 /MIN; Device VENTILATOR; Modified Allen's Test Pass; Site Drawn LEFT RADIAL
[2021-08-18 08:28] LABS: Peak Inspiratory Pressure 45 cmH2O
[2021-08-18 09:30] LABS: Hepatitis B Surface Antigen Negative (Negative)
[2021-08-18 09:35] LABS: HAV RESULT Negative (Negative); Hepatitis B Core IgM Result Negative (Negative)
--- NOTE | 2021-08-18 09:42 | WPDCNINT ---
Assessment and Plan Assessment and plan (1) Acute hypercapnic respiratory failure: Code(s): J96.02 - Acute respiratory failure with hypercapnia Status: Acute Assessment and Plan: Acute hypercapnic respiratory failure could be multi factorial, medications as patient received Ativan and morphine, bilateral peripheral effusion, pneumonia, will opacification of left hemithorax -patient currently on CMV mode of ventilation, ABGs reviewed and much improved, ventilator adjusted -patient to get dialyzed today -will return patient on the right side -started patient on Pulmozyme nebs -CPT has been ordered -fur sewer has been consulted for possible bronch -will repeat chest x-ray later this afternoon (2) Altered mental status: Code(s): R41.82 - Altered mental status, unspecified Status: Acute Assessment and Plan: Altered mental status likely related to hypercarbia, infection -currently intubated and sedated -daily sedation vacation, will evaluate mental status -obtain CT head after dialysis (3) ESRD (end stage renal disease): Code(s): N18.6 - End stage renal disease Status: Acute Assessment and Plan: End-stage renal disease on dialysis (M,W,F) -nephrology following the patient -dialysis per Nephrology (4) Pneumonia: Code(s): J18.9 - Pneumonia, unspecified organism Status: Acute Assessment and Plan: Check x-ray x-ray with opacification of left hemithorax, combination of effusion, atelectasis, mucus plugging and pneumonia -patient has leukocytosis -start patient on vancomycin, ceftriaxone, azithromycin (initiated on 08/18) (5) Pleural effusion: Code(s): J90 - Pleural effusion, not elsewhere classified Status: Acute Assessment and Plan: Bilateral pleural effusions, patient getting dialyzed -will repeat chest x-ray evaluate for thoracentesis by Interventional Radiology (6) Cirrhosis of liver: Qualifiers: Hepatic cirrhosis type: alcoholic cirrhosis Ascites presence: without ascites Qualified Code(s): K70.30 - Alcoholic cirrhosis of liver without ascites Code(s): K74.60 - Unspecified cirrhosis of liver Status: Acute Assessment and Plan: Significantly elevated LFTs, could be related to underlying cirrhosis, possible shock liver due to hypoxia -hepatitis panel is negative -right upper quadrant ultrasound -nodularity of the liver surface, consistent with cirrhosis. Gallbladder is normal Additional Plan Discussed with and updated her with her condition and plan of care. Code status: Code Critical care time spent: 45 minutes Discuss with Nephrology and pulmonology This dictation may have been done utilizing a voice recognition system. Attempts have been made to correct errors. However, there may be uncorrected grammatical, spelling, and recognition errors present. Due to a high probability of clinically significant, life threatening deterioration, the patient required my highest level of preparedness to intervene emergently and I personally spent this critical care time directly and personally managing the patient. This critical care time included obtaining a history; examining the patient; pulse oximetry; ordering and review of studies; arranging urgent treatment with development of a management plan; evaluation of patient's response to treatment; frequent reassessment; and discussions with other providers. It was exclusive of separately billable procedures and treating other patients and teaching time. Please see Assessment and Plan section and the rest of the note for further information on patient assessment and treatment Clipper Machine Consult Note Consult date: 08/18/21 Time Seen: 06:58 Reason for consult: Acute respiratory failure, altered mental status, complete opacification of the left hemithorax HPI: Diego Guzman is a 76 year old male with past medical history of COPD, alcoholic liver disease, cirrhosis of
[2021-08-18] MEDS: TAMSULOSIN HCL 0.4 MG CAPSULE PO (09:46)
[2021-08-18] MEDS: SODIUM BICARBONATE TAB 650 MG TABLET 1300 MG PO ×2 (09:46→17:24)
[2021-08-18 09:47] LABS: Hepatitis C Virus Antibody Negative (Negative)
[2021-08-18] MEDS: MINERAL OIL/WHITE PETROLATUM OINTMENT 1 APPLIC EACH EYE ×2 (09:47→21:30)
--- NOTE | 2021-08-18 09:56 | PM.CNNEP ---
Assessment and Plan Assessment and plan (1) ESRD (end stage renal disease): Code(s): N18.6 - End stage renal disease Status: Acute Assessment and Plan: Diego has end-stage renal disease. He is due for dialysis today. He does have respiratory failure but this is mostly related to the whiteout of the right lung. He is going to get a bronchoscopy per Dr Phillips. I talked with the dialysis nurses to do him right away. We will try to remove some fluid if possible but is blood pressure is a little bit low so he may not tolerate it. (2) Bilateral pleural effusion: Code(s): J90 - Pleural effusion, not elsewhere classified Status: Acute Assessment and Plan: The patient has whiteout of the right lung and effusion on the left lung. He may have atelectasis and/or mucus plug. Will see how the bronchoscopy looks. (3) Acute hypercapnic respiratory failure: Code(s): J96.02 - Acute respiratory failure with hypercapnia Status: Acute Assessment and Plan: The patient is on the ventilator. He will be getting supportive care, pulmonary toilet, pulmonary percussion, and bronchoscopy. He is also getting antibiotics. He has been cultured. (4) Hyponatremia: Code(s): E87.1 - Hypo-osmolality and hyponatremia Status: Acute Assessment and Plan: Sodium level is a little bit low. This is related to fluid intake between dialysis treatments. (5) Chronic anemia: Code(s): D64.9 - Anemia, unspecified Status: Acute Assessment and Plan: Hemoglobin is 11.5. No need for Epogen right now. (6) Hypertension: Code(s): I10 - Essential (primary) hypertension Status: Acute Assessment and Plan: Blood pressure is a bit soft. Will hold antihypertensives. (7) Cirrhosis of liver: Qualifiers: Hepatic cirrhosis type: alcoholic cirrhosis Ascites presence: without ascites Qualified Code(s): K70.30 - Alcoholic cirrhosis of liver without ascites Code(s): K74.60 - Unspecified cirrhosis of liver Status: Acute Assessment and Plan: He does not drink anymore History of Present Illness Reason for Consult Consult date: 08/18/21 Chief Complaint Chief complaint: hypercapnia,ams,esrd History of Present Illness Narrative: Diego is an unfortunate 76-year-old gentleman who has hypertension, end-stage renal disease on dialysis 3 times a week, chronic anemia, cirrhosis, GERD, duodenal ulcers, BPH, anemia, renal osteodystrophy, cirrhosis due to alcohol, duodenal ulcer, history of osteomyelitis in 2017. The patient came into the hospital because of confusion and shortness of breath. He went to dialysis but was too sick to be treated and so they sent him to [place] emergency room. Here in the ER he was placed on some oxygen and then a BiPAP and improved. Apparently his confusion has been going on for a few days in the family has been trying to get him to go to the emergency room but he had been refusing before this. After admission the patient deteriorated respiratory doyle and had to be intubated. Chest x-ray shows a whiteout of the right lung. The patient cannot give a history. Review of Systems Review of Systems: ROS unobtainable: Yes unobtainable due to medical condition PMFSH Past Medical History Medical History Alcoholic liver disease Drank heavily in the past, sober since 2019. Benign prostatic hyperplasia Chronic anemia Chronic obstructive pulmonary disease Cirrhosis of liver Duodenal ulcer (10/2019) End-stage renal disease on hemodialysis Osteomyelitis of lumbar spine (~08/2017) Diskitis and osteomyelitis at L3-L4 and L4-L5. Surgical History Surgical History History of esophagogastroduodenoscopy (10/26/19) For evaluation of GI bleed, found to have gastritis, duodenitis, and duodenal ulcers. Status post cre
[2021-08-18] MEDS: LIDOCAINE HCL 1% LOCAL INJ 2 ML AMPUL 5 ML INFILTRATE (11:36)
[2021-08-18] MEDS: ALBUMIN HUMAN 25% 12.5 GM/50ML 50 ML IVPB ×3 (12:00→14:09)
--- NOTE | 2021-08-18 12:01 | WPDGICN ---
Assessment and Plan Assessment and plan (1) Elevated liver enzymes: Code(s): R74.8 - Abnormal levels of other serum enzymes Status: Acute Assessment and Plan: elevated transaminases most likely from acute event (worsening respiratory distress, wonder if also shock liver) in a patient with known history of cirrhosis reviewed ruq ultrasound and no major findings other than cirrhosis monitor liver enzymes (2) Cirrhosis of liver: Qualifiers: Hepatic cirrhosis type: alcoholic cirrhosis Ascites presence: without ascites Qualified Code(s): K70.30 - Alcoholic cirrhosis of liver without ascites Code(s): K74.60 - Unspecified cirrhosis of liver Status: Acute Assessment and Plan: previous history of heavy drinker supportive care (3) Acute hypercapnic respiratory failure: Code(s): J96.02 - Acute respiratory failure with hypercapnia Status: Acute Assessment and Plan: he had to be intubated because worsening mental status and respiratory failure icu management (4) Acute encephalopathy: Code(s): G93.40 - Encephalopathy, unspecified Status: Acute Assessment and Plan: from hypercarbia and respiratory failure (5) Acute respiratory failure with hypoxia and hypercarbia: Code(s): J96.01 - Acute respiratory failure with hypoxia; J96.02 - Acute respiratory failure with hypercapnia Status: Acute (6) Pneumonia: Code(s): J18.9 - Pneumonia, unspecified organism Status: Acute Assessment and Plan: started on antibiotics (7) ESRD (end stage renal disease): Code(s): N18.6 - End stage renal disease Status: Acute Assessment and Plan: on dialysis (8) Chronic anemia: Code(s): D64.9 - Anemia, unspecified Status: Acute (9) History of ulcer disease: Code(s): Z87.898 - Personal history of other specified conditions Status: Acute Assessment and Plan: found during last admission no report of bleeding hb stable iv protonix for prophylaxis GI Consult Note Consult date/time: 08/18/21 12:01 Reason for consult: elevated liver enzymes, cirrhosis HPI: Diego Ravi is a 76 year old male with past medical history of COPD, alcoholic liver disease with cirrhosis of the liver ( in the past told me that he drinks several beers daily), duodenal ulcer (I met him when he was admitted due to GIB on 10/2020, EGD showed duodenal ulcer with stigmata of bleeding and treated endoscopically), end-stage renal disease on dialysis (M,W,F), chronic anemia. He was taken to the ED from [facility] on 08/17/2021 after he was found to have altered mental status with shorntess of breath and hypoglycemia with blood sugar of 60. History obtained from records since he is intubated now. mentioned to staff that he has been confused 2 prior but he did not want to come to ER. ED evaluation noted that he has confused and hypercarbic, initially on BiPAP but mental status worsened and he was unresponsive with worsening respiratory acidosis and finally intubated and taken to ICU. Also noted transaminases 500-700's with normal bilirubin. Abdominal ultrasound reviewed, showed cirrhosis without other major findings. CXR possible pneumonia and started on antibiotics. Review of Systems Review of Systems: ROS unobtainable: Yes unobtainable due to endotracheal tube and unobtainable due to mental status PMFSH Past Medical History Medical History (Updated 08/18/21 @ 12:09 by Laith Kim MD) Acute encephalopathy Alcoholic liver disease Drank heavily in the past, sober since 2019. Benign prostatic hyperplasia Chronic anemia Chronic obstructive pulmonary disease Cirrhosis of liver Duodenal ulcer (10/2019) Elevated liver enzymes End-stage renal disease on hemodialysis History of ulcer disease Osteomyelitis of lumbar spine (~08/2017) Diskitis and osteomyelitis at L3-L4 and L4-L5. Surgical History S
[2021-08-18 12:38] LABS: Glucose Point of Care 80 mg/dl (65-105)
[2021-08-18] MEDS: ACETYLCYSTEINE 20% INHAL SOLN 800 MG/4 ML VIAL 600 MG INHALATION ×2 (13:09→23:23)
--- NOTE | 2021-08-18 13:12 | PM.CNPUL ---
Assessment and Plan Assessment and plan (1) Pneumonia: Qualifiers: Laterality: unspecified laterality Lung location: unspecified part of lung Pneumonia type: due to unspecified organism Qualified Code(s): J18.9 - Pneumonia, unspecified organism Code(s): J18.9 - Pneumonia, unspecified organism Status: Acute Assessment and Plan: 76-year-old man with history of end-stage renal disease on hemodialysis, history of liver cirrhosis, presented with acute mental status changes, acute on chronic hypoxemic hypercapnic respiratory failure bilateral pleural effusions, whiteout of left lung question atelectasis question pneumonia. the patient is currently stable in the intensive care unit, receiving hemodialysis. We will proceed with stat chest CT following hemodialysis to assess for pneumonia versus massive pleural effusion with lung atelectasis. patient has been on antibiotics for possible community-acquired pneumonia. The case was discussed with Dr. Phillips. further recommendations based on results of a chest CT.. (2) Acute hypercapnic respiratory failure: Code(s): J96.02 - Acute respiratory failure with hypercapnia Status: Acute (3) Chronic obstructive pulmonary disease: Qualifiers: COPD type: unspecified COPD Qualified Code(s): J44.9 - Chronic obstructive pulmonary disease, unspecified Code(s): J44.9 - Chronic obstructive pulmonary disease, unspecified Status: Acute (4) Altered mental status: Qualifiers: Altered mental status type: unspecified Qualified Code(s): R41.82 - Altered mental status, unspecified Code(s): R41.82 - Altered mental status, unspecified Status: Acute (5) End-stage renal disease on hemodialysis: Code(s): N18.6 - End stage renal disease; Z99.2 - Dependence on renal dialysis Status: Acute (6) Cirrhosis of liver: Qualifiers: Ascites presence: without ascites Hepatic cirrhosis type: alcoholic cirrhosis Qualified Code(s): K70.30 - Alcoholic cirrhosis of liver without ascites Code(s): K74.60 - Unspecified cirrhosis of liver Status: Acute History of Present Illness History of Present Illness Consult date: 08/18/21 Chief complaint: hypercapnia,ams,esrd Narrative: this 76-year-old man was hospitalized because of acute mental status changes and hypoxemia. He has had multiple medical problems including alcoholic liver disease, cirrhosis of the liver, duodenal ulcer history of COPD, end-stage renal disease on dialysis 3 days a week. patient was brought into the emergency room yesterday after he was found to have acute mental status changes and low oxygen saturation. In addition his blood sugar was found to be at 60. The patient was found to have acute hypoxemic and hypercapnic respiratory failure and was initially placed on BiPAP. Reportedly he coughed up light yellow phlegm. Chest x-ray showed bilateral pleural effusions and whiteout of the left lung. Patient is currently sedated, intubated and mechanically ventilated in the ICU while receiving hemodialysis. According to this patient's he had no fever chills or chest pain. Review of Systems Review of Systems: ROS unobtainable: Yes unobtainable due to endotracheal tube, unobtainable due to medical condition and unobtainable due to mental status PMFSH Past Medical History Medical History (Updated 08/18/21 @ 13:24 by Judd Bocanegra MD) Acute encephalopathy Alcoholic liver disease Drank heavily in the past, sober since 2019. Benign prostatic hyperplasia Chronic anemia Chronic obstructive pulmonary disease Cirrhosis of liver Duodenal ulcer (10/2019) Elevated liver enzymes End-stage renal disease on hemodialysis History of ulcer disease Osteomyelitis of lumbar spine (~08/2017) Diskitis and osteomyelitis at L3-L4 and L4-L5. Surgical History Surgical History History of esop
[2021-08-18 18:30] LABS: Glucose Point of Care 62 mg/dl (65-105)
[2021-08-18] MEDS: DEXTROSE 50% 25 GM/50 ML SYRINGE IV PUSH (18:30)
[2021-08-18 18:52] LABS: Glucose Point of Care 116 mg/dl (65-105)
[2021-08-18 21:29] LABS: Glucose Point of Care 90 mg/dl (65-105)
[2021-08-18] MEDS: HEPARIN SODIUM 5,000 UNITS/ML VIAL 5000 UNITS SUB-Q (21:30)
--- NOTE | 2021-08-18 23:25 | PCRCNOTE ---
Patient not given advair due to being mechanically ventilated.
[2021-08-19] VITALS (29 sets, daily range): BP systolic 91–121; BP diastolic 53–72; PULSE 82–115; RESP 20–28; TEMP 36.4–37; O2SAT 92–100; BMI 22.7
--- NOTE | 2021-08-19 | ECHO_ITS ---
Patient Info Name: Diego Ravi Age: 76 years : 1945 Gender: Male Ht: 63 in Wt: 132 lbs BSA: 1.64 m2 HR: 105 bpm BP: 104 / 56 mmHg Technical Quality: Good Exam Date: 08/19/2021 9:59 AM Exam Location: [facility] Pulmonary Patient Status: Inpatient Admit Date: 08/17/2021 Staff Ordering Physician: Aleyda Quick PA-C Technology Officer: ANN Attending Provider: Barbraa Hurd MD Referring Physician: Abdelrahman ORTIZ; Exam Type: CA echo doppler color flow Study Info Indications - PLEURAL EFFUSION Complete two-dimensional, color flow and Doppler transthoracic echocardiogram is performed. Summary 1. Complete two-dimensional, color flow and Doppler transthoracic echocardiogram is performed. 2. Left ventricular chamber dimension is normal. 3. Left ventricular systolic function is normal, estimated at 60-65%. 4. The left ventricular diastolic function is indeterminate. Tissue doppler is not done. 5. Probably atrial fibrillation. 6. Left atrial chamber dimension is mildly enlarged. 7. Right atrial chamber dimension is severely enlarged. 8. There is moderate aortic valve sclerosis. 9. The mitral valve has moderately calcified annulus. 10. There is mild to moderate tricuspid valve regurgitation. 11. Mild pulmonary hypertension, estimated pulmonary arterial systolic pressure is 43 mmHg. 12. Normal inferior vena cava with <50% collapse upon inspiration consistent with elevated right atrial pressure, 10 mmHg. Left Ventricle Probably atrial fibrillation. The left ventricular diastolic function is indeterminate. Tissue doppler is not done. Left ventricular chamber dimension is normal. Left ventricular systolic function is normal, estimated at 60-65%. Right Ventricle Right ventricular chamber dimension is normal. Right ventricular systolic function is normal. Left Atria Left atrial chamber dimension is mildly enlarged. Right Atria Right atrial chamber dimension is severely enlarged. Aortic Valve The aortic valve is trileaflet. There is moderate aortic valve sclerosis. There is no aortic valve stenosis. There is no aortic valve regurgitation. Pulmonic Valve There is no pulmonic regurgitation. Mitral Valve The mitral valve has moderately calcified annulus. There is no mitral valve stenosis. There is no mitral valve regurgitation. Tricuspid Valve There is mild to moderate tricuspid valve regurgitation. Mild pulmonary hypertension, estimated pulmonary arterial systolic pressure is 43 mmHg. Pericardium/Pleural There is no pericardial effusion. Inferior Vena Cava Normal inferior vena cava with <50% collapse upon inspiration consistent with elevated right atrial pressure, 10 mmHg. Aorta The aortic root size at the sinus of Valsalva is normal. Left Ventricular Outflow Tract Name Value Normal LVOT 2D LVOT Diameter 1.7 cm LVOT Doppler LVOT Peak Gradient 7 mmHg LVOT Mean Gradient 3 mmHg LVOT VTI 21 cm LVOT VTI/AV VTI Ratio 0.9 LVOT Stroke Volume
[2021-08-19] MEDS: ALBUTEROL SULFATE NEB 2.5 MG/0.5 ML INH 5 MG INHALATION ×4 (02:40→20:17)
[2021-08-19] MEDS: IPRATROPIUM BR 0.02% INH SOLN 0.5 MG/2.5 ML VIAL INHALATION ×4 (02:41→20:05)
[2021-08-19 04:28] LABS: Alveolar/Arterial O2 Gradient 185.2 mmHg; Base Excess ABG 4.4 mEq/l (+/-2.0); Carboxyhemoglobin 0.3 % THb (0-2.0); Fractional Inspired Oxygen 40 %; HCO3 ABG 24.4 mEq/l (22.0-26.0); Methemoglobin ABG 0.2 %THb (0-1.5); Oxygen Content ABG 16.6 %vol (16.0-22.0); Oxyhemoglobin 95.1 % THb (90.0-100.0); PO2 ABG 72.4 mmHg (80.0-100.0); PO2 FiO2 Ratio Arterial Blood 1.81 %; Reduced Hemoglobin 4.4 %THb (0-5.0); Total Hemoglobin 12.4 g/dL (12.0-18.0)
[2021-08-19 04:30] LABS: Site Drawn LEFT RADIAL; pH ABG 7.625 (7.350-7.450)
[2021-08-19 04:31] LABS: Device VENTILATOR
[2021-08-19 04:33] LABS: Arterial Blood Gas Ventilator rate 24 /MIN
[2021-08-19 04:34] LABS: Arterial Blood Gas PEEP 5 cmH2O; Arterial Blood Gas Pressure Support 45 cmH2O; Arterial Blood Gas Vent Mode PRESSURE CONTROL
[2021-08-19 05:02] LABS: Hematocrit 27.6 % (42.0-52.0); Hemoglobin 9.5 g/dL (14.0-18.0); Mean Corpuscular HGB Conc 34.4 g/dl (32-36); Mean Corpuscular Hemoglobin 32.2 pg (26-34); Mean Corpuscular Volume 93.6 fl (80-100); Mean Platelet Volume 9.4 fl (7.4-10.4); Platelet Count Result 191 k/mm3 (150-375); Red Blood Count 2.95 M/mm3 (4.6-6.20); Red Cell Distribution Width 14.7 % (11.5-14.5); White Blood Count 8.6 K/mm3 (4.5-10.0)
[2021-08-19 05:09] LABS: Lactic Acid Reflex 1.7 mmol/L (0.7-2.1)
[2021-08-19 05:12] LABS: INR 1.7; Partial Thromboplastin Time 36.7 SECONDS (22.3-36.8); Prothrombin Time 19.2 Seconds (11.1-14.7)
[2021-08-19 05:14] LABS: Alanine Aminotransferase 376 U/L (4-50); Albumin Level 3.4 g/dL (3.5-5.1); Alkaline Phosphatase 98 U/L (38-126); Anion Gap 12 mmol/L (8-16); Aspartate Amino Transferase 354 U/L (17-59); Bilirubin,Total 1.3 mg/dL (0.2-1.3); Blood Urea Nitrogen 34 mg/dL (9-20); Calcium 8.5 mg/dL (8.4-10.2); Carbon Dioxide 28 mmol/L (22-30); Chloride 94 mmol/L (98-107); Estimated CRCL calculation 13 ml/min; Estimated Glomerular Filt Rate 15; Glucose 97 mg/dL (65-110); Magnesium 2.1 mg/dL (1.6-2.3); Phosphorus 2.3 mg/dL (2.5-4.5); Potassium 3.3 mmol/L (3.4-5.0); Sodium 134 mmol/L (137-145)
[2021-08-19] MEDS: ACETYLCYSTEINE 20% INHAL SOLN 800 MG/4 ML VIAL 600 MG INHALATION ×2 (07:42→20:17)
[2021-08-19] MEDS: DORNASE ALFA INH SOLN 1 MG/ML 2.5 ML AMP 2.5 MG INHALATION ×2 (07:43→20:17)
--- NOTE | 2021-08-19 08:00 | PM.PNNEP ---
Progress Note: A&P Assessment and Plan (1) ESRD (end stage renal disease): Code(s): N18.6 - End stage renal disease Status: Acute Assessment and Plan: Diego has end-stage renal disease. He did not tolerate dialysis very well yesterday. Will hold off on treatments today because he has some procedures planned. Possibly he will be more stable hemodynamically tomorrow and we can get some more fluid off. (2) Bilateral pleural effusion: Code(s): J90 - Pleural effusion, not elsewhere classified Status: Acute Assessment and Plan: Patient has bilateral pleural effusions. Chest x-ray looks a little bit better, specially on the left. (3) Acute hypercapnic respiratory failure: Code(s): J96.02 - Acute respiratory failure with hypercapnia Status: Acute Assessment and Plan: The patient is on the ventilator. He will be getting supportive care, pulmonary toilet, . He is also getting antibiotics. He has been cultured. Cultures are pending (4) Hyponatremia: Code(s): E87.1 - Hypo-osmolality and hyponatremia Status: Acute Assessment and Plan: Sodium level is a little bit low. This is related to fluid intake between dialysis treatments. (5) Chronic anemia: Code(s): D64.9 - Anemia, unspecified Status: Acute Assessment and Plan: Hemoglobin 11.5 yesterday. (6) Hypertension: Code(s): I10 - Essential (primary) hypertension Status: Acute Assessment and Plan: Blood pressure is a bit soft. Off antihypertensives (7) Cirrhosis of liver: Qualifiers: Hepatic cirrhosis type: alcoholic cirrhosis Ascites presence: without ascites Qualified Code(s): K70.30 - Alcoholic cirrhosis of liver without ascites Code(s): K74.60 - Unspecified cirrhosis of liver Status: Acute Assessment and Plan: He does not drink anymore Subjective Date/time seen: 08/19/21 0800 Interval history: Late entry. Patient about the same this morning. He did not tolerate dialysis very well yesterday. Some fluid was removed but blood pressure resisted any more fluid removal. Pulmonary saw the patient. They are going to do a thoracentesis. Considering bronchoscopy. Exam Narrative: WDWN in NAD skin no rash head ncat lungs coarse bilaterally cor reg no rub abd BS+ nontender and soft ext no edema. Objective Data Vital Signs Vital Signs: Vital Signs - 24 hr 08/19/21 07:50 08/19/21 07:52 08/19/21 08:00 Temperature 36.6 C Pulse Rate 85 85 91 Respiratory Rate 20 20 Blood Pressure 120/68 Pulse Oximetry 98 95 08/19/21 08:17 08/19/21 10:00 08/19/21 10:50 Temperature Pulse Rate 94 99 99 Respiratory Rate 26 H 20 Blood Pressure 91/55 L Pulse Oximetry 96 96 08/19/21 12:00 08/19/21 13:16 08/19/21 13:27 Temperature 36.4 C L Pulse Rate 97 96 115 H Respiratory Rate 20 21 H 28 H Blood Pressure 92/53 L Pulse Oximetry 97 08/19/21 13:28 08/19/21 14:00 08/19/21 15:30 Temperature Pulse Rate 115 H 103 H 99 Respiratory Rate 20 20 Blood Pressure 96/56 L 98/69 L Pulse Oximetry 95 97 97 08/19/21 16:00 08/19/21 16:35 08/19/21 17:18 Temperature 36.7 C Pulse Rate 105 H 94 89 Respiratory Rate 20 20 Blood Pressure 99/65 L Pulse Oximetry 96 95 08/19/21 18:00 08/19/21 20:00 08/19/21 20:18 Temperature 37.0 C Pulse Rate 88 88 83 Respiratory Rate 20 20 20 Blood Pressure 97/66 L 103/67 Pulse Oximetry 97 92 08/19/21 20:19 08/19/21 20:31 08/19/21 22:00 Temperature Pulse Rate 86 88 93 Respiratory Rate 20 20 Blood Pressure 116/69 Pulse Oximetry 96 96 08/19/21 23:44 08/20/21 00:00 08/20/21 00:05 Temperature Pulse Rate 96 91 91 Respiratory Rate 20 20 20 Blood Pressure 103/68 Pulse Oximetry 95 08/20/21 01:08 08/20/21 01:09 08/20/21 02:00 Temperature 36.8 C Pulse Rate 98 97 97 Respiratory Rate 20 20 Blood Pressure 96/60 L Pulse Ox
--- NOTE | 2021-08-19 08:20 | PM.IMPN ---
Progress Note: A&P Assessment and Plan (1) Acute hypercapnic respiratory failure: Code(s): J96.02 - Acute respiratory failure with hypercapnia Status: Acute Assessment and Plan: Transferred to ICU Acute hypercapnic respiratory failure could be multi factorial, medications as patient received Ativan and morphine, bilateral peripheral effusion, pneumonia, will opacification of left hemithorax. AM CXR notes large left sided pleural effusion compressing the lung. R. with patchy opacities throughout. Chest PT is ongoing. Leukocytosis resolved. FiO2 40%. -Management per ICU (2) Pneumonia: Qualifiers: Pneumonia type: due to unspecified organism Laterality: unspecified laterality Lung location: unspecified part of lung Qualified Code(s): J18.9 - Pneumonia, unspecified organism Code(s): J18.9 - Pneumonia, unspecified organism Status: Acute Assessment and Plan: Check x-ray x-ray with opacification of left hemithorax, combination of effusion, atelectasis, mucus plugging and pneumonia -leukocytosis improving -continue vancomycin, ceftriaxone, azithromycin (initiated on 08/18) (3) Altered mental status: Qualifiers: Altered mental status type: unspecified Qualified Code(s): R41.82 - Altered mental status, unspecified Code(s): R41.82 - Altered mental status, unspecified Status: Acute Assessment and Plan: Altered mental status likely related to hypercarbia, infection. CT brain on 08/18/2021 showed no acute intracranial abnormality. Patient sedated on exam. (4) ESRD (end stage renal disease): Code(s): N18.6 - End stage renal disease Status: Acute Assessment and Plan: End-stage renal disease on dialysis (M,W,F) -nephrology following the patient -dialysis per Nephrology (5) Pleural effusion: Code(s): J90 - Pleural effusion, not elsewhere classified Status: Acute Assessment and Plan: Bilateral pleural effusions w/ L. significantly greater than right. (6) Cirrhosis of liver: Qualifiers: Hepatic cirrhosis type: alcoholic cirrhosis Ascites presence: without ascites Qualified Code(s): K70.30 - Alcoholic cirrhosis of liver without ascites Code(s): K74.60 - Unspecified cirrhosis of liver Status: Acute Assessment and Plan: Significantly elevated LFTs, could be related to underlying cirrhosis, possible shock liver due to hypoxia. RUQ US notes cirrhosis w/o gallbladder disease. HAV, HBV, HCV all negative. LFTs downtrending. -Will trend Subjective Date/time seen: Date of Service 08/19/21 08:20 Patient intubated and sedated. Review of Systems Review of Systems: ROS unobtainable: Yes unobtainable due to endotracheal tube, unobtainable due to medical condition and unobtainable due to mental status Exam Narrative: GENERAL:intubated and sedated HEENT: Normocephalic, atraumatic, anicteric NECK: Supple, dialysis catheter noted on Right CV: Normal S1, S2, RRR, No MRG RESP:Coarse breath sounds Abdomen: Soft, non-tender, non-distended, +BS EXTREMITIES: Warm and well perfused, no clubbing, cyanosis. SKIN: warm, dry and intact. NEURO:sedated Objective Data Vital Signs Vital Signs: Vital Signs - 24 hr 08/18/21 10:00 08/18/21 11:45 08/18/21 12:00 Temperature 97.9 F 98.2 F Pulse Rate 71 69 71 Respiratory Rate 30 H 21 H 24 H Blood Pressure 109/67 111/70 99/55 L Pulse Oximetry 100 96 08/18/21 12:15 08/18/21 12:30 08/18/21 12:45 Temperature Pulse Rate 72 78 80 Respiratory Rate Blood Pressure 93/54 L 78/61 L 109/79 Pulse Oximetry 08/18/21 13:00 08/18/21 13:10 08/18/21 13:15 Temperature Pulse Rate 72 73 72 Respiratory Rate 24 H Blood Pressure 91/56 L 89/57 L Pulse Oximetry 08/18/21 13:30 08/18/21 13:45 08/18/21 14:00 Temperature Pulse Rate 70 70 69 Respiratory Rate 24 H Blood Pressure 93/57 L 118/63 90/61 L Pulse Oximetry 96
[2021-08-19] MEDS: TAMSULOSIN HCL 0.4 MG CAPSULE PO (08:22)
[2021-08-19] MEDS: HEPARIN SODIUM 5,000 UNITS/ML VIAL 5000 UNITS SUB-Q ×2 (08:23→22:19)
[2021-08-19] MEDS: MINERAL OIL/WHITE PETROLATUM OINTMENT 1 APPLIC EACH EYE ×2 (08:23→22:19)
[2021-08-19] MEDS: PANTOPRAZOLE SODIUM IV 40 MG VIAL IV PUSH (08:23)
[2021-08-19] MEDS: SODIUM BICARBONATE TAB 650 MG TABLET 1300 MG PO ×3 (08:23→17:18)
--- NOTE | 2021-08-19 09:06 | WPDINTPN ---
Progress Note: A&P Assessment and Plan (1) Acute hypercapnic respiratory failure: Code(s): J96.02 - Acute respiratory failure with hypercapnia Status: Acute Assessment and Plan: Transferred to ICU Acute hypercapnic respiratory failure could be multi factorial, medications as patient received Ativan and morphine, bilateral peripheral effusion, pneumonia, will opacification of left hemithorax -patient is on pressure control mode. PH is alkalotic, will switch to CMV, with decrease in minute ventilation -continue Pulmozyme, Mucomyst and bronchodilators -will place patient on right lateral position, good lung down. -continue CPT -chest x-ray this morning shows improvement in the opacification of the left hemithorax, moderate left and small right pleural effusion. -CT chest 08/18/2021 shows moderate bilateral pleural effusion with probable small loculated left apical hydropneumothorax. Bilateral airspace disease throughout the residual left lung and and peripherally in the right upper and lower lobes which may represent a combination of pneumonia and/or atelectasis. Will have Interventional Radiology perform ultrasound-guided left thoracentesis (2) Pneumonia: Qualifiers: Pneumonia type: due to unspecified organism Laterality: unspecified laterality Lung location: unspecified part of lung Qualified Code(s): J18.9 - Pneumonia, unspecified organism Code(s): J18.9 - Pneumonia, unspecified organism Status: Acute Assessment and Plan: Check x-ray x-ray with opacification of left hemithorax, combination of effusion, atelectasis, mucus plugging and pneumonia -leukocytosis improving -continue vancomycin, ceftriaxone, azithromycin (initiated on 08/18) (3) Altered mental status: Qualifiers: Altered mental status type: unspecified Qualified Code(s): R41.82 - Altered mental status, unspecified Code(s): R41.82 - Altered mental status, unspecified Status: Acute Assessment and Plan: Altered mental status likely related to hypercarbia, infection -CT brain on 08/18/2021 showed no acute intracranial abnormality -opens eyes, follows simple commands in all extremities (4) ESRD (end stage renal disease): Code(s): N18.6 - End stage renal disease Status: Acute Assessment and Plan: End-stage renal disease on dialysis (M,W,F) -nephrology following the patient -dialysis per Nephrology (5) Pleural effusion: Code(s): J90 - Pleural effusion, not elsewhere classified Status: Acute Assessment and Plan: Bilateral pleural effusions, patient getting dialyzed thoracentesis by Interventional Radiology (6) Cirrhosis of liver: Qualifiers: Hepatic cirrhosis type: alcoholic cirrhosis Ascites presence: without ascites Qualified Code(s): K70.30 - Alcoholic cirrhosis of liver without ascites Code(s): K74.60 - Unspecified cirrhosis of liver Status: Acute Assessment and Plan: Significantly elevated LFTs, could be related to underlying cirrhosis, possible shock liver due to hypoxia -hepatitis panel is negative -right upper quadrant ultrasound -nodularity of the liver surface, consistent with cirrhosis. Gallbladder is normal -LFTs trending down Additional Plan Discussed with and updated her with her condition and plan of care. Code status: Full code Critical care time spent: 33 minutes Discuss with Nephrology and pulmonology This dictation may have been done utilizing a voice recognition system. Attempts have been made to correct errors. However, there may be uncorrected grammatical, spelling, and recognition errors present. Due to a high probability of clinically significant, life threatening deterioration, the patient required my highest level of preparedness to intervene emergently and I personally spent this critical care time directly and personally managing the patient. This critical care time included obtaining
--- NOTE | 2021-08-19 11:35 | PM.PNPUL ---
Progress Note: A&P Assessment and Plan (1) Pleural effusion: Code(s): J90 - Pleural effusion, not elsewhere classified Status: Acute (2) Pneumonia: Qualifiers: Laterality: unspecified laterality Lung location: unspecified part of lung Pneumonia type: due to unspecified organism Qualified Code(s): J18.9 - Pneumonia, unspecified organism Code(s): J18.9 - Pneumonia, unspecified organism Status: Acute Assessment and Plan: respiratory status stable over the last 24 hours. Chest imaging studies showed left pneumonia with bilateral pleural effusions. No significant left lung atelectasis. The patient seems to be responding to antibiotics. no increased amount of bronchial secretions. Patient's ventilatory needs are lower than yesterday. Plan is to proceed with a left chest tube drainage as the left pleural effusion could be complicated given the extent of left pneumonia. I would continue with current antibiotic regimen. Sputum for culture. (3) Acute hypercapnic respiratory failure: Code(s): J96.02 - Acute respiratory failure with hypercapnia Status: Acute (4) Altered mental status: Qualifiers: Altered mental status type: unspecified Qualified Code(s): R41.82 - Altered mental status, unspecified Code(s): R41.82 - Altered mental status, unspecified Status: Acute (5) Bilateral pleural effusion: Code(s): J90 - Pleural effusion, not elsewhere classified Status: Acute (6) End-stage renal disease on hemodialysis: Code(s): N18.6 - End stage renal disease; Z99.2 - Dependence on renal dialysis Status: Acute Subjective Date/time seen: 08/19/21 11:35 Respiratory status slightly improved over the last 24 hours. Lower peak airway pressures noted on ventilator. chest imaging studies showed left lung pneumonia with a large pleural effusion with no significant left lung atelectasis. Patient remaining sedated intubated on mechanical ventilation. Review of Systems Review of Systems: ROS unobtainable: Yes unobtainable due to endotracheal tube and unobtainable due to mental status Exam Narrative: GENERAL APPEARANCE: Well developed, well nourished, elderly man, sedated on MV SKIN: Inspection of the skin reveals no rashes, ulcerations or petechiae. HEENT: Conjunctivae pink and moist. NECK: Supple. No masses were felt. CHEST: Normal AP diameter and normal contour without any kyphoscoliosis LUNGS: Better either aeration to left upper chest anteriorly today, decreased breath sounds at bases bilaterally. CARDIAC: There was a regular rate and rhythm without any murmurs, gallops, rubs. ABDOMEN: Soft with normal bowel sounds. LYMPH NODES: No lymphadenopathy was appreciated in the neck EXTREMITIES: No cyanosis, clubbing Objective Data Vital Signs Vital Signs: Vital Signs - 24 hr 08/18/21 11:45 08/18/21 12:00 08/18/21 12:15 Temperature 36.6 C 36.8 C Pulse Rate 69 71 72 Respiratory Rate 21 H 24 H Blood Pressure 111/70 99/55 L 93/54 L Pulse Oximetry 96 08/18/21 12:30 08/18/21 12:45 08/18/21 13:00 Temperature Pulse Rate 78 80 72 Respiratory Rate Blood Pressure 78/61 L 109/79 91/56 L Pulse Oximetry 08/18/21 13:10 08/18/21 13:15 08/18/21 13:30 Temperature Pulse Rate 73 72 70 Respiratory Rate 24 H Blood Pressure 89/57 L 93/57 L Pulse Oximetry 08/18/21 13:45 08/18/21 14:00 08/18/21 14:15 Temperature Pulse Rate 70 69 77 Respiratory Rate 24 H Blood Pressure 118/63 90/61 L 111/51 L Pulse Oximetry 96 08/18/21 14:16 08/18/21 14:30 08/18/21 14:45 Temperature Pulse Rate 70 75 78 Respiratory Rate Blood Pressure 103/56 L 103/63 Pulse Oximetry 98 08/18/21 14:53 08/18/21 16:00 08/18/21 18:00 Temperature 36.5 C 36.6 C Pulse Rate 81 90 74 Respiratory Rate 21 H 24 H 24 H Blood Pressure 108/56 L 102/64 117/63 Pulse Oximetry 93 96 95 08/18/21 20:00 08/18/21 21:56
[2021-08-19 15:29] LABS: pH Pleural Fluid 7.332 (7.210-7.500)
[2021-08-19 18:27] LABS: Glucose Point of Care 80 mg/dl (65-105)
--- NOTE | 2021-08-19 18:36 | WPDGIPROGNO ---
Progress Note: A&P Assessment and Plan (1) Elevated liver enzymes: Code(s): R74.8 - Abnormal levels of other serum enzymes Status: Acute Assessment and Plan: trending down probably elevated in setting of worsening respiratory failure that required intubated, pneumonia in a patient who already has cirrhosis ultrasound reviewed (2) Cirrhosis of liver: Qualifiers: Hepatic cirrhosis type: alcoholic cirrhosis Ascites presence: without ascites Qualified Code(s): K70.30 - Alcoholic cirrhosis of liver without ascites Code(s): K74.60 - Unspecified cirrhosis of liver Status: Acute Assessment and Plan: previous etoh use (3) End-stage renal disease on hemodialysis: Code(s): N18.6 - End stage renal disease; Z99.2 - Dependence on renal dialysis Status: Acute Assessment and Plan: on dialysis by nephrology (4) Acute respiratory failure with hypoxia and hypercarbia: Code(s): J96.01 - Acute respiratory failure with hypoxia; J96.02 - Acute respiratory failure with hypercapnia Status: Acute Assessment and Plan: still intubated (5) Acute encephalopathy: Code(s): G93.40 - Encephalopathy, unspecified Status: Acute (6) History of ulcer disease: Code(s): Z87.898 - Personal history of other specified conditions Status: Acute Subjective Date/time seen: 08/19/21 18:36 Interval history: still intubated, s/p dialysis, no major changes Review of Systems Review of Systems: All systems reviewed & are unremarkable except as noted in HPI and below Exam Const: Other: intubated and sedated HENMT: General nose exam: Normal nares present Eyes: Sclera: sclerae normal Neck: Neck: supple Resp: Auscultation: diminished lung sounds Other: coarse breath sounds Cardio: Rate: regular rate GI: GI Palp: Yes Soft to palpation, No Tenderness to palpation present (GI) and No Guarding due to palpation present (GI) Auscultation: normal bowel sounds Skin: General skin exam: no rashes or lesions noted Neuro: Other: sedated Extrem: General: normal to inspection Psych: Other: unable to assess Objective Data Vital Signs Vital Signs: Vital Signs - 24 hr 08/18/21 20:00 08/18/21 21:56 08/18/21 22:05 Temperature 98.3 F Pulse Rate 71 77 77 Respiratory Rate 24 H 24 H 24 H Blood Pressure 142/52 H 101/62 Pulse Oximetry 93 93 08/18/21 22:30 08/18/21 23:00 08/18/21 23:44 Temperature Pulse Rate 79 83 80 Respiratory Rate 24 H Blood Pressure Pulse Oximetry 100 08/18/21 23:46 08/19/21 02:00 08/19/21 02:41 Temperature 98.2 F 98.4 F Pulse Rate 81 82 86 Respiratory Rate 24 H 24 H 24 H Blood Pressure 112/61 112/58 L Pulse Oximetry 98 100 08/19/21 02:47 08/19/21 04:00 08/19/21 06:00 Temperature 98.2 F 98.3 F Pulse Rate 82 94 82 Respiratory Rate 24 H 24 H 24 H Blood Pressure 104/56 L 102/64 Pulse Oximetry 96 96 08/19/21 07:50 08/19/21 07:52 08/19/21 08:00 Temperature 97.8 F Pulse Rate 85 85 91 Respiratory Rate 20 20 Blood Pressure 120/68 Pulse Oximetry 98 95 08/19/21 08:17 08/19/21 10:00 08/19/21 10:50 Temperature Pulse Rate 94 99 99 Respiratory Rate 26 H 20 Blood Pressure 91/55 L Pulse Oximetry 96 96 08/19/21 12:00 08/19/21 13:16 08/19/21 13:27 Temperature 97.5 F L Pulse Rate 97 96 115 H Respiratory Rate 20 21 H 28 H Blood Pressure 92/53 L Pulse Oximetry 97 08/19/21 13:28 08/19/21 14:00 08/19/21 15:30 Temperature Pulse Rate 115 H 103 H 99 Respiratory Rate 20 20 Blood Pressure 96/56 L 98/69 L Pulse Oximetry 95 97 97 08/19/21 16:00 08/19/21 16:35 08/19/21 17:18 Temperature 98.1 F Pulse Rate 105 H 94 89 Respiratory Rate 20 20 Blood Pressure 99/65 L Pulse Oximetry 96 95 08/19/21 18:00 Temperature Pulse Rate 88 Respiratory Rate 20 Blood Pressure 97/66 L Pulse Oximetry 97 Intake/Output Intake/Output: Intake & Output
[2021-08-19 20:22] LABS: Appearance Pleural Fluid Bloody (Clear); Color Pleural Fluid Red (Colorless); Lymphocytes Pleural Fluid 63 %; Monocytes Pleural Fluid 2 %; Neutrophils Pleural Fluid 33 % (0-25); Nucleated Cell Pleural Fluid 108 /uL (0-1000); Pleural fluid source Pleural fluid; RBC Pleural Fluid 12607 /uL (0-0)
[2021-08-19 20:23] LABS: Macrophages Pleural Fluid 2 %
[2021-08-20] VITALS (49 sets, daily range): BP systolic 81–119; BP diastolic 50–73; PULSE 80–115; RESP 15–25; TEMP 36.4–37; O2SAT 95–100
[2021-08-20] MEDS: ALBUTEROL SULFATE NEB 2.5 MG/0.5 ML INH 5 MG INHALATION ×4 (01:07→20:04)
[2021-08-20] MEDS: IPRATROPIUM BR 0.02% INH SOLN 0.5 MG/2.5 ML VIAL INHALATION ×4 (01:08→20:04)
[2021-08-20 04:30] LABS: Alveolar/Arterial O2 Gradient 160.3 mmHg; Base Excess ABG 3.4 mEq/l (+/-2.0); Carboxyhemoglobin 0.2 % THb (0-2.0); Fractional Inspired Oxygen 40 %; HCO3 ABG 25.1 mEq/l (22.0-26.0); Methemoglobin ABG 0.3 %THb (0-1.5); Oxygen Content ABG 17.5 %vol (16.0-22.0); Oxygen Saturation ABG 97.9 % (95.0-100.0); PCO2 ABG 29.5 mmHg (35.0-45.0); PO2 FiO2 Ratio Arterial Blood 2.28 %; Reduced Hemoglobin 3.5 %THb (0-5.0); Total Hemoglobin 12.9 g/dL (12.0-18.0)
[2021-08-20 04:33] LABS: Device VENTILATOR; Modified Allen's Test Pass; Site Drawn RIGHT RADIAL; pH ABG 7.547 (7.350-7.450)
[2021-08-20 04:34] LABS: Arterial Blood Gas PEEP 5 cmH2O; Arterial Blood Gas Tidal Volume 350 ml; Arterial Blood Gas Vent Mode CMV; Arterial Blood Gas Ventilator rate 20 /MIN
[2021-08-20] MEDS: MIDAZOLAM 100MG/NS 100ML(*CRX) 100 MG/100 ML BAG IV CONT (04:57)
[2021-08-20] MEDS: FENTANYL 2,500MCG/NS250ML(*CRX 2,500 MCG/250 ML BAG IV CONT (05:02)
--- NOTE | 2021-08-20 06:44 | PM.PNNEP ---
Progress Note: A&P Assessment and Plan (1) ESRD (end stage renal disease): Code(s): N18.6 - End stage renal disease Status: Acute Assessment and Plan: Diego has end-stage renal disease. He is due for dialysis today. He had a thoracentesis yesterday. Not many white cells in the fluid. Some red cells. Chemistries pending. Will try again to remove some fluid. He is not on pressors but his blood pressure did not tolerate much fluid removal on Thursday. (2) Bilateral pleural effusion: Code(s): J90 - Pleural effusion, not elsewhere classified Status: Acute Assessment and Plan: Patient has bilateral pleural effusions. It was much worse on the left and also had white out on the left on Thursday. However yesterday and today some left lung appeared on the chest x-ray. He had a thoracentesis on the left. 500cc was removed. Will try to remove fluid using dialysis today if tolerated. (3) Acute hypercapnic respiratory failure: Code(s): J96.02 - Acute respiratory failure with hypercapnia Status: Acute Assessment and Plan: The patient is on the ventilator. He will be getting supportive care, pulmonary toilet, pulmonary percussion. He is also getting antibiotics. He has been cultured. Cultures are negative so far. (4) Hyponatremia: Code(s): E87.1 - Hypo-osmolality and hyponatremia Status: Acute Assessment and Plan: Sodium level is a little bit low. This is related to fluid intake between dialysis treatments. (5) Chronic anemia: Code(s): D64.9 - Anemia, unspecified Status: Acute Assessment and Plan: Hemoglobin dropped into the 90s. Will start EPO today. (6) Hypertension: Code(s): I10 - Essential (primary) hypertension Status: Acute Assessment and Plan: Blood pressure is a bit soft. Will hold antihypertensives. (7) Cirrhosis of liver: Qualifiers: Hepatic cirrhosis type: alcoholic cirrhosis Ascites presence: without ascites Qualified Code(s): K70.30 - Alcoholic cirrhosis of liver without ascites Code(s): K74.60 - Unspecified cirrhosis of liver Status: Acute Assessment and Plan: He does not drink anymore Subjective Date/time seen: 08/20/21 06:44 Interval history: The patient is sedated and on the ventilator. He had a thoracentesis yesterday. 500cc was removed. O2 sats are pretty good at FiO2 of 40%. However when he is rolled he sometimes desaturates. Exam Narrative: WDWN in NAD skin no rash head ncat lungs coarse cor reg no rub abd BS+ nontender and soft ext no edema. Objective Data Vital Signs Vital Signs: Vital Signs - 24 hr 08/19/21 07:50 08/19/21 07:52 08/19/21 08:00 Temperature 36.6 C Pulse Rate 85 85 91 Respiratory Rate 20 20 Blood Pressure 120/68 Pulse Oximetry 98 95 08/19/21 08:17 08/19/21 10:00 08/19/21 10:50 Temperature Pulse Rate 94 99 99 Respiratory Rate 26 H 20 Blood Pressure 91/55 L Pulse Oximetry 96 96 08/19/21 12:00 08/19/21 13:16 08/19/21 13:27 Temperature 36.4 C L Pulse Rate 97 96 115 H Respiratory Rate 20 21 H 28 H Blood Pressure 92/53 L Pulse Oximetry 97 08/19/21 13:28 08/19/21 14:00 08/19/21 15:30 Temperature Pulse Rate 115 H 103 H 99 Respiratory Rate 20 20 Blood Pressure 96/56 L 98/69 L Pulse Oximetry 95 97 97 08/19/21 16:00 08/19/21 16:35 08/19/21 17:18 Temperature 36.7 C Pulse Rate 105 H 94 89 Respiratory Rate 20 20 Blood Pressure 99/65 L Pulse Oximetry 96 95 08/19/21 18:00 08/19/21 20:00 08/19/21 20:18 Temperature 37.0 C Pulse Rate 88 88 83 Respiratory Rate 20 20 20 Blood Pressure 97/66 L 103/67 Pulse Oximetry 97 92 08/19/21 20:19 08/19/21 20:31 08/19/21 22:00 Temperature Pulse Rate 86 88 93 Respiratory Rate 20 20 Blood Pressure 116/69 Pulse Oximetry 96 96 08/19/21 23:44 08/20/21 00:00 08/20/21 00:05 Temperature Pulse Rat
[2021-08-20 07:22] LABS: Hematocrit 27.1 % (42.0-52.0); Hemoglobin 9.2 g/dL (14.0-18.0); Mean Corpuscular HGB Conc 33.9 g/dl (32-36); Mean Corpuscular Volume 91.2 fl (80-100); Mean Platelet Volume 9.9 fl (7.4-10.4); Platelet Count Result 159 k/mm3 (150-375); Red Blood Count 2.97 M/mm3 (4.6-6.20); Red Cell Distribution Width 15.6 % (11.5-14.5); White Blood Count 7.2 K/mm3 (4.5-10.0)
[2021-08-20 07:25] LABS: Alanine Aminotransferase 299 U/L (4-50); Albumin Level 3.1 g/dL (3.5-5.1); Alkaline Phosphatase 86 U/L (38-126); Anion Gap 9 mmol/L (8-16); Aspartate Amino Transferase 167 U/L (17-59); Bilirubin,Total 1.1 mg/dL (0.2-1.3); Blood Urea Nitrogen 52 mg/dL (9-20); Calcium 8.3 mg/dL (8.4-10.2); Carbon Dioxide 30 mmol/L (22-30); Chloride 92 mmol/L (98-107); Estimated CRCL calculation 11 ml/min; Estimated Glomerular Filt Rate 12; Glucose 106 mg/dL (65-110); Phosphorus 2.6 mg/dL (2.5-4.5); Potassium 3.2 mmol/L (3.4-5.0); Sodium 131 mmol/L (137-145)
[2021-08-20 08:00] LABS: INR 1.2
[2021-08-20 08:01] LABS: Partial Thromboplastin Time 34.9 SECONDS (22.3-36.8)
--- NOTE | 2021-08-20 08:48 | PC.NURSE ---
DIALYSIS NURSE HERE TO DO HEMODIALYSIS.
--- NOTE | 2021-08-20 09:22 | PM.PNPUL ---
Progress Note: A&P Assessment and Plan (1) Pleural effusion: Code(s): J90 - Pleural effusion, not elsewhere classified Status: Acute Assessment and Plan: pleural fluid analysis showed bloody effusion with hematocrit probably less than 0.2. Pleural effusion lymphocytic with relatively low number of WBCs, pH greater than 7.3 all of which suggest no presence of empyema. Pleural fluid glucose and total protein pending. Bloody infusions are usually seen in CRF patients on dialysis. (2) Pneumonia: Qualifiers: Laterality: unspecified laterality Lung location: unspecified part of lung Pneumonia type: due to unspecified organism Qualified Code(s): J18.9 - Pneumonia, unspecified organism Code(s): J18.9 - Pneumonia, unspecified organism Status: Acute Assessment and Plan: respiratory status stable over the last 24 hours. Chest imaging studies showed left pneumonia with bilateral pleural effusions. Small localized pneumothorax on left on today's chest x-ray. The patient seems to be responding to antibiotics. no increased amount of bronchial secretions. Patient's ventilatory needs are lower than yesterday. Respiratory alkalosis on today's ABGs. (3) Acute hypercapnic respiratory failure: Code(s): J96.02 - Acute respiratory failure with hypercapnia Status: Acute (4) Altered mental status: Qualifiers: Altered mental status type: unspecified Qualified Code(s): R41.82 - Altered mental status, unspecified Code(s): R41.82 - Altered mental status, unspecified Status: Acute (5) Bilateral pleural effusion: Code(s): J90 - Pleural effusion, not elsewhere classified Status: Acute (6) End-stage renal disease on hemodialysis: Code(s): N18.6 - End stage renal disease; Z99.2 - Dependence on renal dialysis Status: Acute Subjective Date/time seen: 08/20/21 09:22 Respiratory status has improved over the last 48 hours. FiO2 down to 40% also minute ventilation significantly lower. Peak airway pressure also decreased. Patient underwent thoracentesis yesterday. Hemodynamically stable receiving hemodialysis today. Review of Systems Review of Systems: All systems reviewed & are unremarkable except as noted in HPI and below Exam Narrative: GENERAL APPEARANCE: Well developed, well nourished, elderly man, sedated on MV SKIN: Inspection of the skin reveals no rashes, ulcerations or petechiae. HEENT: Conjunctivae pink and moist. NECK: Supple. No masses were felt. CHEST: Normal AP diameter and normal contour without any kyphoscoliosis LUNGS: Better aeration to left upper chest anteriorly, decreased breath sounds at bases bilaterally. No wheezing CARDIAC: There was a regular rate and rhythm without any murmurs, gallops, rubs. ABDOMEN: Soft with normal bowel sounds. LYMPH NODES: No lymphadenopathy was appreciated in the neck EXTREMITIES: No cyanosis, clubbing Objective Data Vital Signs Vital Signs: Vital Signs - 24 hr 08/19/21 10:00 08/19/21 10:50 08/19/21 12:00 Temperature 36.4 C L Pulse Rate 99 99 97 Respiratory Rate 20 20 Blood Pressure 91/55 L 92/53 L Pulse Oximetry 96 96 97 08/19/21 13:16 08/19/21 13:27 08/19/21 13:28 Temperature Pulse Rate 96 115 H 115 H Respiratory Rate 21 H 28 H Blood Pressure Pulse Oximetry 95 08/19/21 14:00 08/19/21 15:30 08/19/21 16:00 Temperature 36.7 C Pulse Rate 103 H 99 105 H Respiratory Rate 20 20 20 Blood Pressure 96/56 L 98/69 L 99/65 L Pulse Oximetry 97 97 96 08/19/21 16:35 08/19/21 17:18 08/19/21 18:00 Temperature Pulse Rate 94 89 88 Respiratory Rate 20 20 Blood Pressure 97/66 L Pulse Oximetry 95 97 08/19/21 20:00 08/19/21 20:18 08/19/21 20:19 Temperature 37.0 C Pulse Rate 88 83 86 Respiratory Rate 20 20 Blood Pressure 103/67 Pulse Oximetry 92 96 08/19/21 20:31 08/19/21 22:00 08/19/21 23:44 Temperature Pulse Rat
[2021-08-20] MEDS: EPOETIN ALFA-EPBX 10,000 UNITS/ML VIAL 10000 UNITS IV PUSH (09:36)
[2021-08-20] MEDS: SODIUM CHLORIDE 0.9% IV 1,000 ML 999 ML IV CONT ×2 (09:37)
[2021-08-20] MEDS: HEPARIN SODIUM 1,000 UNITS/ML VIAL 1000 UNITS IV PUSH (09:38)
[2021-08-20] MEDS: ACETYLCYSTEINE 20% INHAL SOLN 800 MG/4 ML VIAL 600 MG INHALATION ×2 (09:50→20:05)
[2021-08-20] MEDS: DORNASE ALFA INH SOLN 1 MG/ML 2.5 ML AMP 2.5 MG INHALATION ×2 (09:50→20:04)
--- NOTE | 2021-08-20 10:46 | PM.IMPN ---
Progress Note: A&P Assessment and Plan (1) Acute hypercapnic respiratory failure: Code(s): J96.02 - Acute respiratory failure with hypercapnia Status: Acute Assessment and Plan: Transferred to ICU Acute hypercapnic respiratory failure could be multi factorial, medications as patient received Ativan and morphine, bilateral peripheral effusion, pneumonia, will opacification of left hemithorax. AM CXR notes large left sided pleural effusion compressing the lung. R. with patchy opacities throughout. Chest PT is ongoing. Leukocytosis resolved. FiO2 40%. -status post thoracentesis lymphocytic less concern for empyema -Management per ICU (2) Pneumonia: Qualifiers: Pneumonia type: due to unspecified organism Laterality: unspecified laterality Lung location: unspecified part of lung Qualified Code(s): J18.9 - Pneumonia, unspecified organism Code(s): J18.9 - Pneumonia, unspecified organism Status: Acute Assessment and Plan: Check x-ray x-ray with opacification of left hemithorax, combination of effusion, atelectasis, mucus plugging and pneumonia -continue IV antibiotics (initiated on 08/18) (3) Altered mental status: Qualifiers: Altered mental status type: unspecified Qualified Code(s): R41.82 - Altered mental status, unspecified Code(s): R41.82 - Altered mental status, unspecified Status: Acute Assessment and Plan: Altered mental status likely related to hypercarbia, infection. CT brain on 08/18/2021 showed no acute intracranial abnormality. Patient sedated on exam. (4) ESRD (end stage renal disease): Code(s): N18.6 - End stage renal disease Status: Acute Assessment and Plan: End-stage renal disease on dialysis (M,W,F) -nephrology following the patient -dialysis per Nephrology (5) Pleural effusion: Code(s): J90 - Pleural effusion, not elsewhere classified Status: Acute Assessment and Plan: Bilateral pleural effusions w/ L. significantly greater than right. Status post thoracentesis (6) Cirrhosis of liver: Qualifiers: Hepatic cirrhosis type: alcoholic cirrhosis Ascites presence: without ascites Qualified Code(s): K70.30 - Alcoholic cirrhosis of liver without ascites Code(s): K74.60 - Unspecified cirrhosis of liver Status: Acute Assessment and Plan: Significantly elevated LFTs, could be related to underlying cirrhosis, possible shock liver due to hypoxia. RUQ US notes cirrhosis w/o gallbladder disease. HAV, HBV, HCV all negative. LFTs downtrending. -monitor CMP Subjective Date/time seen: 08/20/21 10:46 Interval history: Patient seen and examined Patient intubated He did not tolerate dialysis . Nephrology following pulmonology following status post thoracentesis l. Considering bronchoscopy. Exam Narrative: Intubated Chest no wheeze crackles Abdomen nontender nondistended CVS S1 + S2 Lower extremity positive edema Objective Data Vital Signs Vital Signs: Vital Signs - 24 hr 08/19/21 10:50 08/19/21 12:00 08/19/21 13:16 Temperature 97.5 F L Pulse Rate 99 97 96 Respiratory Rate 20 21 H Blood Pressure 92/53 L Pulse Oximetry 96 97 08/19/21 13:27 08/19/21 13:28 08/19/21 14:00 Temperature Pulse Rate 115 H 115 H 103 H Respiratory Rate 28 H 20 Blood Pressure 96/56 L Pulse Oximetry 95 97 08/19/21 15:30 08/19/21 16:00 08/19/21 16:35 Temperature 98.1 F Pulse Rate 99 105 H 94 Respiratory Rate 20 20 Blood Pressure 98/69 L 99/65 L Pulse Oximetry 97 96 95 08/19/21 17:18 08/19/21 18:00 08/19/21 20:00 Temperature 98.6 F Pulse Rate 89 88 88 Respiratory Rate 20 20 20 Blood Pressure 97/66 L 103/67 Pulse Oximetry 97 92 08/19/21 20:18 08/19/21 20:19 08/19/21 20:31 Temperature Pulse Rate 83 86 88 Respiratory Rate 20 20 Blood Pressure Pulse Oximetry 96 08/19/21 22:00 08/19/21 23:44 08/20/21 00:00 Temper
--- NOTE | 2021-08-20 11:25 | PCNFU ---
Nutrition Follow-Up Complete: Inadequate Oral Intake as related to mechanical ventilation as evidenced by NPO. Goal: Meet estimated nutritional needs Patient is progressing towards goal. We will continue current goal. Pt current nutrition is Nepro at 50 ml/hr over 22 hours. Last recorded weight is 62 kg, no new weight to report. Bowel Motility:+BM reported 08/20 Labs Reviewed:Cr 4.7,BUN 52,K 3.2,Na 131, Alb 3.1, Hct 27.1,Hgb 9.2 Meds Noted:Versed, Fentanyl, Atrovent Skin: WNL Additional Notes: Patient remains on mechanical vent. Dialysis today. Tube feedings are being tolerated per nursing of Nepro at 50 ml/hr over 22 hours providing 1980 kcals/89 gm protein/800 ml fluid. Thoracentesis yesterday, 500 ml fluid removed. Agree with diet orders. Following daily in ICU rounds. Will reassess every Thursday and Thursday.
[2021-08-20] MEDS: PANTOPRAZOLE SODIUM IV 40 MG VIAL IV PUSH (12:41)
[2021-08-20] MEDS: HEPARIN SODIUM 5,000 UNITS/ML VIAL 5000 UNITS SUB-Q ×2 (12:41→20:35)
[2021-08-20] MEDS: SODIUM BICARBONATE TAB 650 MG TABLET 1300 MG PO ×2 (12:41→18:25)
[2021-08-20] MEDS: MINERAL OIL/WHITE PETROLATUM OINTMENT 1 APPLIC EACH EYE ×2 (12:41→20:36)
[2021-08-20] MEDS: TAMSULOSIN HCL 0.4 MG CAPSULE PO (12:42)
--- NOTE | 2021-08-20 14:00 | WPDINTPN ---
Progress Note: A&P Assessment and Plan (1) Acute hypercapnic respiratory failure: Code(s): J96.02 - Acute respiratory failure with hypercapnia Status: Acute Assessment and Plan: Transferred to ICU Acute hypercapnic respiratory failure could be multi factorial, medications as patient received Ativan and morphine, bilateral peripheral effusion, pneumonia, will opacification of left hemithorax -continue Pulmozyme, Mucomyst and bronchodilators -continue CPT -chest x-ray reviewed -CT chest 08/18/2021 shows moderate bilateral pleural effusion with probable small loculated left apical hydropneumothorax. Bilateral airspace disease throughout the residual left lung and and peripherally in the right upper and lower lobes which may represent a combination of pneumonia and/or atelectasis. -08/19 left thoracentesis with done and 500 cc fluid was removed -I will do sedation vacation after hemodialysis session today and if if patient meets criteria then will proceed with weaning trial (2) Pneumonia: Qualifiers: Laterality: unspecified laterality Lung location: unspecified part of lung Pneumonia type: due to unspecified organism Qualified Code(s): J18.9 - Pneumonia, unspecified organism Code(s): J18.9 - Pneumonia, unspecified organism Status: Acute Assessment and Plan: Check x-ray x-ray with opacification of left hemithorax, combination of effusion, atelectasis, mucus plugging and pneumonia -leukocytosis improving -continue vancomycin, ceftriaxone, azithromycin (initiated on 08/18) (3) Altered mental status: Qualifiers: Altered mental status type: unspecified Qualified Code(s): R41.82 - Altered mental status, unspecified Code(s): R41.82 - Altered mental status, unspecified Status: Acute Assessment and Plan: Altered mental status likely related to hypercarbia, infection -CT brain on 08/18/2021 showed no acute intracranial abnormality -currently sedated (4) ESRD (end stage renal disease): Code(s): N18.6 - End stage renal disease Status: Acute Assessment and Plan: End-stage renal disease on dialysis (M,W,F) -nephrology following the patient -dialysis per Nephrology. Patient is getting dialyzed today -will check BMP post dialysis (5) Pleural effusion: Code(s): J90 - Pleural effusion, not elsewhere classified Status: Acute Assessment and Plan: Bilateral pleural effusions patient has thoracentesis on left and 500 cc of fluid was removed 08/19 (6) Cirrhosis of liver: Qualifiers: Ascites presence: without ascites Hepatic cirrhosis type: alcoholic cirrhosis Qualified Code(s): K70.30 - Alcoholic cirrhosis of liver without ascites Code(s): K74.60 - Unspecified cirrhosis of liver Status: Acute Assessment and Plan: Significantly elevated LFTs, could be related to underlying liver disease plus possible shock liver due to hypoxia -hepatitis panel is negative -right upper quadrant ultrasound -nodularity of the liver surface, consistent with cirrhosis. Gallbladder is normal -LFTs trending down (7) Pneumothorax: Code(s): J93.9 - Pneumothorax, unspecified Status: Acute Assessment and Plan: ? Small loculated pneumothorax in left lung Monitor for now Discussed with pulmonary Additional Plan Code status: Full code Critical care time spent: 30 minutes Discussed with pulmonology This dictation may have been done utilizing a voice recognition system. Attempts have been made to correct errors. However, there may be uncorrected grammatical, spelling, and recognition errors present. Due to a high probability of clinically significant, life threatening deterioration, the patient required my highest level of preparedness to intervene emergently and I personally spent this critical care time directly and personally managing the patient. This critical care time included obtaining a history;
[2021-08-20 15:20] LABS: Anion Gap 7 mmol/L (8-16); Blood Urea Nitrogen 17 mg/dL (9-20); Calcium 8.2 mg/dL (8.4-10.2); Carbon Dioxide 32 mmol/L (22-30); Chloride 96 mmol/L (98-107); Estimated CRCL calculation 26 ml/min; Estimated Glomerular Filt Rate 33; Glucose 138 mg/dL (65-110); Potassium 3.2 mmol/L (3.4-5.0); Sodium 135 mmol/L (137-145)
--- NOTE | 2021-08-20 16:46 | WPDGIPROGNO ---
Progress Note: A&P Assessment and Plan (1) Elevated liver enzymes: Code(s): R74.8 - Abnormal levels of other serum enzymes Status: Acute Assessment and Plan: has been trending down probably related to acute event including worsening respiratory failure that required intubated, pneumonia in a patient who already has cirrhosis ultrasound reviewed, only cirrhosis will follow from afar, call if questions (2) Cirrhosis of liver: Qualifiers: Hepatic cirrhosis type: alcoholic cirrhosis Ascites presence: without ascites Qualified Code(s): K70.30 - Alcoholic cirrhosis of liver without ascites Code(s): K74.60 - Unspecified cirrhosis of liver Status: Acute Assessment and Plan: previous etoh use will need liver imaging every 6 months for hcc surveillance, he can follow-up in office after he goes home (3) End-stage renal disease on hemodialysis: Code(s): N18.6 - End stage renal disease; Z99.2 - Dependence on renal dialysis Status: Acute Assessment and Plan: on dialysis by nephrology (4) Acute respiratory failure with hypoxia and hypercarbia: Code(s): J96.01 - Acute respiratory failure with hypoxia; J96.02 - Acute respiratory failure with hypercapnia Status: Acute Assessment and Plan: still intubated (5) Acute encephalopathy: Code(s): G93.40 - Encephalopathy, unspecified Status: Acute (6) History of ulcer disease: Code(s): Z87.898 - Personal history of other specified conditions Status: Acute Assessment and Plan: during last hospitalization, on protonix Subjective Date/time seen: 08/20/21 16:46 Interval history: still intubated, no major changes. Review of Systems Review of Systems: All systems reviewed & are unremarkable except as noted in HPI and below Exam Const: Other: intubated and sedated HENMT: General nose exam: Normal nares present Eyes: Sclera: sclerae normal Neck: Neck: supple Resp: Auscultation: diminished lung sounds Other: coarse breath sounds Cardio: Rate: regular rate GI: GI Palp: Yes Soft to palpation, No Tenderness to palpation present (GI) and No Guarding due to palpation present (GI) Auscultation: normal bowel sounds Skin: General skin exam: no rashes or lesions noted Neuro: Other: sedated Extrem: General: normal to inspection Psych: Other: unable to assess Objective Data Vital Signs Vital Signs: Vital Signs - 24 hr 11/29/21 17:18 08/19/21 18:00 08/19/21 20:00 Temperature 98.6 F Pulse Rate 89 88 88 Respiratory Rate 20 20 20 Blood Pressure 97/66 L 103/67 Pulse Oximetry 97 92 08/19/21 20:18 08/19/21 20:19 08/19/21 20:31 Temperature Pulse Rate 83 86 88 Respiratory Rate 20 20 Blood Pressure Pulse Oximetry 96 08/19/21 22:00 08/19/21 23:44 08/20/21 00:00 Temperature Pulse Rate 93 96 91 Respiratory Rate 20 20 20 Blood Pressure 116/69 103/68 Pulse Oximetry 96 95 08/20/21 00:05 08/20/21 01:08 08/20/21 01:09 Temperature Pulse Rate 91 98 97 Respiratory Rate 20 20 Blood Pressure Pulse Oximetry 96 08/20/21 02:00 08/20/21 04:00 08/20/21 04:05 Temperature 98.2 F 98.1 F Pulse Rate 97 91 91 Respiratory Rate 20 20 20 Blood Pressure 96/60 L 119/61 Pulse Oximetry 95 96 08/20/21 04:07 08/20/21 05:02 08/20/21 06:00 Temperature 98.1 F Pulse Rate 93 91 80 Respiratory Rate 20 20 Blood Pressure 115/67 Pulse Oximetry 96 97 08/20/21 08:00 08/20/21 08:40 08/20/21 08:51 Temperature 98 F 98.1 F Pulse Rate 90 86 84 Respiratory Rate 20 20 Blood Pressure 112/70 112/70 96/60 L Pulse Oximetry 100 100 08/20/21 09:00 08/20/21 09:15 08/20/21 09:30 Temperature Pulse Rate 87 81 85 Respiratory Rate Blood Pressure 96/62 L 109/62 81/63 L Pulse Oximetry 08/20/21 09:33 08/20/21 09:45 08/20/21 09:53 Temperature Pulse Rate 89 84 84 Respiratory Rate 16 Blood Pressure 102/70 109/65 Puls
[2021-08-20 19:31] LABS: Vancomycin Random 5.4 ug/mL (10-20)
[2021-08-21] VITALS (29 sets, daily range): BP systolic 90–105; BP diastolic 51–70; PULSE 78–107; RESP 12–26; TEMP 36.7–37.6; O2SAT 94–100
[2021-08-21] MEDS: ALBUTEROL SULFATE NEB 2.5 MG/0.5 ML INH 5 MG INHALATION ×2 (01:52→21:06)
[2021-08-21] MEDS: IPRATROPIUM BR 0.02% INH SOLN 0.5 MG/2.5 ML VIAL INHALATION ×2 (01:53→21:07)
[2021-08-21 04:30] LABS: Hemoglobin 9.4 g/dL (14.0-18.0); Mean Corpuscular HGB Conc 32.4 g/dl (32-36); Mean Corpuscular Hemoglobin 31.3 pg (26-34); Mean Corpuscular Volume 96.7 fl (80-100); Mean Platelet Volume 9.3 fl (7.4-10.4); Platelet Count Result 110 k/mm3 (150-375); Red Cell Distribution Width 15.9 % (11.5-14.5); White Blood Count 4.7 K/mm3 (4.5-10.0)
[2021-08-21 04:41] LABS: Alveolar/Arterial O2 Gradient 161.8 mmHg; Base Excess ABG 6.8 mEq/l (+/-2.0); Carboxyhemoglobin 0.3 % THb (0-2.0); Fractional Inspired Oxygen 45 %; HCO3 ABG 31.7 mEq/l (22.0-26.0); Methemoglobin ABG 0.3 %THb (0-1.5); Oxygen Content ABG 15.5 %vol (16.0-22.0); Oxyhemoglobin 96.8 % THb (90.0-100.0); PCO2 ABG 46.6 mmHg (35.0-45.0); PO2 FiO2 Ratio Arterial Blood 2.36 %; Reduced Hemoglobin 2.6 %THb (0-5.0); Total Hemoglobin 11.3 g/dL (12.0-18.0)
[2021-08-21 04:42] LABS: Device VENTILATOR; Modified Allen's Test Pass; Site Drawn RIGHT RADIAL
[2021-08-21 04:43] LABS: Arterial Blood Gas PEEP 5 cmH2O; Arterial Blood Gas Tidal Volume 320 ml; Arterial Blood Gas Vent Mode CMV; Arterial Blood Gas Ventilator rate 16 /MIN
[2021-08-21 04:44] LABS: INR 1.3; Prothrombin Time 15.8 Seconds (11.1-14.7)
[2021-08-21 04:45] LABS: Partial Thromboplastin Time 41.2 SECONDS (22.3-36.8)
[2021-08-21 05:05] LABS: Alanine Aminotransferase 239 U/L (4-50); Alkaline Phosphatase 101 U/L (38-126); Anion Gap 9 mmol/L (8-16); Aspartate Amino Transferase 91 U/L (17-59); Bilirubin,Total 0.8 mg/dL (0.2-1.3); Blood Urea Nitrogen 30 mg/dL (9-20); Calcium 8.2 mg/dL (8.4-10.2); Carbon Dioxide 31 mmol/L (22-30); Chloride 95 mmol/L (98-107); Estimated CRCL calculation 19 ml/min; Estimated Glomerular Filt Rate 23; Glucose 117 mg/dL (65-110); Magnesium 2.1 mg/dL (1.6-2.3); Phosphorus 1.8 mg/dL (2.5-4.5); Potassium 3.5 mmol/L (3.4-5.0); Sodium 135 mmol/L (137-145)
[2021-08-21] MEDS: HEPARIN SODIUM 5,000 UNITS/ML VIAL 5000 UNITS SUB-Q (08:13)
[2021-08-21] MEDS: MINERAL OIL/WHITE PETROLATUM OINTMENT 1 APPLIC EACH EYE (08:16)
[2021-08-21] MEDS: PANTOPRAZOLE SODIUM IV 40 MG VIAL IV PUSH (08:16)
[2021-08-21] MEDS: TAMSULOSIN HCL 0.4 MG CAPSULE PO (08:16)
[2021-08-21] MEDS: POTASSIUM PHOS,M-BASIC-D-BASIC 20 MMOL in SODIUM CHLORIDE 0.9% IV 250 ML 64.17 MMOL IVPB (08:57)
--- NOTE | 2021-08-21 09:45 | WPDINTPN ---
Progress Note: A&P Assessment and Plan (1) Acute hypercapnic respiratory failure: Code(s): J96.02 - Acute respiratory failure with hypercapnia Status: Acute Assessment and Plan: Transferred to ICU Acute hypercapnic respiratory failure could be multi factorial, medications as patient received Ativan and morphine, bilateral peripheral effusion, pneumonia, will opacification of left hemithorax -continue Pulmozyme, Mucomyst and bronchodilators -continue CPT -chest x-ray reviewed and appears unchanged -CT chest 08/18/2021 shows moderate bilateral pleural effusion with probable small loculated left apical hydropneumothorax. Bilateral airspace disease throughout the residual left lung and and peripherally in the right upper and lower lobes which may represent a combination of pneumonia and/or atelectasis. -08/19 left thoracentesis with done and 500 cc fluid was removed -I have placed patient on sedation vacation and once patient is more awake will do a weaning trial the patient can be extubated (2) Pneumonia: Qualifiers: Pneumonia type: due to unspecified organism Laterality: unspecified laterality Lung location: unspecified part of lung Qualified Code(s): J18.9 - Pneumonia, unspecified organism Code(s): J18.9 - Pneumonia, unspecified organism Status: Acute Assessment and Plan: Check x-ray x-ray with opacification of left hemithorax, combination of effusion, atelectasis, mucus plugging and pneumonia -leukocytosis improving -continue ceftriaxone, azithromycin (initiated on 08/18). Will DC vancomycin since all cultures have been negative (3) Altered mental status: Qualifiers: Altered mental status type: unspecified Qualified Code(s): R41.82 - Altered mental status, unspecified Code(s): R41.82 - Altered mental status, unspecified Status: Acute Assessment and Plan: Altered mental status likely related to hypercarbia, infection -CT brain on 08/18/2021 showed no acute intracranial abnormality -currently sedated (4) ESRD (end stage renal disease): Code(s): N18.6 - End stage renal disease Status: Acute Assessment and Plan: End-stage renal disease on dialysis (M,W,F) -nephrology following the patient -dialysis per Nephrology. Patient is getting dialyzed today -will check BMP post dialysis (5) Pleural effusion: Code(s): J90 - Pleural effusion, not elsewhere classified Status: Acute Assessment and Plan: Bilateral pleural effusions patient has thoracentesis on left and 500 cc of fluid was removed 08/19 (6) Cirrhosis of liver: Qualifiers: Hepatic cirrhosis type: alcoholic cirrhosis Ascites presence: without ascites Qualified Code(s): K70.30 - Alcoholic cirrhosis of liver without ascites Code(s): K74.60 - Unspecified cirrhosis of liver Status: Acute Assessment and Plan: Significantly elevated LFTs, could be related to underlying liver disease plus possible shock liver due to hypoxia -hepatitis panel is negative -right upper quadrant ultrasound -nodularity of the liver surface, consistent with cirrhosis. Gallbladder is normal -LFTs trending down (7) Pneumothorax: Code(s): J93.9 - Pneumothorax, unspecified Status: Acute Assessment and Plan: ? Small loculated pneumothorax in left lung Monitor for now Discussed with pulmonary (8) Electrolyte abnormality: Code(s): E87.8 - Other disorders of electrolyte and fluid balance, not elsewhere classified Status: Acute Assessment and Plan: Replace low potassium and phosphate Additional Plan Code status: Full code Critical care time spent: 30 minutes Discussed with pulmonology This dictation may have been done utilizing a voice recognition system. Attempts have been made to correct errors. However, there may be uncorrected grammatical, spelling, and recognition errors present. Due to a high probability of
--- NOTE | 2021-08-21 10:13 | PM.PNNEP ---
Progress Note: A&P Assessment and Plan (1) ESRD (end stage renal disease): Code(s): N18.6 - End stage renal disease Status: Acute Assessment and Plan: Diego has end-stage renal disease. will get another dialysis treatment tomorrow. (2) Bilateral pleural effusion: Code(s): J90 - Pleural effusion, not elsewhere classified Status: Acute Assessment and Plan: Patient has bilateral pleural effusions. Chest x-ray looks Better. Still has a left base loculated hydro pneumothorax. (3) Acute hypercapnic respiratory failure: Code(s): J96.02 - Acute respiratory failure with hypercapnia Status: Acute Assessment and Plan: The patient is on the ventilator. He will be getting supportive care, pulmonary toilet, . He is also getting antibiotics. He has been cultured. Cultures are negative so far. Weaning parameters looking better. Considering extubation today. (4) Hyponatremia: Code(s): E87.1 - Hypo-osmolality and hyponatremia Status: Acute Assessment and Plan: Sodium level is a little bit low. This is related to fluid intake between dialysis treatments. (5) Chronic anemia: Code(s): D64.9 - Anemia, unspecified Status: Acute Assessment and Plan: Hemoglobin 9.4. on epo (6) Hypertension: Code(s): I10 - Essential (primary) hypertension Status: Acute Assessment and Plan: Blood pressure is a bit soft. 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 He looks at the examiner when I shake his shoulders but does not really interact much more than that. He had dialysis yesterday and did pretty well. Only 300cc were able to be removed. Exam Narrative: WDWN in NAD on the ventilator in the ICU skin no rash head ncat lungs coarse bilaterally cor reg no rub Or gallop abd BS+ nontender and soft ext no edema. Objective Data Vital Signs Vital Signs: Vital Signs - 24 hr 08/20/21 10:15 08/20/21 10:30 08/20/21 10:45 Temperature Pulse Rate 100 98 104 H Respiratory Rate Blood Pressure 113/68 116/68 119/73 Pulse Oximetry 08/20/21 11:00 08/20/21 11:15 08/20/21 11:30 Temperature Pulse Rate 107 H 98 101 H Respiratory Rate Blood Pressure 113/73 90/65 L 93/68 L Pulse Oximetry 08/20/21 11:45 08/20/21 11:56 08/20/21 12:00 Temperature Pulse Rate 98 92 100 Respiratory Rate 16 Blood Pressure 106/66 93/72 L Pulse Oximetry 98 97 08/20/21 12:04 08/20/21 12:22 08/20/21 12:30 Temperature 36.4 C Pulse Rate 98 93 100 Respiratory Rate 16 Blood Pressure 93/72 L 93/62 L 103/60 Pulse Oximetry 100 08/20/21 14:00 08/20/21 14:09 08/20/21 14:17 Temperature Pulse Rate 115 H 110 H 114 H Respiratory Rate 18 16 Blood Pressure 107/69 Pulse Oximetry 95 96 08/20/21 16:00 08/20/21 17:20 08/20/21 18:00 Temperature 36.6 C Pulse Rate 102 H 110 H 102 H Respiratory Rate 16 16 Blood Pressure 102/68 97/71 L Pulse Oximetry 97 97 95 08/20/21 18:19 08/20/21 18:20 08/20/21 19:47 Temperature Pulse Rate 102 H 102 H 89 Respiratory Rate 16 16 Blood Pressure Pulse Oximetry 08/20/21 19:50 08/20/21 19:51 08/20/21 19:59 Temperature 36.9 C Pulse Rate 89 95 95 Respiratory Rate 16 16 16 Blood Pressure 89/56 L Pulse Oximetry 95 99 08/20/21 20:05 08/20/21 20:14 08/20/21 20:19 Temperature Pulse Rate 91 102 H 101 H Respiratory Rate 16 25 H Blood Pressure Pulse Oximetry 97 08/20/21 22:00 08/21/21 00:00 08/21/21 01:53 Tem
[2021-08-21 11:39] LABS: Glucose Point of Care 136 mg/dl (65-105)
--- NOTE | 2021-08-21 12:04 | PCFNICU ---
ICU Rounding Note: Pt current nutrition is Nepro at 50 ml/hr. Last recorded weight is 62 kg, no new weight to report. Bowel Motility:+Bm12/1 Labs Reviewed:PO4 1.8,GFR 23, BUN 30, Cr 2.7,Hct 29.0,Hgb 9.4,Na 135 Meds Noted:Fentanyl, Versed, Protonix, Heparin, Atrovent, Zithromax. Skin: WNL Additional Notes: Patient remains on mechanical vent. Patient continues to tolerating tube feedings of Nepro at 50 ml/hr. 30 ml free water flush q 4 hours. Following daily in ICU rounds. Assessing/reassessing every Thursday and Thursday.
--- NOTE | 2021-08-21 13:15 | PM.PNPUL ---
Progress Note: A&P Assessment and Plan (1) Pleural effusion: Code(s): J90 - Pleural effusion, not elsewhere classified Status: Acute Assessment and Plan: pleural fluid analysis showed bloody effusion with hematocrit probably less than 0.2. Pleural effusion lymphocytic with relatively low number of WBCs, pH greater than 7.3 all of which suggest no presence of empyema. Pleural fluid glucose and total protein pending. Bloody infusions are usually seen in CRF patients on dialysis. (2) Pneumonia: Qualifiers: Pneumonia type: due to unspecified organism Laterality: unspecified laterality Lung location: unspecified part of lung Qualified Code(s): J18.9 - Pneumonia, unspecified organism Code(s): J18.9 - Pneumonia, unspecified organism Status: Acute Assessment and Plan: respiratory status has improved over the last 24 hours. No leukocytosis. Patient on 3 antibiotics for left pneumonia. Weaning trials are considered by the ICU team. (3) Acute hypercapnic respiratory failure: Code(s): J96.02 - Acute respiratory failure with hypercapnia Status: Acute (4) Altered mental status: Qualifiers: Altered mental status type: unspecified Qualified Code(s): R41.82 - Altered mental status, unspecified Code(s): R41.82 - Altered mental status, unspecified Status: Acute (5) Bilateral pleural effusion: Code(s): J90 - Pleural effusion, not elsewhere classified Status: Acute (6) End-stage renal disease on hemodialysis: Code(s): N18.6 - End stage renal disease; Z99.2 - Dependence on renal dialysis Status: Acute Subjective Date/time seen: 08/21/21 13:15 patient remaining on ventilator. Gas exchange has improved respiratory mechanics also improved following treatment for pneumonia and left thoracentesis. Review of Systems Review of Systems: All systems reviewed & are unremarkable except as noted in HPI and below Exam Narrative: GENERAL APPEARANCE: Well developed, well nourished, elderly man, lightly sedated on MV SKIN: Inspection of the skin reveals no rashes, ulcerations or petechiae. And NECK: Supple. No masses were felt. LUNGS: clear breath sounds anteriorly decreased breath sounds left lateral chest. no wheezing CARDIAC: There was a regular rate and rhythm without any murmurs, gallops, rubs. ABDOMEN: Soft with normal bowel sounds. LYMPH NODES: No lymphadenopathy was appreciated in the neck EXTREMITIES: No cyanosis, clubbing Objective Data Vital Signs Vital Signs: Vital Signs - 24 hr 08/20/21 14:00 08/20/21 14:09 08/20/21 14:17 Temperature Pulse Rate 115 H 110 H 114 H Respiratory Rate 18 16 Blood Pressure 107/69 Pulse Oximetry 95 96 08/20/21 16:00 08/20/21 17:20 08/20/21 18:00 Temperature 36.6 C Pulse Rate 102 H 110 H 102 H Respiratory Rate 16 16 Blood Pressure 102/68 97/71 L Pulse Oximetry 97 97 95 08/20/21 18:19 08/20/21 18:20 08/20/21 19:47 Temperature Pulse Rate 102 H 102 H 89 Respiratory Rate 16 16 Blood Pressure Pulse Oximetry 08/20/21 19:50 08/20/21 19:51 08/20/21 19:59 Temperature 36.9 C Pulse Rate 89 95 95 Respiratory Rate 16 16 16 Blood Pressure 89/56 L Pulse Oximetry 95 99 08/20/21 20:05 08/20/21 20:14 08/20/21 20:19 Temperature Pulse Rate 91 102 H 101 H Respiratory Rate 16 25 H Blood Pressure Pulse Oximetry 97 08/20/21 22:00 08/21/21 00:00 08/21/21 01:53 Temperature 36.8 C Pulse Rate 99 96 93 Respiratory Rate 16 16 16 Blood Pressure 107/57 L 96/64 L Pulse Oximetry 96 95 08/21/21 01:54 08/21/21 02:00 08/21/21 04:00 Temperature 37.1 C Pulse Rate 93 98 102 H Respiratory Rate 18 16 Blood Pressure 105/57 L 104/60 Pulse Oximetry 94 94 100 08/21/21 04:25 08/21/21 07:45 08/21/21 07:54 Temperature Pulse Rate 78 97 92 Respiratory Rate 16 Blood Pressure Pulse Oximetry 97 98 08/21/21 08:00 08/21
[2021-08-21] MEDS: MIDODRINE HCL 2.5 MG TABLET 5 MG PO ×2 (13:19→16:16)
[2021-08-21 17:48] LABS: Glucose Point of Care 116 mg/dl (65-105)
[2021-08-21 19:56] LABS: Glucose Pleural Fluid 56 mg/dL; LDH Pleural Fluid 108 U/L; Total Protein Pleural Fluid <3.0 g/dL
[2021-08-21] MEDS: DORNASE ALFA INH SOLN 1 MG/ML 2.5 ML AMP 2.5 MG INHALATION (21:07)
[2021-08-21] MEDS: ACETYLCYSTEINE 20% INHAL SOLN 800 MG/4 ML VIAL 600 MG INHALATION (21:07)
[2021-08-22] VITALS (43 sets, daily range): BP systolic 76–125; BP diastolic 46–82; PULSE 87–110; RESP 14–34; TEMP 36.1–37.2; O2SAT 91–100
[2021-08-22] MEDS: HEPARIN SODIUM 5,000 UNITS/ML VIAL 5000 UNITS SUB-Q ×3 (00:07→20:20)
[2021-08-22] MEDS: MINERAL OIL/WHITE PETROLATUM OINTMENT 1 APPLIC EACH EYE ×3 (00:07→20:20)
[2021-08-22] MEDS: IPRATROPIUM BR 0.02% INH SOLN 0.5 MG/2.5 ML VIAL INHALATION ×4 (02:58→21:43)
[2021-08-22] MEDS: ALBUTEROL SULFATE NEB 2.5 MG/0.5 ML INH 5 MG INHALATION ×4 (02:58→21:42)
[2021-08-22 04:51] LABS: Alveolar/Arterial O2 Gradient 112.6 mmHg; Base Excess ABG 3.9 mEq/l (+/-2.0); Carboxyhemoglobin 0.3 % THb (0-2.0); Fractional Inspired Oxygen 40 %; HCO3 ABG 30.4 mEq/l (22.0-26.0); Methemoglobin ABG 0.3 %THb (0-1.5); Oxygen Saturation ABG 97.8 % (95.0-100.0); Oxyhemoglobin 96.9 % THb (90.0-100.0); PCO2 ABG 54.4 mmHg (35.0-45.0); PO2 FiO2 Ratio Arterial Blood 2.75 %; Reduced Hemoglobin 2.5 %THb (0-5.0); Total Hemoglobin 12.4 g/dL (12.0-18.0); pH ABG 7.365 (7.350-7.450)
[2021-08-22 04:52] LABS: Arterial Blood Gas PEEP 5 cmH2O; Arterial Blood Gas Tidal Volume 320 ml; Arterial Blood Gas Vent Mode CMV; Arterial Blood Gas Ventilator rate 16 /MIN; Device VENTILATOR; Modified Allen's Test Pass; Site Drawn RIGHT RADIAL
[2021-08-22 08:03] LABS: INR 1.3; Prothrombin Time 15.5 Seconds (11.1-14.7)
[2021-08-22 08:04] LABS: Partial Thromboplastin Time 41.1 SECONDS (22.3-36.8)
[2021-08-22] MEDS: MIDODRINE HCL 2.5 MG TABLET 5 MG PO ×3 (08:06→18:20)
[2021-08-22] MEDS: PANTOPRAZOLE SODIUM IV 40 MG VIAL IV PUSH (08:07)
[2021-08-22] MEDS: ACETYLCYSTEINE 20% INHAL SOLN 800 MG/4 ML VIAL 600 MG INHALATION (08:09)
[2021-08-22] MEDS: DORNASE ALFA INH SOLN 1 MG/ML 2.5 ML AMP 2.5 MG INHALATION ×2 (08:11→21:43)
[2021-08-22 08:21] LABS: Alanine Aminotransferase 158 U/L (4-50); Alkaline Phosphatase 119 U/L (38-126); Anion Gap 6 mmol/L (8-16); Aspartate Amino Transferase 39 U/L (17-59); Bilirubin,Total 0.5 mg/dL (0.2-1.3); Blood Urea Nitrogen 51 mg/dL (9-20); Calcium 8.2 mg/dL (8.4-10.2); Carbon Dioxide 32 mmol/L (22-30); Chloride 94 mmol/L (98-107); Estimated CRCL calculation 14 ml/min; Estimated Glomerular Filt Rate 16; Glucose 123 mg/dL (65-110); Phosphorus 3.7 mg/dL (2.5-4.5); Potassium 4.1 mmol/L (3.4-5.0); Sodium 132 mmol/L (137-145)
[2021-08-22 08:47] LABS: Hematocrit 28.1 % (42.0-52.0); Hemoglobin 8.8 g/dL (14.0-18.0); Mean Corpuscular HGB Conc 31.3 g/dl (32-36); Mean Corpuscular Hemoglobin 31.3 pg (26-34); Mean Platelet Volume 10.5 fl (7.4-10.4); Platelet Count Result 109 k/mm3 (150-375); Red Blood Count 2.81 M/mm3 (4.6-6.20); Red Cell Distribution Width 15.8 % (11.5-14.5); White Blood Count 6.2 K/mm3 (4.5-10.0)
--- NOTE | 2021-08-22 09:36 | PM.PNPUL ---
Progress Note: A&P Assessment and Plan (1) Pleural effusion: Code(s): J90 - Pleural effusion, not elsewhere classified Status: Acute Assessment and Plan: Pleural effusions essentially unchanged on last chest x-ray. Left localized pneumothorax smaller on today's chest x-ray. There is no evidence of left empyema on thoracentesis. (2) Pneumonia: Qualifiers: Pneumonia type: due to unspecified organism Laterality: unspecified laterality Lung location: unspecified part of lung Qualified Code(s): J18.9 - Pneumonia, unspecified organism Code(s): J18.9 - Pneumonia, unspecified organism Status: Acute Assessment and Plan: respiratory status has improved over the last 24 hours. No leukocytosis. Patient on 3 antibiotics for left pneumonia. Weaning trials are considered by the ICU team. (3) Acute hypercapnic respiratory failure: Code(s): J96.02 - Acute respiratory failure with hypercapnia Status: Acute (4) Altered mental status: Qualifiers: Altered mental status type: unspecified Qualified Code(s): R41.82 - Altered mental status, unspecified Code(s): R41.82 - Altered mental status, unspecified Status: Acute (5) End-stage renal disease on hemodialysis: Code(s): N18.6 - End stage renal disease; Z99.2 - Dependence on renal dialysis Status: Acute Subjective Date/time seen: 08/22/21 09:36 respiratory status stable over the last 24 hours patient remaining on mechanical ventilation FiO2 is down to 40%. Hemodynamically stable and afebrile receiving antibiotics for left pneumonia. Review of Systems Review of Systems: All systems reviewed & are unremarkable except as noted in HPI and below Exam Narrative: GENERAL APPEARANCE: Well developed, well nourished, elderly man, lightly sedated on MV SKIN: Inspection of the skin reveals no rashes, ulcerations or petechiae. And NECK: Supple. No masses were felt. LUNGS: clear breath sounds anteriorly decreased breath sounds left lateral chest. no wheezing CARDIAC: There was a regular rate and rhythm without any murmurs, gallops, rubs. ABDOMEN: Soft with normal bowel sounds. LYMPH NODES: No lymphadenopathy was appreciated in the neck EXTREMITIES: No cyanosis, clubbing Objective Data Vital Signs Vital Signs: Vital Signs - 24 hr 08/21/21 10:00 08/21/21 10:43 08/21/21 12:00 Temperature 37.6 C H Pulse Rate 106 H 106 H 104 H Respiratory Rate 17 26 H Blood Pressure 103/51 L 97/58 L Pulse Oximetry 97 95 97 08/21/21 13:17 08/21/21 13:18 08/21/21 13:27 Temperature Pulse Rate 96 98 99 Respiratory Rate 25 H 24 H Blood Pressure Pulse Oximetry 97 08/21/21 14:00 08/21/21 16:00 08/21/21 16:19 Temperature 36.9 C Pulse Rate 99 98 99 Respiratory Rate 25 H 22 H Blood Pressure 95/59 L 90/70 L Pulse Oximetry 97 97 98 08/21/21 18:00 08/21/21 18:46 08/21/21 20:00 Temperature 37.1 C Pulse Rate 89 90 87 Respiratory Rate 16 16 16 Blood Pressure 92/60 L 103/58 L Pulse Oximetry 98 98 08/21/21 21:09 08/21/21 21:13 08/21/21 21:26 Temperature Pulse Rate 92 88 90 Respiratory Rate 16 16 Blood Pressure Pulse Oximetry 97 08/21/21 22:00 08/21/21 23:56 08/22/21 00:00 Temperature 36.8 C Pulse Rate 97 95 96 Respiratory Rate 20 16 Blood Pressure 100/60 94/60 L Pulse Oximetry 97 97 97 08/22/21 02:00 08/22/21 02:59 08/22/21 03:06 Temperature Pulse Rate 90 89 87 Respiratory Rate 17 19 16 Blood Pressure 103/59 L Pulse Oximetry 97 96 08/22/21 03:57 08/22/21 04:00 08/22/21 04:33 Temperature 36.8 C Pulse Rate 97 92 89 Respiratory Rate 20 Blood Pressure 106/82 Pulse Oximetry 97 97 08/22/21 06:00 08/22/21 07:24 08/22/21 08:00 Temperature 37.2 C 37.2 C Pulse Rate 94 88 90 Respiratory Rate 18 17 Blood Pressure 97/61 L 92/59 L Pulse Oximetry 100 100 08/22/21 08:10 08/22/21 08:26 08/22/21 08:35 Temperature
--- NOTE | 2021-08-22 11:06 | PCFNICU ---
ICU Rounding Note: Pt current nutrition is Nepro at 50 ml/hr over 22 hours. Last recorded weight is 63.2 kg, up from 62 kg on admit. Bowel Motility: +BM reported 08/20 Labs Reviewed:Cr 3.7,GFR 16, BUN 51, Na 132, Alb 3.0 Meds Noted:Albuterol, Versed, Fentanyl, Atrovent, Rocephin, Zithromax. Skin: WNL Additional Notes: Patient currently on a breathing trail. Spoke with nursing today, patient is tolerating tube feedings of Nepro at 50 ml/hr over 22 hours with free water flush of 30 ml q 4 hours. Following daily in ICU rounds. Assessing/reassessing every Thursday and Thursday.
--- NOTE | 2021-08-22 12:10 | WPDINTPN ---
Progress Note: A&P Assessment and Plan (1) Acute hypercapnic respiratory failure: Code(s): J96.02 - Acute respiratory failure with hypercapnia Status: Acute Assessment and Plan: Transferred to ICU Acute hypercapnic respiratory failure could be multi factorial, medications as patient received Ativan and morphine, bilateral peripheral effusion, pneumonia, will opacification of left hemithorax -continue Pulmozymet and bronchodilators -continue CPT -chest x-ray reviewed and appears unchanged -CT chest 08/18/2021 shows moderate bilateral pleural effusion with probable small loculated left apical hydropneumothorax. Bilateral airspace disease throughout the residual left lung and and peripherally in the right upper and lower lobes which may represent a combination of pneumonia and/or atelectasis. -08/19 left thoracentesis with done and 500 cc fluid was removed -patient is off sedation but appears to be very weak on weaning trial. High pressure support is required to get adequate RSBI as his tidal volumes are very low. -will retry after hemodialysis (2) Pneumonia: Qualifiers: Pneumonia type: due to unspecified organism Laterality: unspecified laterality Lung location: unspecified part of lung Qualified Code(s): J18.9 - Pneumonia, unspecified organism Code(s): J18.9 - Pneumonia, unspecified organism Status: Acute Assessment and Plan: Check x-ray x-ray with opacification of left hemithorax, combination of effusion, atelectasis, mucus plugging and pneumonia -leukocytosis improving -continue ceftriaxone, azithromycin (initiated on 08/18). Off vancomycin since all cultures have been negative (3) Altered mental status: Qualifiers: Altered mental status type: unspecified Qualified Code(s): R41.82 - Altered mental status, unspecified Code(s): R41.82 - Altered mental status, unspecified Status: Acute Assessment and Plan: Altered mental status likely related to hypercarbia, infection -CT brain on 08/18/2021 showed no acute intracranial abnormality -currently all sedation (4) ESRD (end stage renal disease): Code(s): N18.6 - End stage renal disease Status: Acute Assessment and Plan: End-stage renal disease on dialysis (M,W,F) -nephrology following the patient -dialysis per Nephrology. Patient is getting dialyzed today (5) Pleural effusion: Code(s): J90 - Pleural effusion, not elsewhere classified Status: Acute Assessment and Plan: Bilateral pleural effusions patient has thoracentesis on left and 500 cc of fluid was removed 08/19 (6) Cirrhosis of liver: Qualifiers: Hepatic cirrhosis type: alcoholic cirrhosis Ascites presence: without ascites Qualified Code(s): K70.30 - Alcoholic cirrhosis of liver without ascites Code(s): K74.60 - Unspecified cirrhosis of liver Status: Acute Assessment and Plan: Significantly elevated LFTs, could be related to underlying liver disease plus possible shock liver due to hypoxia -hepatitis panel is negative -right upper quadrant ultrasound -nodularity of the liver surface, consistent with cirrhosis. Gallbladder is normal -LFTs trending down (7) Pneumothorax: Code(s): J93.9 - Pneumothorax, unspecified Status: Acute Assessment and Plan: ? Small loculated pneumothorax in left lung Monitor for now Discussed with pulmonary (8) Electrolyte abnormality: Code(s): E87.8 - Other disorders of electrolyte and fluid balance, not elsewhere classified Status: Acute Assessment and Plan: Replace low potassium and phosphate Additional Plan Code status: Full code Critical care time spent: 30 minutes Discussed with pulmonology This dictation may have been done utilizing a voice recognition system. Attempts have been made to correct errors. However, there may be uncorrected grammatical, spelling, and recognition errors present.
[2021-08-22 12:14] LABS: Glucose Point of Care 118 mg/dl (65-105)
--- NOTE | 2021-08-22 12:38 | PM.PNNEP ---
Progress Note: A&P Assessment and Plan (1) ESRD (end stage renal disease): Code(s): N18.6 - End stage renal disease Status: Acute Assessment and Plan: Diego has end-stage renal disease. will get another dialysis treatment later today (2) Bilateral pleural effusion: Code(s): J90 - Pleural effusion, not elsewhere classified Status: Acute Assessment and Plan: Patient has bilateral pleural effusions. chest x-ray looks about the same. Still has a left base loculated hydro pneumothorax. (3) Acute hypercapnic respiratory failure: Code(s): J96.02 - Acute respiratory failure with hypercapnia Status: Acute Assessment and Plan: The patient is on the ventilator. He will be getting supportive care, pulmonary toilet, . He is also getting antibiotics. He has been cultured. Cultures are negative so far. Still on the ventilator. (4) Hyponatremia: Code(s): E87.1 - Hypo-osmolality and hyponatremia Status: Acute Assessment and Plan: Sodium level is a little bit low. This is related to fluid intake between dialysis treatments. (5) Chronic anemia: Code(s): D64.9 - Anemia, unspecified Status: Acute Assessment and Plan: Hemoglobin 8.8. on epo (6) Hypertension: Code(s): I10 - Essential (primary) hypertension Status: Acute Assessment and Plan: Blood pressure is a bit soft. Off antihypertensives (7) Cirrhosis of liver: Qualifiers: Hepatic cirrhosis type: alcoholic cirrhosis Ascites presence: without ascites Qualified Code(s): K70.30 - Alcoholic cirrhosis of liver without ascites Code(s): K74.60 - Unspecified cirrhosis of liver Status: Acute Assessment and Plan: He does not drink anymore Subjective Date/time seen: 08/22/21 08:15 Interval history: patient looks comfortable in bed. He is still on the ventilator. Blood pressure is a bit soft. Exam Narrative: WDWN in NAD on the ventilator in the ICU skin no rash Or subcu nodules head ncat lungs coarse bilaterally cor reg no rub or gallop abd BS+ nontender and soft ext no edema. Objective Data Vital Signs Vital Signs: Vital Signs - 24 hr 08/21/21 13:17 08/21/21 13:18 08/21/21 13:27 Temperature Pulse Rate 96 98 99 Respiratory Rate 25 H 24 H Blood Pressure Pulse Oximetry 97 08/21/21 14:00 08/21/21 16:00 08/21/21 16:19 Temperature 36.9 C Pulse Rate 99 98 99 Respiratory Rate 25 H 22 H Blood Pressure 95/59 L 90/70 L Pulse Oximetry 97 97 98 08/21/21 18:00 08/21/21 18:46 08/21/21 20:00 Temperature 37.1 C Pulse Rate 89 90 87 Respiratory Rate 16 16 16 Blood Pressure 92/60 L 103/58 L Pulse Oximetry 98 98 08/21/21 21:09 08/21/21 21:13 08/21/21 21:26 Temperature Pulse Rate 92 88 90 Respiratory Rate 16 16 Blood Pressure Pulse Oximetry 97 08/21/21 22:00 08/21/21 23:56 08/22/21 00:00 Temperature 36.8 C Pulse Rate 97 95 96 Respiratory Rate 20 16 Blood Pressure 100/60 94/60 L Pulse Oximetry 97 97 97 08/22/21 02:00 08/22/21 02:59 08/22/21 03:06 Temperature Pulse Rate 90 89 87 Respiratory Rate 17 19 16 Blood Pressure 103/59 L Pulse Oximetry 97 96 08/22/21 03:57 08/22/21 04:00 08/22/21 04:33 Temperature 36.8 C Pulse Rate 97 92 89 Respiratory Rate 20 Blood Pressure 106/82 Pulse Oximetry 97 97 08/22/21 06:00 08/22/21 07:24 08/22/21 08:00 Temperature 37.2 C 37.2 C Pulse Rate 94 88 90 Respiratory Rate 18 17 Blood Pressure 97/61 L 92/59 L Pulse Oximetry 100 100 08/22/21 08:10 08/22/21 08:26 08/22/21 08:35 Temperature Pulse Rate 89 99 96 Respiratory Rate 34 H 30 H Blood Pressure Pulse Oximetry 91 08/22/21 10:00 08/22/21 11:23 08/22/21 12:00 Temperature Pulse Rate 93 94 98 Respiratory Rate 18 26 H Blood Pressure 99/57 L 103/60 Pulse Oximetry 95 100 100 08/22/21 12:14 08/22/21 12:20
[2021-08-22] MEDS: ALBUMIN HUMAN 25% 12.5 GM/50ML 100 ML 50 GM (12:53)
[2021-08-22] MEDS: SODIUM CHLORIDE 0.9% IV 1,000 ML 999 ML (12:54)
[2021-08-22] MEDS: EPOETIN ALFA-EPBX 10,000 UNITS/ML VIAL 10000 UNITS IV PUSH (13:08)
[2021-08-22 17:23] LABS: Glucose Point of Care 88 mg/dl (65-105)
[2021-08-22 23:28] LABS: Glucose Point of Care 122 mg/dl (65-105)
[2021-08-23] VITALS (27 sets, daily range): BP systolic 91–141; BP diastolic 46–64; PULSE 80–104; RESP 15–37; TEMP 36.7–37.5; O2SAT 92–100
[2021-08-23] MEDS: IPRATROPIUM BR 0.02% INH SOLN 0.5 MG/2.5 ML VIAL INHALATION ×4 (02:08→20:16)
[2021-08-23] MEDS: ALBUTEROL SULFATE NEB 2.5 MG/0.5 ML INH 5 MG INHALATION ×4 (02:08→20:16)
[2021-08-23 06:07] LABS: Hematocrit 28.5 % (42.0-52.0); Hemoglobin 8.9 g/dL (14.0-18.0); Mean Corpuscular HGB Conc 31.2 g/dl (32-36); Mean Corpuscular Hemoglobin 30.9 pg (26-34); Mean Platelet Volume 10.5 fl (7.4-10.4); Platelet Count Result 120 k/mm3 (150-375); Red Blood Count 2.88 M/mm3 (4.6-6.20); Red Cell Distribution Width 15.6 % (11.5-14.5); White Blood Count 6.8 K/mm3 (4.5-10.0)
[2021-08-23 06:21] LABS: INR 1.3; Prothrombin Time 15.8 Seconds (11.1-14.7)
[2021-08-23 06:22] LABS: Partial Thromboplastin Time 41.9 SECONDS (22.3-36.8)
[2021-08-23 06:47] LABS: Alanine Aminotransferase 105 U/L (4-50); Albumin Level 3.2 g/dL (3.5-5.1); Alkaline Phosphatase 148 U/L (38-126); Anion Gap 10 mmol/L (8-16); Aspartate Amino Transferase 33 U/L (17-59); Bilirubin,Total 0.5 mg/dL (0.2-1.3); Blood Urea Nitrogen 33 mg/dL (9-20); Calcium 8.6 mg/dL (8.4-10.2); Carbon Dioxide 30 mmol/L (22-30); Chloride 97 mmol/L (98-107); Estimated CRCL calculation 21 ml/min; Estimated Glomerular Filt Rate 27; Glucose 108 mg/dL (65-110); Magnesium 2.2 mg/dL (1.6-2.3); Phosphorus 1.3 mg/dL (2.5-4.5); Potassium 3.5 mmol/L (3.4-5.0); Sodium 137 mmol/L (137-145)
[2021-08-23 07:09] LABS: Alveolar/Arterial O2 Gradient 104.6 mmHg; Base Excess ABG 2.7 mEq/l (+/-2.0); Carboxyhemoglobin 0.2 % THb (0-2.0); Fractional Inspired Oxygen 30 %; HCO3 ABG 26.9 mEq/l (22.0-26.0); Methemoglobin ABG 0.1 %THb (0-1.5); PCO2 ABG 39.7 mmHg (35.0-45.0); PO2 ABG 62.7 mmHg (80.0-100.0); PO2 FiO2 Ratio Arterial Blood 2.09 %; Reduced Hemoglobin 7.7 %THb (0-5.0); Total Hemoglobin 9.2 g/dL (12.0-18.0); pH ABG 7.449 (7.350-7.450)
[2021-08-23 07:10] LABS: Device VENTILATOR; Modified Allen's Test Unable to perform; Site Drawn RIGHT RADIAL
[2021-08-23 07:11] LABS: Arterial Blood Gas PEEP 5 cmH2O; Arterial Blood Gas Tidal Volume 320 ml; Arterial Blood Gas Vent Mode CMV; Arterial Blood Gas Ventilator rate 16 /MIN
[2021-08-23] MEDS: DORNASE ALFA INH SOLN 1 MG/ML 2.5 ML AMP 2.5 MG INHALATION ×2 (07:38→20:16)
[2021-08-23] MEDS: MIDODRINE HCL 2.5 MG TABLET 5 MG PO ×3 (08:40→17:14)
[2021-08-23] MEDS: MINERAL OIL/WHITE PETROLATUM OINTMENT 1 APPLIC EACH EYE ×2 (08:40→21:37)
[2021-08-23] MEDS: HEPARIN SODIUM 5,000 UNITS/ML VIAL 5000 UNITS SUB-Q ×2 (08:40→21:37)
[2021-08-23] MEDS: PANTOPRAZOLE SODIUM IV 40 MG VIAL IV PUSH (08:41)
[2021-08-23] MEDS: TAMSULOSIN HCL 0.4 MG CAPSULE PO (08:41)
--- NOTE | 2021-08-23 10:05 | PM.PNPUL ---
Progress Note: A&P Assessment and Plan (1) Pleural effusion: Code(s): J90 - Pleural effusion, not elsewhere classified Status: Acute Assessment and Plan: Pleural effusions essentially unchanged on last chest x-ray. Left localized pneumothorax smaller on today's chest x-ray. There is no evidence of left empyema on thoracentesis. (2) Pneumonia: Qualifiers: Pneumonia type: due to unspecified organism Laterality: unspecified laterality Lung location: unspecified part of lung Qualified Code(s): J18.9 - Pneumonia, unspecified organism Code(s): J18.9 - Pneumonia, unspecified organism Status: Acute Assessment and Plan: respiratory status has improved over the last 24 hours. No leukocytosis. chest x-ray essentially unchanged over the last 2 days. Left localized pneumothorax still evident on chest x-ray. Pleural effusions bilaterally as before. Patient on antibiotics for left pneumonia. Weaning trials are considered by the ICU team. (3) Acute hypercapnic respiratory failure: Code(s): J96.02 - Acute respiratory failure with hypercapnia Status: Acute (4) Altered mental status: Qualifiers: Altered mental status type: unspecified Qualified Code(s): R41.82 - Altered mental status, unspecified Code(s): R41.82 - Altered mental status, unspecified Status: Acute (5) End-stage renal disease on hemodialysis: Code(s): N18.6 - End stage renal disease; Z99.2 - Dependence on renal dialysis Status: Acute Subjective Date/time seen: 08/23/21 10:05 respiratory status unchanged over the last 24 hours. Patient appears more awake this a.m.. afebrile on antibiotics. FiO2 down to 30%. on weaning trials. Review of Systems Review of Systems: All systems reviewed & are unremarkable except as noted in HPI and below Exam Narrative: GENERAL APPEARANCE: Well developed, well nourished, elderly man, awake following commands. SKIN: Inspection of the skin reveals no rashes, ulcerations or petechiae. And NECK: Supple. No masses were felt. LUNGS: Few rhonchi anteriorly decreased breath sounds left lateral chest. no wheezing CARDIAC: There was a regular rate and rhythm without any murmurs, gallops, rubs. ABDOMEN: Soft with normal bowel sounds. LYMPH NODES: No lymphadenopathy was appreciated in the neck EXTREMITIES: No cyanosis, clubbing Objective Data Vital Signs Vital Signs: Vital Signs - 24 hr 08/22/21 11:23 08/22/21 12:00 08/22/21 12:14 Temperature 36.7 C Pulse Rate 94 100 90 Respiratory Rate 28 H Blood Pressure 103/60 100/58 L Pulse Oximetry 100 100 08/22/21 12:30 08/22/21 12:45 08/22/21 13:01 Temperature Pulse Rate 103 H 95 100 Respiratory Rate Blood Pressure 89/53 L 95/50 L 98/60 L Pulse Oximetry 08/22/21 13:15 08/22/21 13:20 08/22/21 13:30 Temperature Pulse Rate 99 95 89 Respiratory Rate Blood Pressure 76/58 L 97/64 L 100/53 L Pulse Oximetry 08/22/21 13:36 08/22/21 13:45 08/22/21 13:48 Temperature Pulse Rate 90 96 99 Respiratory Rate 29 H 23 H Blood Pressure 100/57 L Pulse Oximetry 100 08/22/21 14:00 08/22/21 14:15 08/22/21 14:30 Temperature Pulse Rate 103 H 100 99 Respiratory Rate 14 Blood Pressure 93/59 L 92/65 L 90/51 L Pulse Oximetry 95 08/22/21 14:45 08/22/21 15:00 08/22/21 15:15 Temperature Pulse Rate 102 H 99 91 Respiratory Rate Blood Pressure 95/73 L 94/58 L 99/59 L Pulse Oximetry 08/22/21 15:30 08/22/21 15:45 08/22/21 16:00 Temperature 36.3 C L Pulse Rate 99 94 105 H Respiratory Rate 16 Blood Pressure 89/70 L 120/46 L 109/69 Pulse Oximetry 100 08/22/21 16:59 08/22/21 18:00 08/22/21 20:00 Temperature 37.0 C Pulse Rate 89 110 H 105 H Respiratory Rate 15 21 H Blood Pressure 125/71 96/65 L Pulse Oximetry 100 99 98 08/22/21 21:43 08/22/21 21:48 08/22/21 21:50 Temperature Pulse Rate 102 H 102 H 103
--- NOTE | 2021-08-23 11:20 | PCNFU ---
Nutrition Follow-Up Complete: Inadequate Oral Intake as related to mechanical ventilation as evidenced by NPO. Goal: Meet estimated nutritional needs Patient continues to progress towards goal. We will continue current goal. Pt current nutrition is Nepro at 50 ml/hr over 22 hours. Last recorded weight is 61 kg, down from 62 kcals on admit. Bowel Motility:+BM reported 08/22 Labs Reviewed: Cr 2.4,BUN 33, GFR 27, Alb 3.2,Hct 28.5.Hgb 8.9 Meds Noted:Versed, Zithromax, Rocephin, Heparin, Protonix Skin: WNL Additional Notes: Patient remains on mechanical vent with tube feedings of Nepro at 50 ml/hr over 22 hours, providing 1980 kcals/ 89 gm protein/ 800 ml water with 30 ml free water flush q 4 hours. Patient had Dialysis yesterday 08/22. Agree with diet orders. Monitoring: Will monitor every Thursday and Thursday.
--- NOTE | 2021-08-23 11:53 | WPDINTPN ---
Progress Note: A&P Assessment and Plan (1) Acute hypercapnic respiratory failure: Code(s): J96.02 - Acute respiratory failure with hypercapnia Status: Acute Assessment and Plan: Transferred to ICU Acute hypercapnic respiratory failure could be multi factorial, medications as patient received Ativan and morphine, bilateral peripheral effusion, pneumonia, will opacification of left hemithorax -continue Pulmozyme and bronchodilators -continue CPT -chest x-ray reviewed and appears unchanged -CT chest 08/18/2021 shows moderate bilateral pleural effusion with probable small loculated left apical hydropneumothorax. Bilateral airspace disease throughout the residual left lung and and peripherally in the right upper and lower lobes which may represent a combination of pneumonia and/or atelectasis. -08/19 left thoracentesis with done and 500 cc fluid was removed -patient failed his weaning trial this morning. He is off sedation but appears to be very weak on weaning trial. His RSBI was very high and High pressure support is required to get adequate RSBI as his tidal volumes are very low on weaning trial (2) Pneumonia: Qualifiers: Pneumonia type: due to unspecified organism Laterality: unspecified laterality Lung location: unspecified part of lung Qualified Code(s): J18.9 - Pneumonia, unspecified organism Code(s): J18.9 - Pneumonia, unspecified organism Status: Acute Assessment and Plan: Check x-ray x-ray with opacification of left hemithorax, combination of effusion, atelectasis, mucus plugging and pneumonia -leukocytosis improving -continue ceftriaxone, azithromycin (initiated on 08/18) will continue for 7 days. Off vancomycin since all cultures have been negative (3) Altered mental status: Qualifiers: Altered mental status type: unspecified Qualified Code(s): R41.82 - Altered mental status, unspecified Code(s): R41.82 - Altered mental status, unspecified Status: Acute Assessment and Plan: Altered mental status likely related to hypercarbia, infection -CT brain on 08/18/2021 showed no acute intracranial abnormality -currently all sedation (4) ESRD (end stage renal disease): Code(s): N18.6 - End stage renal disease Status: Acute Assessment and Plan: End-stage renal disease on dialysis (M,W,F) -nephrology following the patient -dialysis per Nephrology. Patient is getting dialyzed today (5) Pleural effusion: Code(s): J90 - Pleural effusion, not elsewhere classified Status: Acute Assessment and Plan: Bilateral pleural effusions patient has thoracentesis on left and 500 cc of fluid was removed 08/19 (6) Cirrhosis of liver: Qualifiers: Hepatic cirrhosis type: alcoholic cirrhosis Ascites presence: without ascites Qualified Code(s): K70.30 - Alcoholic cirrhosis of liver without ascites Code(s): K74.60 - Unspecified cirrhosis of liver Status: Acute Assessment and Plan: Significantly elevated LFTs, could be related to underlying liver disease plus possible shock liver due to hypoxia -hepatitis panel is negative -right upper quadrant ultrasound -nodularity of the liver surface, consistent with cirrhosis. Gallbladder is normal -LFTs trending down (7) Pneumothorax: Code(s): J93.9 - Pneumothorax, unspecified Status: Acute Assessment and Plan: ? Small loculated pneumothorax in left lung Monitor for now Discussed with pulmonary (8) Electrolyte abnormality: Code(s): E87.8 - Other disorders of electrolyte and fluid balance, not elsewhere classified Status: Acute Assessment and Plan: Replace low potassium and phosphate Additional Plan Code status: Full code Critical care time spent: 33 minutes Discussed with pulmonology This dictation may have been done utilizing a voice recognition system. Attempts have been made to correct errors. However, th
--- NOTE | 2021-08-23 12:27 | PM.PNNEP ---
Progress Note: A&P Assessment and Plan (1) ESRD (end stage renal disease): Code(s): N18.6 - End stage renal disease Status: Acute Assessment and Plan: Diego has end-stage renal disease. will get another dialysis treatment later today (2) Bilateral pleural effusion: Code(s): J90 - Pleural effusion, not elsewhere classified Status: Acute Assessment and Plan: Patient has bilateral pleural effusions. chest x-ray looks about the same. Still has a left base loculated hydro pneumothorax. (3) Acute hypercapnic respiratory failure: Code(s): J96.02 - Acute respiratory failure with hypercapnia Status: Acute Assessment and Plan: The patient is on the ventilator. He will be getting supportive care, pulmonary toilet, . He is also getting antibiotics. He has been cultured. Cultures are negative so far. weaning parameter show generalized weakness. Still on the ventilator. (4) Hyponatremia: Code(s): E87.1 - Hypo-osmolality and hyponatremia Status: Acute Assessment and Plan: Sodium level is a little bit low. This is related to fluid intake between dialysis treatments. (5) Chronic anemia: Code(s): D64.9 - Anemia, unspecified Status: Acute Assessment and Plan: Hemoglobin Stable in the 8. Getting Epogen with dialysis. (6) Hypertension: Code(s): I10 - Essential (primary) hypertension Status: Acute Assessment and Plan: Blood pressure is a bit soft. Off antihypertensives (7) Cirrhosis of liver: Qualifiers: Hepatic cirrhosis type: alcoholic cirrhosis Ascites presence: without ascites Qualified Code(s): K70.30 - Alcoholic cirrhosis of liver without ascites Code(s): K74.60 - Unspecified cirrhosis of liver Status: Acute Assessment and Plan: He does not drink anymore Subjective Date/time seen: 08/23/21 12:27 Interval history: patient looks comfortable in bed. He is still on the ventilator. He opens his eyes and follows commands. Exam Narrative: WDWN in NAD on the ventilator in the ICU skin no rash Or subcu nodules head ncat lungs coarse bilaterally cor reg no rub or gallop abd BS+ nontender and soft ext no edema or cyanosis. Objective Data Vital Signs Vital Signs: Vital Signs - 24 hr 08/22/21 12:30 08/22/21 12:45 08/22/21 13:01 Temperature Pulse Rate 103 H 95 100 Respiratory Rate Blood Pressure 89/53 L 95/50 L 98/60 L Pulse Oximetry 08/22/21 13:15 08/22/21 13:20 08/22/21 13:30 Temperature Pulse Rate 99 95 89 Respiratory Rate Blood Pressure 76/58 L 97/64 L 100/53 L Pulse Oximetry 08/22/21 13:36 08/22/21 13:45 08/22/21 13:48 Temperature Pulse Rate 90 96 99 Respiratory Rate 29 H 23 H Blood Pressure 100/57 L Pulse Oximetry 100 08/22/21 14:00 08/22/21 14:15 08/22/21 14:30 Temperature Pulse Rate 103 H 100 99 Respiratory Rate 14 Blood Pressure 93/59 L 92/65 L 90/51 L Pulse Oximetry 95 08/22/21 14:45 08/22/21 15:00 08/22/21 15:15 Temperature Pulse Rate 102 H 99 91 Respiratory Rate Blood Pressure 95/73 L 94/58 L 99/59 L Pulse Oximetry 08/22/21 15:30 08/22/21 15:45 08/22/21 16:00 Temperature 36.3 C L Pulse Rate 99 94 105 H Respiratory Rate 16 Blood Pressure 89/70 L 120/46 L 109/69 Pulse Oximetry 100 08/22/21 16:59 08/22/21 18:00 08/22/21 20:00 Temperature 37.0 C Pulse Rate 89 110 H 105 H Respiratory Rate 15 21 H Blood Pressure 125/71 96/65 L Pulse Oximetry 100 99 98 08/22/21 21:43 08/22/21 21:48 08/22/21 21:50 Temperature Pulse Rate 102 H 102 H 103 H Respiratory Rate 24 H 19 Blood Pressure Pulse Oximetry 97 08/22/21 22:00 08/22/21 23:30 08/23/21 00:00 Temperature 37.1 C Pulse Rate 102 H 98 92 Respiratory Rate 22 H 27 H Blood Pressure 106/61 91/54 L Pulse Oximetry 97 97 98 08/23/21 02:00 08/23/21 02:08 08/23/21 02:
[2021-08-23] MEDS: POTASSIUM PHOS,M-BASIC-D-BASIC 20 MMOL in SODIUM CHLORIDE 0.9% IV 250 ML 64.17 MMOL IVPB (12:47)
[2021-08-23 17:43] LABS: Glucose Point of Care 97 mg/dl (65-105)
[2021-08-23 23:43] LABS: Glucose Point of Care 94 mg/dl (65-105)
[2021-08-24] VITALS (40 sets, daily range): BP systolic 88–190; BP diastolic 29–122; PULSE 64–106; RESP 14–27; TEMP 35.4–37.4; O2SAT 92–100
[2021-08-24] MEDS: IPRATROPIUM BR 0.02% INH SOLN 0.5 MG/2.5 ML VIAL INHALATION ×4 (01:27→20:20)
[2021-08-24] MEDS: ALBUTEROL SULFATE NEB 2.5 MG/0.5 ML INH 5 MG INHALATION ×4 (01:27→20:20)
[2021-08-24 06:15] LABS: Alveolar/Arterial O2 Gradient 57.4 mmHg; Base Excess ABG 3.9 mEq/l (+/-2.0); Carboxyhemoglobin 0.3 % THb (0-2.0); Fractional Inspired Oxygen 30 %; Methemoglobin ABG 0.4 %THb (0-1.5); Oxygen Content ABG 12.3 %vol (16.0-22.0); Oxygen Saturation ABG 98.2 % (95.0-100.0); Oxyhemoglobin 96.8 % THb (90.0-100.0); PCO2 ABG 40.5 mmHg (35.0-45.0); PO2 ABG 108.9 mmHg (80.0-100.0); PO2 FiO2 Ratio Arterial Blood 3.63 %; Reduced Hemoglobin 2.5 %THb (0-5.0); Total Hemoglobin 8.9 g/dL (12.0-18.0); pH ABG 7.458 (7.350-7.450)
[2021-08-24 06:16] LABS: Device VENTILATOR; Modified Allen's Test Pass; Site Drawn RIGHT RADIAL
[2021-08-24 06:17] LABS: Arterial Blood Gas PEEP 5 cmH2O; Arterial Blood Gas Tidal Volume 320 ml; Arterial Blood Gas Vent Mode CMV; Arterial Blood Gas Ventilator rate 16 /MIN
[2021-08-24 06:42] LABS: Hematocrit 28.6 % (42.0-52.0); Hemoglobin 9.3 g/dL (14.0-18.0); Mean Corpuscular HGB Conc 32.5 g/dl (32-36); Mean Corpuscular Hemoglobin 30.8 pg (26-34); Mean Corpuscular Volume 94.7 fl (80-100); Mean Platelet Volume 11.3 fl (7.4-10.4); Platelet Count Result 129 k/mm3 (150-375); Red Blood Count 3.02 M/mm3 (4.6-6.20); Red Cell Distribution Width 15.5 % (11.5-14.5); White Blood Count 5.3 K/mm3 (4.5-10.0)
[2021-08-24 07:04] LABS: Alanine Aminotransferase 80 U/L (4-50); Albumin Level 3.3 g/dL (3.5-5.1); Alkaline Phosphatase 155 U/L (38-126); Anion Gap 9 mmol/L (8-16); Aspartate Amino Transferase 33 U/L (17-59); Bilirubin,Total 0.5 mg/dL (0.2-1.3); Blood Urea Nitrogen 58 mg/dL (9-20); Calcium 8.7 mg/dL (8.4-10.2); Carbon Dioxide 31 mmol/L (22-30); Chloride 92 mmol/L (98-107); Estimated CRCL calculation 17 ml/min; Estimated Glomerular Filt Rate 21; Glucose 105 mg/dL (65-110); Magnesium 2.1 mg/dL (1.6-2.3); Sodium 132 mmol/L (137-145)
[2021-08-24] MEDS: MIDODRINE HCL 2.5 MG TABLET 5 MG PO ×3 (07:47→17:17)
[2021-08-24] MEDS: PANTOPRAZOLE SODIUM IV 40 MG VIAL IV PUSH (07:48)
[2021-08-24] MEDS: HEPARIN SODIUM 5,000 UNITS/ML VIAL 5000 UNITS SUB-Q ×2 (07:48→20:24)
[2021-08-24] MEDS: MINERAL OIL/WHITE PETROLATUM OINTMENT 1 APPLIC EACH EYE ×2 (07:49→20:24)
[2021-08-24] MEDS: DORNASE ALFA INH SOLN 1 MG/ML 2.5 ML AMP 2.5 MG INHALATION ×2 (08:50→20:22)
[2021-08-24] MEDS: MIDAZOLAM HCL (*CRX) 2 MG/2 ML VIAL IV PUSH (08:56)
[2021-08-24] MEDS: EPOETIN ALFA-EPBX 10,000 UNITS/ML VIAL 10000 UNITS IV PUSH (09:21)
--- NOTE | 2021-08-24 09:59 | PM.PNNEP ---
Progress Note: A&P Assessment and Plan (1) ESRD (end stage renal disease): Code(s): N18.6 - End stage renal disease Status: Chronic Assessment and Plan: HD today and continue outpatient T/T/S schedule follow electrolytes, clearance, and volume status normally follows with Dr. Prince at [facility] (2) Acute hypercapnic respiratory failure: Code(s): J96.02 - Acute respiratory failure with hypercapnia Status: Acute Assessment and Plan: remains on ventilator support at this time due to pneumonia, pleural effusions, and generalized weakness wean as tolerated (3) Bilateral pleural effusion: Code(s): J90 - Pleural effusion, not elsewhere classified Status: Acute Assessment and Plan: as noted by imaging push fluid removal as tolerated (4) Hyponatremia: Code(s): E87.1 - Hypo-osmolality and hyponatremia Status: Acute Assessment and Plan: likely related to ESRD and fluid shifts dialysis should correct to some degree (5) Chronic anemia: Code(s): D64.9 - Anemia, unspecified Status: Chronic Assessment and Plan: related to ESRD and acute illness Epogen with HD follow trend of H/H (6) Hypertension: Code(s): I10 - Essential (primary) hypertension Status: Chronic Assessment and Plan: reasonable control at this time follow trend of hemodynamics (7) Cirrhosis of liver: Qualifiers: Ascites presence: without ascites Hepatic cirrhosis type: alcoholic cirrhosis Qualified Code(s): K70.30 - Alcoholic cirrhosis of liver without ascites Code(s): K74.60 - Unspecified cirrhosis of liver Status: Acute Assessment and Plan: chronic issue based on imaging LFTs trending down Will continue to follow Subjective Date/time seen: 08/24/21 09:59 Chart reviewed; tolerating hemodialysis treatment at the time of my visit (seen on HD at ~ 9:45AM); remains on ventilator but awake and alert - able to nod head to yes/no questions; no apparent issues overnight or earlier this morning; no distress noted. Exam Narrative: General: elderly male in NAD; intubated Heart: normal S1 and S2; no rub Lungs: coarse breath sounds Abdomen: soft, nontender, nondistended, positive bowel sounds Extremities: no cyanosis or clubbing; no edema Skin: warm and dry Objective Data Vital Signs Vital Signs: Vital Signs Temp Pulse Resp BP Pulse Ox 08/24/21 09:45 96 132/117 H 08/24/21 09:30 101 H 122/58 L 08/24/21 09:15 103 H 146/122 H 08/24/21 09:08 98 16 08/24/21 09:00 99 158/77 H 08/24/21 08:56 95 92 08/24/21 08:54 97 16 08/24/21 08:45 103 H 190/57 H 08/24/21 08:30 99 174/69 H 08/24/21 08:14 88 130/69 08/24/21 08:00 37.0 C 97 20 128/58 L 97 08/24/21 07:55 36.7 C 91 22 H 141/63 H 98 08/24/21 06:00 95 20 106/76 98 08/24/21 04:00 36.6 C 89 19 142/68 H 100 08/24/21 02:00 88 17 137/63 100 08/24/21 01:33 91 98 08/24/21 01:30 91 20 08/24/21 00:00 36.9 C 96 19 125/65 94 08/23/21 23:00 84 96 08/23/21 22:00 87 21 H 124/64 92 08/23/21 21:10 90 20 08/23/21 20:21 89 100 08/23/21 20:18 89 20 08/23/21 20:00 36.7 C 86 17 117/54 L 99 08/23/21 18:00 93 15 126/46 L 100 08/23/21 16:00 95 29 H 126/51 L 100 08/23/21 14:03 86 23 H 08/23/21 14:00 90 29 H 122/59 L 100 08/23/21 13:54 83 98 08/23/21 13:52 80 22 H 08/23/21 12:00 37.1 C 90 37 H 116/64 98 08/23/21 10:28 86 98 Intake/Output Intake/Output: Intake & Output 08/21/21 08/22/21 08/23/21 08/24/21 23:59 23:59 23:59 23:59 Intake Total 1245 1689 1730 741 Output Total 0 2000 0 0 Balance 1245 -311 1730 741 Meds/Results Medications: Active Medications Generic Name Dose Route Start Last Admin Trade Name Freq PRN Reason Stop Dose
--- NOTE | 2021-08-24 10:14 | WPDINTPN ---
Progress Note: A&P Assessment and Plan (1) Acute hypercapnic respiratory failure: Code(s): J96.02 - Acute respiratory failure with hypercapnia Status: Acute Assessment and Plan: Transferred to ICU Acute hypercapnic respiratory failure could be multi factorial, medications as patient received Ativan and morphine, bilateral peripheral effusion, pneumonia, will opacification of left hemithorax -continue Pulmozyme and bronchodilators -continue CPT -chest x-ray reviewed and appears unchanged -CT chest 08/18/2021 shows moderate bilateral pleural effusion with probable small loculated left apical hydropneumothorax. Bilateral airspace disease throughout the residual left lung and and peripherally in the right upper and lower lobes which may represent a combination of pneumonia and/or atelectasis. -08/19 left thoracentesis with done and 500 cc fluid was removed -patient failed his weaning trial daily for last few days. He is off sedation but appears to be very weak on weaning trial. His RSBI gets very high and High pressure support is required to get adequate RSBI as his tidal volumes are very low on weaning trial -continue daily attempts (2) Pneumonia: Qualifiers: Pneumonia type: due to unspecified organism Laterality: unspecified laterality Lung location: unspecified part of lung Qualified Code(s): J18.9 - Pneumonia, unspecified organism Code(s): J18.9 - Pneumonia, unspecified organism Status: Acute Assessment and Plan: Check x-ray x-ray with opacification of left hemithorax, combination of effusion, atelectasis, mucus plugging and pneumonia -leukocytosis improving -continue ceftriaxone, azithromycin (initiated on 08/18) will complete 7 day course today. Off vancomycin since all cultures have been negative (3) Altered mental status: Qualifiers: Altered mental status type: unspecified Qualified Code(s): R41.82 - Altered mental status, unspecified Code(s): R41.82 - Altered mental status, unspecified Status: Acute Assessment and Plan: Altered mental status likely related to hypercarbia, infection -CT brain on 08/18/2021 showed no acute intracranial abnormality -currently off all sedation and following commands (4) ESRD (end stage renal disease): Code(s): N18.6 - End stage renal disease Status: Chronic Assessment and Plan: End-stage renal disease on dialysis (M,W,F) -nephrology following the patient -dialysis per Nephrology. Patient is getting dialyzed today (5) Pleural effusion: Code(s): J90 - Pleural effusion, not elsewhere classified Status: Acute Assessment and Plan: Bilateral pleural effusions patient has thoracentesis on left and 500 cc of fluid was removed 08/19 (6) Cirrhosis of liver: Qualifiers: Hepatic cirrhosis type: alcoholic cirrhosis Ascites presence: without ascites Qualified Code(s): K70.30 - Alcoholic cirrhosis of liver without ascites Code(s): K74.60 - Unspecified cirrhosis of liver Status: Acute Assessment and Plan: Significantly elevated LFTs, could be related to underlying liver disease plus possible shock liver due to hypoxia -hepatitis panel is negative -right upper quadrant ultrasound -nodularity of the liver surface, consistent with cirrhosis. Gallbladder is normal -LFTs trending down (7) Pneumothorax: Code(s): J93.9 - Pneumothorax, unspecified Status: Acute Assessment and Plan: ? Small loculated pneumothorax in left lung Monitor for now Discussed with pulmonary (8) Electrolyte abnormality: Code(s): E87.8 - Other disorders of electrolyte and fluid balance, not elsewhere classified Status: Acute Assessment and Plan: Improved low potassium and phosphate after replacement Currently on hemodialysis Additional Plan Code status: Full code Critical care time spent: 30 minutes This dictation may have been done
[2021-08-24 13:08] LABS: Glucose Point of Care 95 mg/dl (65-105)
--- NOTE | 2021-08-24 14:06 | PM.PNPUL ---
Progress Note: A&P Assessment and Plan (1) Pleural effusion: Code(s): J90 - Pleural effusion, not elsewhere classified Status: Acute Assessment and Plan: Pleural effusions essentially unchanged on last chest x-ray. Left localized pneumothorax same today's chest x-ray 08/24/2021. There is no evidence of left empyema on thoracentesis. (2) Pneumonia: Qualifiers: Laterality: unspecified laterality Lung location: unspecified part of lung Pneumonia type: due to unspecified organism Qualified Code(s): J18.9 - Pneumonia, unspecified organism Code(s): J18.9 - Pneumonia, unspecified organism Status: Acute Assessment and Plan: Respiratory status has improved over the last 2 days. No leukocytosis. Chest x-ray essentially unchanged over the last 2 days. Left localized pneumothorax still evident on chest x-ray. Pleural effusions bilaterally as before. Patient on antibiotics for left pneumonia. Weaning trials are planned for tomorrow by the ICU team. d/w Dr Grady. (3) Acute hypercapnic respiratory failure: Code(s): J96.02 - Acute respiratory failure with hypercapnia Status: Acute Assessment and Plan: He is not having weaning trials today due to long HD this morning, had 3 L removed, and did not have a successful attempt at weaning yesterday. Had high RSBI. He is in CMV+ mode, rate 16, TV 320, PEEP 5. He is using accessory muscles of respiration, and changes in settings helped. D/W Dr Grady; he is in agreement; Increased TV to 450, increased PEEP to 7; now he is not using accessory muscles and rate is lower. This may help him rest resp muscles, and we will plan more weaning trials tomorrow. CXR is stable. Small loculated ptx left base and meniscus of pleural fluid right base. He is having small amounts of cloudy secretions in the suction catheter. No fever. Had sample sent Aug 22, normal oral maegan growing. He will use the vest later today to help mobilize secretions. (4) Altered mental status: Qualifiers: Altered mental status type: unspecified Qualified Code(s): R41.82 - Altered mental status, unspecified Code(s): R41.82 - Altered mental status, unspecified Status: Acute Assessment and Plan: Mental status is great, Alert, good facial expressions, follows commands. (5) End-stage renal disease on hemodialysis: Code(s): N18.6 - End stage renal disease; Z99.2 - Dependence on renal dialysis Status: Acute Assessment and Plan: Had 3 L removed today. Subjective Date/time seen: 08/24/21 14:06 This 76 year old man is seen for bilateral pleural effusions, pneumonia, acute respiratory failure, vent management per Curtain Worker. His is at the bedside. Patient is alert, responsive, using some accessory muscles. Review of Systems Review of Systems: ROS unobtainable: Yes unobtainable due to medical condition Exam Narrative: GENERAL APPEARANCE: Well developed, well nourished, elderly man, awake following commands. SKIN: Inspection of the skin reveals no rashes, ulcerations or petechiae. LUNGS: Few rhonchi anteriorly decreased breath sounds left lateral chest. no wheezing. Increased accessory muscles in neck, upper chest. CARDIAC: There was a regular rate and rhythm without any murmurs, gallops, rubs. ABDOMEN: Soft with normal bowel sounds. LYMPH NODES: No lymphadenopathy was appreciated in the neck EXTREMITIES: No cyanosis, clubbing. He has 4+ edema in his hands, fingertips are cool to touch. Objective Data Vital Signs Vital Signs: Vital Signs - 24 hr 08/23/21 16:00 08/23/21 18:00
[2021-08-24 18:19] LABS: Glucose Point of Care 101 mg/dl (65-105)
[2021-08-25] VITALS (27 sets, daily range): BP systolic 86–113; BP diastolic 45–85; PULSE 82–96; RESP 11–100; TEMP 36.6–37.7; O2SAT 14–99
[2021-08-25 00:22] LABS: Glucose Point of Care 111 mg/dl (65-105)
[2021-08-25] MEDS: ALBUTEROL SULFATE NEB 2.5 MG/0.5 ML INH 5 MG INHALATION ×4 (02:28→19:59)
[2021-08-25] MEDS: IPRATROPIUM BR 0.02% INH SOLN 0.5 MG/2.5 ML VIAL INHALATION ×4 (02:28→19:59)
[2021-08-25 04:49] LABS: Alveolar/Arterial O2 Gradient 67.2 mmHg; Base Excess ABG 6.1 mEq/l (+/-2.0); Carboxyhemoglobin 0.3 % THb (0-2.0); Fractional Inspired Oxygen 30 %; HCO3 ABG 29.9 mEq/l (22.0-26.0); Methemoglobin ABG 0.3 %THb (0-1.5); Oxygen Content ABG 15.6 %vol (16.0-22.0); Oxyhemoglobin 96.7 % THb (90.0-100.0); PO2 ABG 99.7 mmHg (80.0-100.0); PO2 FiO2 Ratio Arterial Blood 3.32 %; Reduced Hemoglobin 2.7 %THb (0-5.0); Total Hemoglobin 11.4 g/dL (12.0-18.0); pH ABG 7.491 (7.350-7.450)
[2021-08-25 04:50] LABS: Modified Allen's Test Unable to perform; Site Drawn RIGHT RADIAL
[2021-08-25 04:51] LABS: Device VENTILATOR
[2021-08-25 04:52] LABS: Arterial Blood Gas PEEP 7 cmH2O; Arterial Blood Gas Tidal Volume 450 ml; Arterial Blood Gas Vent Mode CMV; Arterial Blood Gas Ventilator rate 16 /MIN
[2021-08-25 07:30] LABS: Alanine Aminotransferase 64 U/L (4-50); Albumin Level 3.1 g/dL (3.5-5.1); Alkaline Phosphatase 189 U/L (38-126); Anion Gap 10 mmol/L (8-16); Aspartate Amino Transferase 39 U/L (17-59); Bilirubin,Total 0.4 mg/dL (0.2-1.3); Blood Urea Nitrogen 48 mg/dL (9-20); Calcium 8.7 mg/dL (8.4-10.2); Carbon Dioxide 30 mmol/L (22-30); Chloride 93 mmol/L (98-107); Estimated CRCL calculation 21 ml/min; Estimated Glomerular Filt Rate 25; Glucose 100 mg/dL (65-110); Potassium 3.7 mmol/L (3.4-5.0); Sodium 133 mmol/L (137-145)
[2021-08-25 07:55] LABS: Hematocrit 26.3 % (42.0-52.0); Hemoglobin 8.6 g/dL (14.0-18.0); Mean Corpuscular HGB Conc 32.7 g/dl (32-36); Mean Corpuscular Hemoglobin 31.2 pg (26-34); Mean Corpuscular Volume 95.3 fl (80-100); Mean Platelet Volume 10.7 fl (7.4-10.4); Platelet Count Result 148 k/mm3 (150-375); Red Blood Count 2.76 M/mm3 (4.6-6.20); Red Cell Distribution Width 15.2 % (11.5-14.5); White Blood Count 5.6 K/mm3 (4.5-10.0)
[2021-08-25] MEDS: DORNASE ALFA INH SOLN 1 MG/ML 2.5 ML AMP 2.5 MG INHALATION ×2 (08:04→20:30)
[2021-08-25] MEDS: HEPARIN SODIUM 5,000 UNITS/ML VIAL 5000 UNITS SUB-Q ×2 (08:59→21:10)
[2021-08-25] MEDS: PANTOPRAZOLE SODIUM IV 40 MG VIAL IV PUSH (09:00)
[2021-08-25] MEDS: MIDODRINE HCL 2.5 MG TABLET 5 MG PO ×3 (09:00→16:27)
[2021-08-25] MEDS: MINERAL OIL/WHITE PETROLATUM OINTMENT 1 APPLIC EACH EYE (09:00)
--- NOTE | 2021-08-25 12:10 | PM.PNNEP ---
Progress Note: A&P Assessment and Plan (1) ESRD (end stage renal disease): Code(s): N18.6 - End stage renal disease Status: Chronic Assessment and Plan: HD yesterday and continue outpatient T/T/S schedule follow electrolytes, clearance, and volume status normally follows with Dr. Prince at [facility] (2) Acute hypercapnic respiratory failure: Code(s): J96.02 - Acute respiratory failure with hypercapnia Status: Acute Assessment and Plan: remains on ventilator support at this time due to pneumonia, pleural effusions, and generalized weakness wean as tolerated (3) Bilateral pleural effusion: Code(s): J90 - Pleural effusion, not elsewhere classified Status: Acute Assessment and Plan: as noted by imaging push fluid removal/ultrafiltration with dialysis as tolerated (4) Hyponatremia: Code(s): E87.1 - Hypo-osmolality and hyponatremia Status: Acute Assessment and Plan: likely related to ESRD and fluid shifts dialysis should correct to some degree (5) Chronic anemia: Code(s): D64.9 - Anemia, unspecified Status: Chronic Assessment and Plan: related to ESRD and acute illness Epogen with HD follow trend of H/H (6) Hypertension: Code(s): I10 - Essential (primary) hypertension Status: Chronic Assessment and Plan: reasonable control at this time follow trend of hemodynamics (7) Cirrhosis of liver: Qualifiers: Hepatic cirrhosis type: alcoholic cirrhosis Ascites presence: without ascites Qualified Code(s): K70.30 - Alcoholic cirrhosis of liver without ascites Code(s): K74.60 - Unspecified cirrhosis of liver Status: Acute Assessment and Plan: chronic issue based on imaging LFTs trending down Will continue to follow Subjective Date/time seen: 08/25/21 12:10 Tolerated hemodialysis treatment yesterday without any issues or problems; remains on mechanical ventilation but awake and alert; able to answer yes/no questions; no other issues/events overnight or earlier this morning; no apparent distress to report. Exam Narrative: General: elderly male in NAD; intubated Heart: normal S1 and S2; no rub Lungs: coarse breath sounds Abdomen: soft, nontender, nondistended, positive bowel sounds Extremities: no cyanosis or clubbing; no edema Skin: warm and intact Objective Data Vital Signs Vital Signs: Vital Signs Temp Pulse Resp BP Pulse Ox 08/25/21 12:00 37.3 C 82 30 H 105/54 L 99 08/25/21 10:30 86 99 08/25/21 10:00 92 22 H 110/59 L 99 08/25/21 08:25 93 28 H 08/25/21 08:09 86 17 08/25/21 08:08 86 99 08/25/21 08:00 37.0 C 86 18 96/52 L 98 08/25/21 06:00 86 22 H 86/48 L 96 08/25/21 05:24 96 98 08/25/21 04:00 36.6 C 85 23 H 93/59 L 98 08/25/21 02:40 90 20 08/25/21 02:28 90 20 97 08/25/21 02:00 92 21 H 92/45 L 96 08/25/21 00:00 37.7 C H 91 23 H 93/45 L 97 08/24/21 23:50 92 20 08/24/21 23:35 92 97 08/24/21 22:00 95 19 106/46 L 98 08/24/21 20:25 90 16 98 08/24/21 20:00 37.4 C 83 17 97/49 L 96 08/24/21 18:00 96 22 H 106/48 L 98 08/24/21 16:49 96 97 Intake/Output Intake/Output: Intake & Output 08/22/21 08/23/21 08/24/21 08/25/21 23:59 23:59 23:59 23:59 Intake Total 1689 1730 1431 619 Output Total 2000 0 3000 Balance -311 1730 -1569 619 Meds/Results Medications: Active Medications Generic Name Dose Route Start Last Admin Trade Name Flor PRN Reason Stop Dose Admin Acetaminophen 650 mg 08/17/21 13:58 Acetaminophen 325 Mg Tablet PO Q4H PRN Mild Pain (1-3) or Fever Albuterol 5 mg 08/17/21 14:00 08/25/21 13:38 Albuterol Sulfate Neb 2.5 Mg/0.5 Ml Inh INHALATION 5 mg Q6HRT SAM Administration Dextrose 12.5 gm 08/17/21 23:32 08/18/21 18:30 Dextrose 50% 25 Gm/50 M
--- NOTE | 2021-08-25 12:14 | WPDINTPN ---
Progress Note: A&P Assessment and Plan (1) Acute hypercapnic respiratory failure: Code(s): J96.02 - Acute respiratory failure with hypercapnia Status: Acute Assessment and Plan: Transferred to ICU Acute hypercapnic respiratory failure could be multi factorial, medications as patient received Ativan and morphine, bilateral peripheral effusion, pneumonia, will opacification of left hemithorax -continue Pulmozyme and bronchodilators -continue CPT -chest x-ray reviewed and appears unchanged -CT chest 08/18/2021 shows moderate bilateral pleural effusion with probable small loculated left apical hydropneumothorax. Bilateral airspace disease throughout the residual left lung and and peripherally in the right upper and lower lobes which may represent a combination of pneumonia and/or atelectasis. -08/19 left thoracentesis with done and 500 cc fluid was removed -patient failed his weaning trial daily for last few days. He is off sedation but appears to be very weak on weaning trial. His RSBI gets very high and High pressure support is required to get adequate RSBI as his tidal volumes are very low on weaning trial - will discuss with Pulmonary regarding transfer for thoracic surgery evaluation/ opinion (2) Pneumonia: Qualifiers: Pneumonia type: due to unspecified organism Laterality: unspecified laterality Lung location: unspecified part of lung Qualified Code(s): J18.9 - Pneumonia, unspecified organism Code(s): J18.9 - Pneumonia, unspecified organism Status: Acute Assessment and Plan: Check x-ray x-ray with opacification of left hemithorax, combination of effusion, atelectasis, mucus plugging and pneumonia - completed a 7 day course of ceftriaxone, azithromycin ( - cultures were negative and he is afebrile - WBC has normalized (3) Altered mental status: Qualifiers: Altered mental status type: unspecified Qualified Code(s): R41.82 - Altered mental status, unspecified Code(s): R41.82 - Altered mental status, unspecified Status: Acute Assessment and Plan: Altered mental status likely related to hypercarbia, infection -CT brain on 08/18/2021 showed no acute intracranial abnormality -currently off all sedation and following commands (4) ESRD (end stage renal disease): Code(s): N18.6 - End stage renal disease Status: Chronic Assessment and Plan: End-stage renal disease on dialysis (M,W,F) -nephrology following the patient -dialysis per Nephrology. Patient is getting dialyzed today (5) Pleural effusion: Code(s): J90 - Pleural effusion, not elsewhere classified Status: Acute Assessment and Plan: Bilateral pleural effusions patient has thoracentesis on left and 500 cc of fluid was removed 08/19 (6) Cirrhosis of liver: Qualifiers: Hepatic cirrhosis type: alcoholic cirrhosis Ascites presence: without ascites Qualified Code(s): K70.30 - Alcoholic cirrhosis of liver without ascites Code(s): K74.60 - Unspecified cirrhosis of liver Status: Acute Assessment and Plan: Significantly elevated LFTs, could be related to underlying liver disease plus possible shock liver due to hypoxia -hepatitis panel is negative -right upper quadrant ultrasound -nodularity of the liver surface, consistent with cirrhosis. Gallbladder is normal -LFTs trending down (7) Pneumothorax: Code(s): J93.9 - Pneumothorax, unspecified Status: Acute Assessment and Plan: ? Small loculated pneumothorax in left lung Monitor for now I will discussed with pulmonary regarding possible transfer for thoracic surgery evaluation (8) Electrolyte abnormality: Code(s): E87.8 - Other disorders of electrolyte and fluid balance, not elsewhere classified Status: Acute Assessment and Plan: Improved low potassium and phosphate after replacement Additional Plan Code status: Full code Critical c
[2021-08-25 13:42] LABS: Glucose Point of Care 98 mg/dl (65-105)
--- NOTE | 2021-08-25 14:32 | PM.PNPUL ---
Progress Note: A&P Assessment and Plan (1) Pleural effusion: Code(s): J90 - Pleural effusion, not elsewhere classified Status: Acute Assessment and Plan: Pleural effusions essentially unchanged on last chest x-ray. Left localized pneumothorax same today's chest x-ray 08/24/2021. There is no evidence of left empyema on thoracentesis. (2) Pneumonia: Qualifiers: Laterality: unspecified laterality Lung location: unspecified part of lung Pneumonia type: due to unspecified organism Qualified Code(s): J18.9 - Pneumonia, unspecified organism Code(s): J18.9 - Pneumonia, unspecified organism Status: Acute Assessment and Plan: Respiratory status has improved over the last 2 days. No leukocytosis. Chest x-ray essentially unchanged over the last 2 days. Left localized pneumothorax still evident on chest x-ray. Pleural effusions bilaterally as before. Patient on antibiotics for left pneumonia. Weaning trials are planned for tomorrow by the ICU team. d/w Dr Grady. (3) Acute hypercapnic respiratory failure: Code(s): J96.02 - Acute respiratory failure with hypercapnia Status: Acute Assessment and Plan: He is not having weaning trials today due to long HD this morning, had 3 L removed, and did not have a successful attempt at weaning yesterday. Had high RSBI. He is now in ASV mode to improve tilda volumes. D/W Dr Grady; CXR is stable. Small loculated ptx left base and meniscus of pleural fluid right base. He is having small amounts of cloudy secretions in the suction catheter. No fever. Had sample sent Aug 22, normal oral maegan growing. He will continue to use the vibratory vest later to help mobilize secretions. (4) Altered mental status: Qualifiers: Altered mental status type: unspecified Qualified Code(s): R41.82 - Altered mental status, unspecified Code(s): R41.82 - Altered mental status, unspecified Status: Acute Assessment and Plan: Mental status is great, Alert, good facial expressions, follows commands. (5) End-stage renal disease on hemodialysis: Code(s): N18.6 - End stage renal disease; Z99.2 - Dependence on renal dialysis Status: Acute Assessment and Plan: On HD, had last treatment Saturdat 08/24 3 L off. Subjective Date/time seen: 08/25/21 14:32 This 76 year old man is seen for bilateral pleural effusions, pneumonia, acute respiratory failure, vent management per Brood Hatchery Manager. Dr Grady changed him to ASV mode which has increased his TV. He is alert, watching TV. Not in distress. His tidal volumes are higher. Review of Systems Review of Systems: All systems reviewed & are unremarkable except as noted in HPI and below (HPI) Exam Narrative: GENERAL APPEARANCE: Well developed, well nourished, elderly man, awake following commands. SKIN: Inspection of the skin reveals no rashes, ulcerations or petechiae. LUNGS: Few rhonchi anteriorly decreased breath sounds left lateral chest. no wheezing. Increased accessory muscles in neck, upper chest. CARDIAC: There was a regular rate and rhythm without any murmurs, gallops, rubs. ABDOMEN: Soft with normal bowel sounds. LYMPH NODES: No lymphadenopathy was appreciated in the neck EXTREMITIES: No cyanosis, clubbing. He has 4+ edema in his hands, fingertips are cool to touch. Objective Data Vital Signs Vital Signs: Vital Signs - 24 hr 08/24/21 16:00 08/24/21 16:49 08/24/21 18:00 Temperature 36.9 C Pulse Rate 102 H 96 96 Respiratory Rate 14 22 H Blood Pressure 95/47 L 106/48 L Pulse Oximetry 97 97 98 08/24/21 20:00 08/24/21
[2021-08-25 17:57] LABS: Glucose Point of Care 101 mg/dl (65-105)
[2021-08-26] VITALS (26 sets, daily range): BP systolic 87–123; BP diastolic 56–72; PULSE 81–100; RESP 15–45; TEMP 36.7–37.4; O2SAT 91–100
[2021-08-26 00:25] LABS: Glucose Point of Care 94 mg/dl (65-105)
[2021-08-26] MEDS: ALBUTEROL SULFATE NEB 2.5 MG/0.5 ML INH 5 MG INHALATION ×4 (02:05→19:34)
[2021-08-26] MEDS: IPRATROPIUM BR 0.02% INH SOLN 0.5 MG/2.5 ML VIAL INHALATION ×4 (02:06→19:35)
[2021-08-26 04:56] LABS: Alveolar/Arterial O2 Gradient 75.1 mmHg; Base Excess ABG 5.5 mEq/l (+/-2.0); Carboxyhemoglobin 0.3 % THb (0-2.0); Fractional Inspired Oxygen 30 %; HCO3 ABG 29.3 mEq/l (22.0-26.0); Methemoglobin ABG 0.3 %THb (0-1.5); Oxygen Content ABG 13.5 %vol (16.0-22.0); Oxygen Saturation ABG 97.5 % (95.0-100.0); Oxyhemoglobin 95.8 % THb (90.0-100.0); PO2 ABG 91.8 mmHg (80.0-100.0); PO2 FiO2 Ratio Arterial Blood 3.06 %; Reduced Hemoglobin 3.6 %THb (0-5.0); Total Hemoglobin 9.9 g/dL (12.0-18.0); pH ABG 7.483 (7.350-7.450)
[2021-08-26 04:57] LABS: Device VENTILATOR; Modified Allen's Test Unable to perform; Site Drawn RIGHT RADIAL
[2021-08-26 04:58] LABS: Arterial Blood Gas PEEP 7 cmH2O; Arterial Blood Gas Vent Mode ASV
[2021-08-26 05:50] LABS: Hematocrit 28.8 % (42.0-52.0); Hemoglobin 9.4 g/dL (14.0-18.0); Mean Corpuscular HGB Conc 32.6 g/dl (32-36); Mean Platelet Volume 10.8 fl (7.4-10.4); Platelet Count Result 179 k/mm3 (150-375); Red Blood Count 3.03 M/mm3 (4.6-6.20); Red Cell Distribution Width 15.3 % (11.5-14.5); White Blood Count 7.6 K/mm3 (4.5-10.0)
[2021-08-26 06:07] LABS: Alanine Aminotransferase 48 U/L (4-50); Albumin Level 3.2 g/dL (3.5-5.1); Alkaline Phosphatase 181 U/L (38-126); Anion Gap 11 mmol/L (8-16); Aspartate Amino Transferase 28 U/L (17-59); Bilirubin,Total 0.5 mg/dL (0.2-1.3); Blood Urea Nitrogen 71 mg/dL (9-20); Calcium 8.9 mg/dL (8.4-10.2); Carbon Dioxide 29 mmol/L (22-30); Chloride 91 mmol/L (98-107); Estimated CRCL calculation 16 ml/min; Estimated Glomerular Filt Rate 18; Glucose 108 mg/dL (65-110); Magnesium 2.2 mg/dL (1.6-2.3); Potassium 3.7 mmol/L (3.4-5.0); Sodium 131 mmol/L (137-145)
[2021-08-26] MEDS: DORNASE ALFA INH SOLN 1 MG/ML 2.5 ML AMP 2.5 MG INHALATION ×2 (07:55→19:34)
--- NOTE | 2021-08-26 08:57 | WPDINTPN ---
Progress Note: A&P Assessment and Plan (1) Acute hypercapnic respiratory failure: Code(s): J96.02 - Acute respiratory failure with hypercapnia Status: Acute Assessment and Plan: Transferred to ICU Acute hypercapnic respiratory failure could be multi factorial, medications as patient received Ativan and morphine, bilateral peripheral effusion, pneumonia, will opacification of left hemithorax -continue Pulmozyme and bronchodilators -continue CPT -chest x-ray reviewed and appears unchanged -CT chest 08/18/2021 shows moderate bilateral pleural effusion with probable small loculated left apical hydropneumothorax. Bilateral airspace disease throughout the residual left lung and and peripherally in the right upper and lower lobes which may represent a combination of pneumonia and/or atelectasis. -08/19 left thoracentesis with done and 500 cc fluid was removed -patient failed his weaning trial daily for last few days. He is off sedation but appears to be very weak on weaning trial. His RSBI gets very high and High pressure support is required to get adequate RSBI as his tidal volumes are very low on weaning trial. - Patient again failed his weaning trial this morning with respiratory rate in high 40s. Continue ASV mode - will discuss with Pulmonary regarding transfer for thoracic surgery evaluation/ opinion (2) Pneumonia: Qualifiers: Pneumonia type: due to unspecified organism Laterality: unspecified laterality Lung location: unspecified part of lung Qualified Code(s): J18.9 - Pneumonia, unspecified organism Code(s): J18.9 - Pneumonia, unspecified organism Status: Acute Assessment and Plan: Check x-ray x-ray with opacification of left hemithorax, combination of effusion, atelectasis, mucus plugging and pneumonia - completed a 7 day course of ceftriaxone, azithromycin ( - cultures were negative and he is afebrile - WBC has normalized (3) Altered mental status: Qualifiers: Altered mental status type: unspecified Qualified Code(s): R41.82 - Altered mental status, unspecified Code(s): R41.82 - Altered mental status, unspecified Status: Acute Assessment and Plan: Altered mental status likely related to hypercarbia, infection -CT brain on 08/18/2021 showed no acute intracranial abnormality -currently off all sedation and following commands (4) ESRD (end stage renal disease): Code(s): N18.6 - End stage renal disease Status: Chronic Assessment and Plan: End-stage renal disease on dialysis (M,W,F) -nephrology following the patient -dialysis per Nephrology. Patient is getting dialyzed today (5) Pleural effusion: Code(s): J90 - Pleural effusion, not elsewhere classified Status: Acute Assessment and Plan: Bilateral pleural effusions patient has thoracentesis on left and 500 cc of fluid was removed 08/19 (6) Cirrhosis of liver: Qualifiers: Hepatic cirrhosis type: alcoholic cirrhosis Ascites presence: without ascites Qualified Code(s): K70.30 - Alcoholic cirrhosis of liver without ascites Code(s): K74.60 - Unspecified cirrhosis of liver Status: Acute Assessment and Plan: Significantly elevated LFTs, could be related to underlying liver disease plus possible shock liver due to hypoxia -hepatitis panel is negative -right upper quadrant ultrasound -nodularity of the liver surface, consistent with cirrhosis. Gallbladder is normal -LFTs trending down (7) Pneumothorax: Code(s): J93.9 - Pneumothorax, unspecified Status: Acute Assessment and Plan: ? Small loculated pneumothorax in left lung Monitor for now I will discussed with pulmonary regarding possible transfer for thoracic surgery evaluation (8) Electrolyte abnormality: Code(s): E87.8 - Other disorders of electrolyte and fluid balance, not elsewhere classified Status: Acute Assessment and Plan:
[2021-08-26] MEDS: HEPARIN SODIUM 5,000 UNITS/ML VIAL 5000 UNITS SUB-Q ×2 (08:58→20:40)
[2021-08-26] MEDS: MIDODRINE HCL 2.5 MG TABLET 5 MG PO ×3 (08:58→16:22)
[2021-08-26] MEDS: PANTOPRAZOLE SODIUM IV 40 MG VIAL IV PUSH (08:59)
[2021-08-26] MEDS: TAMSULOSIN HCL 0.4 MG CAPSULE PO (08:59)
[2021-08-26] MEDS: MINERAL OIL/WHITE PETROLATUM OINTMENT 1 APPLIC EACH EYE ×2 (08:59→20:41)
--- NOTE | 2021-08-26 09:20 | P.CONNP_ITS ---
Assessment and Plan Assessment and plan (1) ESRD (end stage renal disease): Code(s): N18.6 - End stage renal disease Status: Chronic Assessment and Plan: * hemodialysis is due tomorrow. * Electrolytes okay. * Volume status looks okay. * normally follows with Dr. Prince at [facility] (2) Acute hypercapnic respiratory failure: Code(s): J96.02 - Acute respiratory failure with hypercapnia Status: Acute Assessment and Plan: * remains on ventilator support at this time * due to pneumonia, pleural effusions, Scar tissue,and generalized weakness * he is on only 30% FiO2. * wean as tolerated (3) Bilateral pleural effusion: Code(s): J90 - Pleural effusion, not elsewhere classified Status: Acute Assessment and Plan: * as noted by imaging * push fluid removal/ultrafiltration with dialysis as tolerated (4) Hyponatremia: Code(s): E87.1 - Hypo-osmolality and hyponatremia Status: Acute Assessment and Plan: * likely related to ESRD and fluid shifts * dialysis should correct to some degree (5) Chronic anemia: Code(s): D64.9 - Anemia, unspecified Status: Chronic Assessment and Plan: * related to ESRD and acute illness * Epogen with HD * follow trend of H/H (6) Hypertension: Code(s): I10 - Essential (primary) hypertension Status: Chronic Assessment and Plan: * reasonable control at this time * follow trend of hemodynamics (7) Cirrhosis of liver: Qualifiers: Hepatic cirrhosis type: alcoholic cirrhosis Ascites presence: without ascites Qualified Code(s): K70.30 - Alcoholic cirrhosis of liver without ascites Code(s): K74.60 - Unspecified cirrhosis of liver Status: Acute Assessment and Plan: * chronic issue based on imaging * AST and ALT are normal now. History of Present Illness Reason for Consult Consult date: 08/26/21 Chief Complaint Chief complaint: hypercapnia,ams,esrd History of Present Illness Narrative: Diego is more awake today. He does not really interact very much. He is still on the ventilator. [facility] Past Medical History Medical History (Updated 08/24/21 @ 10:16 by Adán Arroyo MD) Acute encephalopathy Alcoholic liver disease Drank heavily in the past, sober since 2019. Benign prostatic hyperplasia Chronic anemia Chronic obstructive pulmonary disease Cirrhosis of liver Duodenal ulcer (10/2019) Elevated liver enzymes End-stage renal disease on hemodialysis History of ulcer disease Osteomyelitis of lumbar spine (~08/2017) Diskitis and osteomyelitis at L3-L4 and L4-L5. Surgical History Surgical History History of esophagogastroduodenoscopy (10/26/19) For evaluation of GI bleed, found to have gastritis, duodenitis, and duodenal ulcers. Status post creation of arteriovenous fistula Left upper extremity. Family History Family History Other Hypertension Social History Social History Social History: Surrogate decision maker: Kavita Ravi (spouse) and Erica Pettit (daughter). Code status: Full code. Smoking status: Former smoker Tobacco type: cigarettes Second hand tobacco smoke exposure: No Additional smoking assessment comments: Quit about 16 years ago. Yassine
--- NOTE | 2021-08-26 09:20 | PM.CNNEP ---
Assessment and Plan Assessment and plan (1) ESRD (end stage renal disease): Code(s): N18.6 - End stage renal disease Status: Chronic Assessment and Plan: hemodialysis is due tomorrow. Electrolytes okay. Volume status looks okay. normally follows with Dr. Prince at [facility] (2) Acute hypercapnic respiratory failure: Code(s): J96.02 - Acute respiratory failure with hypercapnia Status: Acute Assessment and Plan: remains on ventilator support at this time due to pneumonia, pleural effusions, Scar tissue,and generalized weakness he is on only 30% FiO2. wean as tolerated (3) Bilateral pleural effusion: Code(s): J90 - Pleural effusion, not elsewhere classified Status: Acute Assessment and Plan: as noted by imaging push fluid removal/ultrafiltration with dialysis as tolerated (4) Hyponatremia: Code(s): E87.1 - Hypo-osmolality and hyponatremia Status: Acute Assessment and Plan: likely related to ESRD and fluid shifts dialysis should correct to some degree (5) Chronic anemia: Code(s): D64.9 - Anemia, unspecified Status: Chronic Assessment and Plan: related to ESRD and acute illness Epogen with HD follow trend of H/H (6) Hypertension: Code(s): I10 - Essential (primary) hypertension Status: Chronic Assessment and Plan: reasonable control at this time follow trend of hemodynamics (7) Cirrhosis of liver: Qualifiers: Hepatic cirrhosis type: alcoholic cirrhosis Ascites presence: without ascites Qualified Code(s): K70.30 - Alcoholic cirrhosis of liver without ascites Code(s): K74.60 - Unspecified cirrhosis of liver Status: Acute Assessment and Plan: chronic issue based on imaging AST and ALT are normal now. History of Present Illness Reason for Consult Consult date: 08/26/21 Chief Complaint Chief complaint: hypercapnia,ams,esrd History of Present Illness Narrative: Diego is more awake today. He does not really interact very much. He is still on the ventilator. [facility] Past Medical History Medical History (Updated 08/24/21 @ 10:16 by Adán Arroyo MD) Acute encephalopathy Alcoholic liver disease Drank heavily in the past, sober since 2019. Benign prostatic hyperplasia Chronic anemia Chronic obstructive pulmonary disease Cirrhosis of liver Duodenal ulcer (10/2019) Elevated liver enzymes End-stage renal disease on hemodialysis History of ulcer disease Osteomyelitis of lumbar spine (~08/2017) Diskitis and osteomyelitis at L3-L4 and L4-L5. Surgical History Surgical History History of esophagogastroduodenoscopy (10/26/19) For evaluation of GI bleed, found to have gastritis, duodenitis, and duodenal ulcers. Status post creation of arteriovenous fistula Left upper extremity. Family History Family History Other Hypertension Social History Social History Social History: Surrogate decision maker: Kavita Ravi (spouse) and Erica Pettit (daughter). Code status: Full code. Smoking status: Former smoker Tobacco type: cigarettes Second hand tobacco smoke exposure: No Additional smoking assessment comments: Quit about 16 years ago. Alcohol intake: former Alcohol use details: Former heavy drinker. Quit in mid 2020. Substance use: never Substance use type: does not use Additional living arrangements comments: Resides in [place] with his . 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 Spiritual care concerns: No Meds Home Medications and Allergies Home Medications Medication Instructions Recorded Confirmed Type albuterol sulfate [ProAir HFA] 2 puff INHALATION Q4H PRN 08/17/21 1
--- NOTE | 2021-08-26 10:58 | PCFNICU ---
ICU Rounding Note: Pt current nutrition is Nepro at 50 ml/hr over 22 hours. Last recorded weight is 62.9 kg, up from 62 kg on admit. Bowel Motility:+BM reported 08/25 Labs Reviewed:Cr 3.3,BUN 71, GFR 18, NA 1331, Alb 3.2,Hct 28.8,Hgb 9.4 Meds Noted:Protonix, Atrovent, Flomax, ProAmatine Skin: Deep Tissue-Buttock, Deep Tissue-Left Heels. Additional Notes: Patient remains on mechanical vent, failed breathing trail today. Per nursing, patient is tolerating tube feedings of Nepro at 50ml/hr. Patient remains on dialysis T/R/S. Following daily in ICU rounds. Will monitor every Thursday and Thursday.
[2021-08-26] MEDS: MIDAZOLAM HCL (*CRX) 2 MG/2 ML VIAL IV PUSH ×3 (12:28→21:42)
[2021-08-26 12:55] LABS: Glucose Point of Care 92 mg/dl (65-105)
--- NOTE | 2021-08-26 15:04 | PM.PNPUL ---
Progress Note: A&P Assessment and Plan (1) Pleural effusion: Code(s): J90 - Pleural effusion, not elsewhere classified Status: Acute Assessment and Plan: 08/25 Pleural effusions essentially unchanged on last chest x-ray. Left localized pneumothorax same today's chest x-ray 08/24/2021. There is no evidence of left empyema on thoracentesis On 08/19 with LDH of 108, total protein less than 3, pH of 7.33, differential neutrophils 33, lymphocytes 63 macrophages 2% and monocytes 2%. 08/26 Patient with failure to wean and continued left-sided hydro pneumothorax with 3 separate pockets and bilateral infiltrates. In order to optimize his chances of getting off the ventilator recommend surgical chest tube and I discussed this with the configuration management analyst to will consult General surgery. Once the chest tube was placed and functioning well would perform right thoracentesis again in order to optimize his chances of being extubated. (2) Pneumonia: Qualifiers: Pneumonia type: due to unspecified organism Laterality: unspecified laterality Lung location: unspecified part of lung Qualified Code(s): J18.9 - Pneumonia, unspecified organism Code(s): J18.9 - Pneumonia, unspecified organism Status: Acute Assessment and Plan: 08/25 Respiratory status has improved over the last 2 days. No leukocytosis. Chest x-ray essentially unchanged over the last 2 days. Left localized pneumothorax still evident on chest x-ray. Pleural effusions bilaterally as before. Patient on antibiotics for left pneumonia. Weaning trials are planned for tomorrow by the ICU team. d/w Dr Grady. Sputum normal maegan 08/22/2108/26 Patient has recieved antibiotics including vanco started on 08/18 and ceftriaxone 08/18, azithromycin 08/18. Afebrile with white blood cell count 7.6. Failed breathing trial today. (3) End-stage renal disease on hemodialysis: Code(s): N18.6 - End stage renal disease; Z99.2 - Dependence on renal dialysis Status: Acute Assessment and Plan: 08/25 On HD, had last treatment Saturdat 08/24 3 L off. 08/26 On hemodialysis. Would aggressively attempt fluid removal as patient has transudative left pleural effusion and a right pleural effusion. Subjective Date/time seen: 08/26/21 15:04 Interval history: 08/25/21 14:32 This 76 year old man is seen for bilateral pleural effusions, loculated pneumothorax, pneumonia, acute respiratory failure, vent management per Canceling Machine Operator. Dr Grady changed him to ASV mode which has increased his TV. He is alert, watching TV. Not in distress. His tidal volumes are higher. 08/26 Patient remains intubated on ASV mode with a tidal volume of 520, 30% with peep of 7 peak airway pressure is 39 and saturations 100%. Patient failed a spontaneous breathing trial with respirations 40-50 after 20 minutes. Patient had a CT of the chest showing a moderate hydro pneumothorax with 3 separate pockets of air and fluid along with a moderate right-sided pleural effusion and bilateral infiltrates. DATA: EXAMINATION:CT diagnostic chest wo con DATE: 08/26/2021 11:39 INDICATION: Respiratory failure. Pneumothorax. TECHNIQUE: Computed tomography (CT) of the chest was performed without intravenous contrast. Automated exposure control and iterative reconstruction technique were employed. The dose-length product (DLP) was 207.91 mGy-cm. COMPARISON: Chest CT 08/18/2021 FINDINGS: There is a moderate-sized right pleural effusion. There is a moderate-sized left hydropneumothorax. There are peripheral airspace opacities in right lower lobe with swirling of the lung parenchyma, consistent with rounded atelectasis. There are patchy groundglass opacities in right lower lobe, right middle lobe, and right upper lobe. There are peripheral airspace opacities in lingula and left lower lobe. There is biatrial enlargement the heart. There are coronary artery calcifications. No iain
--- NOTE | 2021-08-26 15:31 | PM.CNGS ---
Assessment and Plan Assessment and plan (1) Pneumothorax: Code(s): J93.9 - Pneumothorax, unspecified Status: Acute Assessment and Plan: This is the reason for our consultation. All imaging reviewed. This appears to be a multiloculated left hydropneumothorax. The satellite tv technician installer has requested placement of a left-sided chest tube to help optimize his chances of extubation. I have discussed the patient's case with Dr. Rubi. With the multiple loculations that are predominately in the lower chest, there is a chance that he could still require evaluation by a thoracic surgeon despite chest tube placement. The patient is currently stable and is not having an increase in his oxygenation requirements. We will plan for chest tube placement either later tonight or in the morning. I have asked the nurse to gather supplies at the bedside and obtain consent. If he were to have any clinical decline in his respiratory status, then we can proceed more urgently. (2) Pleural effusion: Code(s): J90 - Pleural effusion, not elsewhere classified Status: Acute (3) Acute hypercapnic respiratory failure: Code(s): J96.02 - Acute respiratory failure with hypercapnia Status: Acute Assessment and Plan: Intubated since 08/18/21. He has failed his spontaneous breathing trials and they are unable to get him extubated. See plan above. Continue management per Managing Consultant. (4) Pneumonia: Qualifiers: Pneumonia type: due to unspecified organism Laterality: unspecified laterality Lung location: unspecified part of lung Qualified Code(s): J18.9 - Pneumonia, unspecified organism Code(s): J18.9 - Pneumonia, unspecified organism Status: Acute Assessment and Plan: Continue management per Pulmonary and Managing Consultant. (5) Chronic obstructive pulmonary disease: Qualifiers: COPD type: unspecified COPD Qualified Code(s): J44.9 - Chronic obstructive pulmonary disease, unspecified Code(s): J44.9 - Chronic obstructive pulmonary disease, unspecified Status: Acute (6) End-stage renal disease on hemodialysis: Code(s): N18.6 - End stage renal disease; Z99.2 - Dependence on renal dialysis Status: Acute Assessment and Plan: Plan for hemodialysis tomorrow. Nephrology following. (7) Cirrhosis of liver: Qualifiers: Hepatic cirrhosis type: alcoholic cirrhosis Ascites presence: without ascites Qualified Code(s): K70.30 - Alcoholic cirrhosis of liver without ascites Code(s): K74.60 - Unspecified cirrhosis of liver Status: Acute (8) Hypertension: Code(s): I10 - Essential (primary) hypertension Status: Chronic Additional Plan I have discussed the patient's case and plan of care with Dr. Rubi. History of Present Illness Consult details Consult date: 08/26/21 Reason for consult: chest tube (Moderate-sized left hydropneumothorax, respiratory failure with difficulty weaning off the ventilator) Requesting physician: Yunier Grady MD Narrative: This is a 76-year-old male with a history of COPD, ESRD on hemodialysis, and liver cirrhosis, who presented to the ER on 08/17/21 from dialysis for low oxygen saturation and confusion. He was found to have pneumonia and acute respiratory failure, and was admitted to the Hospitalist service. He was intubated on 08/18/21 and transferred to the ICU. He has been treated by the Managing Consultant, as well as Pulmonology. A chest CT on 08/18/21 showed moderate bilateral pleural effusions with probable small loculated left apical hydropneumothorax. He underwent an ultrasound-guided left thoracentesis yielding 500 cc of fluid on 08/19/21, which has not shown evidence of empyema. He has remained intubated and is now on low ventilator requirements. Over the past few days, he has failed his spontaneous breathing trials to where he has not been able to be extubated. He has been followed with serial chest x-rays reina
[2021-08-27] VITALS (45 sets, daily range): BP systolic 90–122; BP diastolic 52–77; PULSE 66–99; RESP 13–28; TEMP 35.6–37.4; O2SAT 95–100
[2021-08-27 00:04] LABS: Glucose Point of Care 67 mg/dl (65-105)
[2021-08-27] MEDS: ALBUTEROL SULFATE NEB 2.5 MG/0.5 ML INH 5 MG INHALATION (02:00)
[2021-08-27] MEDS: IPRATROPIUM BR 0.02% INH SOLN 0.5 MG/2.5 ML VIAL INHALATION ×4 (02:00→20:05)
[2021-08-27] MEDS: MIDAZOLAM HCL (*CRX) 2 MG/2 ML VIAL IV PUSH ×3 (02:35→17:48)
[2021-08-27 04:53] LABS: Alveolar/Arterial O2 Gradient 72.8 mmHg; Base Excess ABG 6.4 mEq/l (+/-2.0); Carboxyhemoglobin 0.3 % THb (0-2.0); Fractional Inspired Oxygen 30 %; HCO3 ABG 30.8 mEq/l (22.0-26.0); Methemoglobin ABG 0.2 %THb (0-1.5); Oxygen Content ABG 13.4 %vol (16.0-22.0); Oxygen Saturation ABG 97.3 % (95.0-100.0); Oxyhemoglobin 96.1 % THb (90.0-100.0); PCO2 ABG 43.6 mmHg (35.0-45.0); PO2 ABG 89.9 mmHg (80.0-100.0); Reduced Hemoglobin 3.4 %THb (0-5.0); Total Hemoglobin 9.8 g/dL (12.0-18.0); pH ABG 7.467 (7.350-7.450)
[2021-08-27 04:57] LABS: Hematocrit 27.2 % (42.0-52.0); Hemoglobin 8.8 g/dL (14.0-18.0); Mean Corpuscular HGB Conc 32.4 g/dl (32-36); Mean Corpuscular Hemoglobin 30.6 pg (26-34); Mean Corpuscular Volume 94.4 fl (80-100); Mean Platelet Volume 10.7 fl (7.4-10.4); Platelet Count Result 210 k/mm3 (150-375); Red Blood Count 2.88 M/mm3 (4.6-6.20); Red Cell Distribution Width 15.3 % (11.5-14.5); White Blood Count 7.4 K/mm3 (4.5-10.0)
[2021-08-27 05:06] LABS: Arterial Blood Gas Vent Mode ASV; Device VENTILATOR; Modified Allen's Test Unable to perform; Site Drawn RIGHT RADIAL
[2021-08-27 05:07] LABS: Arterial Blood Gas PEEP 7 cmH2O
[2021-08-27 05:09] LABS: Alanine Aminotransferase 39 U/L (4-50); Albumin Level 3.2 g/dL (3.5-5.1); Alkaline Phosphatase 179 U/L (38-126); Anion Gap 10 mmol/L (8-16); Aspartate Amino Transferase 29 U/L (17-59); Bilirubin,Total 0.5 mg/dL (0.2-1.3); Blood Urea Nitrogen 92 mg/dL (9-20); Calcium 8.9 mg/dL (8.4-10.2); Carbon Dioxide 30 mmol/L (22-30); Chloride 90 mmol/L (98-107); Estimated CRCL calculation 13 ml/min; Estimated Glomerular Filt Rate 15; Glucose 103 mg/dL (65-110); Magnesium 2.2 mg/dL (1.6-2.3); Phosphorus 2.6 mg/dL (2.5-4.5); Sodium 130 mmol/L (137-145)
--- NOTE | 2021-08-27 07:22 | P.CDI_ITS ---
CDI Query Clarification Request -Pt admitted 08/17 -08/17 CXR There is no pneumothorax. -08/18 CT chest high resolution: findings with small loculated left apical hydropneumothorax. Please clarify if small loculated left apical hydropneumothorax was: * Present on admission * Not present on admission * Unable to determine <Celia Bonds RN - Last Filed: 08/27/21 07:27>
[2021-08-27] MEDS: MIDODRINE HCL 2.5 MG TABLET 5 MG PO ×3 (07:52→16:32)
[2021-08-27] MEDS: MINERAL OIL/WHITE PETROLATUM OINTMENT 1 APPLIC EACH EYE ×2 (07:55→21:27)
[2021-08-27] MEDS: PANTOPRAZOLE SODIUM IV 40 MG VIAL IV PUSH (07:55)
[2021-08-27] MEDS: ALBUTEROL SULFATE NEB 2.5 MG/0.5 ML INH INHALATION ×3 (08:12→20:05)
[2021-08-27 08:13] LABS: Glucose Point of Care 102 mg/dl (65-105)
--- NOTE | 2021-08-27 09:25 | P.PNNP_ITS ---
Progress Note: A&P Assessment and Plan (1) ESRD (end stage renal disease): Code(s): N18.6 - End stage renal disease Status: Chronic Assessment and Plan: * hemodialysis underway. * Electrolytes okay. * Volume status looks okay. * He does have pleural effusions. * normally follows with Dr. Prince at [facility] (2) Acute hypercapnic respiratory failure: Code(s): J96.02 - Acute respiratory failure with hypercapnia Status: Acute Assessment and Plan: * remains on ventilator support at this time * due to pneumonia, pleural effusions, Scar tissue,and generalized weakness * he is on only 30% FiO2. Minute volume only 13. * wean as tolerated (3) Bilateral pleural effusion: Code(s): J90 - Pleural effusion, not elsewhere classified Status: Acute Assessment and Plan: * as noted by imaging * push fluid removal/ultrafiltration with dialysis as tolerated * Chest tube to be placed today apparently. (4) Hyponatremia: Code(s): E87.1 - Hypo-osmolality and hyponatremia Status: Acute Assessment and Plan: * likely related to ESRD and fluid shifts * dialysis should correct to some degree (5) Chronic anemia: Code(s): D64.9 - Anemia, unspecified Status: Chronic Assessment and Plan: * related to ESRD and acute illness * Epogen with HD * Check reticulocyte count * Hemoglobin 8.8 today. It is up and down. (6) Hypertension: Code(s): I10 - Essential (primary) hypertension Status: Chronic Assessment and Plan: * reasonable control at this time * follow trend of hemodynamics (7) Cirrhosis of liver: Qualifiers: Hepatic cirrhosis type: alcoholic cirrhosis Ascites presence: without ascites Qualified Code(s): K70.30 - Alcoholic cirrhosis of liver without ascites Code(s): K74.60 - Unspecified cirrhosis of liver Status: Acute Assessment and Plan: * chronic issue based on imaging * AST and ALT are normal now. Subjective Date/time seen: 08/27/21 09:25 Interval history: patient looks comfortable in bed. He is still on the ventilator. Interactive. He denies pain. He is getting enough air. He is on dialysis right now and tolerating it well. We are trying to take some fluid off. He was seen at 9:10 a.m. Exam Narrative: General: elderly male in NAD; intubated Heart: normal S1 and S2; no rub or gallop Lungs: coarse breath sounds Abdomen: soft, nontender, nondistended, positive bowel sounds Extremities: no cyanosis or clubbing; very skinny. No edema Skin: no rash or subQ nodules Objective Data Vital Signs Vital Signs: Vital Signs - 24 hr 08/26/21 10:00 08/26/21 11:00 08/26/21 12:00 Temperature 36.8 C Pulse Rate 88 85 92 Respiratory Rate 28 H 17 Blood Pressure 119/66 115/62 Pulse Oximetry 100 91 95 08/26/21 14:00 08/26/21 14:27 08/26/21 14:34 Temperature Pulse Rate 87 83 84 Respiratory Rate 20 15 16 Blood Pressure 101/62 Pulse Oximetry 91 08/26/21 16:00 08/26/21 16:55 08/26/21 18:00 Temperature 36.7 C Pulse Rate 88 85 82 Respiratory Rate 20 18 Blood Pressure 105/65 123/59 L Pulse Oximetry 95 97 100 08/26/21
--- NOTE | 2021-08-27 09:25 | PM.PNNEP ---
Progress Note: A&P Assessment and Plan (1) ESRD (end stage renal disease): Code(s): N18.6 - End stage renal disease Status: Chronic Assessment and Plan: hemodialysis underway. Electrolytes okay. Volume status looks okay. He does have pleural effusions. normally follows with Dr. Prince at [facility] (2) Acute hypercapnic respiratory failure: Code(s): J96.02 - Acute respiratory failure with hypercapnia Status: Acute Assessment and Plan: remains on ventilator support at this time due to pneumonia, pleural effusions, Scar tissue,and generalized weakness he is on only 30% FiO2. Minute volume only 13. wean as tolerated (3) Bilateral pleural effusion: Code(s): J90 - Pleural effusion, not elsewhere classified Status: Acute Assessment and Plan: as noted by imaging push fluid removal/ultrafiltration with dialysis as tolerated Chest tube to be placed today apparently. (4) Hyponatremia: Code(s): E87.1 - Hypo-osmolality and hyponatremia Status: Acute Assessment and Plan: likely related to ESRD and fluid shifts dialysis should correct to some degree (5) Chronic anemia: Code(s): D64.9 - Anemia, unspecified Status: Chronic Assessment and Plan: related to ESRD and acute illness Epogen with HD Check reticulocyte count Hemoglobin 8.8 today. It is up and down. (6) Hypertension: Code(s): I10 - Essential (primary) hypertension Status: Chronic Assessment and Plan: reasonable control at this time follow trend of hemodynamics (7) Cirrhosis of liver: Qualifiers: Hepatic cirrhosis type: alcoholic cirrhosis Ascites presence: without ascites Qualified Code(s): K70.30 - Alcoholic cirrhosis of liver without ascites Code(s): K74.60 - Unspecified cirrhosis of liver Status: Acute Assessment and Plan: chronic issue based on imaging AST and ALT are normal now. Subjective Date/time seen: 08/27/21 09:25 Interval history: patient looks comfortable in bed. He is still on the ventilator. Interactive. He denies pain. He is getting enough air. He is on dialysis right now and tolerating it well. We are trying to take some fluid off. He was seen at 9:10 a.m. Exam Narrative: General: elderly male in NAD; intubated Heart: normal S1 and S2; no rub or gallop Lungs: coarse breath sounds Abdomen: soft, nontender, nondistended, positive bowel sounds Extremities: no cyanosis or clubbing; very skinny. No edema Skin: no rash or subQ nodules Objective Data Vital Signs Vital Signs: Vital Signs - 24 hr 08/26/21 10:00 08/26/21 11:00 08/26/21 12:00 Temperature 36.8 C Pulse Rate 88 85 92 Respiratory Rate 28 H 17 Blood Pressure 119/66 115/62 Pulse Oximetry 100 91 95 08/26/21 14:00 08/26/21 14:27 08/26/21 14:34 Temperature Pulse Rate 87 83 84 Respiratory Rate 20 15 16 Blood Pressure 101/62 Pulse Oximetry 91 08/26/21 16:00 08/26/21 16:55 08/26/21 18:00 Temperature 36.7 C Pulse Rate 88 85 82 Respiratory Rate 20 18 Blood Pressure 105/65 123/59 L Pulse Oximetry 95 97 100 08/26/21 19:40 08/26/21 20:00 08/26/21 20:18 Temperature 37.2 C Pulse Rate 82 85 82 Respiratory Rate 20 26 H 20 Blood Pressure 93/66 L Pulse Oximetry 97 100 08/26/21 22:00 08/26/21 23:47 08/26/21 23:52 Temperature Pulse Rate 90 88 85 Respiratory Rate 20 22 H Blood Pressure 87/56 L Pulse Oximetry 100 97 08/26/21 23:55 08/27/21 00:00 08/27/21 02:00 Temperature 36.9 C Pulse Rate 79 80 Respiratory Rate 22 H 20 Blood Pressure 105/64 112/54 L Pulse Oximetry 95 99 99 08/27/21 02:10 08/27/21 02:11 08/27/21 03:56 Temperature Pulse Rate 88 88 87 Respiratory Rate 22 H 22 H Blood Pressure Pulse Oximetry 97 08/27/21 04:00 08/27/21 05:00 08/27/21 06:00 Temperature 36.3 C L Pul
--- NOTE | 2021-08-27 09:55 | WPDINTPN ---
Progress Note: A&P Assessment and Plan (1) Acute hypercapnic respiratory failure: Code(s): J96.02 - Acute respiratory failure with hypercapnia Status: Acute Assessment and Plan: Transferred to ICU on 08/18 for Acute hypercapnic respiratory failure could be multi factorial, medications as patient received Ativan and morphine, bilateral peripheral effusion, pneumonia, will opacification of left hemithorax -intubated on 08/18 -chest x-ray reviewed and appears unchanged -CT chest 08/18/2021 shows moderate bilateral pleural effusion with probable small loculated left apical hydropneumothorax. Bilateral airspace disease throughout the residual left lung and and peripherally in the right upper and lower lobes which may represent a combination of pneumonia and/or atelectasis. -08/19 left thoracentesis with done and 500 cc fluid was removed -patient failed his weaning trial daily for last few days. He is off sedation but appears to be very weak on weaning trial. His RSBI gets very high and High pressure support is required to get adequate RSBI as his tidal volumes are very low on weaning trial. - 08/27: Continue ASV mode, will decrease ventilation 80%, peep to 5, and 30% FiO2 -discussion with pulmonology and surgery, have decided to place a chest tube that does not help then patient will be transferred for thoracic surgery evaluation and treatment (2) Pneumonia: Qualifiers: Laterality: unspecified laterality Lung location: unspecified part of lung Pneumonia type: due to unspecified organism Qualified Code(s): J18.9 - Pneumonia, unspecified organism Code(s): J18.9 - Pneumonia, unspecified organism Status: Acute Assessment and Plan: Check x-ray x-ray with opacification of left hemithorax, combination of effusion, atelectasis, mucus plugging and pneumonia - completed a 7 day course of ceftriaxone, azithromycin - cultures were negative and he is afebrile - WBC has normalized (3) Altered mental status: Qualifiers: Altered mental status type: unspecified Qualified Code(s): R41.82 - Altered mental status, unspecified Code(s): R41.82 - Altered mental status, unspecified Status: Acute Assessment and Plan: Altered mental status likely related to hypercarbia, infection -CT brain on 08/18/2021 showed no acute intracranial abnormality -currently off all sedation and following commands (4) ESRD (end stage renal disease): Code(s): N18.6 - End stage renal disease Status: Chronic Assessment and Plan: End-stage renal disease on dialysis (M,W,F) -nephrology following the patient -dialysis per Nephrology. Patient is getting dialyzed today (5) Pleural effusion: Code(s): J90 - Pleural effusion, not elsewhere classified Status: Acute Assessment and Plan: Bilateral pleural effusions patient has thoracentesis on left and 500 cc of fluid was removed 08/19 -less likely transudate from the labs done on the pleural fluid (6) Cirrhosis of liver: Qualifiers: Ascites presence: without ascites Hepatic cirrhosis type: alcoholic cirrhosis Qualified Code(s): K70.30 - Alcoholic cirrhosis of liver without ascites Code(s): K74.60 - Unspecified cirrhosis of liver Status: Acute Assessment and Plan: Significantly elevated LFTs, could be related to underlying liver disease plus possible shock liver due to hypoxia -hepatitis panel is negative -right upper quadrant ultrasound -nodularity of the liver surface, consistent with cirrhosis. Gallbladder is normal -LFTs trending down (7) Pneumothorax: Code(s): J93.9 - Pneumothorax, unspecified Status: Acute Assessment and Plan: ? Small loculated pneumothorax in left lung Monitor for now I will discussed with pulmonary regarding possible transfer for thoracic surgery evaluation (8) Electrolyte abnormality: Code(s): E87.8 - Other disorders of electrol
[2021-08-27] MEDS: EPOETIN ALFA-EPBX 10,000 UNITS/ML VIAL 10000 UNITS IV PUSH (10:58)
--- NOTE | 2021-08-27 11:12 | PM.PNPUL ---
Progress Note: A&P Assessment and Plan (1) Pleural effusion: Code(s): J90 - Pleural effusion, not elsewhere classified Status: Acute Assessment and Plan: 08/25 Pleural effusions essentially unchanged on last chest x-ray. Left localized pneumothorax same today's chest x-ray 08/24/2021. There is no evidence of left empyema on thoracentesis On 08/19 with LDH of 108, total protein less than 3, pH of 7.33, differential neutrophils 33, lymphocytes 63 macrophages 2% and monocytes 2%. 08/26 Patient with failure to wean and continued left-sided hydro pneumothorax with 3 separate pockets and bilateral infiltrates. In order to optimize his chances of getting off the ventilator recommend surgical chest tube and I discussed this with the cabin equipment supervisor to will consult General surgery. Once the chest tube was placed and functioning well would perform right thoracentesis again in order to optimize his chances of being extubated. 08/27 patient has failure to wean and in an attempt to optimize his pulmonary status will place a left chest to and an attempt to treat his loculated hydropneumothorax. If the left chest to does not rapidly resolve his left loculated hydropneumothorax that he should be transferred for thoracic surgery consultation. Once the left chest tube is placed and functioning well would perform right thoracentesis. (2) Pneumonia: Qualifiers: Pneumonia type: due to unspecified organism Laterality: unspecified laterality Lung location: unspecified part of lung Qualified Code(s): J18.9 - Pneumonia, unspecified organism Code(s): J18.9 - Pneumonia, unspecified organism Status: Acute Assessment and Plan: 08/25 Respiratory status has improved over the last 2 days. No leukocytosis. Chest x-ray essentially unchanged over the last 2 days. Left localized pneumothorax still evident on chest x-ray. Pleural effusions bilaterally as before. Patient on antibiotics for left pneumonia. Weaning trials are planned for tomorrow by the ICU team. d/w Dr Grady. Sputum normal maegan 08/22/2108/26 Patient has recieved antibiotics including vanco started on 08/18 and ceftriaxone 08/18, azithromycin 08/18. Completed treatment. Afebrile with white blood cell count 7.6. Failed breathing trial today. 08/27 Patient remains intubated on ASV mode. Vent management per ICU team. He is on ASV mode with a rate of 27 and tidal volume of 400-450 30% FiO2 peep of 7 with saturations 100% and a blood gas of 7.47/44/90. Peak pressure is 38. Consider placing him on 80% ASV and decreasing peep to 5. (3) End-stage renal disease on hemodialysis: Code(s): N18.6 - End stage renal disease; Z99.2 - Dependence on renal dialysis Status: Acute Assessment and Plan: 08/25 On HD, had last treatment Saturdat 08/24 3 L off. 08/26 On hemodialysis. Would aggressively attempt fluid removal as patient has transudative left pleural effusion and a right pleural effusion. 08/27 He is currently on hemodialysis with a goal of 1.5 L out. Consider daily dialysis with fluid removal. Discussed with Dr. Gardenia hernadez. Will sign off. Please call with any questions. Subjective Date/time seen: 08/27/21 11:12 Interval history: 08/25/21 14:32 This 76 year old man is seen for bilateral pleural effusions, loculated pneumothorax, pneumonia, acute respiratory failure, vent management per Fur Trimmer. Dr Grady changed him to ASV mode which has increased his TV. He is alert, watching TV. Not in distress. His tidal volumes are higher. 08/26 Patient remains intubated on ASV mode with a tidal volume of 520, 30% with peep of 7 peak airway pressure is 39 and saturations 100%. Patient failed a spontaneous breathing trial with respirations 40-50 after 20 minutes. Patient had a CT of the chest showing a moderate hydro pneumothorax with 3 separate pockets of air and fluid along with a moderate right-sided pleural effusion and bilateral infilt
[2021-08-27] MEDS: diphenhydrAMINE HCl INJ 50 MG/ML VIAL 12.5 MG IV PUSH (12:04)
--- NOTE | 2021-08-27 12:50 | PM.IMPN ---
Progress Note: A&P Assessment and Plan (1) Acute hypercapnic respiratory failure: Code(s): J96.02 - Acute respiratory failure with hypercapnia Status: Acute Assessment and Plan: Transferred to ICU Acute hypercapnic respiratory failure secondary to bilateral peripheral effusion, pneumonia, will opacification of left hemithorax. Pt due to have chest tube placed today for L hemithorax (2) Pneumonia: Qualifiers: Pneumonia type: due to unspecified organism Laterality: unspecified laterality Lung location: unspecified part of lung Qualified Code(s): J18.9 - Pneumonia, unspecified organism Code(s): J18.9 - Pneumonia, unspecified organism Status: Acute Assessment and Plan: Check x-ray x-ray with opacification of left hemithorax, combination of effusion, atelectasis, mucus plugging and pneumonia -continue IV antibiotics (initiated on 08/18) (3) Altered mental status: Qualifiers: Altered mental status type: unspecified Qualified Code(s): R41.82 - Altered mental status, unspecified Code(s): R41.82 - Altered mental status, unspecified Status: Acute Assessment and Plan: Altered mental status likely related to hypercarbia, infection. CT brain on 08/18/2021 showed no acute intracranial abnormality. Patient sedated on exam. (4) ESRD (end stage renal disease): Code(s): N18.6 - End stage renal disease Status: Chronic Assessment and Plan: End-stage renal disease on dialysis (M,W,F) Pt sp dialysis today, monitor BMP (5) Pleural effusion: Code(s): J90 - Pleural effusion, not elsewhere classified Status: Acute Assessment and Plan: Bilateral pleural effusions w/ L. significantly greater than right. Status post thoracentesis on 08/19 (6) Cirrhosis of liver: Qualifiers: Hepatic cirrhosis type: alcoholic cirrhosis Ascites presence: without ascites Qualified Code(s): K70.30 - Alcoholic cirrhosis of liver without ascites Code(s): K74.60 - Unspecified cirrhosis of liver Status: Acute Assessment and Plan: Significantly elevated LFTs, could be related to underlying cirrhosis, possible shock liver due to hypoxia. RUQ US notes cirrhosis w/o gallbladder disease. HAV, HBV, HCV all negative. LFTs downtrending. -monitor CMP Subjective Date/time seen: 08/27/21 12:50 Interval history: Pt is awaiting chest tube today for L hemithorax. Pt has pneumonia also. Pt has history of end-stage renal disease on hemodialysis, hypertension, chronic anemia, cirrhosis, GERD, and history of duodenal ulcers who presented to the emergency department earlier today via EMS from dialysis for evaluation of low oxygen saturations and confusion. Pt is having dialysis today. Pt is intubated but off sedation. Pt had 08/19 left thoracentesis with done and 500 cc fluid was removed, pt due to have chest tube placed today. Review of Systems Review of Systems: All systems reviewed & are unremarkable except as noted in HPI and below Exam Narrative: Intubated Chest decreased BS Bilaterally Abdomen nontender nondistended CVS S1 + S2 Lower extremity no edema Objective Data Vital Signs Vital Signs: Vital Signs - 24 hr 08/26/21 14:00 08/26/21 14:27 08/26/21 14:34 Temperature Pulse Rate 87 83 84 Respiratory Rate 20 15 16 Blood Pressure 101/62 Pulse Oximetry 91 08/26/21 16:00 08/26/21 16:55 08/26/21 18:00 Temperature 36.7 C Pulse Rate 88 85 82 Respiratory Rate 20 18 Blood Pressure 105/65 123/59 L Pulse Oximetry 95 97 100 08/26/21 19:40 08/26/21 20:00 08/26/21 20:18 Temperature 37.2 C Pulse Rate 82 85 82 Respiratory Rate 20 26 H 20 Blood Pressure 93/66 L Pulse Oximetry 97 100 08/26/21 22:00 08/26/21 23:47 08/26/21 23:52 Temperature Pulse Rate 90 88 85 Respiratory Rate 20 22 H Blood Pressure 87/56 L Pulse Oximetry 100 97 08/26/21 23:55 08/27/21 00:00
--- NOTE | 2021-08-27 13:03 | PCNFU ---
Nutrition Follow-Up Complete: Inadequate Oral Intake as related to mechanical ventilation as evidenced by NPO. Goal: Meet estimated nutritional needs Patient is progressing towards goal. We will continue current goal. Pt current nutrition is Nepro at 50ml/hr over 22 hours. Last recorded weight is 53.8 kg, down from 62 kg on admit. Bowel Motility:+BM reported 08/25 Labs Reviewed:Cr 3.9,BUN 92, GFR 15, Na 130, Alb 3.2,Hct 27.2,Hgb 8.8 Meds Noted:Atrovent,Versed, Retacrit, Protonix, Atrovent. Skin:Deep Tissue-Buttock, Deep Tissue-Left heel. Additional Notes: Patient remains on mechanical vent and tube feedings of Nepro at 50 ml/hr over 22 hours. Dialysis today. Surgery consult-placement of a left-sided chest tube. Spoke with Dr. Phillips today regarding Protein Modular of Jeffery BID for wound healing, orders to add. Tube feedings continue to be tolerated at 50ml/hr providing 1980 kcals/89 gm protein/800 ml water. Will monitor daily in ICU rounds and reassess every Thursday and Thursday.
[2021-08-27] MEDS: fentaNYL CITRATE INJ (*CRX) 100 MCG/2 ML VIAL 50 MCG IV PUSH (16:53)
--- NOTE | 2021-08-27 18:30 | P.OP_ITS ---
Procedure Note - Detailed Date of Procedure 08/27/21 Pre-op Diagnosis Left hydropneumothorax, acute respiratory failure, pneumonia, COPD Post-op Diagnosis same Procedure Performed Left thoracostomy tube placement Surgeon Gab Rubi, DO Anesthesia local (1% lidocaine) Indications This is a 76-year-old man who presented to the hospital with acute respiratory failure, pneumonia COPD. He has been intubated for over a week and has it been unable to be weaned and extubated. A repeat CT done yesterday showed a left hydropneumothorax. He is now in need of chest tube placement to see if pneumothorax will resolve and patient will have better chance of being weaned and extubated. Findings Left chest tube placement was performed at the bedside in the ICU. The 7th intercostal space was used for entry point due to the caudal nature of the hydropneumothorax. Upon entering the pleural space, a gush of air and blood tinged pleural fluid was evacuated. About 100 mL of blood-tinged pleural fluid was drained. A 28 [place] chest tube was placed to about 12 cm at the skin. Patient tolerated procedure well and is currently satting 100% on the ventilator. Chest x-ray is pending to confirm placement. Description of Procedure Procedure as well as risks, benefits, and alternatives were discussed with the patient and his family. Written consent was obtained and placed in chart prior to procedure. Patient was placed supine in his ICU bed. His left chest area was prepped and draped in sterile fashion using chlorhexidine prep. 1% lidocaine was infiltrated directly over the 7th intercostal space and 8th rib. A 2 cm incision was made using a 15 blade scalpel in the left mid axillary line. Careful blunt dissection was then carried out through the subcutaneous tissue until the rib was reached. I then carefully bluntly dissected just superior to the 8th rib and into the 7th intercostal space. The pleura was then entered bluntly using a curved hemostat. A gush of air and pleural fluid was evacuated. The 28 [place] chest tube was then advanced anterior and cephalad. The chest tube was then secured in place using an 0 silk suture. Vaseline gauze was then applied followed by 4 x 4 gauze and silk tape. The patient was then sat up in bed and chest x-ray was ordered to confirm placement. Chest tube was placed to -20 cm water suction. Implants Twenty-eight [place]illan chest tube Estimated Blood Loss 5 Urine Output 0 Complications No immediate complications Condition stable Disposition ICU
[2021-08-27] MEDS: dexmedeTOMIDine 400 MCG/100 ML 400 MCG/100 ML BAG IV CONT (18:44)
[2021-08-27] MEDS: HEPARIN SODIUM 5,000 UNITS/ML VIAL 5000 UNITS SUB-Q (21:26)
[2021-08-28] VITALS (30 sets, daily range): BP systolic 87–104; BP diastolic 41–82; PULSE 65–90; RESP 11–31; TEMP 35.8–37.5; O2SAT 92–100
[2021-08-28 00:07] LABS: Glucose Point of Care 97 mg/dl (65-105)
[2021-08-28] MEDS: IPRATROPIUM BR 0.02% INH SOLN 0.5 MG/2.5 ML VIAL INHALATION ×3 (02:00→20:34)
[2021-08-28] MEDS: ALBUTEROL SULFATE NEB 2.5 MG/0.5 ML INH INHALATION ×4 (02:00→20:34)
[2021-08-28 04:35] LABS: Hemoglobin 8.4 g/dL (14.0-18.0); Mean Corpuscular HGB Conc 31.1 g/dl (32-36); Mean Corpuscular Hemoglobin 30.2 pg (26-34); Mean Corpuscular Volume 97.1 fl (80-100); Mean Platelet Volume 10.4 fl (7.4-10.4); Platelet Count Result 223 k/mm3 (150-375); Red Blood Count 2.78 M/mm3 (4.6-6.20); Red Cell Distribution Width 15.5 % (11.5-14.5); White Blood Count 9.3 K/mm3 (4.5-10.0)
[2021-08-28 04:49] LABS: Immature Reticulocyte Fraction 27.3 % (3.0-15.9); Reticulocyte Percent 2.22 % (0.7-4.3); Reticulocytes Absolute 0.06 B/L (32.2-175.7)
[2021-08-28 04:50] LABS: Anion Gap 9 mmol/L (8-16); Blood Urea Nitrogen 60 mg/dL (9-20); Calcium 8.8 mg/dL (8.4-10.2); Carbon Dioxide 30 mmol/L (22-30); Chloride 93 mmol/L (98-107); Estimated CRCL calculation 19 ml/min; Estimated Glomerular Filt Rate 27; Glucose 112 mg/dL (65-110); Phosphorus 1.7 mg/dL (2.5-4.5); Potassium 4.1 mmol/L (3.4-5.0); Sodium 132 mmol/L (137-145)
[2021-08-28 05:02] LABS: Alveolar/Arterial O2 Gradient 85.7 mmHg; Base Excess ABG 4.8 mEq/l (+/-2.0); Carboxyhemoglobin 0.3 % THb (0-2.0); Fractional Inspired Oxygen 30 %; HCO3 ABG 27.4 mEq/l (22.0-26.0); Methemoglobin ABG 0.1 %THb (0-1.5); Oxygen Content ABG 12.9 %vol (16.0-22.0); Oxygen Saturation ABG 97.7 % (95.0-100.0); Oxyhemoglobin 96.5 % THb (90.0-100.0); PCO2 ABG 32.8 mmHg (35.0-45.0); PO2 ABG 89.7 mmHg (80.0-100.0); PO2 FiO2 Ratio Arterial Blood 2.99 %; Reduced Hemoglobin 3.1 %THb (0-5.0); Total Hemoglobin 9.4 g/dL (12.0-18.0)
[2021-08-28 05:05] LABS: Device VENTILATOR; Modified Allen's Test Pass; Site Drawn RIGHT RADIAL
[2021-08-28 05:06] LABS: Arterial Blood Gas PEEP 5 cmH2O; Arterial Blood Gas Vent Mode ASV
[2021-08-28] MEDS: HEPARIN SODIUM 5,000 UNITS/ML VIAL 5000 UNITS SUB-Q ×2 (09:07→21:31)
[2021-08-28] MEDS: MIDODRINE HCL 2.5 MG TABLET 5 MG PO ×3 (09:08→17:15)
[2021-08-28] MEDS: PANTOPRAZOLE SODIUM IV 40 MG VIAL IV PUSH (09:08)
[2021-08-28] MEDS: MINERAL OIL/WHITE PETROLATUM OINTMENT 1 APPLIC EACH EYE (09:08)
--- NOTE | 2021-08-28 10:03 | PM.PNGS ---
Progress Note: A&P Assessment and Plan (1) Hydropneumothorax: Code(s): J94.8 - Other specified pleural conditions Status: Acute Assessment and Plan: Chest tube in place. CXR this AM still shows lower trapped lung. Continue Chest tube to suction today. Wean and extubate per CCP and clam treader. Will keep chest tube in place until patient is off positive pressure ventilation. Subjective Subjective Date/Time Seen: 08/28/21 10:03 Interval history: Patient resting comfortably this AM. No events overnight. Exam Resp: Auscultation: clear to auscultation bilaterally Other: Left chest tube in place with serosanguinous output. No air leak noted. Objective Data Vital Signs Vital Signs: Vital Signs - 24 hr 08/27/21 10:15 08/27/21 10:30 08/27/21 10:34 Temperature Pulse Rate 89 89 84 Respiratory Rate Blood Pressure 106/66 92/69 L Pulse Oximetry 100 08/27/21 10:45 08/27/21 11:00 08/27/21 11:15 Temperature Pulse Rate 91 92 99 Respiratory Rate Blood Pressure 114/57 L 111/62 114/65 Pulse Oximetry 08/27/21 11:30 08/27/21 11:45 08/27/21 11:54 Temperature Pulse Rate 94 91 93 Respiratory Rate Blood Pressure 91/66 L 110/62 120/59 L Pulse Oximetry 08/27/21 12:00 08/27/21 12:05 08/27/21 14:00 Temperature 36.5 C 36.7 C Pulse Rate 92 93 88 Respiratory Rate 19 16 18 Blood Pressure 109/60 109/60 116/59 L Pulse Oximetry 97 98 100 08/27/21 14:02 08/27/21 14:12 08/27/21 14:48 Temperature Pulse Rate 81 89 86 Respiratory Rate 14 20 Blood Pressure Pulse Oximetry 98 08/27/21 16:00 08/27/21 17:03 08/27/21 18:00 Temperature 37.4 C Pulse Rate 91 84 85 Respiratory Rate 22 H 18 Blood Pressure 110/52 L 120/63 Pulse Oximetry 100 97 99 08/27/21 18:44 08/27/21 20:00 08/27/21 20:05 Temperature 36.8 C Pulse Rate 89 80 76 Respiratory Rate 28 H 26 H 13 Blood Pressure 122/53 L Pulse Oximetry 99 99 08/27/21 20:15 08/27/21 22:00 08/27/21 23:30 Temperature Pulse Rate 80 83 66 Respiratory Rate 13 20 Blood Pressure 97/57 L Pulse Oximetry 99 99 08/27/21 23:53 08/28/21 00:00 08/28/21 02:00 Temperature 37.5 C Pulse Rate 66 66 67 Respiratory Rate 24 H 18 Blood Pressure 90/49 L 104/76 Pulse Oximetry 99 100 08/28/21 02:02 08/28/21 02:10 08/28/21 04:00 Temperature 37.4 C Pulse Rate 65 65 78 Respiratory Rate 19 22 H Blood Pressure 91/58 L Pulse Oximetry 100 99 08/28/21 05:07 08/28/21 06:00 08/28/21 08:00 Temperature 36.7 C Pulse Rate 73 73 77 Respiratory Rate 14 18 Blood Pressure 87/47 L 91/52 L Pulse Oximetry 100 99 99 08/28/21 08:22 08/28/21 08:29 Temperature Pulse Rate 70 77 Respiratory Rate 28 H 11 L Blood Pressure Pulse Oximetry Intake/Output Intake/Output: Intake & Output 08/25/21 08/26/21 08/27/21 08/28/21 23:59 23:59 23:59 23:59 Intake Total 1384 1237 1660 Output Total 50 1650 270 Balance 1384 1187 10 -270 Meds/Results Medications: Active Medications Generic Name Dose Route Start Last Admin Trade Name Freq PRN Reason Stop Dose Admin Acetaminophen 650 mg 08/17/21 13:58 Acetaminophen 325 Mg Tablet PO Q4H PRN Mild Pain (1-3) or Fever Albuterol 2.5 mg 08/27/21 08:00 08/28/21 08:23 Albuterol Sulfate Neb 2.5 Mg/0.5 Ml Inh INHALATION 2.5 mg Q6HRT SAM Administration Dextrose 12.5 gm 08/17/21 23:32 08/18/21 18:30 Dextrose 50% 25 Gm/50 Ml Syringe IV PUSH 12.5 gm PRN PRN Administration Hypoglycemia Protocol Epoetin Jame-epbx 10,000 units 08/20/21 10:00 08/27/21 10:58 Epoetin Jame-Epbx 10,000 Units/Ml Vial IV PUSH 10,000 units TUTHSA SAM Administration Fentanyl Citrate 50 mcg 08/26/21 11:53 08/27/21 16:53 Fentanyl Citrate Inj (*Crx) 100 Mcg/2 Ml Vial IV PUSH 50 mcg Q2HR PRN Administration Pain Rated 7-10 Glucagon 1 mg 08/17/21 23:32 Glucagon For Inj 1 Mg Vial IM PRN PRN Hypoglycem
--- NOTE | 2021-08-28 11:15 | PCFNICU ---
ICU Rounding Note: Pt current nutrition is Nepro at 50 ml/hr over 22 hours. Last recorded weight is 87.3 kg, up from 62 kg on admit. Bowel Motility:+BM reported 08/26 Labs Reviewed:PO4 1.7,BUN 60, Cr 2.4,Glu 112, NA 132, Hct 27.0, Hgb 8.4 Meds Noted:Precedex, ProAmatine, Protonix, Heparin, Atrovent Skin: Deep Tissue-Bilateral heels, Deep Tissue-Buttock. Additional Notes: Patient on a breathing trial today. Thoracentesis planned for today. left side chest tube placed 08/27. Tube feedings being tolerating of Nepro at 50 ml/hr over 22 hours. Protein Modular of Jeffery BID given for wound healing. Following daily in ICU rounds. Will monitor every Thursday and Thursday.
--- NOTE | 2021-08-28 11:57 | PM.IMPN ---
Progress Note: A&P Assessment and Plan (1) Acute hypercapnic respiratory failure: Code(s): J96.02 - Acute respiratory failure with hypercapnia Status: Acute Assessment and Plan: Acute hypercapnic respiratory failure secondary to bilateral peripheral effusion, pneumonia, will opacification of left hemithorax. Pt had chest tube placed yesterday for L hemithorax Weaning off ventilator nicely, off sedation, hopefully extubated tomorrow (2) Pneumonia: Qualifiers: Pneumonia type: due to unspecified organism Laterality: unspecified laterality Lung location: unspecified part of lung Qualified Code(s): J18.9 - Pneumonia, unspecified organism Code(s): J18.9 - Pneumonia, unspecified organism Status: Acute Assessment and Plan: Check x-ray x-ray with opacification of left hemithorax, combination of effusion, atelectasis, mucus plugging and pneumonia -continue IV antibiotics (initiated on 08/18)vanco 08/18 ceftriaxone 08/18, azithromycin 08/18, completed course of IV abx (3) Altered mental status: Qualifiers: Altered mental status type: unspecified Qualified Code(s): R41.82 - Altered mental status, unspecified Code(s): R41.82 - Altered mental status, unspecified Status: Acute Assessment and Plan: Altered mental statusimproving likely related to hypercarbia, infection. CT brain on 08/18/2021 showed no acute intracranial abnormality. Patient sedated on exam. (4) ESRD (end stage renal disease): Code(s): N18.6 - End stage renal disease Status: Chronic Assessment and Plan: End-stage renal disease on dialysis (M,W,F) Pt sp dialysis yesterday (5) Pleural effusion: Code(s): J90 - Pleural effusion, not elsewhere classified Status: Acute Assessment and Plan: Bilateral pleural effusions w/ L. significantly greater than right. Status post thoracentesis on 08/19 and chest tube insertion 08/27/2021 (6) Cirrhosis of liver: Qualifiers: Hepatic cirrhosis type: alcoholic cirrhosis Ascites presence: without ascites Qualified Code(s): K70.30 - Alcoholic cirrhosis of liver without ascites Code(s): K74.60 - Unspecified cirrhosis of liver Status: Acute Assessment and Plan: Significantly elevated LFTs, could be related to underlying cirrhosis -monitor CMP Subjective Date/time seen: 08/28/21 11:57 Interval history: Pt is sp chest tube today for L hemithorax. Pt has pneumonia also. Pt has history of end-stage renal disease on hemodialysis, hypertension, chronic anemia, cirrhosis, GERD, and history of duodenal ulcers who presented to the emergency department earlier today via EMS from dialysis for evaluation of low oxygen saturations and confusion. Pt is having dialysis today. Pt is intubated but off sedation. Pt had 08/19 left thoracentesis with done and 500 cc fluid was removed 08/27/2021 Pt had left chest tube placed 08/28/2021 No specific complaints awaiting extubation today or tomorrow Review of Systems Review of Systems: All systems reviewed & are unremarkable except as noted in HPI and below Exam Narrative: Intubated off sedation Chest decreased BS Bilaterally with left chest tube in situ Abdomen nontender nondistended CVS S1 + S2 Lower extremity no edema Objective Data Vital Signs Vital Signs: Vital Signs - 24 hr 08/27/21 12:00 08/27/21 12:05 08/27/21 14:00 Temperature 36.5 C 36.7 C Pulse Rate 92 93 88 Respiratory Rate 19 16 18 Blood Pressure 109/60 109/60 116/59 L Pulse Oximetry 97 98 100 08/27/21 14:02 08/27/21 14:12 08/27/21 14:48 Temperature Pulse Rate 81 89 86 Respiratory Rate 14 20 Blood Pressure Pulse Oximetry 98 08/27/21 16:00 08/27/21 17:03 08/27/21 18:00 Temperature 37.4 C Pulse Rate 91 84 85 Respiratory Rate 22 H 18 Blood Pressure 110/52 L 120/63 Pulse Oximetry 100 97 99 08/27/21 18:44 08/27/21 20:00 08/27/21 20:0
[2021-08-28 12:37] LABS: Glucose Point of Care 67 mg/dl (65-105)
--- NOTE | 2021-08-28 13:06 | WPDINTPN ---
Progress Note: A&P Assessment and Plan (1) Acute hypercapnic respiratory failure: Code(s): J96.02 - Acute respiratory failure with hypercapnia Status: Acute Assessment and Plan: Transferred to ICU on 08/18 for Acute hypercapnic respiratory failure could be multi factorial, medications as patient received Ativan and morphine, bilateral peripheral effusion, pneumonia, will opacification of left hemithorax -intubated on 08/18 -chest x-ray reviewed and appears unchanged -CT chest 08/18/2021 shows moderate bilateral pleural effusion with probable small loculated left apical hydropneumothorax. Bilateral airspace disease throughout the residual left lung and and peripherally in the right upper and lower lobes which may represent a combination of pneumonia and/or atelectasis. -08/19 left thoracentesis with done and 500 cc fluid was removed -patient failed his weaning trial daily for last few days. He is off sedation but appears to be very weak on weaning trial. His RSBI gets very high and High pressure support is required to get adequate RSBI as his tidal volumes are very low on weaning trial. - 08/27: Continue ASV mode, will decrease ventilation 80%, peep to 5, and 30% FiO2 08/27/2021: Left-sided chest tube was inserted -chest x-ray this morning shows moderate right pleural effusion, will have IR perform a thoracentesis as patient is failing his weaning trials, he is requiring high pressure support. (2) Pneumonia: Qualifiers: Pneumonia type: due to unspecified organism Laterality: unspecified laterality Lung location: unspecified part of lung Qualified Code(s): J18.9 - Pneumonia, unspecified organism Code(s): J18.9 - Pneumonia, unspecified organism Status: Acute Assessment and Plan: Check x-ray x-ray with opacification of left hemithorax, combination of effusion, atelectasis, mucus plugging and pneumonia - completed a 7 day course of ceftriaxone, azithromycin - cultures were negative and he is afebrile - WBC has normalized (3) Altered mental status: Qualifiers: Altered mental status type: unspecified Qualified Code(s): R41.82 - Altered mental status, unspecified Code(s): R41.82 - Altered mental status, unspecified Status: Acute Assessment and Plan: Altered mental status likely related to hypercarbia, infection -CT brain on 08/18/2021 showed no acute intracranial abnormality -currently off all sedation and following commands (4) ESRD (end stage renal disease): Code(s): N18.6 - End stage renal disease Status: Chronic Assessment and Plan: End-stage renal disease on dialysis (M,W,F) -nephrology following the patient -dialysis per Nephrology. Patient is getting dialyzed today (5) Pleural effusion: Code(s): J90 - Pleural effusion, not elsewhere classified Status: Acute Assessment and Plan: Bilateral pleural effusions patient has thoracentesis on left and 500 cc of fluid was removed 08/19 -less likely transudate from the labs done on the pleural fluid -08/28: Will request IR to perform a ultrasound-guided right-sided thoracentesis (6) Cirrhosis of liver: Qualifiers: Hepatic cirrhosis type: alcoholic cirrhosis Ascites presence: without ascites Qualified Code(s): K70.30 - Alcoholic cirrhosis of liver without ascites Code(s): K74.60 - Unspecified cirrhosis of liver Status: Acute Assessment and Plan: Significantly elevated LFTs, could be related to underlying liver disease plus possible shock liver due to hypoxia -hepatitis panel is negative -right upper quadrant ultrasound -nodularity of the liver surface, consistent with cirrhosis. Gallbladder is normal -LFTs trending down (7) Pneumothorax: Code(s): J93.9 - Pneumothorax, unspecified Status: Acute Assessment and Plan: ? Small loculated pneumothorax in left lung Monitor for now Left-sided chest tube was inserted on
--- NOTE | 2021-08-28 14:30 | P.PNNP_ITS ---
Progress Note: A&P Assessment and Plan (1) ESRD (end stage renal disease): Code(s): N18.6 - End stage renal disease Status: Chronic Assessment and Plan: * hemodialysis Due tomorrow. * Electrolytes okay. * Volume status looks okay. However he does have pleural effusion. I was considering dry ultrafiltration today but is blood pressure is only eighty right now. In the mid to late afternoon. So will hold off on dialysis until tomorrow. Consider dry ultrafiltration again on . * normally follows with Dr. Prince at [facility] (2) Acute hypercapnic respiratory failure: Code(s): J96.02 - Acute respiratory failure with hypercapnia Status: Acute Assessment and Plan: * remains on ventilator support at this time * due to pneumonia, pleural effusions, Scar tissue,and generalized weakness * he is on only 30% FiO2. Minute volume only 13. * wean as tolerated (3) Bilateral pleural effusion: Code(s): J90 - Pleural effusion, not elsewhere classified Status: Acute Assessment and Plan: * as noted by imaging * push fluid removal/ultrafiltration with dialysis as tolerated * Chest tube Was placed on the left yesterday. * Thoracentesis on the right today. (4) Hyponatremia: Code(s): E87.1 - Hypo-osmolality and hyponatremia Status: Acute Assessment and Plan: * likely related to ESRD and fluid shifts * dialysis should correct to some degree (5) Chronic anemia: Code(s): D64.9 - Anemia, unspecified Status: Chronic Assessment and Plan: * related to ESRD and acute illness * Epogen with HD * Check reticulocyte count * Hemoglobin 8.4 today. This rises and falls. (6) Hypertension: Code(s): I10 - Essential (primary) hypertension Status: Chronic Assessment and Plan: * reasonable control at this time * follow trend of hemodynamics (7) Cirrhosis of liver: Qualifiers: Hepatic cirrhosis type: alcoholic cirrhosis Ascites presence: without ascites Qualified Code(s): K70.30 - Alcoholic cirrhosis of liver without ascites Code(s): K74.60 - Unspecified cirrhosis of liver Status: Acute Assessment and Plan: * chronic issue based on imaging * AST and ALT are normal now. Subjective Date/time seen: 08/28/21 14:30 Interval history: is in the room patient looks comfortable in bed. He is still on the ventilator. Interactive. no chest pain or shortness of breath. Exam Narrative: General: elderly male in NAD; intubated Heart: normal S1 and S2; no rub Lungs: coarse breath sounds Abdomen: soft, nontender, nondistended, positive bowel sounds Extremities: No edema Skin: no rash Objective Data Vital Signs Vital Signs: Vital Signs - 24 hr 08/27/21 14:48 08/27/21 16:00 08/27/21 17:03 Temperature 37.4 C Pulse Rate 86 91 84 Respiratory Rate 22 H Blood Pressure 110/52 L Pulse Oximetry 98 100 97 08/27/21 18:00 08/27/21 18:44 08/27/21 20:00 Temperature 36.8 C Pulse Rate 85 89 80 Respiratory Rate 18 28 H 26 H Blood Pressure 120/63 122/53 L Pulse Oximetry 99 99 08/27/21 20:05 08/27/21 20:15 08/27/21 22:00 Temperature Pulse Rate 76 80 83 Respira
--- NOTE | 2021-08-28 14:30 | PM.PNNEP ---
Progress Note: A&P Assessment and Plan (1) ESRD (end stage renal disease): Code(s): N18.6 - End stage renal disease Status: Chronic Assessment and Plan: hemodialysis Due tomorrow. Electrolytes okay. Volume status looks okay. However he does have pleural effusion. I was considering dry ultrafiltration today but is blood pressure is only eighty right now. In the mid to late afternoon. So will hold off on dialysis until tomorrow. Consider dry ultrafiltration again on . normally follows with Dr. Prince at [facility] (2) Acute hypercapnic respiratory failure: Code(s): J96.02 - Acute respiratory failure with hypercapnia Status: Acute Assessment and Plan: remains on ventilator support at this time due to pneumonia, pleural effusions, Scar tissue,and generalized weakness he is on only 30% FiO2. Minute volume only 13. wean as tolerated (3) Bilateral pleural effusion: Code(s): J90 - Pleural effusion, not elsewhere classified Status: Acute Assessment and Plan: as noted by imaging push fluid removal/ultrafiltration with dialysis as tolerated Chest tube Was placed on the left yesterday. Thoracentesis on the right today. (4) Hyponatremia: Code(s): E87.1 - Hypo-osmolality and hyponatremia Status: Acute Assessment and Plan: likely related to ESRD and fluid shifts dialysis should correct to some degree (5) Chronic anemia: Code(s): D64.9 - Anemia, unspecified Status: Chronic Assessment and Plan: related to ESRD and acute illness Epogen with HD Check reticulocyte count Hemoglobin 8.4 today. This rises and falls. (6) Hypertension: Code(s): I10 - Essential (primary) hypertension Status: Chronic Assessment and Plan: reasonable control at this time follow trend of hemodynamics (7) Cirrhosis of liver: Qualifiers: Hepatic cirrhosis type: alcoholic cirrhosis Ascites presence: without ascites Qualified Code(s): K70.30 - Alcoholic cirrhosis of liver without ascites Code(s): K74.60 - Unspecified cirrhosis of liver Status: Acute Assessment and Plan: chronic issue based on imaging AST and ALT are normal now. Subjective Date/time seen: 08/28/21 14:30 Interval history: is in the room patient looks comfortable in bed. He is still on the ventilator. Interactive. no chest pain or shortness of breath. Exam Narrative: General: elderly male in NAD; intubated Heart: normal S1 and S2; no rub Lungs: coarse breath sounds Abdomen: soft, nontender, nondistended, positive bowel sounds Extremities: No edema Skin: no rash Objective Data Vital Signs Vital Signs: Vital Signs - 24 hr 08/27/21 14:48 08/27/21 16:00 08/27/21 17:03 Temperature 37.4 C Pulse Rate 86 91 84 Respiratory Rate 22 H Blood Pressure 110/52 L Pulse Oximetry 98 100 97 08/27/21 18:00 08/27/21 18:44 08/27/21 20:00 Temperature 36.8 C Pulse Rate 85 89 80 Respiratory Rate 18 28 H 26 H Blood Pressure 120/63 122/53 L Pulse Oximetry 99 99 08/27/21 20:05 08/27/21 20:15 08/27/21 22:00 Temperature Pulse Rate 76 80 83 Respiratory Rate 13 13 20 Blood Pressure 97/57 L Pulse Oximetry 99 99 08/27/21 23:30 08/27/21 23:53 08/28/21 00:00 Temperature 37.5 C Pulse Rate 66 66 66 Respiratory Rate 24 H Blood Pressure 90/49 L Pulse Oximetry 99 99 08/28/21 02:00 08/28/21 02:02 08/28/21 02:10 Temperature Pulse Rate 67 65 65 Respiratory Rate 18 19 Blood Pressure 104/76 Pulse Oximetry 100 100 08/28/21 04:00 08/28/21 05:07 08/28/21 06:00 Temperature 37.4 C Pulse Rate 78 73 73 Respiratory Rate 22 H 14 Blood Pressure 91/58 L 87/47 L Pulse Oximetry 99 100 99 08/28/21 08:00 08/28/21 08:22 08/28/21 08:29 Temperature 36.7 C Pulse Rate 77 70 77 Respiratory Rate 18 28 H 1
[2021-08-28] MEDS: fentaNYL CITRATE INJ (*CRX) 100 MCG/2 ML VIAL 50 MCG IV PUSH (16:16)
[2021-08-28] MEDS: MIDAZOLAM HCL (*CRX) 2 MG/2 ML VIAL IV PUSH (17:15)
[2021-08-28 18:38] LABS: Glucose Point of Care 97 mg/dl (65-105)
[2021-08-28 19:24] LABS: Appearance Pleural Fluid Bloody (Clear); Color Pleural Fluid Yellow (Colorless); Pleural fluid source Pleural fluid
[2021-08-28 19:56] LABS: Nucleated Cell Pleural Fluid 128 /uL (0-1000); RBC Pleural Fluid 15283 /uL (0-0)
[2021-08-28 19:58] LABS: Lymphocytes Pleural Fluid 97 %; Macrophages Pleural Fluid 3 %
[2021-08-29] VITALS (44 sets, daily range): BP systolic 67–118; BP diastolic 30–90; PULSE 60–108; RESP 16–30; TEMP 35.5–36.8; O2SAT 87–99
[2021-08-29 00:07] LABS: Glucose Point of Care 116 mg/dl (65-105)
[2021-08-29] MEDS: dexmedeTOMIDine 400 MCG/100 ML 400 MCG/100 ML BAG IV CONT (00:30)
[2021-08-29] MEDS: ALBUTEROL SULFATE NEB 2.5 MG/0.5 ML INH INHALATION ×4 (02:32→20:18)
[2021-08-29] MEDS: IPRATROPIUM BR 0.02% INH SOLN 0.5 MG/2.5 ML VIAL INHALATION ×4 (02:33→20:18)
[2021-08-29 05:08] LABS: Alveolar/Arterial O2 Gradient 88.7 mmHg; Base Excess ABG 5.2 mEq/l (+/-2.0); Carboxyhemoglobin 0.3 % THb (0-2.0); Fractional Inspired Oxygen 35 %; Methemoglobin ABG 0.2 %THb (0-1.5); Oxygen Content ABG 16.4 %vol (16.0-22.0); Oxygen Saturation ABG 98.4 % (95.0-100.0); Oxyhemoglobin 97.2 % THb (90.0-100.0); PCO2 ABG 39.9 mmHg (35.0-45.0); PO2 ABG 114.5 mmHg (80.0-100.0); PO2 FiO2 Ratio Arterial Blood 3.27 %; Reduced Hemoglobin 2.3 %THb (0-5.0); Total Hemoglobin 11.9 g/dL (12.0-18.0)
[2021-08-29 05:15] LABS: Device VENTILATOR; Modified Allen's Test Unable to perform; Site Drawn RIGHT RADIAL
[2021-08-29 05:16] LABS: Arterial Blood Gas PEEP 5 cmH2O; Arterial Blood Gas Vent Mode ASV
[2021-08-29 05:31] LABS: Glucose Point of Care 108 mg/dl (65-105)
[2021-08-29 05:34] LABS: Hematocrit 26.5 % (42.0-52.0); Hemoglobin 8.6 g/dL (14.0-18.0); Mean Corpuscular HGB Conc 32.5 g/dl (32-36); Mean Corpuscular Hemoglobin 30.8 pg (26-34); Mean Platelet Volume 10.8 fl (7.4-10.4); Platelet Count Result 249 k/mm3 (150-375); Red Blood Count 2.79 M/mm3 (4.6-6.20); Red Cell Distribution Width 15.1 % (11.5-14.5)
[2021-08-29 06:24] LABS: Albumin Level 3.2 g/dL (3.5-5.1); Anion Gap 9 mmol/L (8-16); Blood Urea Nitrogen 105 mg/dL (9-20); Carbon Dioxide 29 mmol/L (22-30); Chloride 92 mmol/L (98-107); Estimated CRCL calculation 18 ml/min; Estimated Glomerular Filt Rate 18; Glucose 114 mg/dL (65-110); Magnesium 2.3 mg/dL (1.6-2.3); Phosphorus 2.4 mg/dL (2.5-4.5); Potassium 4.3 mmol/L (3.4-5.0); Sodium 130 mmol/L (137-145)
--- NOTE | 2021-08-29 06:54 | P.PNNP_ITS ---
Progress Note: A&P Assessment and Plan (1) ESRD (end stage renal disease): Code(s): N18.6 - End stage renal disease Status: Chronic Assessment and Plan: * hemodialysis due today * Electrolytes okay. * Volume status looks okay. * He did not get dry ultrafiltration yesterday because blood pressure was too low and he had procedures yesterday. * Even today is blood pressure is a bit soft. He will get regular dialysis and we will take fluid off as tolerated. * normally follows with Dr. Prince at [facility] (2) Acute hypercapnic respiratory failure: Code(s): J96.02 - Acute respiratory failure with hypercapnia Status: Acute Assessment and Plan: * remains on ventilator support at this time * due to pneumonia, pleural effusions, Scar tissue,and generalized weakness * he is on only 30% FiO2. Minute volume only 6.7 * He is weak. He is getting tube feedings. * wean as tolerated (3) Bilateral pleural effusion: Code(s): J90 - Pleural effusion, not elsewhere classified Status: Acute Assessment and Plan: * as noted by imaging * push fluid removal/ultrafiltration with dialysis as tolerated * Chest tube is in on the left. * Thoracentesis on the right (4) Hyponatremia: Code(s): E87.1 - Hypo-osmolality and hyponatremia Status: Acute Assessment and Plan: * likely related to ESRD and fluid shifts * dialysis should correct to some degree (5) Chronic anemia: Code(s): D64.9 - Anemia, unspecified Status: Chronic Assessment and Plan: * related to ESRD and acute illness * Epogen with HD * Retic count 2.2. Will increase EPO dose. * Hemoglobin 8.6 (6) Hypertension: Code(s): I10 - Essential (primary) hypertension Status: Chronic Assessment and Plan: * BP is soft if anything. (7) Cirrhosis of liver: Qualifiers: Hepatic cirrhosis type: alcoholic cirrhosis Ascites presence: without ascites Qualified Code(s): K70.30 - Alcoholic cirrhosis of liver without ascites Code(s): K74.60 - Unspecified cirrhosis of liver Status: Acute Assessment and Plan: * chronic issue based on imaging * AST and ALT are normal now. Subjective Date/time seen: 08/29/21 06:54 Interval history: patient looks comfortable in bed. He is still on the ventilator. Interactive. By nodding his head he denies shortness of breath or pain. He wrote down ?I want to go home?. We discussed how he needs to get off the ventilator 1st. This requires strengthening. We are giving him nutrition and pulmonary support and he is getting his dialysis. Fluid removal as tolerated. Exam Narrative: General: elderly male in NAD; intubated Heart: normal S1 and S2; no rub or gallop Lungs: coarse breath sounds Abdomen: soft, nontender, nondistended, positive bowel sounds Extremities: No edema Skin: no rash or subQ nodules Objective Data Vital Signs Vital Signs: Vital Signs - 24 hr 08/28/21 08:00 08/28/21 08:22 08/28/21 08:29 Temperature 36.7 C Pulse Rate 79 70 77 Respiratory Rate 18 28 H 11 L Blood Pressure 91/52 L Pulse Oximetry 99 08/28/21 10:00 08/28/21 12:00 08/28/21 12:10 Temperature 36.9 C Pulse Rate 78 83 75 Respiratory Rate 21 H 21 H Blood Pressure 90/52 L 93/54 L
--- NOTE | 2021-08-29 06:54 | PM.PNNEP ---
Progress Note: A&P Assessment and Plan (1) ESRD (end stage renal disease): Code(s): N18.6 - End stage renal disease Status: Chronic Assessment and Plan: hemodialysis due today Electrolytes okay. Volume status looks okay. He did not get dry ultrafiltration yesterday because blood pressure was too low and he had procedures yesterday. Even today is blood pressure is a bit soft. He will get regular dialysis and we will take fluid off as tolerated. normally follows with Dr. Prince at [facility] (2) Acute hypercapnic respiratory failure: Code(s): J96.02 - Acute respiratory failure with hypercapnia Status: Acute Assessment and Plan: remains on ventilator support at this time due to pneumonia, pleural effusions, Scar tissue,and generalized weakness he is on only 30% FiO2. Minute volume only 6.7 He is weak. He is getting tube feedings. wean as tolerated (3) Bilateral pleural effusion: Code(s): J90 - Pleural effusion, not elsewhere classified Status: Acute Assessment and Plan: as noted by imaging push fluid removal/ultrafiltration with dialysis as tolerated Chest tube is in on the left. Thoracentesis on the right (4) Hyponatremia: Code(s): E87.1 - Hypo-osmolality and hyponatremia Status: Acute Assessment and Plan: likely related to ESRD and fluid shifts dialysis should correct to some degree (5) Chronic anemia: Code(s): D64.9 - Anemia, unspecified Status: Chronic Assessment and Plan: related to ESRD and acute illness Epogen with HD Retic count 2.2. Will increase EPO dose. Hemoglobin 8.6 (6) Hypertension: Code(s): I10 - Essential (primary) hypertension Status: Chronic Assessment and Plan: BP is soft if anything. (7) Cirrhosis of liver: Qualifiers: Hepatic cirrhosis type: alcoholic cirrhosis Ascites presence: without ascites Qualified Code(s): K70.30 - Alcoholic cirrhosis of liver without ascites Code(s): K74.60 - Unspecified cirrhosis of liver Status: Acute Assessment and Plan: chronic issue based on imaging AST and ALT are normal now. Subjective Date/time seen: 08/29/21 06:54 Interval history: patient looks comfortable in bed. He is still on the ventilator. Interactive. By nodding his head he denies shortness of breath or pain. He wrote down ?I want to go home?. We discussed how he needs to get off the ventilator 1st. This requires strengthening. We are giving him nutrition and pulmonary support and he is getting his dialysis. Fluid removal as tolerated. Exam Narrative: General: elderly male in NAD; intubated Heart: normal S1 and S2; no rub or gallop Lungs: coarse breath sounds Abdomen: soft, nontender, nondistended, positive bowel sounds Extremities: No edema Skin: no rash or subQ nodules Objective Data Vital Signs Vital Signs: Vital Signs - 24 hr 08/28/21 08:00 08/28/21 08:22 08/28/21 08:29 Temperature 36.7 C Pulse Rate 79 70 77 Respiratory Rate 18 28 H 11 L Blood Pressure 91/52 L Pulse Oximetry 99 08/28/21 10:00 08/28/21 12:00 08/28/21 12:10 Temperature 36.9 C Pulse Rate 78 83 75 Respiratory Rate 21 H 21 H Blood Pressure 90/52 L 93/54 L Pulse Oximetry 97 92 98 08/28/21 14:00 08/28/21 14:02 08/28/21 14:15 Temperature Pulse Rate 78 74 81 Respiratory Rate 21 H 29 H Blood Pressure 95/55 L Pulse Oximetry 97 97 08/28/21 14:23 08/28/21 15:50 08/28/21 16:00 Temperature 35.8 C L Pulse Rate 75 82 86 Respiratory Rate 31 H 25 H 26 H Blood Pressure 93/82 L Pulse Oximetry 94 08/28/21 17:17 08/28/21 18:00 08/28/21 18:30 Temperature Pulse Rate 85 88 90 Respiratory Rate 19 19 Blood Pressure 92/72 L Pulse Oximetry 98 96 08/28/21 20:00 08/28/21 20:35 08/28/21 20:37 Temperature 36.9 C Pulse Rate 77 75 75 Respira
[2021-08-29] MEDS: MIDODRINE HCL 10 MG TABLET PO ×4 (07:51→16:22)
[2021-08-29] MEDS: MINERAL OIL/WHITE PETROLATUM OINTMENT 1 APPLIC EACH EYE (07:52)
[2021-08-29] MEDS: PANTOPRAZOLE SODIUM IV 40 MG VIAL IV PUSH (07:52)
[2021-08-29] MEDS: HEPARIN SODIUM 5,000 UNITS/ML VIAL 5000 UNITS SUB-Q ×2 (07:52→20:51)
--- NOTE | 2021-08-29 08:53 | WPDINTPN ---
Progress Note: A&P Assessment and Plan (1) Acute hypercapnic respiratory failure: Code(s): J96.02 - Acute respiratory failure with hypercapnia Status: Acute Assessment and Plan: Transferred to ICU on 08/18 for Acute hypercapnic respiratory failure could be multi factorial, medications as patient received Ativan and morphine, bilateral peripheral effusion, pneumonia, will opacification of left hemithorax -intubated on 08/18 -CT chest 08/18/2021 shows moderate bilateral pleural effusion with probable small loculated left apical hydropneumothorax. Bilateral airspace disease throughout the residual left lung and and peripherally in the right upper and lower lobes which may represent a combination of pneumonia and/or atelectasis. -08/19 left thoracentesis with done and 500 cc fluid was removed 08/27/2021: Left-sided chest tube was inserted -08/28/2021: Right thoracentesis with removal of 700 mL of serosanguineous fluid - Continue ASV mode, will decrease ventilation 80%, peep to 5, and 35% FiO2 -patient has been failing his weaning trials, -now that he has got his thoracentesis on the right side, a chest tube on the left side, getting dialysis today -will place patient on weaning trial after dialysis and evaluate for extubation -patient is on Precedex infusion (2) Pneumonia: Qualifiers: Pneumonia type: due to unspecified organism Laterality: unspecified laterality Lung location: unspecified part of lung Qualified Code(s): J18.9 - Pneumonia, unspecified organism Code(s): J18.9 - Pneumonia, unspecified organism Status: Acute Assessment and Plan: Check x-ray x-ray with opacification of left hemithorax, combination of effusion, atelectasis, mucus plugging and pneumonia - completed a 7 day course of ceftriaxone, azithromycin - cultures were negative and he is afebrile - WBC has normalized (3) Altered mental status: Qualifiers: Altered mental status type: unspecified Qualified Code(s): R41.82 - Altered mental status, unspecified Code(s): R41.82 - Altered mental status, unspecified Status: Acute Assessment and Plan: RESOLVED Altered mental status likely related to hypercarbia, infection -CT brain on 08/18/2021 showed no acute intracranial abnormality -currently off all sedation and following commands (4) ESRD (end stage renal disease): Code(s): N18.6 - End stage renal disease Status: Chronic Assessment and Plan: End-stage renal disease on dialysis (M,W,F) -nephrology following the patient -dialysis per Nephrology. Patient is getting dialyzed today (5) Pleural effusion: Code(s): J90 - Pleural effusion, not elsewhere classified Status: Acute Assessment and Plan: Patient has had bilateral pleural effusion since admission, left side seems to be more loculated since admission -08/19: Thoracentesis on left and 500 cc of fluid removal -less likely transudate from the labs done on the pleural fluid - -08/28: Right-sided thoracentesis with removal of 700 mL of serosanguineous fluid CT chest 08/18/2021 shows moderate bilateral pleural effusion with probable small loculated left apical hydropneumothorax. Bilateral airspace disease throughout the residual left lung and and peripherally in the right upper and lower lobes which may represent a combination of pneumonia and/or atelectasis (6) Cirrhosis of liver: Qualifiers: Hepatic cirrhosis type: alcoholic cirrhosis Ascites presence: without ascites Qualified Code(s): K70.30 - Alcoholic cirrhosis of liver without ascites Code(s): K74.60 - Unspecified cirrhosis of liver Status: Acute Assessment and Plan: Significantly elevated LFTs, could be related to underlying liver disease plus possible shock liver due to hypoxia -hepatitis panel is negative -right upper quadrant ultrasound -nodularity of the liver surface, consistent with cirrhosis. Gallbl
[2021-08-29] MEDS: EPOETIN ALFA-EPBX 20,000 UNITS/ML VIAL 20000 UNITS IV PUSH (11:16)
[2021-08-29] MEDS: ALBUMIN HUMAN 25% 12.5 GM/50ML 50 ML IVPB (11:17)
--- NOTE | 2021-08-29 11:55 | PCFNICU ---
ICU Rounding Note: Pt current nutrition is Nepro at 50ml/hr over 22 hours. Protein Modular-Jeffery BID for wound healing. Last recorded weight is 86.2 kg, up from 62 kg on admit. Bowel Motility:+BM reported 08/29 Labs Reviewed:Hgb 8.6,Hct 26.5,Na 130, Alb 3.2,BUN 105, Cr 3.4 Meds Noted:Rocephin, Heparin, Protonix, Albuterol, Atrovent, Precedex. Skin: Deep Tissue-Heels, Buttocks. Additional Notes:Patient remains on mechanical vent, plans for weaning trial today after dialysis. Possible Trach/PEG? Right Thoracentesis 08/28-700 ml fluid removed. Patient continues to tolerate tube feedings of Nepro at 50 ml/hr with free water flush of 30 ml q 4 hours. Following daily in ICU rounds. Will monitor every Thursday and Thursday.
[2021-08-29] MEDS: dexmedeTOMIDine 400 MCG/100 ML 400 MCG/100 ML BAG 6.73 MCG IV CONT (20:12)
[2021-08-30] VITALS (25 sets, daily range): BP systolic 64–111; BP diastolic 43–62; PULSE 57–98; RESP 16–38; TEMP 35.9–37.3; O2SAT 90–99
[2021-08-30 00:39] LABS: Glucose Point of Care 122 mg/dl (65-105)
[2021-08-30] MEDS: IPRATROPIUM BR 0.02% INH SOLN 0.5 MG/2.5 ML VIAL INHALATION ×4 (02:17→20:07)
[2021-08-30] MEDS: ALBUTEROL SULFATE NEB 2.5 MG/0.5 ML INH INHALATION ×4 (02:17→20:07)
[2021-08-30 05:02] LABS: Alveolar/Arterial O2 Gradient 161.3 mmHg; Base Excess ABG 4.2 mEq/l (+/-2.0); Carboxyhemoglobin 0.3 % THb (0-2.0); Device VENTILATOR; Fractional Inspired Oxygen 45 %; HCO3 ABG 28.7 mEq/l (22.0-26.0); Methemoglobin ABG 0.4 %THb (0-1.5); Modified Allen's Test Pass; Oxygen Content ABG 14.5 %vol (16.0-22.0); Oxygen Saturation ABG 98.2 % (95.0-100.0); Oxyhemoglobin 96.9 % THb (90.0-100.0); PO2 ABG 110.6 mmHg (80.0-100.0); PO2 FiO2 Ratio Arterial Blood 2.46 %; Reduced Hemoglobin 2.4 %THb (0-5.0); Site Drawn RIGHT RADIAL; Total Hemoglobin 10.5 g/dL (12.0-18.0); pH ABG 7.443 (7.350-7.450)
[2021-08-30 05:03] LABS: Arterial Blood Gas PEEP 5 cmH2O; Arterial Blood Gas Vent Mode ASV
[2021-08-30 05:25] LABS: Anion Gap 9 mmol/L (8-16); Blood Urea Nitrogen 63 mg/dL (9-20); Calcium 8.6 mg/dL (8.4-10.2); Carbon Dioxide 31 mmol/L (22-30); Chloride 95 mmol/L (98-107); Estimated CRCL calculation 28 ml/min; Estimated Glomerular Filt Rate 31; Glucose 102 mg/dL (65-110); Magnesium 2.2 mg/dL (1.6-2.3); Phosphorus 2.1 mg/dL (2.5-4.5); Potassium 3.9 mmol/L (3.4-5.0); Sodium 135 mmol/L (137-145)
[2021-08-30 05:53] LABS: Glucose Point of Care 95 mg/dl (65-105)
[2021-08-30] MEDS: ALBUMIN HUMAN 25% 25 GM/100 ML 100 ML IVPB ×4 (08:01→23:36)
[2021-08-30] MEDS: HEPARIN SODIUM 5,000 UNITS/ML VIAL 5000 UNITS SUB-Q ×2 (08:03→20:22)
[2021-08-30] MEDS: MIDODRINE HCL 10 MG TABLET PO ×3 (08:03→17:15)
[2021-08-30] MEDS: PANTOPRAZOLE SODIUM IV 40 MG VIAL IV PUSH (08:03)
[2021-08-30] MEDS: TAMSULOSIN HCL 0.4 MG CAPSULE PO (08:03)
[2021-08-30] MEDS: MINERAL OIL/WHITE PETROLATUM OINTMENT 1 APPLIC EACH EYE (08:03)
[2021-08-30] MEDS: hetaSTARCH 6%/NACL 500 ML 250 ML IV CONT (10:26)
--- NOTE | 2021-08-30 11:16 | P.PNNP_ITS ---
Progress Note: A&P Assessment and Plan (1) ESRD (end stage renal disease): Code(s): N18.6 - End stage renal disease Status: Chronic Assessment and Plan: * hemodialysis completed yesterday. * Not much fluid removed but he got through the treatment in spite of low blood pressures with the help of albumin and midodrine. * Electrolytes okay. * Volume status looks okay. He does not look volume overloaded on exam however is unclear what the processes of his pulmonary issues are. * Discussed with Dr. Phillips. (2) Acute hypercapnic respiratory failure: Code(s): J96.02 - Acute respiratory failure with hypercapnia Status: Acute Assessment and Plan: * remains on ventilator support at this time * due to pneumonia, pleural effusions, Scar tissue,and generalized weakness * He is up to 45% FiO2. Minute volume about 9 now. * He is weak. He is getting tube feedings. * wean as tolerated (3) Bilateral pleural effusion: Code(s): J90 - Pleural effusion, not elsewhere classified Status: Acute Assessment and Plan: * as noted by imaging * push fluid removal/ultrafiltration with dialysis as tolerated * Chest tube is in on the left. * Thoracentesis on the right * Etiology probably multifactorial. May be dialysis related? He is not under dialyzed though. He does have poor muscle mass and is nutritionally deplete but we are giving him tube feedings. No sign of infection causing this. (4) Hyponatremia: Code(s): E87.1 - Hypo-osmolality and hyponatremia Status: Acute Assessment and Plan: * likely related to ESRD and fluid shifts * dialysis should correct to some degree (5) Chronic anemia: Code(s): D64.9 - Anemia, unspecified Status: Chronic Assessment and Plan: * related to ESRD and acute illness * Epogen with HD * Retic count 2.2. Will increase EPO dose. * Hemoglobin in the 8. (6) Hypertension: Code(s): I10 - Essential (primary) hypertension Status: Chronic Assessment and Plan: * BP is soft if anything. (7) Cirrhosis of liver: Qualifiers: Hepatic cirrhosis type: alcoholic cirrhosis Ascites presence: without ascites Qualified Code(s): K70.30 - Alcoholic cirrhosis of liver without ascites Code(s): K74.60 - Unspecified cirrhosis of liver Status: Acute Assessment and Plan: * chronic issue based on imaging * AST and ALT are normal now. Subjective Date/time seen: 08/30/21 11:16 Interval history: Patient feels okay. No chest pain or shortness of breath. No belly pain. His blood pressure is still soft. He is getting hetastarch. Review of Systems Cardiovascular: Cardiovascular: Reports no additional cardiovascular complaints Respiratory: Respiratory: Reports no additional respiratory complaints Gastrointestinal: Gastrointestinal: Reports no additional gastrointestinal complaints Genitourinary: Genitourinary: Reports no additional male genitourinary complaints Exam Narrative: WDWN in NAD skin no rash head ncat lungs coarse bilaterally cor reg no rub abd BS+ nontender and soft ext no edema. Objective Data Vital Signs Vital Signs: Vital Signs - 24 hr 08/29/21 11:25 08/29/21 11:42 08/29/21 12:00 Temperature 36.7 C Pulse Rate 69 71 76 Respiratory Rate 27 H Blood Pressure 95/55 L
--- NOTE | 2021-08-30 11:16 | PM.PNNEP ---
Progress Note: A&P Assessment and Plan (1) ESRD (end stage renal disease): Code(s): N18.6 - End stage renal disease Status: Chronic Assessment and Plan: hemodialysis completed yesterday. Not much fluid removed but he got through the treatment in spite of low blood pressures with the help of albumin and midodrine. Electrolytes okay. Volume status looks okay. He does not look volume overloaded on exam however is unclear what the processes of his pulmonary issues are. Discussed with Dr. Phillips. (2) Acute hypercapnic respiratory failure: Code(s): J96.02 - Acute respiratory failure with hypercapnia Status: Acute Assessment and Plan: remains on ventilator support at this time due to pneumonia, pleural effusions, Scar tissue,and generalized weakness He is up to 45% FiO2. Minute volume about 9 now. He is weak. He is getting tube feedings. wean as tolerated (3) Bilateral pleural effusion: Code(s): J90 - Pleural effusion, not elsewhere classified Status: Acute Assessment and Plan: as noted by imaging push fluid removal/ultrafiltration with dialysis as tolerated Chest tube is in on the left. Thoracentesis on the right Etiology probably multifactorial. May be dialysis related? He is not under dialyzed though. He does have poor muscle mass and is nutritionally deplete but we are giving him tube feedings. No sign of infection causing this. (4) Hyponatremia: Code(s): E87.1 - Hypo-osmolality and hyponatremia Status: Acute Assessment and Plan: likely related to ESRD and fluid shifts dialysis should correct to some degree (5) Chronic anemia: Code(s): D64.9 - Anemia, unspecified Status: Chronic Assessment and Plan: related to ESRD and acute illness Epogen with HD Retic count 2.2. Will increase EPO dose. Hemoglobin in the 8. (6) Hypertension: Code(s): I10 - Essential (primary) hypertension Status: Chronic Assessment and Plan: BP is soft if anything. (7) Cirrhosis of liver: Qualifiers: Hepatic cirrhosis type: alcoholic cirrhosis Ascites presence: without ascites Qualified Code(s): K70.30 - Alcoholic cirrhosis of liver without ascites Code(s): K74.60 - Unspecified cirrhosis of liver Status: Acute Assessment and Plan: chronic issue based on imaging AST and ALT are normal now. Subjective Date/time seen: 08/30/21 11:16 Interval history: Patient feels okay. No chest pain or shortness of breath. No belly pain. His blood pressure is still soft. He is getting hetastarch. Review of Systems Cardiovascular: Cardiovascular: Reports no additional cardiovascular complaints Respiratory: Respiratory: Reports no additional respiratory complaints Gastrointestinal: Gastrointestinal: Reports no additional gastrointestinal complaints Genitourinary: Genitourinary: Reports no additional male genitourinary complaints Exam Narrative: WDWN in NAD skin no rash head ncat lungs coarse bilaterally cor reg no rub abd BS+ nontender and soft ext no edema. Objective Data Vital Signs Vital Signs: Vital Signs - 24 hr 08/29/21 11:25 08/29/21 11:42 08/29/21 12:00 Temperature 36.7 C Pulse Rate 69 71 76 Respiratory Rate 27 H Blood Pressure 95/55 L 90/57 L 84/58 L Pulse Oximetry 99 08/29/21 12:05 08/29/21 14:00 08/29/21 14:11 Temperature 36.4 C Pulse Rate 69 65 64 Respiratory Rate 26 H 22 H 24 H Blood Pressure 100/69 82/57 L Pulse Oximetry 98 98 08/29/21 14:16 08/29/21 16:00 08/29/21 17:35 Temperature 36.8 C Pulse Rate 69 71 77 Respiratory Rate 17 Blood Pressure 85/56 L Pulse Oximetry 98 97 95 08/29/21 18:00 08/29/21 20:00 08/29/21 20:10 Temperature 36.6 C Pulse Rate 78 108 H 74 Respiratory Rate 26 H 26 H Blood Pressure 83/48 L 118/68 Pulse Oximetry 97 96 87 L 08/29/21 20:12 08/29/21 20:22 12
[2021-08-30] MEDS: DEXTROSE 50% 25 GM/50 ML SYRINGE IV PUSH (12:12)
--- NOTE | 2021-08-30 12:38 | WPDINTPN ---
Progress Note: A&P Assessment and Plan (1) Acute hypercapnic respiratory failure: Code(s): J96.02 - Acute respiratory failure with hypercapnia Status: Acute Assessment and Plan: Transferred to ICU on 08/18 for Acute hypercapnic respiratory failure could be multi factorial, medications as patient received Ativan and morphine, bilateral peripheral effusion, pneumonia, will opacification of left hemithorax -intubated on 08/18 -CT chest 08/18/2021 shows moderate bilateral pleural effusion with probable small loculated left apical hydropneumothorax. Bilateral airspace disease throughout the residual left lung and and peripherally in the right upper and lower lobes which may represent a combination of pneumonia and/or atelectasis. -08/19 left thoracentesis with done and 500 cc fluid was removed 08/27/2021: Left-sided chest tube was inserted -08/28/2021: Right thoracentesis with removal of 700 mL of serosanguineous fluid - Continue ASV mode, will decrease ventilation 80%, peep to 5, and 35% FiO2 -patient has been failing his weaning trials, -now that he has got his thoracentesis on the right side, a chest tube on the left side, getting dialysis today -will wean Precedex to off, on pressure support ventilation and evaluate if he can wean off the ventilator (2) Pneumonia: Qualifiers: Pneumonia type: due to unspecified organism Laterality: unspecified laterality Lung location: unspecified part of lung Qualified Code(s): J18.9 - Pneumonia, unspecified organism Code(s): J18.9 - Pneumonia, unspecified organism Status: Acute Assessment and Plan: Check x-ray x-ray with opacification of left hemithorax, combination of effusion, atelectasis, mucus plugging and pneumonia - completed a 7 day course of ceftriaxone, azithromycin - cultures were negative - WBC has normalized, afebrile (3) Altered mental status: Qualifiers: Altered mental status type: unspecified Qualified Code(s): R41.82 - Altered mental status, unspecified Code(s): R41.82 - Altered mental status, unspecified Status: Acute Assessment and Plan: RESOLVED Altered mental status likely related to hypercarbia, infection -CT brain on 08/18/2021 showed no acute intracranial abnormality -currently off all sedation and following commands (4) ESRD (end stage renal disease): Code(s): N18.6 - End stage renal disease Status: Chronic Assessment and Plan: End-stage renal disease on dialysis (M,W,F) -nephrology following the patient -dialysis per Nephrology. Patient is getting dialyzed today (5) Pleural effusion: Code(s): J90 - Pleural effusion, not elsewhere classified Status: Acute Assessment and Plan: Patient has had bilateral pleural effusion since admission, left side seems to be more loculated since admission -08/19: Thoracentesis on left and 500 cc of fluid removal -less likely transudate from the labs done on the pleural fluid - -08/28: Right-sided thoracentesis with removal of 700 mL of serosanguineous fluid CT chest 08/18/2021 shows moderate bilateral pleural effusion with probable small loculated left apical hydropneumothorax. Bilateral airspace disease throughout the residual left lung and and peripherally in the right upper and lower lobes which may represent a combination of pneumonia and/or atelectasis (6) Cirrhosis of liver: Qualifiers: Hepatic cirrhosis type: alcoholic cirrhosis Ascites presence: without ascites Qualified Code(s): K70.30 - Alcoholic cirrhosis of liver without ascites Code(s): K74.60 - Unspecified cirrhosis of liver Status: Acute Assessment and Plan: Significantly elevated LFTs, could be related to underlying liver disease plus possible shock liver due to hypoxia -hepatitis panel is negative -right upper quadrant ultrasound -nodularity of the liver surface, consistent with cirrhosis. Gallbladder is normal
[2021-08-30 12:45] LABS: Glucose Point of Care 68 mg/dl (65-105)
[2021-08-30 12:45] LABS: Glucose Point of Care 95 mg/dl (65-105)
--- NOTE | 2021-08-30 13:11 | PCNFU ---
Nutrition Follow-Up Complete: Inadequate Oral Intake as related to mechanical ventilation as evidenced by NPO. Goal: Meet estimated nutritional needs Patient is progressing towards goal. We will continue current goal. Pt current nutrition is Nepro at 50 ml/hr over 22 hours. Last recorded weight is 86.9 kg, up from 62 kg on admit. Bowel Motility:+BM reported 08/30 Labs Reviewed:PO4 2.1,Cr 2.1,GFR 63, Alb 3.0,Na 135, GFR 31 Meds Noted:Precedex, Protonix, Heparin. Skin: Deep Tissue-heel/buttock. Additional Notes: Patient remains on mechanical vent and tube feedings of Nepro at 50 ml/hr and tolerating. Current tube feeding providing 1980 kcals/89 gms protein/800 ml water. Free water flush 30 ml q 4 hours. Agree with diet orders. Plans for another breathing trial today. Left side chest tube. Monitoring: ICU rounds daily, reassessing every Thursday and Thursday.
[2021-08-30 17:17] LABS: Glucose Point of Care 90 mg/dl (65-105)
[2021-08-30 20:32] LABS: Glucose Pleural Fluid 70 mg/dL; LDH Pleural Fluid 189 U/L; Total Protein Pleural Fluid <3.0 g/dL
[2021-08-30 23:47] LABS: Glucose Point of Care 107 mg/dl (65-105)
[2021-08-31] VITALS (40 sets, daily range): BP systolic 75–156; BP diastolic 54–87; PULSE 89–112; RESP 21–41; TEMP 36.2–37.1; O2SAT 89–100
[2021-08-31 01:39] LABS: Alveolar/Arterial O2 Gradient 392.8 mmHg; Base Excess ABG 0.1 mEq/l (+/-2.0); Carboxyhemoglobin 0.3 % THb (0-2.0); Fractional Inspired Oxygen 75 %; HCO3 ABG 27.7 mEq/l (22.0-26.0); Methemoglobin ABG 0.4 %THb (0-1.5); Oxygen Saturation ABG 93.1 % (95.0-100.0); Oxyhemoglobin 91.1 % THb (90.0-100.0); PO2 ABG 76.5 mmHg (80.0-100.0); PO2 FiO2 Ratio Arterial Blood 1.02 %; Reduced Hemoglobin 8.2 %THb (0-5.0); Total Hemoglobin 9.3 g/dL (12.0-18.0)
[2021-08-31 01:42] LABS: Device NON-INVASIVE VENT; Modified Allen's Test Pass; PCO2 ABG 61.6 mmHg (35.0-45.0); Site Drawn RIGHT RADIAL
[2021-08-31 01:43] LABS: Non-Invasive Expiratory Pressure 8 CMH2O; Non-Invasive Inspiratory Pressure 14 CMH2O; Non-Invasive Vent Rate 14 /MIN
[2021-08-31] MEDS: ALBUTEROL SULFATE NEB 2.5 MG/0.5 ML INH INHALATION ×4 (02:29→20:56)
[2021-08-31] MEDS: IPRATROPIUM BR 0.02% INH SOLN 0.5 MG/2.5 ML VIAL INHALATION ×4 (02:30→20:57)
[2021-08-31 04:51] LABS: Hematocrit 27.1 % (42.0-52.0); Hemoglobin 8.5 g/dL (14.0-18.0); Mean Corpuscular HGB Conc 31.4 g/dl (32-36); Mean Corpuscular Hemoglobin 30.2 pg (26-34); Mean Corpuscular Volume 96.4 fl (80-100); Mean Platelet Volume 10.3 fl (7.4-10.4); Platelet Count Result 371 k/mm3 (150-375); Red Blood Count 2.81 M/mm3 (4.6-6.20); Red Cell Distribution Width 15.4 % (11.5-14.5); White Blood Count 13.4 K/mm3 (4.5-10.0)
[2021-08-31 05:19] LABS: Anion Gap 10 mmol/L (8-16); Blood Urea Nitrogen 105 mg/dL (9-20); Carbon Dioxide 31 mmol/L (22-30); Chloride 90 mmol/L (98-107); Estimated CRCL calculation 20 ml/min; Estimated Glomerular Filt Rate 21; Glucose 114 mg/dL (65-110); Magnesium 2.3 mg/dL (1.6-2.3); Phosphorus 2.6 mg/dL (2.5-4.5); Potassium 4.3 mmol/L (3.4-5.0); Sodium 131 mmol/L (137-145)
[2021-08-31 05:20] LABS: Carboxyhemoglobin 0.3 % THb (0-2.0); Fractional Inspired Oxygen 75 %; Methemoglobin ABG 0.4 %THb (0-1.5); Oxygen Content ABG 12.1 %vol (16.0-22.0); Oxygen Saturation ABG 93.3 % (95.0-100.0); Oxyhemoglobin 91.9 % THb (90.0-100.0); PO2 ABG 78.7 mmHg (80.0-100.0); PO2 FiO2 Ratio Arterial Blood 1.05 %; Reduced Hemoglobin 7.4 %THb (0-5.0); Total Hemoglobin 9.3 g/dL (12.0-18.0)
[2021-08-31 05:23] LABS: pH ABG 7.258 (7.350-7.450)
[2021-08-31 05:24] LABS: Device NON-INVASIVE VENT; Modified Allen's Test Pass; Non-Invasive Vent Rate 18 /MIN; PCO2 ABG 68.8 mmHg (35.0-45.0); Site Drawn RIGHT RADIAL
[2021-08-31 05:25] LABS: Non-Invasive Expiratory Pressure 8 CMH2O; Non-Invasive Inspiratory Pressure 16 CMH2O
[2021-08-31 05:47] LABS: Glucose Point of Care 97 mg/dl (65-105)
[2021-08-31] MEDS: HEPARIN SODIUM 5,000 UNITS/ML VIAL 5000 UNITS SUB-Q ×2 (08:37→21:36)
[2021-08-31] MEDS: PANTOPRAZOLE SODIUM IV 40 MG VIAL IV PUSH (08:41)
--- NOTE | 2021-08-31 09:01 | WPDINTPN ---
Progress Note: A&P Assessment and Plan (1) Acute hypercapnic respiratory failure: Code(s): J96.02 - Acute respiratory failure with hypercapnia Status: Acute Assessment and Plan: Transferred to ICU on 08/18 for Acute hypercapnic respiratory failure could be multi factorial, medications as patient received Ativan and morphine, bilateral peripheral effusion, pneumonia, will opacification of left hemithorax -intubated on 08/18 -CT chest 08/18/2021 shows moderate bilateral pleural effusion with probable small loculated left apical hydropneumothorax. Bilateral airspace disease throughout the residual left lung and and peripherally in the right upper and lower lobes which may represent a combination of pneumonia and/or atelectasis. -08/19 left thoracentesis with done and 500 cc fluid was removed 08/27/2021: Left-sided chest tube was inserted -08/28/2021: Right thoracentesis with removal of 700 mL of serosanguineous fluid - Pt self extubated on 08/30 at night -currently on BIPAP, will increase IPAP to 22 and keep EPAP of 8. 75% FiO2 CXR 08/31: Left hydropneumothorax with increased pleural fluid and near complete opacification of the left hemithorax. - started on mucomyst, pulmozyme and chest PT - will place patient's right-side down to optimize V/Q - of Precedex, (2) Pneumonia: Qualifiers: Pneumonia type: due to unspecified organism Laterality: unspecified laterality Lung location: unspecified part of lung Qualified Code(s): J18.9 - Pneumonia, unspecified organism Code(s): J18.9 - Pneumonia, unspecified organism Status: Acute Assessment and Plan: Check x-ray x-ray with opacification of left hemithorax, combination of effusion, atelectasis, mucus plugging and pneumonia - completed a 7 day course of ceftriaxone, azithromycin - cultures were negative - WBC has normalized, afebrile (3) Altered mental status: Qualifiers: Altered mental status type: unspecified Qualified Code(s): R41.82 - Altered mental status, unspecified Code(s): R41.82 - Altered mental status, unspecified Status: Acute Assessment and Plan: RESOLVED Altered mental status likely related to hypercarbia, infection -CT brain on 08/18/2021 showed no acute intracranial abnormality -currently off all sedation and following commands (4) ESRD (end stage renal disease): Code(s): N18.6 - End stage renal disease Status: Chronic Assessment and Plan: End-stage renal disease on dialysis (M,W,F) -nephrology following the patient -dialysis per Nephrology. Patient is getting dialyzed today (5) Pleural effusion: Code(s): J90 - Pleural effusion, not elsewhere classified Status: Acute Assessment and Plan: Patient has had bilateral pleural effusion since admission, left side seems to be more loculated since admission -08/19: Thoracentesis on left and 500 cc of fluid removal -less likely transudate from the labs done on the pleural fluid - -08/28: Right-sided thoracentesis with removal of 700 mL of serosanguineous fluid CT chest 08/18/2021 shows moderate bilateral pleural effusion with probable small loculated left apical hydropneumothorax. Bilateral airspace disease throughout the residual left lung and and peripherally in the right upper and lower lobes which may represent a combination of pneumonia and/or atelectasis (6) Cirrhosis of liver: Qualifiers: Hepatic cirrhosis type: alcoholic cirrhosis Ascites presence: without ascites Qualified Code(s): K70.30 - Alcoholic cirrhosis of liver without ascites Code(s): K74.60 - Unspecified cirrhosis of liver Status: Acute Assessment and Plan: Significantly elevated LFTs, could be related to underlying liver disease plus possible shock liver due to hypoxia -hepatitis panel is negative -right upper quadrant ultrasound -nodularity of the liver surface, consistent with cirrhosis. Gallbladder
[2021-08-31] MEDS: DORNASE ALFA INH SOLN 1 MG/ML 2.5 ML AMP 2.5 MG INHALATION ×2 (10:03→20:57)
[2021-08-31] MEDS: ACETYLCYSTEINE 20% INHAL SOLN 800 MG/4 ML VIAL 200 MG INHALATION ×3 (10:03→20:57)
--- NOTE | 2021-08-31 12:01 | P.PNNP_ITS ---
Progress Note: A&P Assessment and Plan (1) ESRD (end stage renal disease): Code(s): N18.6 - End stage renal disease Status: Chronic Assessment and Plan: * hemodialysis to start shortly. * Not much fluid removed but he got through the treatment in spite of low blood pressures with the help of albumin and midodrine. * Electrolytes okay. * Volume status looks okay. Noninvasive volume assessment test showed that he was fluid responsive. He was given some had a starts yesterday and his blood pressure seems to be a little bit better. * I instructed the nurse to not take any fluid off unless his blood pressure rises above 130 consistently. * Discussed with Dr. Phillips. (2) Acute hypercapnic respiratory failure: Code(s): J96.02 - Acute respiratory failure with hypercapnia Status: Acute Assessment and Plan: * remains on ventilator support at this time * due to pneumonia, pleural effusions, Scar tissue,and generalized weakness * he is extubated now. * He is weak. He is getting tube feedings. * wean as tolerated (3) Bilateral pleural effusion: Code(s): J90 - Pleural effusion, not elsewhere classified Status: Acute Assessment and Plan: * as noted by imaging * push fluid removal/ultrafiltration with dialysis as tolerated * Chest tube is in on the left. * Thoracentesis on the right * Etiology probably multifactorial. May be dialysis related? He is not under dialyzed though. He does have poor muscle mass and is nutritionally deplete but we are giving him tube feedings. No sign of infection causing this. (4) Hyponatremia: Code(s): E87.1 - Hypo-osmolality and hyponatremia Status: Acute Assessment and Plan: * likely related to ESRD and fluid shifts * dialysis should correct to some degree (5) Chronic anemia: Code(s): D64.9 - Anemia, unspecified Status: Chronic Assessment and Plan: * related to ESRD and acute illness * Epogen with HD * Retic count 2.2. EPO dose increased. * Hemoglobin in the 8. (6) Hypertension: Code(s): I10 - Essential (primary) hypertension Status: Chronic Assessment and Plan: * BP is soft if anything. (7) Cirrhosis of liver: Qualifiers: Hepatic cirrhosis type: alcoholic cirrhosis Ascites presence: without ascites Qualified Code(s): K70.30 - Alcoholic cirrhosis of liver without ascites Code(s): K74.60 - Unspecified cirrhosis of liver Status: Acute Assessment and Plan: * chronic issue based on imaging * AST and ALT are normal now. Subjective Date/time seen: 08/31/21 12:01 Interval history: Patient feels okay. No chest pain or shortness of breath. He was extubated and is on a CPAP mask now. To get dialysis in a few minutes. Exam Narrative: WDWN in NAD skin no rash head ncat lungs coarse bilaterally cor reg no rub or gallop abd BS+ nontender and soft ext no edema. Objective Data Vital Signs Vital Signs: Vital Signs - 24 hr 08/30/21 14:00 08/30/21 14:31 08/30/21 14:41 Temperature Pulse Rate 98 95 93 Respiratory Rate 38 H 23 H 22 H Blood Pressure 107/62 Pulse Oximetry 90 95 08/30/21 16:00 08/30/21 16:48 08/30/21 18:00 Temperature 37.1 C Pulse Rate 85 85 87 Respiratory Rate 17 22 H Blood Pres
--- NOTE | 2021-08-31 12:01 | PM.PNNEP ---
Progress Note: A&P Assessment and Plan (1) ESRD (end stage renal disease): Code(s): N18.6 - End stage renal disease Status: Chronic Assessment and Plan: hemodialysis to start shortly. Not much fluid removed but he got through the treatment in spite of low blood pressures with the help of albumin and midodrine. Electrolytes okay. Volume status looks okay. Noninvasive volume assessment test showed that he was fluid responsive. He was given some had a starts yesterday and his blood pressure seems to be a little bit better. I instructed the nurse to not take any fluid off unless his blood pressure rises above [address] Phillips. (2) Acute hypercapnic respiratory failure: Code(s): J96.02 - Acute respiratory failure with hypercapnia Status: Acute Assessment and Plan: remains on ventilator support at this time due to pneumonia, pleural effusions, Scar tissue,and generalized weakness he is extubated now. He is weak. He is getting tube feedings. wean as tolerated (3) Bilateral pleural effusion: Code(s): J90 - Pleural effusion, not elsewhere classified Status: Acute Assessment and Plan: as noted by imaging push fluid removal/ultrafiltration with dialysis as tolerated Chest tube is in on the left. Thoracentesis on the right Etiology probably multifactorial. May be dialysis related? He is not under dialyzed though. He does have poor muscle mass and is nutritionally deplete but we are giving him tube feedings. No sign of infection causing this. (4) Hyponatremia: Code(s): E87.1 - Hypo-osmolality and hyponatremia Status: Acute Assessment and Plan: likely related to ESRD and fluid shifts dialysis should correct to some degree (5) Chronic anemia: Code(s): D64.9 - Anemia, unspecified Status: Chronic Assessment and Plan: related to ESRD and acute illness Epogen with HD Retic count 2.2. EPO dose increased. Hemoglobin in the 8. (6) Hypertension: Code(s): I10 - Essential (primary) hypertension Status: Chronic Assessment and Plan: BP is soft if anything. (7) Cirrhosis of liver: Qualifiers: Hepatic cirrhosis type: alcoholic cirrhosis Ascites presence: without ascites Qualified Code(s): K70.30 - Alcoholic cirrhosis of liver without ascites Code(s): K74.60 - Unspecified cirrhosis of liver Status: Acute Assessment and Plan: chronic issue based on imaging AST and ALT are normal now. Subjective Date/time seen: 08/31/21 12:01 Interval history: Patient feels okay. No chest pain or shortness of breath. He was extubated and is on a CPAP mask now. To get dialysis in a few minutes. Exam Narrative: WDWN in NAD skin no rash head ncat lungs coarse bilaterally cor reg no rub or gallop abd BS+ nontender and soft ext no edema. Objective Data Vital Signs Vital Signs: Vital Signs - 24 hr 08/30/21 14:00 08/30/21 14:31 08/30/21 14:41 Temperature Pulse Rate 98 95 93 Respiratory Rate 38 H 23 H 22 H Blood Pressure 107/62 Pulse Oximetry 90 95 08/30/21 16:00 08/30/21 16:48 08/30/21 18:00 Temperature 37.1 C Pulse Rate 85 85 87 Respiratory Rate 17 22 H Blood Pressure 111/55 L 96/57 L Pulse Oximetry 98 95 97 08/30/21 20:00 08/30/21 20:07 08/30/21 20:10 Temperature 37.3 C Pulse Rate 83 81 79 Respiratory Rate 17 20 Blood Pressure 91/49 L Pulse Oximetry 99 99 08/30/21 22:00 08/31/21 00:00 08/31/21 00:37 Temperature 36.3 C L Pulse Rate 84 90 112 H Respiratory Rate 23 H 27 H 41 H Blood Pressure 103/47 L 96/81 L Pulse Oximetry 98 99 92 08/31/21 00:40 08/31/21 02:00 08/31/21 02:01 Temperature Pulse Rate 112 H 105 H 108 H Respiratory Rate 26 H 26 H 33 H Blood Pressure 129/61 Pulse Oximetry 89 L 93 93 08/31/21 02:30 08/31/21 04:00 08/31/21 05:02 Temp
[2021-08-31 12:46] LABS: Glucose Point of Care 71 mg/dl (65-105)
[2021-08-31 18:20] LABS: Glucose Point of Care 86 mg/dl (65-105)
[2021-08-31] MEDS: DEXTROSE 50% 25 GM/50 ML SYRINGE IV PUSH (23:12)
[2021-08-31 23:24] LABS: Glucose Point of Care 65 mg/dl (65-105)
[2021-08-31 23:50] LABS: Glucose Point of Care 117 mg/dl (65-105)
[2021-09-01] VITALS (22 sets, daily range): BP systolic 104–140; BP diastolic 50–109; PULSE 90–117; RESP 20–36; TEMP 36.6–37.2; O2SAT 95–100
[2021-09-01] MEDS: IPRATROPIUM BR 0.02% INH SOLN 0.5 MG/2.5 ML VIAL INHALATION ×4 (02:47→19:09)
[2021-09-01] MEDS: ACETYLCYSTEINE 20% INHAL SOLN 800 MG/4 ML VIAL 200 MG INHALATION ×4 (02:47→19:10)
[2021-09-01] MEDS: ALBUTEROL SULFATE NEB 2.5 MG/0.5 ML INH INHALATION ×4 (02:47→19:09)
[2021-09-01 04:41] LABS: Basophils Absolute Auto 0.1 K/mm3 (0.0-0.1); Basophils Percent Auto 0.3 % (0.2-1.2); Hematocrit 32.1 % (42.0-52.0); Hemoglobin 9.7 g/dL (14.0-18.0); Immature Granulocyte Absolute 0.09 K/mm3 (0.00-0.031); Immature Granulocyte Percent A 0.6 % (0-0.5); Lymphocytes Absolute Auto 0.18 K/mm3 (0.9-3.2); Lymphocytes Percent Auto 1.1 % (18.3-44.2); Mean Corpuscular HGB Conc 30.2 g/dl (32-36); Mean Corpuscular Hemoglobin 30.6 pg (26-34); Mean Corpuscular Volume 101.3 fl (80-100); Mean Platelet Volume 9.8 fl (7.4-10.4); Monocytes Absolute Auto 0.8 K/mm3 (0.1-0.6); Monocytes Percent Auto 5.2 % (2.6-8.5); Neutrophils Absolute Auto 14.9 K/mm3 (1.3-6.7); Neutrophils Percent Auto 92.8 % (45.5-73.1); Platelet Count Result 404 k/mm3 (150-375); Red Blood Count 3.17 M/mm3 (4.6-6.20); Red Cell Distribution Width 15.9 % (11.5-14.5)
[2021-09-01 05:10] LABS: Base Excess ABG 4.8 mEq/l (+/-2.0); Carboxyhemoglobin 0.3 % THb (0-2.0); Fractional Inspired Oxygen 65 %; HCO3 ABG 30.8 mEq/l (22.0-26.0); Methemoglobin ABG 0.1 %THb (0-1.5); Oxygen Content ABG 15.1 %vol (16.0-22.0); Oxyhemoglobin 94.5 % THb (90.0-100.0); PCO2 ABG 52.2 mmHg (35.0-45.0); PO2 ABG 76.7 mmHg (80.0-100.0); PO2 FiO2 Ratio Arterial Blood 1.18 %; Reduced Hemoglobin 5.1 %THb (0-5.0); Total Hemoglobin 11.3 g/dL (12.0-18.0); pH ABG 7.389 (7.350-7.450)
[2021-09-01 05:11] LABS: Modified Allen's Test Pass; Site Drawn RIGHT RADIAL
[2021-09-01 05:12] LABS: Device NON-INVASIVE VENT; Non-Invasive Expiratory Pressure 8 CMH2O; Non-Invasive Inspiratory Pressure 22 CMH2O; Non-Invasive Vent Rate 8 /MIN
[2021-09-01 05:30] LABS: Alanine Aminotransferase 21 U/L (4-50); Alkaline Phosphatase 166 U/L (38-126); Anion Gap 13 mmol/L (8-16); Aspartate Amino Transferase 19 U/L (17-59); Bilirubin,Total 0.9 mg/dL (0.2-1.3); Blood Urea Nitrogen 58 mg/dL (9-20); Carbon Dioxide 27 mmol/L (22-30); Chloride 97 mmol/L (98-107); Estimated CRCL calculation 29 ml/min; Estimated Glomerular Filt Rate 31; Glucose 85 mg/dL (65-110); Magnesium 2.2 mg/dL (1.6-2.3); Potassium 4.2 mmol/L (3.4-5.0); Sodium 137 mmol/L (137-145)
[2021-09-01 05:57] LABS: Glucose Point of Care 62 mg/dl (65-105)
[2021-09-01] MEDS: DEXTROSE 50% 25 GM/50 ML SYRINGE IV PUSH ×2 (05:57→10:35)
[2021-09-01] MEDS: GLUCAGON FOR INJ 1 MG VIAL IM (06:29)
[2021-09-01 06:44] LABS: Glucose Point of Care 59 mg/dl (65-105)
[2021-09-01 06:44] LABS: Glucose Point of Care 110 mg/dl (65-105)
[2021-09-01] MEDS: DORNASE ALFA INH SOLN 1 MG/ML 2.5 ML AMP 2.5 MG INHALATION ×2 (07:44→19:10)
[2021-09-01] MEDS: HEPARIN SODIUM 5,000 UNITS/ML VIAL 5000 UNITS SUB-Q ×2 (08:40→21:21)
[2021-09-01] MEDS: PANTOPRAZOLE SODIUM IV 40 MG VIAL IV PUSH (08:41)
--- NOTE | 2021-09-01 09:48 | P.PNNP_ITS ---
Progress Note: A&P Assessment and Plan (1) ESRD (end stage renal disease): Code(s): N18.6 - End stage renal disease Status: Chronic Assessment and Plan: * hemodialysis on Thursday * he did better yesterday. His blood pressure was improved and he got 2L off. * Electrolytes okay. * Volume status looks okay. * Discussed with Dr. Phillips. (2) Acute hypercapnic respiratory failure: Code(s): J96.02 - Acute respiratory failure with hypercapnia Status: Acute Assessment and Plan: * remains on ventilator support at this time * due to pneumonia, pleural effusions, Scar tissue,and generalized weakness * he is extubated now. * He is weak. He is getting tube feedings. * Respiratory rate is high. (3) Bilateral pleural effusion: Code(s): J90 - Pleural effusion, not elsewhere classified Status: Acute Assessment and Plan: * as noted by imaging * push fluid removal/ultrafiltration with dialysis as tolerated * Chest tube is in on the left. * Thoracentesis on the right * Etiology probably multifactorial. May be dialysis related? He is not under dialyzed though. He does have poor muscle mass and is nutritionally deplete but we are giving him tube feedings. No sign of infection causing this. (4) Hyponatremia: Code(s): E87.1 - Hypo-osmolality and hyponatremia Status: Acute Assessment and Plan: * likely related to ESRD and fluid shifts * dialysis should correct to some degree (5) Chronic anemia: Code(s): D64.9 - Anemia, unspecified Status: Chronic Assessment and Plan: * related to ESRD and acute illness * Epogen with HD * Retic count 2.2. EPO dose increased. * Hemoglobin in the 8s. (6) Hypertension: Code(s): I10 - Essential (primary) hypertension Status: Chronic Assessment and Plan: * BP is soft to normal. No need for antihypertensives. In fact he is on midodrine. (7) Cirrhosis of liver: Qualifiers: Hepatic cirrhosis type: alcoholic cirrhosis Ascites presence: without ascites Qualified Code(s): K70.30 - Alcoholic cirrhosis of liver without ascites Code(s): K74.60 - Unspecified cirrhosis of liver Status: Acute Assessment and Plan: * chronic issue based on imaging * AST and ALT are normal now. Subjective Date/time seen: 09/01/21 09:48 Interval history: Patient feels okay. No chest pain or shortness of breath. He was extubated and is on a CPAP mask now. he looks somewhat dyspneic but denies shortness of breath. To get dialysis on Thursday. Exam Narrative: WDWN in NAD skin no rash head ncat lungs coarse bilaterally cor reg no rub or gallop abd BS+ nontender and soft ext no edema. Objective Data Vital Signs Vital Signs: Vital Signs - 24 hr 08/31/21 10:00 08/31/21 10:14 08/31/21 10:17 Temperature Pulse Rate 90 89 97 Respiratory Rate 28 H 28 H 34 H Blood Pressure 107/71 Pulse Oximetry 94 95 08/31/21 10:26 08/31/21 11:15 08/31/21 11:30 Temperature 36.6 C Pulse Rate 94 94 Respiratory Rate 23 H Blood Pressure 128/54 L 123/59 L Pulse Oximetry 95 99 08/31/21 11:45 08/31/21 12:00 08/31/21 12:15 Temperature 36.6 C Pulse Rate 96 97 98 Res
--- NOTE | 2021-09-01 09:48 | PM.PNNEP ---
Progress Note: A&P Assessment and Plan (1) ESRD (end stage renal disease): Code(s): N18.6 - End stage renal disease Status: Chronic Assessment and Plan: hemodialysis on Thursday he did better yesterday. His blood pressure was improved and he got 2L off. Electrolytes okay. Volume status looks okay. Discussed with Dr. Phillips. (2) Acute hypercapnic respiratory failure: Code(s): J96.02 - Acute respiratory failure with hypercapnia Status: Acute Assessment and Plan: remains on ventilator support at this time due to pneumonia, pleural effusions, Scar tissue,and generalized weakness he is extubated now. He is weak. He is getting tube feedings. Respiratory rate is high. (3) Bilateral pleural effusion: Code(s): J90 - Pleural effusion, not elsewhere classified Status: Acute Assessment and Plan: as noted by imaging push fluid removal/ultrafiltration with dialysis as tolerated Chest tube is in on the left. Thoracentesis on the right Etiology probably multifactorial. May be dialysis related? He is not under dialyzed though. He does have poor muscle mass and is nutritionally deplete but we are giving him tube feedings. No sign of infection causing this. (4) Hyponatremia: Code(s): E87.1 - Hypo-osmolality and hyponatremia Status: Acute Assessment and Plan: likely related to ESRD and fluid shifts dialysis should correct to some degree (5) Chronic anemia: Code(s): D64.9 - Anemia, unspecified Status: Chronic Assessment and Plan: related to ESRD and acute illness Epogen with HD Retic count 2.2. EPO dose increased. Hemoglobin in the 8s. (6) Hypertension: Code(s): I10 - Essential (primary) hypertension Status: Chronic Assessment and Plan: BP is soft to normal. No need for antihypertensives. In fact he is on midodrine. (7) Cirrhosis of liver: Qualifiers: Hepatic cirrhosis type: alcoholic cirrhosis Ascites presence: without ascites Qualified Code(s): K70.30 - Alcoholic cirrhosis of liver without ascites Code(s): K74.60 - Unspecified cirrhosis of liver Status: Acute Assessment and Plan: chronic issue based on imaging AST and ALT are normal now. Subjective Date/time seen: 09/01/21 09:48 Interval history: Patient feels okay. No chest pain or shortness of breath. He was extubated and is on a CPAP mask now. he looks somewhat dyspneic but denies shortness of breath. To get dialysis on Thursday. Exam Narrative: WDWN in NAD skin no rash head ncat lungs coarse bilaterally cor reg no rub or gallop abd BS+ nontender and soft ext no edema. Objective Data Vital Signs Vital Signs: Vital Signs - 24 hr 08/31/21 10:00 08/31/21 10:14 08/31/21 10:17 Temperature Pulse Rate 90 89 97 Respiratory Rate 28 H 28 H 34 H Blood Pressure 107/71 Pulse Oximetry 94 95 08/31/21 10:26 08/31/21 11:15 08/31/21 11:30 Temperature 36.6 C Pulse Rate 94 94 Respiratory Rate 23 H Blood Pressure 128/54 L 123/59 L Pulse Oximetry 95 99 08/31/21 11:45 08/31/21 12:00 08/31/21 12:15 Temperature 36.6 C Pulse Rate 96 97 98 Respiratory Rate 27 H Blood Pressure 132/70 145/65 H 134/68 Pulse Oximetry 97 08/31/21 12:30 08/31/21 12:45 08/31/21 13:00 Temperature Pulse Rate 99 101 H 100 Respiratory Rate Blood Pressure 156/64 H 136/63 133/65 Pulse Oximetry 08/31/21 13:15 08/31/21 13:31 08/31/21 13:45 Temperature Pulse Rate 99 103 H 101 H Respiratory Rate Blood Pressure 128/63 127/59 L 117/75 Pulse Oximetry 08/31/21 14:00 08/31/21 14:15 08/31/21 14:47 Temperature Pulse Rate 98 97 102 H Respiratory Rate 22 H Blood Pressure 133/65 130/69 132/69 Pulse Oximetry 98 08/31/21 14:54 08/31/21 15:30 08/31/21 15:32 Temperature 36.5 C Pulse Rate 104 H 93 95 Respiratory Rat
[2021-09-01 10:30] LABS: Glucose Point of Care 47 mg/dl (65-105)
--- NOTE | 2021-09-01 11:26 | WPDINTPN ---
Progress Note: A&P Assessment and Plan (1) Acute hypercapnic respiratory failure: Code(s): J96.02 - Acute respiratory failure with hypercapnia Status: Acute Assessment and Plan: Transferred to ICU on 08/18 for Acute hypercapnic respiratory failure could be multi factorial, medications as patient received Ativan and morphine, bilateral peripheral effusion, pneumonia, will opacification of left hemithorax -intubated on 08/18 -CT chest 08/18/2021 shows moderate bilateral pleural effusion with probable small loculated left apical hydropneumothorax. Bilateral airspace disease throughout the residual left lung and and peripherally in the right upper and lower lobes which may represent a combination of pneumonia and/or atelectasis. -08/19 left thoracentesis with done and 500 cc fluid was removed 08/27/2021: Left-sided chest tube was inserted -08/28/2021: Right thoracentesis with removal of 700 mL of serosanguineous fluid - Pt self extubated on 08/30 at night -currently on BIPAP, will increase IPAP to 22 and keep EPAP of 8. 75% FiO2 - CXR 08/31: Left hydropneumothorax with increased pleural fluid and near complete opacification of the left hemithorax. - started on mucomyst, pulmozyme and chest PT - will place patient's right-side down to optimize V/Q -repeat CXR on 09/01 shows Significant improvement in the previously described left pleural effusion with a small persistent effusion and a small amount of fluid in the left major fissure. Small right pleural effusion, stable. Airspace opacities of the lung bases and left upper lung zone consistent with atelectasis versus pneumonia. Small persistent loculated left pneumothorax -discussed with pulmonology who switched him to AVAPS, will alternate with high-flow therapy to give a little bit of a break. -will discuss with Interventional Radiology regarding thoracentesis again on the right side (2) Pneumonia: Qualifiers: Pneumonia type: due to unspecified organism Laterality: unspecified laterality Lung location: unspecified part of lung Qualified Code(s): J18.9 - Pneumonia, unspecified organism Code(s): J18.9 - Pneumonia, unspecified organism Status: Acute Assessment and Plan: Check x-ray x-ray with opacification of left hemithorax, combination of effusion, atelectasis, mucus plugging and pneumonia - completed a 7 day course of ceftriaxone, azithromycin - cultures were negative - WBC has normalized, afebrile (3) Altered mental status: Qualifiers: Altered mental status type: unspecified Qualified Code(s): R41.82 - Altered mental status, unspecified Code(s): R41.82 - Altered mental status, unspecified Status: Acute Assessment and Plan: RESOLVED Altered mental status likely related to hypercarbia, infection -CT brain on 08/18/2021 showed no acute intracranial abnormality -currently off all sedation and following commands (4) ESRD (end stage renal disease): Code(s): N18.6 - End stage renal disease Status: Chronic Assessment and Plan: End-stage renal disease on dialysis (M,W,F) -nephrology following the patient -dialysis per Nephrology. Patient is getting dialyzed today (5) Pleural effusion: Code(s): J90 - Pleural effusion, not elsewhere classified Status: Acute Assessment and Plan: Patient has had bilateral pleural effusion since admission, left side seems to be more loculated since admission -08/19: Thoracentesis on left and 500 cc of fluid removal -less likely transudate from the labs done on the pleural fluid - -08/28: Right-sided thoracentesis with removal of 700 mL of serosanguineous fluid CT chest 08/18/2021 shows moderate bilateral pleural effusion with probable small loculated left apical hydropneumothorax. Bilateral airspace disease throughout the residual left lung and and peripherally in the right upper and lower lobes which may represent a combination of pneu
[2021-09-01 12:28] LABS: Glucose Point of Care 138 mg/dl (65-105)
--- NOTE | 2021-09-01 13:09 | PM.PNPUL ---
Progress Note: A&P Assessment and Plan (1) Pleural effusion: Code(s): J90 - Pleural effusion, not elsewhere classified Status: Acute Assessment and Plan: 08/25 Pleural effusions essentially unchanged on last chest x-ray. Left localized pneumothorax same today's chest x-ray 08/24/2021. There is no evidence of left empyema on thoracentesis On 08/19 with LDH of 108, total protein less than 3, pH of 7.33, differential neutrophils 33, lymphocytes 63 macrophages 2% and monocytes 2%. 08/26 Patient with failure to wean and continued left-sided hydro pneumothorax with 3 separate pockets and bilateral infiltrates. In order to optimize his chances of getting off the ventilator recommend surgical chest tube and I discussed this with the lab support technician to will consult General surgery. Once the chest tube was placed and functioning well would perform right thoracentesis again in order to optimize his chances of being extubated. 08/27 patient has failure to wean and in an attempt to optimize his pulmonary status will place a left chest to and an attempt to treat his loculated hydropneumothorax. If the left chest to does not rapidly resolve his left loculated hydropneumothorax that he should be transferred for thoracic surgery consultation. Once the left chest tube is placed and functioning well would perform right thoracentesis. 09/01 Patient now has a left chest tube in place with continued left pneumothorax. The chest tube is working well and draining fluid from the left. Patient is status post right thoracentesis with a transudative lymphocytic pleural effusion with pH of 7.0 but no organism seen or white blood cells seen. There was a glucose of 70. (2) Pneumonia: Qualifiers: Pneumonia type: due to unspecified organism Laterality: unspecified laterality Lung location: unspecified part of lung Qualified Code(s): J18.9 - Pneumonia, unspecified organism Code(s): J18.9 - Pneumonia, unspecified organism Status: Acute Assessment and Plan: 08/25 Respiratory status has improved over the last 2 days. No leukocytosis. Chest x-ray essentially unchanged over the last 2 days. Left localized pneumothorax still evident on chest x-ray. Pleural effusions bilaterally as before. Patient on antibiotics for left pneumonia. Weaning trials are planned for tomorrow by the ICU team. d/w Dr Grady. Sputum normal maegan 08/22/2108/26 Patient has recieved antibiotics including vanco started on 08/18 and ceftriaxone 08/18, azithromycin 08/18. Completed treatment. Afebrile with white blood cell count 7.6. Failed breathing trial today. 08/27 Patient remains intubated on ASV mode. Vent management per ICU team. He is on ASV mode with a rate of 27 and tidal volume of 400-450 30% FiO2 peep of 7 with saturations 100% and a blood gas of 7.47/44/90. Peak pressure is 38. Consider placing him on 80% ASV and decreasing peep to 5. 09/01 Patient remained on BiPAP overnight. Chest x-ray this morning demonstrates reinflation of the left lung with continue left chest tube and right pleural effusion. Patient had a blood gas this morning of 7.39/52/77 on BiPAP with a rate of 822/8 and 65% FiO2. Patient states he was having some shortness of breath on the BiPAP and I changed him to noninvasive ventilation with an AVAPS mode at a rate of 20, tidal volume 550, EPAP 7, minimal inspiratory pressure 8, maximal inspiratory pressure 25 and decreased his FiO2 from 50% to 30%. He remains off [place] [address]. He is debilitated and has minimal cough. Patient is at high risk for respiratory failure requiring re-intubation as he is debilitated, fluid overload with continued right pleural effusion with difficulty removing fluid on hemodialysis due to blood pressures, poor cough. Need to follow daily chest tube drainage and when drainage less than 100 per day would discontinue her left chest tube. Out of bed and
[2021-09-01 18:36] LABS: Glucose Point of Care 112 mg/dl (65-105)
[2021-09-01 21:22] LABS: Glucose Point of Care 98 mg/dl (65-105)
[2021-09-02] VITALS (30 sets, daily range): BP systolic 101–144; BP diastolic 44–100; PULSE 84–112; RESP 18–44; TEMP 36.2–36.9; O2SAT 73–100
[2021-09-02 00:56] LABS: Glucose Point of Care 96 mg/dl (65-105)
[2021-09-02] MEDS: IPRATROPIUM BR 0.02% INH SOLN 0.5 MG/2.5 ML VIAL INHALATION ×4 (01:40→20:12)
[2021-09-02] MEDS: ALBUTEROL SULFATE NEB 2.5 MG/0.5 ML INH INHALATION ×4 (01:41→20:12)
[2021-09-02] MEDS: ACETYLCYSTEINE 20% INHAL SOLN 800 MG/4 ML VIAL 200 MG INHALATION ×4 (01:41→21:14)
[2021-09-02 04:26] LABS: Glucose Point of Care 144 mg/dl (65-105)
[2021-09-02 05:43] LABS: Basophils Percent Auto 0.2 % (0.2-1.2); Eosinophils Percent Auto 0.3 % (0-4.4); Hematocrit 26.4 % (42.0-52.0); Hemoglobin 8.2 g/dL (14.0-18.0); Immature Granulocyte Absolute 0.05 K/mm3 (0.00-0.031); Immature Granulocyte Percent A 0.5 % (0-0.5); Lymphocytes Absolute Auto 0.36 K/mm3 (0.9-3.2); Lymphocytes Percent Auto 3.4 % (18.3-44.2); Mean Corpuscular HGB Conc 31.1 g/dl (32-36); Mean Corpuscular Hemoglobin 29.9 pg (26-34); Mean Corpuscular Volume 96.4 fl (80-100); Monocytes Absolute Auto 0.8 K/mm3 (0.1-0.6); Monocytes Percent Auto 7.9 % (2.6-8.5); Neutrophils Absolute Auto 9.3 K/mm3 (1.3-6.7); Neutrophils Percent Auto 87.7 % (45.5-73.1); Platelet Count Result 471 k/mm3 (150-375); Red Blood Count 2.74 M/mm3 (4.6-6.20); Red Cell Distribution Width 15.9 % (11.5-14.5); White Blood Count 10.6 K/mm3 (4.5-10.0)
[2021-09-02 05:56] LABS: Alanine Aminotransferase 17 U/L (4-50); Albumin Level 3.7 g/dL (3.5-5.1); Alkaline Phosphatase 149 U/L (38-126); Anion Gap 9 mmol/L (8-16); Aspartate Amino Transferase 20 U/L (17-59); Bilirubin,Total 0.7 mg/dL (0.2-1.3); Blood Urea Nitrogen 70 mg/dL (9-20); Calcium 9.1 mg/dL (8.4-10.2); Carbon Dioxide 33 mmol/L (22-30); Chloride 93 mmol/L (98-107); Estimated CRCL calculation 20 ml/min; Estimated Glomerular Filt Rate 21; Glucose 147 mg/dL (65-110); Magnesium 2.3 mg/dL (1.6-2.3); Phosphorus 2.3 mg/dL (2.5-4.5); Potassium 3.6 mmol/L (3.4-5.0); Sodium 135 mmol/L (137-145)
--- NOTE | 2021-09-02 09:13 | PCSTNOTE ---
Please refer to the Bedside Swallow Evaluation in the EMR. Please note, silent aspiration cannot be ruled out at bedside.
[2021-09-02] MEDS: DORNASE ALFA INH SOLN 1 MG/ML 2.5 ML AMP 2.5 MG INHALATION ×2 (09:19→20:12)
--- NOTE | 2021-09-02 09:24 | WPDINTPN ---
Progress Note: A&P Assessment and Plan (1) Acute hypercapnic respiratory failure: Code(s): J96.02 - Acute respiratory failure with hypercapnia Status: Acute Assessment and Plan: Transferred to ICU on 08/18 for Acute hypercapnic respiratory failure could be multi factorial, medications as patient received Ativan and morphine, bilateral peripheral effusion, pneumonia, will opacification of left hemithorax -intubated on 08/18 -CT chest 08/18/2021 shows moderate bilateral pleural effusion with probable small loculated left apical hydropneumothorax. Bilateral airspace disease throughout the residual left lung and and peripherally in the right upper and lower lobes which may represent a combination of pneumonia and/or atelectasis. -08/19 left thoracentesis with done and 500 cc fluid was removed 08/27/2021: Left-sided chest tube was inserted -08/28/2021: Right thoracentesis with removal of 700 mL of serosanguineous fluid - Pt self extubated on 08/30 at night -currently high-flow therapy, 60 L flow rate and 30% FiO2 - CXR 08/31: Left hydropneumothorax with increased pleural fluid and near complete opacification of the left hemithorax. - started on mucomyst, pulmozyme and chest PT. will place patient's right-side down to optimize V/Q -09/02/2021: Ordered ultrasound-guided right thoracentesis (2) Pneumonia: Qualifiers: Pneumonia type: due to unspecified organism Laterality: unspecified laterality Lung location: unspecified part of lung Qualified Code(s): J18.9 - Pneumonia, unspecified organism Code(s): J18.9 - Pneumonia, unspecified organism Status: Acute Assessment and Plan: Check x-ray x-ray with opacification of left hemithorax, combination of effusion, atelectasis, mucus plugging and pneumonia - completed a 7 day course of ceftriaxone, azithromycin - cultures were negative - WBC has normalized, afebrile (3) Altered mental status: Qualifiers: Altered mental status type: unspecified Qualified Code(s): R41.82 - Altered mental status, unspecified Code(s): R41.82 - Altered mental status, unspecified Status: Acute Assessment and Plan: RESOLVED Altered mental status likely related to hypercarbia, infection -CT brain on 08/18/2021 showed no acute intracranial abnormality -currently off all sedation and following commands (4) ESRD (end stage renal disease): Code(s): N18.6 - End stage renal disease Status: Chronic Assessment and Plan: End-stage renal disease on dialysis (M,W,F) -nephrology following the patient -dialysis per Nephrology. Patient is getting dialyzed today (5) Pleural effusion: Code(s): J90 - Pleural effusion, not elsewhere classified Status: Acute Assessment and Plan: Patient has had bilateral pleural effusion since admission, left side seems to be more loculated since admission -08/19: Thoracentesis on left and 500 cc of fluid removal -less likely transudate from the labs done on the pleural fluid - -08/28: Right-sided thoracentesis with removal of 700 mL of serosanguineous fluid CT chest 08/18/2021 shows moderate bilateral pleural effusion with probable small loculated left apical hydropneumothorax. Bilateral airspace disease throughout the residual left lung and and peripherally in the right upper and lower lobes which may represent a combination of pneumonia and/or atelectasis (6) Cirrhosis of liver: Qualifiers: Hepatic cirrhosis type: alcoholic cirrhosis Ascites presence: without ascites Qualified Code(s): K70.30 - Alcoholic cirrhosis of liver without ascites Code(s): K74.60 - Unspecified cirrhosis of liver Status: Acute Assessment and Plan: Significantly elevated LFTs, could be related to underlying liver disease plus possible shock liver due to hypoxia -hepatitis panel is negative -right upper quadrant ultrasound -nodularity of the liver surface, consist
[2021-09-02 09:33] LABS: Glucose Point of Care 94 mg/dl (65-105)
[2021-09-02] MEDS: HEPARIN SODIUM 5,000 UNITS/ML VIAL 5000 UNITS SUB-Q ×2 (10:41→20:56)
[2021-09-02] MEDS: PANTOPRAZOLE SODIUM IV 40 MG VIAL IV PUSH (10:42)
--- NOTE | 2021-09-02 11:57 | PCFNICU ---
ICU Rounding Note: Pt current nutrition is NPO. Last recorded weight is 68.1 kg, up from 62 kg Bowel Motility:+BM reported 08/30 Labs Reviewed:PO4 2.3,Na 135, Cr 3.0,BUN 70,Hgb 8.2,Hct 26.4 Meds Noted:Heparin, Atrovent, Protonix Skin: Deep Tissue-heels, buttock. Additional Notes: Patient self-extubated on 08/31. Plans for Speech eval today for appropriate feeding method. Monitoring: Following daily in ICU rounds. Will monitor every Thursday and Thursday.
[2021-09-02 14:16] LABS: Pleural fluid source Pleural fluid
[2021-09-02 14:17] LABS: Appearance Pleural Fluid Cloudy (Clear); Color Pleural Fluid Yellow (Colorless)
[2021-09-02 14:19] LABS: Albumin Pleural Fluid 1.5 g/dL
[2021-09-02 14:47] LABS: Lymphocytes Pleural Fluid 86 %; Macrophages Pleural Fluid 8 %; Neutrophils Pleural Fluid 6 % (0-25)
--- NOTE | 2021-09-02 16:28 | PM.PNNEP ---
Progress Note: A&P Assessment and Plan (1) ESRD (end stage renal disease): Code(s): N18.6 - End stage renal disease Status: Chronic Assessment and Plan: HD tomorrow and continue T/T/S schedule follow electrolytes, volume status, and clearance (2) Acute hypercapnic respiratory failure: Code(s): J96.02 - Acute respiratory failure with hypercapnia Status: Acute Assessment and Plan: remains BiPAP support at this time due to pneumonia, pleural effusions, scar tissue, and generalized weakness respiratory status remains tenuous (3) Bilateral pleural effusion: Code(s): J90 - Pleural effusion, not elsewhere classified Status: Acute Assessment and Plan: as noted by imaging push fluid removal/ultrafiltration with dialysis as tolerated chest tube is in on the left. s/p thoracentesis on the right (4) Hyponatremia: Code(s): E87.1 - Hypo-osmolality and hyponatremia Status: Acute Assessment and Plan: likely related to ESRD and fluid shifts dialysis should correct to some degree (5) Chronic anemia: Code(s): D64.9 - Anemia, unspecified Status: Chronic Assessment and Plan: related to ESRD and acute illness Epogen with HD follow trend of H/H PRBC transfusion per protocol (6) Hypertension: Code(s): I10 - Essential (primary) hypertension Status: Chronic Assessment and Plan: BP is in soft to normal range no need for antihypertensives on midodrine (7) Cirrhosis of liver: Qualifiers: Ascites presence: without ascites Hepatic cirrhosis type: alcoholic cirrhosis Qualified Code(s): K70.30 - Alcoholic cirrhosis of liver without ascites Code(s): K74.60 - Unspecified cirrhosis of liver Status: Acute Assessment and Plan: chronic issue based on imaging AST and ALT are normal now Will continue to follow Subjective Date/time seen: 09/02/21 16:28 Chart reviewed since last seen - assuming care from Dr. Ascencio; off ventilator but remains on BiPAP; overall, respiratory status seems quite tenuous; no issues/events overnight or earlier this AM. Exam Narrative: General: WD/WN male in NAD; on BiPAP Heart: normal S1 and S2; no rub Lungs: coarse breath sounds throughtout Abdomen: soft, nontender, nondistended, positive bowel sounds Extremities: no cyanosis or clubbing; no edema Skin: warm and dry Objective Data Vital Signs Vital Signs: Vital Signs 12/13/21 05:46 09/02/21 06:00 09/02/21 08:00 Temperature 36.6 C Pulse Rate 99 99 86 Respiratory Rate 24 H 28 H Blood Pressure 136/62 101/70 Pulse Oximetry 93 96 09/02/21 09:25 09/02/21 09:28 09/02/21 09:31 Temperature Pulse Rate 95 98 Respiratory Rate 44 H 34 H Blood Pressure Pulse Oximetry 97 97 09/02/21 10:00 09/02/21 12:00 09/02/21 13:20 Temperature 36.5 C Pulse Rate 90 93 108 H Respiratory Rate 32 H 25 H 35 H Blood Pressure 103/72 106/86 112/63 Pulse Oximetry 98 98 73 L 09/02/21 13:21 09/02/21 14:00 09/02/21 14:06 Temperature Pulse Rate 92 112 H 111 H Respiratory Rate 30 H 22 H 30 H Blood Pressure 122/44 L 144/90 H Pulse Oximetry 95 100 09/02/21 14:14 09/02/21 14:17 09/02/21 16:00 Temperature 36.4 C Pulse Rate 111 H 102 H 110 H Respiratory Rate 38 H 32 H 25 H Blood Pressure 139/96 H Pulse Oximetry 100 100 Intake/Output Intake/Output: Intake & Output 08/30/21 08/31/21 09/01/21 09/02/21 23:59 23:59 23:59 23:59 Intake Total 2450 510 200 840 Output Total 1180 2160 235 790 Balance 2600 -1650 -35 50 Meds/Results Medications: Active Medications Generic Name Dose Route Start Last Admin Trade Name Freq PRN Reason Stop Dose Admin Acetaminophen 650 mg 08/17/21 13:58 Acetaminophen 325 Mg Tablet PO Q4H PRN Mild Pain (1-3) or Fever Acetylcysteine 200 mg 08/31/21 08:00 09/02/21 14:06 Acetylcysteine 20% Inhal Soln
--- NOTE | 2021-09-02 16:28 | P.PNNP_ITS ---
Progress Note: A&P Assessment and Plan (1) ESRD (end stage renal disease): Code(s): N18.6 - End stage renal disease Status: Chronic Assessment and Plan: * HD tomorrow and continue T/T/S schedule * follow electrolytes, volume status, and clearance (2) Acute hypercapnic respiratory failure: Code(s): J96.02 - Acute respiratory failure with hypercapnia Status: Acute Assessment and Plan: * remains BiPAP support at this time * due to pneumonia, pleural effusions, scar tissue, and generalized weakness * respiratory status remains tenuous (3) Bilateral pleural effusion: Code(s): J90 - Pleural effusion, not elsewhere classified Status: Acute Assessment and Plan: * as noted by imaging * push fluid removal/ultrafiltration with dialysis as tolerated * chest tube is in on the left. * s/p thoracentesis on the right (4) Hyponatremia: Code(s): E87.1 - Hypo-osmolality and hyponatremia Status: Acute Assessment and Plan: * likely related to ESRD and fluid shifts * dialysis should correct to some degree (5) Chronic anemia: Code(s): D64.9 - Anemia, unspecified Status: Chronic Assessment and Plan: * related to ESRD and acute illness * Epogen with HD * follow trend of H/H * PRBC transfusion per protocol (6) Hypertension: Code(s): I10 - Essential (primary) hypertension Status: Chronic Assessment and Plan: * BP is in soft to normal range * no need for antihypertensives * on midodrine (7) Cirrhosis of liver: Qualifiers: Ascites presence: without ascites Hepatic cirrhosis type: alcoholic cirrhosis Qualified Code(s): K70.30 - Alcoholic cirrhosis of liver without ascites Code(s): K74.60 - Unspecified cirrhosis of liver Status: Acute Assessment and Plan: * chronic issue based on imaging * AST and ALT are normal now Will continue to follow Subjective Date/time seen: 09/02/21 16:28 Chart reviewed since last seen - assuming care from Dr. Ascencio; off ventilator but remains on BiPAP; overall, respiratory status seems quite tenuous; no issues/events overnight or earlier this AM. Exam Narrative: General: WD/WN male in NAD; on BiPAP Heart: normal S1 and S2; no rub Lungs: coarse breath sounds throughtout Abdomen: soft, nontender, nondistended, positive bowel sounds Extremities: no cyanosis or clubbing; no edema Skin: warm and dry Objective Data Vital Signs Vital Signs: Vital Signs 09/02/21 05:46 09/02/21 06:00 09/02/21 08:00 Temperature 36.6 C Pulse Rate 99 99 86 Respiratory Rate 24 H 28 H Blood Pressure 136/62 101/70 Pulse Oximetry 93 96 09/02/21 09:25 09/02/21 09:28 09/02/21 09:31 Temperature Pulse Rate 95 98 Respiratory Rate 44 H 34 H Blood Pressure Pulse Oximetry 97 97 09/02/21 10:00 09/02/21 12:00 09/02/21 13:20 Temperature 36.5 C Pulse Rate 90 93 108 H Respiratory Rate 32 H 25 H 35 H Blood Pressure 103/72 106/86 112/63 Pulse Oximetry 98 98 73 L 09/02/21 13:21 09/02/21 14:00 09/02/21 14:06 Temperature Pulse Rate 92 112 H 111 H Respiratory Rate 30 H 22 H 30 H Blood Pressure 122/44 L 144/9
[2021-09-02 18:13] LABS: Glucose Point of Care 79 mg/dl (65-105)
[2021-09-02 20:03] LABS: Glucose Point of Care 62 mg/dl (65-105)
[2021-09-02] MEDS: DEXTROSE 50% 25 GM/50 ML SYRINGE IV PUSH (20:14)
[2021-09-02 20:42] LABS: Glucose Point of Care 119 mg/dl (65-105)
[2021-09-03] VITALS (44 sets, daily range): BP systolic 86–144; BP diastolic 45–120; PULSE 79–104; RESP 16–35; TEMP 35.6–37.2; O2SAT 92–100
[2021-09-03 00:11] LABS: Glucose Point of Care 76 mg/dl (65-105)
[2021-09-03] MEDS: ACETYLCYSTEINE 20% INHAL SOLN 800 MG/4 ML VIAL 200 MG INHALATION (02:00)
[2021-09-03] MEDS: IPRATROPIUM BR 0.02% INH SOLN 0.5 MG/2.5 ML VIAL INHALATION ×4 (02:00→20:30)
[2021-09-03] MEDS: ALBUTEROL SULFATE NEB 2.5 MG/0.5 ML INH INHALATION ×4 (02:00→20:30)
[2021-09-03 04:14] LABS: Glucose Point of Care 73 mg/dl (65-105)
[2021-09-03 04:50] LABS: Basophils Percent Auto 0.3 % (0.2-1.2); Eosinophils Percent Auto 0.1 % (0-4.4); Hematocrit 30.8 % (42.0-52.0); Hemoglobin 9.3 g/dL (14.0-18.0); Immature Granulocyte Absolute 0.04 K/mm3 (0.00-0.031); Immature Granulocyte Percent A 0.6 % (0-0.5); Lymphocytes Absolute Auto 0.43 K/mm3 (0.9-3.2); Mean Corpuscular HGB Conc 30.2 g/dl (32-36); Mean Corpuscular Volume 99.4 fl (80-100); Mean Platelet Volume 9.6 fl (7.4-10.4); Monocytes Absolute Auto 0.7 K/mm3 (0.1-0.6); Monocytes Percent Auto 10.2 % (2.6-8.5); Neutrophils Absolute Auto 5.9 K/mm3 (1.3-6.7); Neutrophils Percent Auto 82.8 % (45.5-73.1); Platelet Count Result 516 k/mm3 (150-375); Red Cell Distribution Width 15.7 % (11.5-14.5); White Blood Count 7.2 K/mm3 (4.5-10.0)
[2021-09-03 04:53] LABS: pH ABG 7.247 (7.350-7.450)
[2021-09-03 04:54] LABS: Alveolar/Arterial O2 Gradient 159.3 mmHg; Base Excess ABG -0.4 mEq/l (+/-2.0); Carboxyhemoglobin 0.3 % THb (0-2.0); HCO3 ABG 27.6 mEq/l (22.0-26.0); Oxygen Content ABG 13.1 %vol (16.0-22.0); Oxygen Saturation ABG 94.9 % (95.0-100.0); Oxyhemoglobin 94.3 % THb (90.0-100.0); PCO2 ABG 64.9 mmHg (35.0-45.0); PO2 ABG 87.7 mmHg (80.0-100.0); Total Hemoglobin 9.8 g/dL (12.0-18.0)
[2021-09-03 04:55] LABS: Device HIGH FLOW THERAPY; Fractional Inspired Oxygen 45 %; Methemoglobin ABG 0.1 %THb (0-1.5); Modified Allen's Test Pass; PO2 FiO2 Ratio Arterial Blood 1.95 %; Reduced Hemoglobin 5.3 %THb (0-5.0); Site Drawn RIGHT RADIAL
[2021-09-03 05:27] LABS: Alanine Aminotransferase 15 U/L (4-50); Albumin Level 3.9 g/dL (3.5-5.1); Alkaline Phosphatase 140 U/L (38-126); Anion Gap 13 mmol/L (8-16); Aspartate Amino Transferase 19 U/L (17-59); Bilirubin,Total 0.8 mg/dL (0.2-1.3); Blood Urea Nitrogen 89 mg/dL (9-20); Calcium 9.4 mg/dL (8.4-10.2); Carbon Dioxide 27 mmol/L (22-30); Chloride 93 mmol/L (98-107); Estimated CRCL calculation 14 ml/min; Estimated Glomerular Filt Rate 16; Glucose 98 mg/dL (65-110); Magnesium 2.4 mg/dL (1.6-2.3); Phosphorus 5.2 mg/dL (2.5-4.5); Potassium 5.3 mmol/L (3.4-5.0); Sodium 133 mmol/L (137-145)
--- NOTE | 2021-09-03 05:50 | PC.NURSE ---
09/[address] marquis informed of AB. orders received to increase to 60liters
[2021-09-03] MEDS: HEPARIN SODIUM 5,000 UNITS/ML VIAL 5000 UNITS SUB-Q ×2 (07:30→20:32)
--- NOTE | 2021-09-03 08:41 | PM.PNGS ---
Progress Note: A&P Assessment and Plan (1) Hydropneumothorax: Code(s): J94.8 - Other specified pleural conditions Status: Acute Assessment and Plan: I reviewed the CXR over the past few days. Left chest tube remains in place, but patient likely has trapped lung which is preventing complete resolution. He would most likely need a thoracic surgeon to perform decortication or pleurodesis. Will place chest tube to water seal today and monitor for any signs of worsening pneumothorax or effusion. (2) Pneumonia: Qualifiers: Pneumonia type: due to unspecified organism Laterality: unspecified laterality Lung location: unspecified part of lung Qualified Code(s): J18.9 - Pneumonia, unspecified organism Code(s): J18.9 - Pneumonia, unspecified organism Status: Acute (3) Acute hypercapnic respiratory failure: Code(s): J96.02 - Acute respiratory failure with hypercapnia Status: Acute (4) Chronic obstructive pulmonary disease: Qualifiers: COPD type: unspecified COPD Qualified Code(s): J44.9 - Chronic obstructive pulmonary disease, unspecified Code(s): J44.9 - Chronic obstructive pulmonary disease, unspecified Status: Acute Subjective Subjective Date/Time Seen: 09/03/21 08:41 Interval history: Left chest tube in place and CXR remaining essentially unchanged on that side. Patient is extubated and on CPAP. Exam Resp: Auscultation: clear to auscultation bilaterally Other: Left chest tube with serous output. No sign of air leak. Objective Data Vital Signs Vital Signs: Vital Signs - 24 hr 09/02/21 09:25 09/02/21 09:28 09/02/21 09:31 Temperature Pulse Rate 95 98 Respiratory Rate 44 H 34 H Blood Pressure Pulse Oximetry 97 97 09/02/21 10:00 09/02/21 12:00 09/02/21 13:20 Temperature 36.5 C Pulse Rate 90 93 108 H Respiratory Rate 32 H 25 H 35 H Blood Pressure 103/72 106/86 112/63 Pulse Oximetry 98 98 73 L 09/02/21 13:21 09/02/21 14:00 09/02/21 14:06 Temperature Pulse Rate 92 112 H 111 H Respiratory Rate 30 H 22 H 30 H Blood Pressure 122/44 L 144/90 H Pulse Oximetry 95 100 09/02/21 14:14 09/02/21 14:17 09/02/21 16:00 Temperature 36.4 C Pulse Rate 111 H 102 H 110 H Respiratory Rate 38 H 32 H 25 H Blood Pressure 139/96 H Pulse Oximetry 100 100 09/02/21 17:35 09/02/21 18:00 09/02/21 19:40 Temperature Pulse Rate 94 93 Respiratory Rate 27 H Blood Pressure 135/100 H Pulse Oximetry 100 100 09/02/21 20:00 09/02/21 20:12 09/02/21 20:37 Temperature 36.9 C Pulse Rate 87 96 90 Respiratory Rate 22 H 26 H 22 H Blood Pressure 131/67 Pulse Oximetry 100 100 09/02/21 22:00 09/03/21 00:00 09/03/21 01:50 Temperature 36.7 C Pulse Rate 95 94 91 Respiratory Rate 26 H 24 H Blood Pressure 124/68 109/63 Pulse Oximetry 99 100 100 09/03/21 02:00 09/03/21 02:20 09/03/21 04:00 Temperature 36.7 C Pulse Rate 90 94 89 Respiratory Rate 21 H 26 H 22 H Blood Pressure 114/48 L 116/66 Pulse Oximetry 99 100 09/03/21 04:56 09/03/21 05:55 09/03/21 05:58 Temperature Pulse Rate 93 94 104 H Respiratory Rate Blood Pressure Pulse Oximetry 100 99 09/03/21 06:00 09/03/21 07:55 09/03/21 07:56 Temperature Pulse Rate 97 91 Respiratory Rate 24 H 26 H Blood Pressure 127/69 Pulse Oximetry 99 99 09/03/21 08:07 09/03/21 08:08 Temperature Pulse Rate 96 98 Respiratory Rate 29 H 32 H Blood Pressure Pulse Oximetry 95 Intake/Output Intake/Output: Intake & Output 08/31/21 09/01/21 09/02/21 09/03/21 23:59 23:59 23:59 23:59 Intake Total 755 573 2415 Output Total 2160 235 790 130 Balance -1650 -35 370 -130 Meds/Results Medications: Active Medications Generic Name Dose Route Start Last Admin Trade Name Freq PRN Reason Stop Dose Admin Acetaminophen 650 mg 08/17/21 13:58 Acetaminophen 325 Mg Tablet PO Q4H PRN Mild Pain (1-3) or Fever
--- NOTE | 2021-09-03 09:16 | P.PNIM_ITS ---
Progress Note: A&P Assessment and Plan (1) Acute hypercapnic respiratory failure: Code(s): J96.02 - Acute respiratory failure with hypercapnia Status: Acute Assessment and Plan: Admitted to ICU on 08/18 for Acute hypercapnic respiratory failure could be multi factorial, medications as patient received Ativan and morphine, bilateral peripheral effusion, pneumonia, will opacification of left hemithorax, atele ctasis -intubated on 08/18 -CT chest 08/18/2021 shows moderate bilateral pleural effusion with probable small loculated left apical hydropneumothorax. Bilateral airspace disease throughout the residual left lung and and peripherally in the right upper and lower lobes which may represent a combination of pneumonia and/or atelectasis. -08/19 left thoracentesis with done and 500 cc fluid was removed 08/27/2021: Left-sided chest tube was inserted -08/28/2021: Right thoracentesis with removal of 700 mL of serosanguineous fluid - 09/02 -Right Ultrasound-guided thoracentesis yielding 650 mL of sero sanguineous fluid. - Pt self extubated on 08/30 at night -he was on high-flow therapy, 60 L flow rate and 30% FiO2 but ABG this morning shows hypercarbia and respiratory acidosis. -patient was placed on AVAPS NIPPV and will repeat ABG in 1 hour -continue close monitoring as patient is still and risk of requiring re- intubation -chest x-ray reviewed. Will repeat CT chest once patient's respiratory status is stable for transport to radiology department -continue mucomyst, pulmozyme and chest PT. -09/03/2021; patient DNI DNR. Patient does not want BiPAP placement in the future. (2) Pneumonia: Qualifiers: Pneumonia type: due to unspecified organism Laterality: unspecified laterality Lung location: unspecified part of lung Qualified Code(s): J18.9 - Pneumonia, unspecified organism Code(s): J18.9 - Pneumonia, unspecified organism Status: Acute Assessment and Plan: Check x-ray x-ray with opacification of left hemithorax, combination of effusion, atelectasis, mucus plugging and pneumonia - completed a 7 day course of ceftriaxone, azithromycin - cultures were negative - WBC has normalized, afebrile (3) Altered mental status: Qualifiers: Altered mental status type: unspecified Qualified Code(s): R41.82 - Altered mental status, unspecified Code(s): R41.82 - Altered mental status, unspecified Status: Acute Assessment and Plan: RESOLVED Altered mental status likely related to hypercarbia, infection -CT brain on 08/18/2021 showed no acute intracranial abnormality -currently off all sedation and following commands (4) ESRD (end stage renal disease): Code(s): N18.6 - End stage renal disease Status: Chronic Assessment and Plan: End-stage renal disease on dialysis (M,W,F) -nephrology following the patient -dialysis per Nephrology. Patient is getting dialyzed today (5) Pleural effusion: Code(s): J90 - Pleural effusion, not elsewhere classified Status: Acute Assessment and Plan: Patient has had bilateral pleural effusion since admission, left side seems to be more loculated since admission See above (6) Cirrhosis of liver: Qualifiers: Hepatic cirrhosis type: alcoholic cirrhosis Ascites presence: without ascites Qualified Code(s): K70.30 - Alcoholic cirrhosis of liver without ascites Code(s): K74.60 - Unspecified cirrhosis of liver Status: Acute Assessment and Plan: Significantly elevated LFTs, could be related to underlying liver disease plus possible shock liver due to
[2021-09-03] MEDS: ALBUMIN HUMAN 25% 12.5 GM/50ML 50 ML IVPB (09:39)
[2021-09-03 09:40] LABS: Alveolar/Arterial O2 Gradient 59.2 mmHg; Base Excess ABG 1.7 mEq/l (+/-2.0); Fractional Inspired Oxygen 30 %; HCO3 ABG 29.1 mEq/l (22.0-26.0); Oxygen Content ABG 13.3 %vol (16.0-22.0); Oxygen Saturation ABG 94.8 % (95.0-100.0); Oxyhemoglobin 93.9 % THb (90.0-100.0); PO2 ABG 82.9 mmHg (80.0-100.0); PO2 FiO2 Ratio Arterial Blood 2.76 %
[2021-09-03] MEDS: SODIUM CHLORIDE 0.9% IV 1,000 ML 999 ML IV CONT (09:40)
[2021-09-03 09:41] LABS: pH ABG 7.295 (7.350-7.450)
[2021-09-03 09:42] LABS: Device NON-INVASIVE VENT; Modified Allen's Test Pass; Non-Invasive Expiratory Pressure 7 CMH2O; PCO2 ABG 61.1 mmHg (35.0-45.0); Site Drawn RIGHT RADIAL
[2021-09-03 09:43] LABS: Non-Invasive Vent Rate 20 /MIN
[2021-09-03] MEDS: EPOETIN ALFA-EPBX 20,000 UNITS/ML VIAL 20000 UNITS IV PUSH (10:06)
--- NOTE | 2021-09-03 11:01 | P.PNNP_ITS ---
Progress Note: A&P Assessment and Plan (1) ESRD (end stage renal disease): Code(s): N18.6 - End stage renal disease Status: Chronic Assessment and Plan: * HD today and continue T/T/S schedule * follow electrolytes, volume status, and clearance (2) Acute hypercapnic respiratory failure: Code(s): J96.02 - Acute respiratory failure with hypercapnia Status: Acute Assessment and Plan: * remains BiPAP support at this time * due to pneumonia, pleural effusions, scar tissue, and generalized weakness * respiratory status remains tenuous (3) Bilateral pleural effusion: Code(s): J90 - Pleural effusion, not elsewhere classified Status: Acute Assessment and Plan: * as noted by imaging * push fluid removal/ultrafiltration with dialysis as tolerated * chest tube is in on the left. * s/p thoracentesis on the right (4) Hyponatremia: Code(s): E87.1 - Hypo-osmolality and hyponatremia Status: Acute Assessment and Plan: * likely related to ESRD and fluid shifts * dialysis should correct to some degree (5) Chronic anemia: Code(s): D64.9 - Anemia, unspecified Status: Chronic Assessment and Plan: * related to ESRD and acute illness * Epogen with HD * follow trend of H/H * PRBC transfusion per protocol (6) Hypertension: Code(s): I10 - Essential (primary) hypertension Status: Chronic Assessment and Plan: * BP is in soft to normal range * no need for antihypertensives * on midodrine (7) Cirrhosis of liver: Qualifiers: Hepatic cirrhosis type: alcoholic cirrhosis Ascites presence: without ascites Qualified Code(s): K70.30 - Alcoholic cirrhosis of liver without ascites Code(s): K74.60 - Unspecified cirrhosis of liver Status: Acute Assessment and Plan: * chronic issue based on imaging * AST and ALT are normal now Will continue to follow Subjective Date/time seen: 09/03/21 11:01 Tolerating dialysis treatment at the time of my visit (seen on HD at 10:30AM); respiratory status still remains somewhat tenuous in general; no acute distress voiced; no events/issues overnight or earlier this morning. Exam Narrative: General: WD/WN male in NAD; on BiPAP Heart: normal S1 and S2; no rub Lungs: coarse breath sounds throughout Abdomen: soft, nontender, nondistended, positive bowel sounds Extremities: no cyanosis or clubbing; no edema Skin: warm and intact Objective Data Vital Signs Vital Signs: Vital Signs Temp Pulse Resp BP Pulse Ox 09/03/21 11:00 84 111/55 L 09/03/21 10:45 91 113/69 09/03/21 10:30 82 115/62 09/03/21 10:15 96 109/55 L 09/03/21 10:00 97 23 H 110/70 100 09/03/21 09:45 91 108/60 09/03/21 09:30 91 86/71 L 09/03/21 09:15 89 127/73 09/03/21 09:00 83 104/64 09/03/21 08:46 82 116/57 L 09/03/21 08:30 36.3 C L 92 25 H 137/55 L 100 09/03/21 08:08 98 32 H 95 09/03/21 08:07 96 29 H 09/03/21 08:00 87 26 H 137/55 L 99 09/03/21 07:56 91 26 H 09/03/21 07:55 99 09/03/21 06:00 97 24 H 127/69 99 09/03/21 05:58 104 H 09/03/21 05:55 94 99 09/03/21 04:56 93 100 09/03/21 04:00 36.
--- NOTE | 2021-09-03 11:01 | PM.PNNEP ---
Progress Note: A&P Assessment and Plan (1) ESRD (end stage renal disease): Code(s): N18.6 - End stage renal disease Status: Chronic Assessment and Plan: HD today and continue T/T/S schedule follow electrolytes, volume status, and clearance (2) Acute hypercapnic respiratory failure: Code(s): J96.02 - Acute respiratory failure with hypercapnia Status: Acute Assessment and Plan: remains BiPAP support at this time due to pneumonia, pleural effusions, scar tissue, and generalized weakness respiratory status remains tenuous (3) Bilateral pleural effusion: Code(s): J90 - Pleural effusion, not elsewhere classified Status: Acute Assessment and Plan: as noted by imaging push fluid removal/ultrafiltration with dialysis as tolerated chest tube is in on the left. s/p thoracentesis on the right (4) Hyponatremia: Code(s): E87.1 - Hypo-osmolality and hyponatremia Status: Acute Assessment and Plan: likely related to ESRD and fluid shifts dialysis should correct to some degree (5) Chronic anemia: Code(s): D64.9 - Anemia, unspecified Status: Chronic Assessment and Plan: related to ESRD and acute illness Epogen with HD follow trend of H/H PRBC transfusion per protocol (6) Hypertension: Code(s): I10 - Essential (primary) hypertension Status: Chronic Assessment and Plan: BP is in soft to normal range no need for antihypertensives on midodrine (7) Cirrhosis of liver: Qualifiers: Hepatic cirrhosis type: alcoholic cirrhosis Ascites presence: without ascites Qualified Code(s): K70.30 - Alcoholic cirrhosis of liver without ascites Code(s): K74.60 - Unspecified cirrhosis of liver Status: Acute Assessment and Plan: chronic issue based on imaging AST and ALT are normal now Will continue to follow Subjective Date/time seen: 09/03/21 11:01 Tolerating dialysis treatment at the time of my visit (seen on HD at 10:30AM); respiratory status still remains somewhat tenuous in general; no acute distress voiced; no events/issues overnight or earlier this morning. Exam Narrative: General: WD/WN male in NAD; on BiPAP Heart: normal S1 and S2; no rub Lungs: coarse breath sounds throughout Abdomen: soft, nontender, nondistended, positive bowel sounds Extremities: no cyanosis or clubbing; no edema Skin: warm and intact Objective Data Vital Signs Vital Signs: Vital Signs Temp Pulse Resp BP Pulse Ox 09/03/21 11:00 84 111/55 L 09/03/21 10:45 91 113/69 09/03/21 10:30 82 115/62 09/03/21 10:15 96 109/55 L 09/03/21 10:00 97 23 H 110/70 100 09/03/21 09:45 91 108/60 09/03/21 09:30 91 86/71 L 09/03/21 09:15 89 127/73 09/03/21 09:00 83 104/64 09/03/21 08:46 82 116/57 L 09/03/21 08:30 36.3 C L 92 25 H 137/55 L 100 09/03/21 08:08 98 32 H 95 09/03/21 08:07 96 29 H 09/03/21 08:00 87 26 H 137/55 L 99 09/03/21 07:56 91 26 H 09/03/21 07:55 99 09/03/21 06:00 97 24 H 127/69 99 09/03/21 05:58 104 H 09/03/21 05:55 94 99 09/03/21 04:56 93 100 09/03/21 04:00 36.7 C 89 22 H 116/66 100 09/03/21 02:20 94 26 H 09/03/21 02:00 90 21 H 114/48 L 99 09/03/21 01:50 91 100 09/03/21 00:00 36.7 C 94 24 H 109/63 100 09/02/21 22:00 95 26 H 124/68 99 09/02/21 20:37 90 22 H 09/02/21 20:12 96 26 H 100 09/02/21 20:00 36.9 C 87 22 H 131/67 100 09/02/21 19:40 93 09/02/21 18:00 94 27 H 135/100 H 100 09/02/21 17:35 100 09/02/21 16:00 36.4 C 110 H 25 H 139/96 H 100 09/02/21 14:17 102 H 32 H 09/02/21 14:14 111 H 38 H 100 09/02/21 14:06 111 H 30 H 09/02/21 14:00 112 H 22 H 144/90 H 100 09/02/21 13:21 92 30 H 122/44 L 95 09/02/21 13:20 108 H 35 H 112/63 73 L 08/21
--- NOTE | 2021-09-03 11:06 | WPDINTPN ---
Progress Note: A&P Assessment and Plan (1) Acute hypercapnic respiratory failure: Code(s): J96.02 - Acute respiratory failure with hypercapnia Status: Acute Assessment and Plan: Transferred to ICU on 08/18 for Acute hypercapnic respiratory failure could be multi factorial, medications as patient received Ativan and morphine, bilateral peripheral effusion, pneumonia, will opacification of left hemithorax, atelectasis -intubated on 08/18 -CT chest 08/18/2021 shows moderate bilateral pleural effusion with probable small loculated left apical hydropneumothorax. Bilateral airspace disease throughout the residual left lung and and peripherally in the right upper and lower lobes which may represent a combination of pneumonia and/or atelectasis. -08/19 left thoracentesis with done and 500 cc fluid was removed 08/27/2021: Left-sided chest tube was inserted -08/28/2021: Right thoracentesis with removal of 700 mL of serosanguineous fluid - 09/02 -Right Ultrasound-guided thoracentesis yielding 650 mL of serosanguineous fluid. - Pt self extubated on 08/30 at night -he was on high-flow therapy, 60 L flow rate and 30% FiO2 but ABG this morning shows hypercarbia and respiratory acidosis. -patient was placed on AVAPS NIPPV and will repeat ABG in 1 hour -continue close monitoring as patient is still and risk of requiring re-intubation -chest x-ray reviewed. Will repeat CT chest once patient's respiratory status is stable for transport to radiology department -continue mucomyst, pulmozyme and chest PT. (2) Pneumonia: Qualifiers: Pneumonia type: due to unspecified organism Laterality: unspecified laterality Lung location: unspecified part of lung Qualified Code(s): J18.9 - Pneumonia, unspecified organism Code(s): J18.9 - Pneumonia, unspecified organism Status: Acute Assessment and Plan: Check x-ray x-ray with opacification of left hemithorax, combination of effusion, atelectasis, mucus plugging and pneumonia - completed a 7 day course of ceftriaxone, azithromycin - cultures were negative - WBC has normalized, afebrile (3) Altered mental status: Qualifiers: Altered mental status type: unspecified Qualified Code(s): R41.82 - Altered mental status, unspecified Code(s): R41.82 - Altered mental status, unspecified Status: Acute Assessment and Plan: RESOLVED Altered mental status likely related to hypercarbia, infection -CT brain on 08/18/2021 showed no acute intracranial abnormality -currently off all sedation and following commands (4) ESRD (end stage renal disease): Code(s): N18.6 - End stage renal disease Status: Chronic Assessment and Plan: End-stage renal disease on dialysis (M,W,F) -nephrology following the patient -dialysis per Nephrology. Patient is getting dialyzed today (5) Pleural effusion: Code(s): J90 - Pleural effusion, not elsewhere classified Status: Acute Assessment and Plan: Patient has had bilateral pleural effusion since admission, left side seems to be more loculated since admission See above (6) Cirrhosis of liver: Qualifiers: Hepatic cirrhosis type: alcoholic cirrhosis Ascites presence: without ascites Qualified Code(s): K70.30 - Alcoholic cirrhosis of liver without ascites Code(s): K74.60 - Unspecified cirrhosis of liver Status: Acute Assessment and Plan: Significantly elevated LFTs, could be related to underlying liver disease plus possible shock liver due to hypoxia -hepatitis panel is negative -right upper quadrant ultrasound -nodularity of the liver surface, consistent with cirrhosis. Gallbladder is normal -LFTs trending down (7) Pneumothorax: Code(s): J93.9 - Pneumothorax, unspecified Status: Acute Assessment and Plan: ? Small loculated pneumothorax in left lung Monitor for now Left-sided chest tube was inserted on 08/27/2021 by surgery See ab
--- NOTE | 2021-09-03 11:20 | PCNFU ---
Nutrition Follow-Up Complete: Inadequate Oral Intake as related to mechanical ventilation as evidenced by NPO. Goal: Meet estimated nutritional needs Patient is progressing towards goal. We will continue current goal. Pt current nutrition is NPO Last recorded weight is 79.5 kg, up from 62 kg on admit. Bowel Motility:+BM reported 09/03 Labs Reviewed:Hgb 9.3,Hct 30.8,Na 135, GFR 16, BUN 89, Cr 3.7,Mg 2/4, Na 133, K 5.3 Meds Noted: Albuterol, Protonix, Retacrit. Skin: Deep Tissue-heels, buttock. Additional Notes: Patient remains NPO for MBS today. Thoracentesis 09/02-750 ml removed. Dialysis today. Monitoring: Will monitor every Thursday and Thursday.
[2021-09-03] MEDS: DEXTROSE 50% 25 GM/50 ML SYRINGE IV PUSH (11:52)
[2021-09-03] MEDS: PANTOPRAZOLE SODIUM IV 40 MG VIAL IV PUSH (11:53)
[2021-09-03 12:00] LABS: Glucose Point of Care 45 mg/dl (65-105)
[2021-09-03 12:19] LABS: Glucose Point of Care 142 mg/dl (65-105)
--- NOTE | 2021-09-03 15:25 | P.PNCROSS_ITS ---
Event Note Event Note Event Note: Patient told the nurse that he did not want to wear BiPAP anymore. I went and spoke to patient and patient's who was at bedside. Our websphere commerce architect Ap also joint later in the course of discuss. I explained the need for BiPAP for his hypercarbia and respiratory acidosis and the possibility of him needing re-intubation. Patient told me that he does not want to wear BiPAP or go on the ventilator again. I explained him that without positive pressure ventilation his hypercarbia and respiratory acidosis may worse which may be detrimental to his health and he may because of that. Patient was communicating verbally and by writing notes on pad. He told me that he understood but still does not want to wear BiPAP or go on a ventilator again. He also requested to be DNR. I explained him the option of hospice care/comfort measures. It appears the patient is not ready for those at this time. He wants to continue current medical therapy including dialysis at this time but does not want to wear BiPAP, intubation or CPR. Patient's who was at bedside is agreeable with patient's decision and verbalized understanding of the implications of his decision Total time spent 30 minutes in discussion
[2021-09-03 16:26] LABS: Glucose Point of Care 106 mg/dl (65-105)
[2021-09-03 20:12] LABS: Glucose Point of Care 158 mg/dl (65-105)
--- NOTE | 2021-09-03 21:30 | PC.NURSE ---
2109 patient unresponsive to sternal rub. shallow respirations noted. bp 83/46. blood glucose 158. attempted to call family to update them, message left to daughters phone.
--- NOTE | 2021-09-03 21:47 | PC.NURSE ---
1044 Spoke with Kavita and updated on status. She requests patient to be made comfort care. verified with Erica TAYLOR
[2021-09-04] VITALS: BP 83/54; PULSE 79; PULSE 80; RESP 28; O2SAT 100; O2SAT 95
[2021-09-04 00:05] LABS: Glucose Point of Care 189 mg/dl (65-105)
--- NOTE | 2021-09-04 01:36 | PC.NURSE ---
0050. Hr in the 40's. o2sats 60's. BP 45/30. patient remains unresponsive. 0105 asystole noted per monitor. no heart sounds heard, no respirations noted. Erica chargeback specialist nurse confirmed . 0110 Kavita ( ) informed of pt passing. Will address home in the am.
[2021-09-04 16:28] LABS: Glucose Pleural Fluid 90 mg/dL; LDH Pleural Fluid 149 U/L; Total Protein Pleural Fluid <3.0 g/dL
[2021-09-05 09:24] LABS: Albumin Pleural Fluid 1.7 g/dL
--- NOTE | 2021-09-08 19:21 | PM.DS ---
DS: Admitting Diagnosis Discharge Date 09/04/21 Admitting Diagnosis Symptomatic anemia, acute renal failure, hyperkalemia. DS: Discharge Diagnosis Discharge Diagnosis (1) Acute hypercapnic respiratory failure: Code(s): J96.02 - Acute respiratory failure with hypercapnia Status: Acute Assessment and Plan: Admitted to ICU on 08/18 for Acute hypercapnic respiratory failure could be multi factorial, medications as patient received Ativan and morphine, bilateral peripheral effusion, pneumonia, will opacification of left hemithorax, atelectasis -intubated on 08/18 -CT chest 08/18/2021 shows moderate bilateral pleural effusion with probable small loculated left apical hydropneumothorax. Bilateral airspace disease throughout the residual left lung and and peripherally in the right upper and lower lobes which may represent a combination of pneumonia and/or atelectasis. -08/19 left thoracentesis with done and 500 cc fluid was removed 08/27/2021: Left-sided chest tube was inserted -08/28/2021: Right thoracentesis with removal of 700 mL of serosanguineous fluid - 09/02 -Right Ultrasound-guided thoracentesis yielding 650 mL of serosanguineous fluid. - Pt self extubated on 08/30 at night -he was on high-flow therapy, 60 L flow rate and 30% FiO2 but ABG this morning shows hypercarbia and respiratory acidosis. -patient was placed on AVAPS NIPPV and will repeat ABG in 1 hour -continue close monitoring as patient is still and risk of requiring re-intubation -chest x-ray reviewed. Will repeat CT chest once patient's respiratory status is stable for transport to radiology department -continue mucomyst, pulmozyme and chest PT. -09/03/2021; patient DNI DNR. Patient does not want BiPAP placement in the future. (2) Pneumonia: Qualifiers: Pneumonia type: due to unspecified organism Laterality: unspecified laterality Lung location: unspecified part of lung Qualified Code(s): J18.9 - Pneumonia, unspecified organism Code(s): J18.9 - Pneumonia, unspecified organism Status: Acute Assessment and Plan: Check x-ray x-ray with opacification of left hemithorax, combination of effusion, atelectasis, mucus plugging and pneumonia - completed a 7 day course of ceftriaxone, azithromycin - cultures were negative - WBC has normalized, afebrile (3) Altered mental status: Qualifiers: Altered mental status type: unspecified Qualified Code(s): R41.82 - Altered mental status, unspecified Code(s): R41.82 - Altered mental status, unspecified Status: Acute Assessment and Plan: RESOLVED Altered mental status likely related to hypercarbia, infection -CT brain on 08/18/2021 showed no acute intracranial abnormality -currently off all sedation and following commands (4) ESRD (end stage renal disease): Code(s): N18.6 - End stage renal disease Status: Chronic Assessment and Plan: End-stage renal disease on dialysis (M,W,F) -nephrology following the patient -dialysis per Nephrology. Patient is getting dialyzed today (5) Pleural effusion: Code(s): J90 - Pleural effusion, not elsewhere classified Status: Acute Assessment and Plan: Patient has had bilateral pleural effusion since admission, left side seems to be more loculated since admission See above (6) Cirrhosis of liver: Qualifiers: Hepatic cirrhosis type: alcoholic cirrhosis Ascites presence: without ascites Qualified Code(s): K70.30 - Alcoholic cirrhosis of liver without ascites Code(s): K74.60 - Unspecified cirrhosis of liver Status: Acute Assessment and Plan: Significantly elevated LFTs, could be related to underlying liver disease plus possible shock liver due to hypoxia -hepatitis panel is negative -right upper quadrant ultrasound -nodularity of the liver surface, consistent with cirrhosis. Gallbladder is normal -LFTs trending down (7) Pneumothorax: Code(s):
--- NOTE | 2021-09-08 19:23 | PM.DDS ---
Discharge Summary Date and Time Date of : 09/04/21 Time of : 01:05 Provider Pronounced By: Leanna Morejon Probable Cause of Probable Cause of : Acute respiratory failure. Summary Hospital Course: Please refer to admission H& P. Briefly,This is an unfortunate 74-year-old male with known history of chronic hypertension who presented to the hospital with worsening shortness of breath over the past 4 days. The patient does report having dark stools and has been lightheaded. He also tells me that he has had increased generalized weakness and been feeling very tired. Patient is known to live with his and he does admit to chronic alcoholism. When I asked him how much alcohol he drinks every day he tells me he drinks as much as he can. The patient is a former smoker although he has not smoked for the past 15 years. He denies any anticoagulant use and also denies any aspirin use. He tells me that he has had a previous GI bleed in the past but he does not know the reason why. Overall the patient is a very poor historian and on many of my questions his answer is simply, I do not know. The patient tonight denies any fever or chills, chest pain, nausea, vomiting, abdominal pain, diarrhea, dysuria, hematuria, or dark emesis. The patient was evaluated emergency room and found to have a severe anemia with a hemoglobin of 4.7 and hematocrit of 14.1. To have complicated UTI with acute renal failure and hyperkalemia with a potassium of 6.4. CT abdomen pelvis demonstrated diffuse wall thickening in the bladder with trabeculation suggesting this is due at least in part to chronic outlet obstruction however there is also urothelial thickening along the bilateral ureters and could not exclude cystitis with associated ascending urinary tract infection. Nephrology has been consulted and the patient has been started on a sodium bicarbonate IV drip. Blood transfusions have been ordered as well. Material Reclaimer, Dr. Parks has been consulted. He has no other significant complaints at this time. Admitted to ICU on 08/18 for Acute hypercapnic respiratory failure could be multi factorial, medications as patient received Ativan and morphine, bilateral peripheral effusion, pneumonia, will opacification of left hemithorax, atelectasis -intubated on 08/18 -CT chest 08/18/2021 shows moderate bilateral pleural effusion with probable small loculated left apical hydropneumothorax. Bilateral airspace disease throughout the residual left lung and and peripherally in the right upper and lower lobes which may represent a combination of pneumonia and/or atelectasis. -08/19 left thoracentesis with done and 500 cc fluid was removed 08/27/2021: Left-sided chest tube was inserted -08/28/2021: Right thoracentesis with removal of 700 mL of serosanguineous fluid - 09/02 -Right Ultrasound-guided thoracentesis yielding 650 mL of serosanguineous fluid. - Pt self extubated on 08/30 at night -he was on high-flow therapy, 60 L flow rate and 30% FiO2 but ABG this morning shows hypercarbia and respiratory acidosis. -patient was placed on AVAPS NIPPV and will repeat ABG in 1 hour -continue close monitoring as patient is still and risk of requiring re-intubation -chest x-ray reviewed. Will repeat CT chest once patient's respiratory status is stable for transport to radiology department -continue mucomyst, pulmozyme and chest PT. -09/03/2021; patient DNI DNR. Patient does not want BiPAP placement in the future. Patient next stay. (2) Pneumonia: Qualifiers: Pneumonia type: due to unspecified organism Laterality: unspecified laterality Lung location: unspecified part of lung Qualified Code(s): J18.9 - Pneumonia, unspecified organism Code(s): J18.9 - Pneumonia, unspecified organism Status: Acute Assessment and Plan: Check x-ray x-ray with opacification of left hemithorax, combination of effusion, atelectasis, mucus plugg
== END 2021-09-04 01:05 | disposition expired | DRG 207 ==
LOC: ANHED 14:05 → ANHIMU 18:06 → ANHICU 08-18 10:09 → ANHIMU 08-18 10:11
PROVIDERS: Family Medicine; Internal Medicine; Internal Medicine Nephrology; Physician Assistant; Admitting Provider Internal Medicine; Emergency Provider Emergency Medicine; PCP Physician Assistant; Visit Provider Internal Medicine
DX: J96.02 Acute respiratory failure with hypercapnia; N18.6 End stage renal disease; J18.9 Pneumonia, unspecified organism; J44.0 Chronic obstructive pulmonary disease with (acute) lower respiratory infection; E87.1 Hypo-osmolality and hyponatremia; I12.0 Hypertensive chronic kidney disease with stage 5 chronic kidney disease or end stage renal disease; J91.8 Pleural effusion in other conditions classified elsewhere; J94.8 Other specified pleural conditions; Z99.2 Dependence on renal dialysis; Z66 Do not resuscitate; D63.1 Anemia in chronic kidney disease; R41.82 Altered mental status, unspecified; K70.30 Alcoholic cirrhosis of liver without ascites; F10.11 Alcohol abuse, in remission; N40.0 Benign prostatic hyperplasia without lower urinary tract symptoms; E87.8 Other disorders of electrolyte and fluid balance, not elsewhere classified; K21.9 Gastro-esophageal reflux disease without esophagitis; I95.9 Hypotension, unspecified; R74.8 Abnormal levels of other serum enzymes; Z79.899 Other long term (current) drug therapy; Z87.11 Personal history of peptic ulcer disease; Z87.891 Personal history of nicotine dependence; Z88.0 Allergy status to penicillin
CPT/HCPCS: 31500; 32555; 36415; 36569; 36600; 70450; 71045; 71046; 71250; 76705; 80048; 80053; 80069; 80074; 80076; 80202; 82042; 82140; 82375; 82533; 82607; 82805; 82945; 82948; 83050; 83605; 83615; 83735; 83880; 83986; 84100; 84145; 84157; 84443; 85025; 85027; 85046; 85055; 85610; 85730; 86140; 87015; 87040; 87070; 87075; 87102; 87116; 87205; 87206; 88104; 88108; 88184; 88305; 89051; 92610; 93005; 93306; 93923; 94002; 94003; 94640; 94660; 94667; 94668; 94669; 96374; 99285; A9270; C1729; C1751; C9113; G0257; J0456; J0696; J1200; J1610; J1644; J1940; J2060; J2250; J2270; J2310; J2930; J3010; J3370; J7030; J7050; P9047; Q5105